=== PATIENT | male | born 1945 | race Caucasian/White ===

== ENCOUNTER 2020-01-31 17:22 | Inpatient (IN) | payer MEDICARE, SELFPAY ==
[2020-01-31] VITALS (9 sets, daily range): BP systolic 143–167; BP diastolic 72–79; PULSE 65–70; RESP 20–25; TEMP 36.4–37.1; O2SAT 94–98; BMI 44.3
--- NOTE | ~2020-01-31 | US_ITS ---
EXAMINATION: US venous doppler [facility] DATE: 02/01/2020 17:58 INDICATION: Lower limb swelling, shortness of breath TECHNIQUE: Fuentes scale images without and with compression and Doppler images of the bilateral lower e xtremity veins were obtained. COMPARISON: None FINDINGS: The right common femoral vein, profunda femoral vein, femoral vein, popliteal vein, peroneal trunk, p osterior tibial veins, and greater saphenous vein are patent. The left common femoral vein, profunda femoral vein, femoral vein, popliteal vein, peroneal trunk, po sterior tibial veins, and greater saphenous vein are patent. IMPRESSION: 1. Patent bilateral lower extremity veins. No evidence of deep venous thrombosis. Reviewed, dictated and finalized at location A. ER APPLICATOR IMPRESSION: 1. Patent bilateral lower extremity veins. No evidence of deep venous thrombosi s.
--- NOTE | ~2020-01-31 | XR_ITS ---
EXAMINATION: XR chest 1V portable INDICATION: Shortness of breath, cough, COVID 19 positive TECHNIQUE: Portable AP chest at 1820 hours COMPARISON: 04/29/2018 FINDINGS: Patchy bilateral airspace opacities are present. There is no pleural effusion or pneumothor ax. The cardiomediastinal silhouette is normal. IMPRESSION: 1. Patchy bilateral airspace opacities, consistent with pneumonia. Reviewed, dictated and finalized at location A. LE CONSULTANT
--- NOTE | ~2020-01-31 | XR_ITS ---
EXAMINATION: XR chest 1V portable DATE: 02/02/2020 10:19 INDICATION: COVID-19 pneumonia. TECHNIQUE: A single frontal view of the chest was obtained. COMPARISON: Chest single view 01/31/2020, CT abdomen and pelvis 07/22/2018 FINDINGS: There are patchy airspace opacities in all lung zones bilaterally. No pleural effusion or p neumothorax. The heart size is normal. IMPRESSION: 1. Stable diffuse lung disease, consistent with pneumonia. Reviewed, dictated and finalized at location B. AL OFFICE ASSISTANT
--- NOTE | ~2020-01-31 | XR_ITS ---
EXAMINATION: XR chest 1V portable DATE: 02/04/2020 06:00 INDICATION: COVID pneumonia TECHNIQUE: frontal view of the chest was obtained. COMPARISON: Chest radiograph dated 02/02/2020 FINDINGS: No significant interval change in patchy airspace opacities scattered throughout both lungs. No pleur al effusion or pneumothorax. The cardiomediastinal silhouette is normal. IMPRESSION: 1. Stable diffuse bilateral lung disease consistent with pneumonia. Reviewed, dictated and finalized at location A. HYSICAL LABORATORY CHIEF
--- NOTE | 2020-01-31 17:56 | ECG_ITS ---
Measurements Intervals [place] Rate: 69 P: 74 FL: 264 QRS: 30 QRSD: 92 T: 30 QT: 429 QTc: 462 Interpretive Statements SINUS RHYTHM WITH FIRST DEGREE AV BLOCK BASELINE WANDER- I, III ABNORMAL ECG Electronically Signed On 02-01-2020 6:56:59 WIRE SPLICER by Sanju Randolph D.O.
--- NOTE | 2020-01-31 17:57 | ED.GENADULT ---
HPI - General Adult General Chief complaint: Unspecified Stated complaint: COVID+ 12/3 SOB COUGH Time Seen by Provider: 01/31/20 17:40 Source: patient Mode of arrival: ambulatory Limitations: no limitations History of Present Illness HPI narrative: This is a 74 year old male that presents to the ER for shortness of breath x 4 days. Reports he was recently diagnosed with covid. Reports ongoing shortness of breath and cough. Denies fever, chest pain or lower extremity edema. Related Data Home Medications Medication Instructions Recorded Confirmed acetaminophen 500 mg tablet 1,000 mg PO Q6H PRN tablet 03/08/19 01/12/20 amlodipine 10 mg tablet 10 mg PO DAILY 03/08/19 01/12/20 apixaban 5 mg tablet 5 mg PO BID 03/08/19 01/12/20 aspirin 81 mg tablet,delayed 81 mg PO DAILY 03/08/19 01/12/20 release atorvastatin 20 mg tablet 20 mg PO DAILY 03/08/19 01/12/20 famotidine 20 mg tablet 20 mg PO DAILY 03/08/19 01/12/20 gabapentin 600 mg tablet 600 mg PO TID 03/08/19 01/12/20 nitroglycerin 0.6 mg sublingual 0.6 mg SUBLINGUAL Q5M PRN 03/08/19 01/12/20 tablet ramipril 10 mg capsule 10 mg PO DAILY 03/08/19 01/12/20 sotalol 80 mg tablet 80 mg PO BID tablet 03/08/19 01/12/20 furosemide [Lasix] 40 mg PO QAM 01/31/20 Allergies Allergy/AdvReac Type Severity Reaction Status Date / Time No Known Allergies Allergy Verified 01/31/20 17:48 Review of Systems Review of Systems: Narrative: CONSTITUTIONAL: Denies fever ENT: Reports congestion. Denies sore throat CARDIOVASCULAR: Denies chest pain, or edema. RESPIRATORY: Reports cough and dyspnea. All systems reviewed & are unremarkable except as noted in HPI and below PMFSH Past Medical History Medical History Atherosclerotic heart disease of [place] coronary artery without angina pectoris Chronic diastolic CHF (congestive heart failure) Chronic GERD COPD (chronic obstructive pulmonary disease) Hypertensive heart disease with heart failure HELLEN (obstructive sleep apnea) Paroxysmal A-fib Surgical History Surgical History History of cardiac radiofrequency ablation S/P coronary artery stent placement Family History Family History Sibling Hypertension Family history of coronary artery disease Asthma Social History Social History Social History: 3 cigars a week Years smoked: 10 Smoking status: Former smoker Tobacco type: cigars Second hand tobacco smoke exposure: No Smoking end date: 02/24/14 Alcohol intake: current Drinks per week: 3 Substance use: never Substance use type: does not use Gender identity (if verbalized by the patient): Male Exam Narrative: Exam Narrative: GENERAL: Well-appearing, obese, and in no acute distress. HEAD: Normocephalic, atraumatic. EYES: EOMI. ENT: Nares clear, no rhinorrhea or epistaxis. Mucous membranes moist. Oropharynx without tonsillar hypertrophy exudate or other lesions. Bilateral TMs pearly escalante non-bulging NECK: Supple. No adenopathy or masses. CHEST: Clear to auscultation. No respiratory distress. No wheezes rales or rhonchi HEART: Regular rate and rhythm. No murmur heard. Normal peripheral pulses. EXTREMITIES: Normal range of motion. No edema. SKIN: Warm, dry, no rash. NEURO: No focal deficits. Alert and oriented x3. PSYCH: Normal mood and affect Course Consultations Consultation #1: Spoke with hospitalist about patient and work-up who accepts admission Date: 01/31/20 Time: 19:51 Vital Signs Vital signs: Vital Signs Temperature 97.5 F L 01/31/20 17:42 Pulse Rate 68 01/31/20 17:42 Respiratory Rate 20 01/31/20 17:42 Pulse Oximetry 94 01/31/20 17:42 Temperature 98.7 F 01/31/20 19:27 Pulse Rate 65 01/31/20 19:27 Respiratory Rate 25 H 01/31/20 19:27 Blood Pressure 15
[2020-01-31 18:07] LABS: Basophils Percent Auto 0.4 % (0.2-1.2); Eosinophils Absolute Auto 0.1 K/mm3 (0-0.3); Eosinophils Percent Auto 0.6 % (0-4.4); Hematocrit 41.7 % (42.0-52.0); Immature Granulocyte Absolute 0.07 K/mm3 (0.00-0.031); Immature Granulocyte Percent A 0.9 % (0-0.5); Lymphocytes Percent Auto 13.9 % (18.3-44.2); Mean Corpuscular HGB Conc 33.6 g/dl (32-36); Mean Corpuscular Hemoglobin 30.4 pg (26-34); Mean Corpuscular Volume 90.5 fl (80-100); Monocytes Absolute Auto 0.6 K/mm3 (0.1-0.6); Neutrophils Percent Auto 76.2 % (45.5-73.1); Platelet Count Result 358 k/mm3 (150-375); Red Blood Count 4.61 M/mm3 (4.6-6.20); White Blood Count 7.9 K/mm3 (4.5-10.0)
[2020-01-31] MEDS: DEXAMETHASONE SOD PHOS INJ 4 MG/ML VIAL 6 MG IV PUSH (18:12)
[2020-01-31 18:19] LABS: Lactic Acid Reflex 1.1 mmol/L (0.7-2.1)
[2020-01-31 18:23] LABS: Alanine Aminotransferase 33 U/L (4-50); Albumin Level 4.3 g/dL (3.5-5.1); Alkaline Phosphatase 105 U/L (38-126); Anion Gap 9 mmol/L (8-16); Aspartate Amino Transferase 49 U/L (17-59); Bilirubin,Total 0.8 mg/dL (0.2-1.3); Blood Urea Nitrogen 24 mg/dL (9-20); Calcium 9.1 mg/dL (8.4-10.2); Carbon Dioxide 30 mmol/L (22-30); Chloride 99 mmol/L (98-107); Estimated CRCL calculation 78 ml/min; Estimated Glomerular Filt Rate > 60; Glucose 134 mg/dL (75-110); Lactate Dehydrogenase 711 U/L (313-618); Potassium 4.6 mmol/L (3.4-5.0); Sodium 138 mmol/L (137-145)
[2020-01-31 18:27] LABS: NT Pro B Type Natriuretic Pept 375 PG/ML (5-100)
[2020-01-31 18:29] LABS: Alveolar/Arterial O2 Gradient 75.6 mmHg; Base Excess ABG 2.6 mEq/l (+/-2.0); Carboxyhemoglobin 1.1 % THb (0-2.0); Fractional Inspired Oxygen 28 %; HCO3 ABG 28.3 mEq/l (22.0-26.0); Methemoglobin ABG 0.3 %THb (0-1.5); Oxygen Content ABG 17.8 %vol (16.0-22.0); Oxyhemoglobin 91.5 % THb (90.0-100.0); PCO2 ABG 48.2 mmHg (35.0-45.0); PO2 ABG 67.2 mmHg (80.0-100.0); Reduced Hemoglobin 7.1 %THb (0-5.0); Total Hemoglobin 13.8 g/dL (12.0-18.0); pH ABG 7.387 (7.350-7.450)
[2020-01-31 18:30] LABS: Device NASAL CANNULA; Modified Allen's Test Pass; Site Drawn RIGHT RADIAL
[2020-01-31 18:31] LABS: CRP 20.9 mg/dL (<1.0)
[2020-01-31 19:04] LABS: INR 1.5; Prothrombin Time 18.5 Seconds (11.1-14.7)
[2020-01-31 19:05] LABS: Partial Thromboplastin Time 51.3 SECONDS (22.3-36.8)
[2020-01-31 19:07] LABS: D Dimer 0.65 ug/mL (<0.48)
--- NOTE | 2020-01-31 19:09 | PC.NURSE ---
Report to AMARILIS Rosado, to continue care.
--- NOTE | 2020-01-31 19:12 | PC.NURSE ---
Assumed care of pt. report from AMARILIS Chaves
--- NOTE | 2020-01-31 20:00 | PC.NURSE ---
Called pharmacy for medication on pt. reports it is not ready yet.
--- NOTE | 2020-01-31 20:29 | PM.IMHP ---
H&P: HPI History of Present Illness Date/Time: 01/31/20 20:29 Chief complaint: Covidpneumonia,acute respiratory failure w hypoxia Narrative: This is a pleasant 74 year old male with known COPD, Chronic diastolic heart failure, CAD+, and paroxysmal atrial fibrillation on chronic Eliquis therapy presented to the hospital today with increased shortness of breath. He tested positive for COVID-19 approximately 4 days ago although he reports having COVID symptoms since . He reports having a sporadic poorly productive cough, shortness of breath, fatigue and malaise. He denies any fevers, chills, chest pain, palpitations, sore throat, nausea, vomiting, diarrhea, dysuria, or rectal bleeding. He has chronic lower extremity edema which hasn't changed recently. Today he decided to come in as he was having severe shortness of breath with minimal exertion. He has been taking his home medications as prescribed. In the ER tonight the patient was evaluated and ABG demonstrated hypoxemia. CXR demonstrated patchy bilateral airspace opacities, consistent with pneumonia. The patient has been treated with bronchodilators and steroid therapy. We have been asked to admit the patient to the hospital for further care. No other complaints. Review of Systems Review of Systems: All systems reviewed & are unremarkable except as noted in HPI and below PMFSH Past Medical History Medical History Atherosclerotic heart disease of [place] coronary artery without angina pectoris Chronic diastolic CHF (congestive heart failure) Chronic GERD COPD (chronic obstructive pulmonary disease) Hypertensive heart disease with heart failure HELLEN (obstructive sleep apnea) Paroxysmal A-fib Surgical History Surgical History History of cardiac radiofrequency ablation S/P coronary artery stent placement Family History Family History Sibling Hypertension Family history of coronary artery disease Asthma Social History Social History Social History: 3 cigars a week Years smoked: 10 Smoking status: Never smoker Tobacco type: cigars Second hand tobacco smoke exposure: No Smoking end date: 02/24/14 Alcohol intake: current Drinks per week: 2 Substance use: never Substance use type: does not use Gender identity (if verbalized by the patient): Male Spiritual care concerns: No Meds Home Medications and Allergies Home Medications Medication Instructions Recorded Confirmed Type acetaminophen 500 mg tablet 1,000 mg PO Q6H PRN tablet 03/08/19 01/31/20 History amlodipine 10 mg tablet 10 mg PO DAILY 03/08/19 01/31/20 History apixaban 5 mg tablet 5 mg PO BID 03/08/19 01/31/20 History aspirin 81 mg tablet,delayed 81 mg PO DAILY 03/08/19 01/31/20 History release atorvastatin 20 mg tablet 10 mg PO HS 03/08/19 01/31/20 History famotidine 20 mg tablet 20 mg PO HS 03/08/19 01/31/20 History gabapentin 600 mg tablet 600 mg PO TID 03/08/19 01/31/20 History nitroglycerin 0.6 mg sublingual 0.6 mg SUBLINGUAL Q5M PRN 03/08/19 01/31/20 History tablet ramipril 10 mg capsule 10 mg PO DAILY 03/08/19 01/31/20 History sotalol 80 mg tablet 80 mg PO BID tablet 03/08/19 01/31/20 History albuterol sulfate 90 mcg/actuation 1 puff INHALATION Q4-6H PRN 90 12/21/19 01/31/20 Rx aerosol inhaler Days #25.5 g etodolac 400 mg tablet,extended 400 mg PO DAILY #90 tablet 12/21/19 01/31/20 Rx release 24 hr azelastine 1 spray INTRANASAL HS 01/31/20 01/31/20 History fluticasone furoate-vilanterol 1 inh INHALATION HS 01/31/20 01/31/20 History [Breo Ellipta] furosemide [Lasix] 40 mg PO QAM 01/31/20 01/31/20 History Allergies Allergy/AdvReac Type Severity Reaction Status Date / Time No Known Allergies Allergy Verified 01/31/20 17:48
--- NOTE | 2020-01-31 20:35 | PC.NURSE ---
This patient, Vu Nicole, was admitted to 3 Med Surg Room 319-01. Patient/family oriented to hospital policies and general routines including ID bracelet, bed and alarms, visiting hours, pain management, procedures, bathroom and other care routines, personal items, smoking policy, room service/diet, and visiting hours. Information on how to activate the Rapid Response Team has been discussed. Patient/Family are encouraged to report perceived risks to care and to ask questions if they do not understand what they are told or what they should do.
[2020-01-31] MEDS: REMDESIVIR 200 MG/NS 250 ML 200 MG/250 ML BAG 250 MG IVPB (20:57)
[2020-02-01] VITALS (10 sets, daily range): BP systolic 121–145; BP diastolic 49–73; PULSE 66–80; RESP 18–20; TEMP 36.3–36.6; O2SAT 92–96
[2020-02-01] MEDS: ALBUTEROL SULFATE (*SP) AEROSOL 1 PUFF 2 PUFF INHALATION ×4 (01:45→22:41)
[2020-02-01 06:41] LABS: Basophils Percent Auto 0.2 % (0.2-1.2); Hematocrit 39.7 % (42.0-52.0); Hemoglobin 13.3 g/dL (14.0-18.0); Immature Granulocyte Absolute 0.03 K/mm3 (0.00-0.031); Immature Granulocyte Percent A 0.6 % (0-0.5); Lymphocytes Percent Auto 13.3 % (18.3-44.2); Mean Corpuscular HGB Conc 33.5 g/dl (32-36); Mean Corpuscular Volume 89.4 fl (80-100); Mean Platelet Volume 9.8 fl (7.4-10.4); Monocytes Absolute Auto 0.2 K/mm3 (0.1-0.6); Monocytes Percent Auto 4.4 % (2.6-8.5); Neutrophils Absolute Auto 4.3 K/mm3 (1.3-6.7); Neutrophils Percent Auto 81.5 % (45.5-73.1); Platelet Count Result 364 k/mm3 (150-375); Red Blood Count 4.44 M/mm3 (4.6-6.20); Red Cell Distribution Width 14.7 % (11.5-14.5); White Blood Count 5.3 K/mm3 (4.5-10.0)
[2020-02-01 06:54] LABS: Alanine Aminotransferase 31 U/L (4-50); Anion Gap 7 mmol/L (8-16); Blood Urea Nitrogen 21 mg/dL (9-20); Calcium 8.4 mg/dL (8.4-10.2); Carbon Dioxide 31 mmol/L (22-30); Chloride 100 mmol/L (98-107); Estimated CRCL calculation 97 ml/min; Estimated Glomerular Filt Rate > 60; Glucose 143 mg/dL (75-110); Potassium 4.4 mmol/L (3.4-5.0); Sodium 138 mmol/L (137-145)
[2020-02-01] MEDS: GABAPENTIN 300 MG CAPSULE 600 MG PO ×3 (08:05→16:44)
[2020-02-01] MEDS: FUROSEMIDE 40 MG TABLET PO (08:06)
[2020-02-01] MEDS: ETODOLAC 400 MG TABLET PO (08:06)
[2020-02-01] MEDS: ASPIRIN 81 MG ENTERIC TABLET PO (08:06)
[2020-02-01] MEDS: amLODIPine BESYLATE 5 MG TABLET 10 MG PO (08:06)
[2020-02-01] MEDS: DEXAMETHASONE SOD PHOS INJ 4 MG/ML VIAL 6 MG IV PUSH (08:07)
[2020-02-01] MEDS: SOTALOL HCL 80 MG TABLET PO ×2 (08:07→16:44)
[2020-02-01] MEDS: APIXABAN 5 MG TABLET PO ×2 (08:08→16:44)
--- NOTE | 2020-02-01 15:17 | PM.IMPN ---
Progress Note: A&P Assessment and Plan (1) Acute respiratory failure with hypoxia: Code(s): J96.01 - Acute respiratory failure with hypoxia Status: Acute Assessment and Plan: Admit to med-surg. Improving SpO2 100% on 3 L NC. Continue oxygen supplementation. Titrate as needed. Continuous pulse oximetry. Cardiac telemetry monitoring for first 24 hours was stable. Wean off of oxygen when possible. RT assess and treat. (2) Pneumonia due to COVID-19 virus: Code(s): U07.1 - COVID-19; J12.89 - Other viral pneumonia Status: Acute Assessment and Plan: Continue droplet isolation. blood and sputum cultures. Continue dexamethasone and supportive care. Continue IV Remdesvimir. Bronchodilators. Incentive spirometer. Already on Eliquis anticoagulation - continued. Daily serial LDH, CRP, CBC, CMP, Ferritin labs. Mucinex BID. (3) COPD (chronic obstructive pulmonary disease): Qualifiers: COPD type: unspecified COPD Qualified Code(s): J44.9 - Chronic obstructive pulmonary disease, unspecified Code(s): J44.9 - Chronic obstructive pulmonary disease, unspecified Status: Chronic Assessment and Plan: Continue respiratory therapy as delineated above. Sputum and blood cultures pending. Bronchodilators. Continue Azelastine for postnasal drip. (4) Chronic diastolic CHF (congestive heart failure): Code(s): I50.32 - Chronic diastolic (congestive) heart failure Status: Chronic Assessment and Plan: Monitor fluid status. Continue home medications. Continued home 40mg Lasix orally daily. Added one time dose 20mg Lasix IV today BASILIA hose stockings to BLE. Daily weights. (5) Paroxysmal A-fib: Code(s): I48.0 - Paroxysmal atrial fibrillation Status: Chronic Assessment and Plan: Currently rate controlled. Continue sotalol and Eliquis. Cardiac telemetry monitoring for first 24 hours was stable. HR 60s SBP 140s (6) Atherosclerotic heart disease of [place] coronary artery without angina pectoris: Qualifiers: [place] vs. transplanted heart: unspecified whether [place] or transplanted heart Qualified Code(s): I25.10 - Atherosclerotic heart disease of [place] coronary artery without angina pectoris Code(s): I25.10 - Atherosclerotic heart disease of [place] coronary artery without angina pectoris Status: Chronic Assessment and Plan: No chest pain. Continue CAD medications. Apixaban 5 mg BID continued. ASA 81 mg daily continued Atorvastatin 20mg daily continued. Nitro at home. (7) Mixed hyperlipidemia: Code(s): E78.2 - Mixed hyperlipidemia Status: Chronic Assessment and Plan: Continue atorvastatin PO. Ordered PT/OT. Additional Plan The patient will likely need at least 2 nights of inpatient medical therapy for his acute respiratory failure and pneumonia. Date of service was 01/31/2020 at 8 pm. Subjective Date/time seen: 02/01/20 15:17 Vu was sitting up in his recliner with both of his feet elevated, when I went to examine him. He has been on 3 L of oxygen all day. He does not use oxygen at home. He does have home inhaler medications on his home med list. Those have been continued at admission. He will receive his 2nd dose of antiviral IV medicine as well as his 2nd dose of dexamethasone. I have ordered PT and OT to evaluate home as well as incentive spirometry. His legs are very swollen today. I have ordered BLE DVT US. He did admit that typically he swims about an hour every day at the local indoor pool but he has not done that in about a month he said. He did receive his usual home dose of 40 mg Lasix orally this morning, but I ordered a one time 20 mg IV dose of Lasix to be given now. Review of Systems Review of Systems: All systems reviewed & are unremarkable except as noted in HPI and below Constitutional: Constitutional: Reports as per HPI, Denies excessive swea
[2020-02-01] MEDS: FUROSEMIDE INJ 40 MG/4 ML VIAL 20 MG IV PUSH (18:22)
[2020-02-01] MEDS: AZELASTINE HCL NASAL 0.1% 137 MCG/SPR 30 ML BTL 1 SPRAY NASAL (21:16)
[2020-02-01] MEDS: guaiFENesin 12 HR 600 MG TABCR 1200 MG PO (21:17)
[2020-02-01] MEDS: FAMOTIDINE 20 MG TABLET PO (21:17)
[2020-02-01] MEDS: ATORVASTATIN 10 MG TABLET PO (21:17)
[2020-02-01] MEDS: REMDESIVIR 100 MG/NS 250 ML 100 MG/250 ML BAG 250 MG IVPB (22:18)
[2020-02-02] VITALS (10 sets, daily range): BP systolic 127–144; BP diastolic 56–66; PULSE 58–68; RESP 16–20; TEMP 36.2–37; O2SAT 91–97
[2020-02-02] MEDS: ALBUTEROL SULFATE (*SP) AEROSOL 1 PUFF 2 PUFF INHALATION ×4 (02:51→21:30)
[2020-02-02 07:00] LABS: Hematocrit 38.5 % (42.0-52.0); Mean Corpuscular HGB Conc 33.8 g/dl (32-36); Mean Corpuscular Hemoglobin 30.2 pg (26-34); Mean Corpuscular Volume 89.5 fl (80-100); Mean Platelet Volume 9.8 fl (7.4-10.4); Platelet Count Result 388 k/mm3 (150-375); Red Cell Distribution Width 14.8 % (11.5-14.5); White Blood Count 10.1 K/mm3 (4.5-10.0)
[2020-02-02 07:14] LABS: Alanine Aminotransferase 33 U/L (4-50); Albumin Level 3.6 g/dL (3.5-5.1); Alkaline Phosphatase 83 U/L (38-126); Anion Gap 5 mmol/L (8-16); Aspartate Amino Transferase 42 U/L (17-59); Bilirubin,Total 0.5 mg/dL (0.2-1.3); Blood Urea Nitrogen 21 mg/dL (9-20); CRP 8.7 mg/dL (<1.0); Calcium 8.3 mg/dL (8.4-10.2); Carbon Dioxide 31 mmol/L (22-30); Chloride 101 mmol/L (98-107); Estimated CRCL calculation 97 ml/min; Estimated Glomerular Filt Rate > 60; Glucose 138 mg/dL (75-110); Lactate Dehydrogenase 677 U/L (313-618); Phosphorus 4.2 mg/dL (2.5-4.5); Potassium 4.4 mmol/L (3.4-5.0); Sodium 137 mmol/L (137-145)
[2020-02-02 07:20] LABS: NT Pro B Type Natriuretic Pept 494 PG/ML (5-100)
[2020-02-02] MEDS: guaiFENesin 12 HR 600 MG TABCR 1200 MG PO ×2 (08:12→21:29)
[2020-02-02] MEDS: ramipriL 5 MG CAPSULE 10 MG PO (08:12)
[2020-02-02] MEDS: ASPIRIN 81 MG ENTERIC TABLET PO (08:12)
[2020-02-02] MEDS: GABAPENTIN 300 MG CAPSULE 600 MG PO ×3 (08:12→18:04)
[2020-02-02] MEDS: DEXAMETHASONE SOD PHOS INJ 4 MG/ML VIAL 6 MG IV PUSH (08:13)
[2020-02-02] MEDS: APIXABAN 5 MG TABLET PO ×2 (08:13→18:05)
[2020-02-02] MEDS: amLODIPine BESYLATE 5 MG TABLET 10 MG PO (08:13)
[2020-02-02] MEDS: ETODOLAC 400 MG TABLET PO (08:13)
[2020-02-02] MEDS: FUROSEMIDE 40 MG TABLET PO (08:14)
[2020-02-02] MEDS: SOTALOL HCL 80 MG TABLET PO ×2 (08:14→18:05)
--- NOTE | 2020-02-02 11:02 | PM.IMPN ---
Progress Note: A&P Assessment and Plan (1) Acute respiratory failure with hypoxia: Code(s): J96.01 - Acute respiratory failure with hypoxia Status: Acute Assessment and Plan: Admit to med-surg. Continue oxygen supplementation. Continuous pulse oximetry. Wean off of oxygen when possible. RT assess and treat. (2) Pneumonia due to COVID-19 virus: Code(s): U07.1 - COVID-19; J12.89 - Other viral pneumonia Status: Acute Assessment and Plan: Continue droplet isolation. blood and sputum cultures. Continue dexamethasone and supportive care. Bronchodilators. ordered PT and OT remains on 3 L of nasal cannula oxygen. COVID test was positive and completed a few days prior to his hospital admission. now on day 2 of his antiviral IV Remdesivimir and oral dexamethasone. ordered incentive spirometer to be started today. no DVT found on his lower extremity ultrasound. Hilario hose stockings are on and his swelling is about half and much improved since yesterday. (3) COPD (chronic obstructive pulmonary disease): Qualifiers: COPD type: unspecified COPD Qualified Code(s): J44.9 - Chronic obstructive pulmonary disease, unspecified Code(s): J44.9 - Chronic obstructive pulmonary disease, unspecified Status: Chronic Assessment and Plan: Continue respiratory therapy as delineated above. (4) Chronic diastolic CHF (congestive heart failure): Code(s): I50.32 - Chronic diastolic (congestive) heart failure Status: Chronic Assessment and Plan: Monitor fluid status. Continue home medications. no DVT found on his lower extremity ultrasound. Hilario hose stockings are on and his swelling is about half and much improved since yesterday. (5) Paroxysmal A-fib: Code(s): I48.0 - Paroxysmal atrial fibrillation Status: Chronic Assessment and Plan: Currently rate controlled. Continue sotalol and Eliquis. (6) Atherosclerotic heart disease of [place] coronary artery without angina pectoris: Qualifiers: [place] vs. transplanted heart: unspecified whether [place] or transplanted heart Qualified Code(s): I25.10 - Atherosclerotic heart disease of [place] coronary artery without angina pectoris Code(s): I25.10 - Atherosclerotic heart disease of [place] coronary artery without angina pectoris Status: Chronic Assessment and Plan: No chest pain. Continue CAD medications. (7) Mixed hyperlipidemia: Code(s): E78.2 - Mixed hyperlipidemia Status: Chronic Assessment and Plan: Continue atorvastatin PO. Additional Plan The patient will likely need at least 2 nights of inpatient medical therapy for his acute respiratory failure and pneumonia. Date of service was 01/31/2020 at 8 pm. Subjective Date/time seen: rem 02/02/20 11:02 Patient was feeling better today. He was up in his recliner. He was requesting that nursing staff set him up to shave and complete yoana care. I have ordered PT and OT to assist him with that today as well. He remains on 3 L of nasal cannula oxygen. His COVID test was positive and completed a few days prior to his hospital admission. He is now on day 2 of his antiviral IV Remdesivimir and oral dexamethasone. I have ordered incentive spirometer to be started today. There was no DVT found on his lower extremity ultrasound. His Hilario hose stockings are on and his swelling is about half and much improved since yesterday. Review of Systems Review of Systems: All systems reviewed & are unremarkable except as noted in HPI and below Constitutional: Constitutional: Reports as per HPI, Denies excessive sweating, Denies headache(s), Denies increased appetite, Denies snoring and Denies weight gain Eyes: Eyes: Reports as per HPI, Denies exophthalmos, Denies diplopia, Denies floaters and Denies loss of peripheral vision ENT: Reports as per HPI, Denies facial pain, Denies headache(s), Jonathan
[2020-02-02] MEDS: FAMOTIDINE 20 MG TABLET PO (21:29)
[2020-02-02] MEDS: AZELASTINE HCL NASAL 0.1% 137 MCG/SPR 30 ML BTL 1 SPRAY NASAL (21:29)
[2020-02-02] MEDS: ATORVASTATIN 10 MG TABLET PO (21:29)
[2020-02-02] MEDS: REMDESIVIR 100 MG/NS 250 ML 100 MG/250 ML BAG 250 MG IVPB (21:30)
[2020-02-03] VITALS (9 sets, daily range): BP systolic 121–159; BP diastolic 59–77; PULSE 62–70; RESP 16–20; TEMP 36.3–36.9; O2SAT 91–98
[2020-02-03] MEDS: ALBUTEROL SULFATE (*SP) AEROSOL 1 PUFF 2 PUFF INHALATION ×4 (02:00→20:01)
[2020-02-03 06:45] LABS: Alanine Aminotransferase 31 U/L (4-50); Albumin Level 3.5 g/dL (3.5-5.1); Alkaline Phosphatase 82 U/L (38-126); Anion Gap 4 mmol/L (8-16); Aspartate Amino Transferase 32 U/L (17-59); Bilirubin,Total 0.5 mg/dL (0.2-1.3); Blood Urea Nitrogen 19 mg/dL (9-20); Calcium 8.4 mg/dL (8.4-10.2); Carbon Dioxide 34 mmol/L (22-30); Chloride 100 mmol/L (98-107); Estimated CRCL calculation 96 ml/min; Estimated Glomerular Filt Rate > 60; Glucose 128 mg/dL (75-110); Potassium 4.3 mmol/L (3.4-5.0); Sodium 138 mmol/L (137-145)
[2020-02-03 06:47] LABS: Lactate Dehydrogenase 591 U/L (313-618)
[2020-02-03 06:50] LABS: NT Pro B Type Natriuretic Pept 650 PG/ML (5-100)
[2020-02-03 06:52] LABS: Hematocrit 39.3 % (42.0-52.0); Mean Corpuscular HGB Conc 33.1 g/dl (32-36); Mean Corpuscular Volume 87.7 fl (80-100); Mean Platelet Volume 9.6 fl (7.4-10.4); Platelet Count Result 455 k/mm3 (150-375); Red Blood Count 4.48 M/mm3 (4.6-6.20); Red Cell Distribution Width 14.8 % (11.5-14.5); White Blood Count 11.6 K/mm3 (4.5-10.0)
[2020-02-03] MEDS: guaiFENesin 12 HR 600 MG TABCR 1200 MG PO ×2 (08:35→20:02)
[2020-02-03] MEDS: SOTALOL HCL 80 MG TABLET PO ×2 (08:35→16:54)
[2020-02-03] MEDS: DEXAMETHASONE SOD PHOS INJ 4 MG/ML VIAL 6 MG IV PUSH (08:35)
[2020-02-03] MEDS: GABAPENTIN 300 MG CAPSULE 600 MG PO ×3 (08:35→16:54)
[2020-02-03] MEDS: ASPIRIN 81 MG ENTERIC TABLET PO (08:36)
[2020-02-03] MEDS: ETODOLAC 400 MG TABLET PO (08:36)
[2020-02-03] MEDS: APIXABAN 5 MG TABLET PO ×2 (08:36→16:54)
[2020-02-03] MEDS: FUROSEMIDE 40 MG TABLET PO (08:36)
[2020-02-03] MEDS: amLODIPine BESYLATE 5 MG TABLET 10 MG PO (08:36)
[2020-02-03] MEDS: ramipriL 5 MG CAPSULE 10 MG PO (08:36)
[2020-02-03 18:27] LABS: Legionella pneumophila Ag Ur Not Detected (Not Detected); Pneumococcal Antigen Urine Not Detected (Not Detected)
--- NOTE | 2020-02-03 19:17 | PM.IMPN ---
Progress Note: A&P Assessment and Plan (1) Acute respiratory failure with hypoxia: Code(s): J96.01 - Acute respiratory failure with hypoxia Status: Acute Assessment and Plan: Admit to med-surg. Continue oxygen supplementation. Continuous pulse oximetry. Wean off of oxygen when possible - encouraged to start weaning O2 over today and tomorrow Home O2 study ordered. RT assess and treat. (2) Pneumonia due to COVID-19 virus: Code(s): U07.1 - COVID-19; J12.89 - Other viral pneumonia Status: Acute Assessment and Plan: Continue droplet isolation. blood and sputum cultures with no growth Ferritin levels improved 228 to 180; LDH now normal from 711 to 677 to 591 now; no antibiotics needed at this time as no evidence of secondary bacterial pneumonia sputum remains clear today per patient report CXR yesterday stable and perhaps slightly better. Continue dexamethasone and supportive care. WBC likely increasing due to steroids, WBC 5.3 and now up to 11.6; but no fevers noted. Bronchodilators. ordered PT and OT remains on 3 L of nasal cannula oxygen. COVID test was positive and completed a few days prior to his hospital admission. now on day 3 of his antiviral IV Remdesivimir and oral dexamethasone. incentive spirometer used regularly no DVT found on his lower extremity ultrasound. Hilario hose stockings are on and his swelling is much improved. (3) COPD (chronic obstructive pulmonary disease): Qualifiers: COPD type: unspecified COPD Qualified Code(s): J44.9 - Chronic obstructive pulmonary disease, unspecified Code(s): J44.9 - Chronic obstructive pulmonary disease, unspecified Status: Chronic Assessment and Plan: Continue respiratory therapy as delineated above. (4) Chronic diastolic CHF (congestive heart failure): Code(s): I50.32 - Chronic diastolic (congestive) heart failure Status: Chronic Assessment and Plan: Monitor fluid status. Continue home medications. no DVT found on his lower extremity ultrasound. Hilario hose stockings are on and his swelling is about half and much improved since yesterday. (5) Paroxysmal A-fib: Code(s): I48.0 - Paroxysmal atrial fibrillation Status: Chronic Assessment and Plan: Currently rate controlled. Continue sotalol and Eliquis. HR 63 and BP 146/71 (6) Atherosclerotic heart disease of [place] coronary artery without angina pectoris: Qualifiers: [place] vs. transplanted heart: unspecified whether [place] or transplanted heart Qualified Code(s): I25.10 - Atherosclerotic heart disease of [place] coronary artery without angina pectoris Code(s): I25.10 - Atherosclerotic heart disease of [place] coronary artery without angina pectoris Status: Chronic Assessment and Plan: No chest pain. Continue CAD medications. (7) Mixed hyperlipidemia: Code(s): E78.2 - Mixed hyperlipidemia Status: Chronic Assessment and Plan: Continue atorvastatin PO. Additional Plan The patient will likely need at least 2 nights of inpatient medical therapy for his acute respiratory failure and pneumonia. Date of service was 01/31/2020 at 8 pm. Subjective Date/time seen: 02/03/20 19:17 Vu was feeling better today. He still remains on 3 L of oxygen. But his saturations have been consistently high. I encouraged him to discuss weaning his oxygen with respiratory therapy and monitoring how he does with activity. Will order a home O2 study for tomorrow. He does not use oxygen at home, and is hoping he can get off of the oxygen by the time his IV antiviral dosing is done. His white count had gone up from 5 up to 11.6. Likely due to his steroid dosing. No fevers. He is feeling better, having less coughing, feeling like he can breathe just a little easier, and sputum has remained clear. Review of Systems Review of Systems: All systems reviewed & are unrem
[2020-02-03] MEDS: ATORVASTATIN 10 MG TABLET PO (20:02)
[2020-02-03] MEDS: AZELASTINE HCL NASAL 0.1% 137 MCG/SPR 30 ML BTL 1 SPRAY NASAL (20:02)
[2020-02-03] MEDS: FAMOTIDINE 20 MG TABLET PO (20:02)
[2020-02-03] MEDS: REMDESIVIR 100 MG/NS 250 ML 100 MG/250 ML BAG 250 MG IVPB (21:02)
[2020-02-04] VITALS (14 sets, daily range): BP systolic 125–145; BP diastolic 54–74; PULSE 58–81; RESP 18–20; TEMP 36.5–36.9; O2SAT 87–98
[2020-02-04] MEDS: ALBUTEROL SULFATE (*SP) AEROSOL 1 PUFF 2 PUFF INHALATION ×4 (02:30→21:28)
[2020-02-04 06:26] LABS: Hematocrit 38.5 % (42.0-52.0); Hemoglobin 12.9 g/dL (14.0-18.0); Mean Corpuscular HGB Conc 33.5 g/dl (32-36); Mean Corpuscular Hemoglobin 29.4 pg (26-34); Mean Corpuscular Volume 87.7 fl (80-100); Mean Platelet Volume 9.4 fl (7.4-10.4); Platelet Count Result 472 k/mm3 (150-375); Red Blood Count 4.39 M/mm3 (4.6-6.20); Red Cell Distribution Width 14.6 % (11.5-14.5); White Blood Count 10.1 K/mm3 (4.5-10.0)
[2020-02-04 06:43] LABS: Alanine Aminotransferase 38 U/L (4-50)
[2020-02-04] MEDS: amLODIPine BESYLATE 5 MG TABLET 10 MG PO (09:02)
[2020-02-04] MEDS: ETODOLAC 400 MG TABLET PO (09:03)
[2020-02-04] MEDS: SOTALOL HCL 80 MG TABLET PO ×2 (09:03→17:44)
[2020-02-04] MEDS: ramipriL 5 MG CAPSULE 10 MG PO (09:03)
[2020-02-04] MEDS: ASPIRIN 81 MG ENTERIC TABLET PO (09:04)
[2020-02-04] MEDS: FUROSEMIDE 40 MG TABLET PO (09:04)
[2020-02-04] MEDS: APIXABAN 5 MG TABLET PO ×2 (09:04→17:45)
[2020-02-04] MEDS: guaiFENesin 12 HR 600 MG TABCR 1200 MG PO ×2 (09:04→21:30)
[2020-02-04] MEDS: GABAPENTIN 300 MG CAPSULE 600 MG PO ×3 (09:04→17:44)
[2020-02-04] MEDS: DEXAMETHASONE SOD PHOS INJ 4 MG/ML VIAL 6 MG IV PUSH (09:04)
--- NOTE | 2020-02-04 10:55 | HOMEO2EVAL ---
Home Oxygen Evaluation RC: Home Oxygen (O2) Evaluation Start: 02/04/20 07:00 Freq: ONCE Status: Active Protocol: RPE Activity Type Activity Date Activity User E-Sign Co-Sign Detail Recorded Client Recorded Date Recorded By Document 02/04/20 10:00 [email or web address] [email or web address] 02/04/20 10:55 DJO Document 02/04/20 10:05 [email or web address] [email or web address] 02/04/20 10:55 DJO Document 02/04/20 10:10 [email or web address] [email or web address] 02/04/20 10:55 DJO Document 02/04/20 10:15 [email or web address] [email or web address] 02/04/20 10:55 DJO Document 02/04/20 10:25 [email or web address] [email or web address] 02/04/20 10:55 DJO 02/04/20 02/04/20 02/04/20 10:00 10:05 10:10 Home O2 Evaluation Test Phase Resting Resting Exercise Oxygen Delivery Room Air Nasal Cannula Nasal Cannula Oxygen Flow Rate (L/min) 1 1 Pulse Oximetry (90-100 %) 87 L 90 87 L Pulse Rate (60-100 beats/min) 64 61 78 Activity Tolerance Treatment Charges O2 Evaluation 02/04/20 02/04/20 10:15 10:25 Home O2 Evaluation Test Phase Exercise Resting Oxygen Delivery Nasal Cannula Nasal Cannula Oxygen Flow Rate (L/min) 2 1 Pulse Oximetry (90-100 %) 91 90 Pulse Rate (60-100 beats/min) 81 64 Activity Tolerance Good Treatment Charges
--- NOTE | 2020-02-04 16:06 | PCRCNOTE ---
HOME O2 EVAL COMPLETE, SET UP [facility] PT. TANK TO BE DELIVERED TODAY. PHONE NUMBER [phone]
[2020-02-04 17:22] LABS: NT Pro B Type Natriuretic Pept 391 PG/ML (5-100)
--- NOTE | 2020-02-04 17:45 | PM.IMPN ---
Progress Note: A&P Assessment and Plan (1) Pneumonia due to COVID-19 virus: Code(s): U07.1 - COVID-19; J12.89 - Other viral pneumonia Status: Acute Assessment and Plan: He has received 4 days of Remdesivir and 4 days of Decadron. His oxygen requirement has improved. If his condition continues to improve hopefully will be able to be discharged home in the next 24-48 hours. He is on airborne, contact and droplet isolation. Inflammatory markers have been improving. (2) Acute respiratory failure with hypoxia: Code(s): J96.01 - Acute respiratory failure with hypoxia Status: Acute Assessment and Plan: Patient's oxygen requirement has decreased. He is satting 96% on 1 L nasal cannula. (3) HELLEN (obstructive sleep apnea): Code(s): G47.33 - Obstructive sleep apnea (adult) (pediatric) Status: Acute Assessment and Plan: Patient has not been using his home CPAP while he has been in the hospital. He does have the CPAP available but he feels more comfortable on nasal cannula and has been sitting up to sleep. (4) Chronic diastolic CHF (congestive heart failure): Code(s): I50.32 - Chronic diastolic (congestive) heart failure Status: Chronic Assessment and Plan: Patient's BNP is stable. His lower extremity edema has improved. No evidence of acute CHF exacerbation. Continue to monitor fluid status. His cumulative fluid balance is positive 4.7 L but his symptoms of edema have improved in his BNP has improved. Subjective Date/time seen: 02/04/20 17:45 The patient is oxygen has been weaned down to 1 L nasal cannula and he is still satting 96%. He reports that he feels better than he did at admission. His swelling in his lower extremities has improved. He has had good urine output. He has been afebrile. Exam Narrative: Exam Narrative: PHYSICAL EXAM: WEIGHT 133.7 kg BMI 43.5 General: Morbidly obese, no acute distress HEENT: Nasal cannula in place, head normocephalic atraumatic Respiratory: Crackles right greater than left, no increased work of breathing Cardiovascular: Regular rate, regular rhythm, 2+ left radial pulse Gastrointestinal: Obese, nontender, positive bowel sounds Skin: No jaundice, no pallor Musculoskeletal: No clubbing, no cyanosis, 2+ pitting edema with Hilario hose in place Neurological: Alert, oriented, speech is clear Psychiatric: Appropriate mood and affect, pleasant and cooperative : Deferred Hematologic/lymphatic: No petechiae, no bruising Objective Data Vital Signs Vital Signs: Vital Signs - 24 hr 02/03/20 20:00 02/04/20 00:00 02/04/20 04:00 Temperature 98.2 F 98.3 F Pulse Rate 62 58 L Respiratory Rate 20 20 20 Blood Pressure 135/64 125/64 Pulse Oximetry 95 94 97 02/04/20 05:00 02/04/20 08:00 02/04/20 09:03 Temperature 98.2 F 98.5 F Pulse Rate 61 60 60 Respiratory Rate 20 18 Blood Pressure 136/74 138/64 Pulse Oximetry 96 98 02/04/20 10:00 02/04/20 10:05 02/04/20 10:10 Temperature Pulse Rate 64 61 78 Respiratory Rate Blood Pressure Pulse Oximetry 92 90 87 L 02/04/20 10:15 02/04/20 10:25 02/04/20 12:00 Temperature 97.8 F Pulse Rate 81 64 64 Respiratory Rate 18 Blood Pressure 134/54 L Pulse Oximetry 91 90 96 02/04/20 16:00 02/04/20 17:44 Temperature 97.7 F Pulse Rate 67 67 Respiratory Rate 18 Blood Pressure 134/56 L Pulse Oximetry 96 Intake/Output Intake/Output: Intake & Output 02/01/20 02/02/20 02/03/20 02/04/20 23:59 23:59 23:59 23:59 Intake Total 2040 4070 3870 2220 Output Total 700 1950 2700 2350 Balance 1340 2120 1170 -130 Meds/Results Medications: Active Medications Generic Name Dose Route Start Last Admin Trade Name Freq PRN Reason Stop Dose Admin Acetaminophen 1,000 mg 02/01/20 17:11 Acetaminophen 500 Mg Tablet PO Q6H PRN Pain or Fever Albuterol 2 puff 02/01/20 02:00 02/04/20 13:20 Albuterol Sulfate (*Sp) Aerosol 1 Puff I
[2020-02-04] MEDS: FAMOTIDINE 20 MG TABLET PO (21:29)
[2020-02-04] MEDS: AZELASTINE HCL NASAL 0.1% 137 MCG/SPR 30 ML BTL 1 SPRAY NASAL (21:29)
[2020-02-04] MEDS: ATORVASTATIN 10 MG TABLET PO (21:29)
[2020-02-04] MEDS: REMDESIVIR 100 MG/NS 250 ML 100 MG/250 ML BAG 250 MG IVPB (21:30)
[2020-02-05] VITALS (10 sets, daily range): BP systolic 129–148; BP diastolic 56–77; PULSE 57–62; RESP 16–20; TEMP 36.3–36.9; O2SAT 94–98
[2020-02-05] MEDS: ALBUTEROL SULFATE (*SP) AEROSOL 1 PUFF 2 PUFF INHALATION ×4 (02:00→20:39)
[2020-02-05 07:50] LABS: Hematocrit 43.3 % (42.0-52.0); Hemoglobin 14.4 g/dL (14.0-18.0); Mean Corpuscular HGB Conc 33.3 g/dl (32-36); Mean Corpuscular Hemoglobin 28.9 pg (26-34); Mean Corpuscular Volume 86.9 fl (80-100); Mean Platelet Volume 9.5 fl (7.4-10.4); Platelet Count Result 578 k/mm3 (150-375); Red Blood Count 4.98 M/mm3 (4.6-6.20); Red Cell Distribution Width 14.5 % (11.5-14.5)
[2020-02-05 08:18] LABS: Alanine Aminotransferase 38 U/L (4-50); Albumin Level 3.8 g/dL (3.5-5.1); Alkaline Phosphatase 82 U/L (38-126); Anion Gap 9 mmol/L (8-16); Aspartate Amino Transferase 31 U/L (17-59); Bilirubin,Total 0.6 mg/dL (0.2-1.3); Blood Urea Nitrogen 24 mg/dL (9-20); Calcium 8.5 mg/dL (8.4-10.2); Carbon Dioxide 31 mmol/L (22-30); Chloride 98 mmol/L (98-107); Estimated CRCL calculation 96 ml/min; Estimated Glomerular Filt Rate > 60; Glucose 111 mg/dL (75-110); Lactate Dehydrogenase 632 U/L (313-618); Potassium 4.4 mmol/L (3.4-5.0); Sodium 138 mmol/L (137-145)
[2020-02-05] MEDS: ETODOLAC 400 MG TABLET PO (08:56)
[2020-02-05] MEDS: ramipriL 5 MG CAPSULE 10 MG PO (08:56)
[2020-02-05] MEDS: ASPIRIN 81 MG ENTERIC TABLET PO (08:57)
[2020-02-05] MEDS: SOTALOL HCL 80 MG TABLET PO ×2 (08:57→16:28)
[2020-02-05] MEDS: FUROSEMIDE 40 MG TABLET PO (08:57)
[2020-02-05] MEDS: APIXABAN 5 MG TABLET PO ×2 (08:57→16:29)
[2020-02-05] MEDS: guaiFENesin 12 HR 600 MG TABCR 1200 MG PO ×2 (08:57→20:38)
[2020-02-05] MEDS: GABAPENTIN 300 MG CAPSULE 600 MG PO ×3 (08:58→16:28)
[2020-02-05] MEDS: amLODIPine BESYLATE 5 MG TABLET 10 MG PO (08:58)
[2020-02-05] MEDS: DEXAMETHASONE SOD PHOS INJ 4 MG/ML VIAL 6 MG IV PUSH (08:58)
--- NOTE | 2020-02-05 13:41 | PM.IMPN ---
Progress Note: A&P Assessment and Plan (1) Pneumonia due to COVID-19 virus: Code(s): U07.1 - COVID-19; J12.89 - Other viral pneumonia Status: Acute Assessment and Plan: He has received 4 days of Remdesivir and 4 days of Decadron. His oxygen requirement has improved. If his condition continues to improve hopefully will be able to be discharged home in the next 24-48 hours. He is on airborne, contact and droplet isolation. Inflammatory markers have been improving. (2) Acute respiratory failure with hypoxia: Code(s): J96.01 - Acute respiratory failure with hypoxia Status: Acute Assessment and Plan: Patient's oxygen requirement has decreased. He is satting 96% on 1 L nasal cannula. (3) HELLEN (obstructive sleep apnea): Code(s): G47.33 - Obstructive sleep apnea (adult) (pediatric) Status: Acute Assessment and Plan: Patient has not been using his home CPAP while he has been in the hospital. He does have the CPAP available but he feels more comfortable on nasal cannula and has been sitting up to sleep. (4) Chronic diastolic CHF (congestive heart failure): Code(s): I50.32 - Chronic diastolic (congestive) heart failure Status: Chronic Assessment and Plan: Patient's BNP is stable. His lower extremity edema has improved. No evidence of acute CHF exacerbation. Continue to monitor fluid status. His cumulative fluid balance is positive 4.7 L but his symptoms of edema have improved in his BNP has improved. Additional Plan The patient continue s to improve, will continue current treatment and if stays ok, will dc in am. Subjective Date/time seen: 02/05/20 13:41 Interval history: Patient was seen during the morning rounds today. Feeling slightly better, decreased sob,no chest pain, mood stable. Review of Systems Review of Systems: All systems reviewed & are unremarkable except as noted in HPI and below Constitutional: Constitutional: Reports as per HPI, Denies excessive sweating, Denies headache(s), Denies increased appetite, Denies snoring and Denies weight gain Eyes: Eyes: Reports as per HPI, Denies exophthalmos, Denies diplopia, Denies floaters and Denies loss of peripheral vision ENT: Reports as per HPI, Denies facial pain, Denies headache(s), Denies odynophagia and Denies tinnitus Cardiovascular: Cardiovascular: Reports as per HPI, Denies chest pain, Denies chest pain at rest, Denies chest pain with activity, Denies rapid heart rate, Reports pedal edema, Reports edema, Denies irregular heart rhythm, Denies claudication, Denies leg ulcers, Reports leg edema, Denies lightheadedness, Denies palpitations, Reports dyspnea, Reports dyspnea on exertion and Denies slow heart rate Respiratory: Respiratory: Reports as per HPI, Reports chest congestion, Reports cough, Denies hemoptysis, Denies pain with cough, Reports dyspnea, Reports dyspnea on exertion, Denies snoring and Denies wheezing Gastrointestinal: Gastrointestinal: Reports as per HPI, Denies abdominal pain, Denies belching, Denies melena, Denies change in bowel habits, Denies change in stool character, Denies diarrhea, Denies nausea, Denies odynophagia, Denies vomiting and Denies hematemesis Genitourinary: Genitourinary: Reports as per HPI, Denies hematuria and Denies dysuria Musculoskeletal: Musculoskeletal: Reports as per HPI, Denies abnormal gait and Reports stiffness Integumentary/Breasts: Skin/Breast: Reports as per HPI Neurologic: Reports as per HPI, Denies abnormal gait and Denies headache(s) Psychiatric: Psychiatric: Reports as per HPI Endocrine: Endocrine: Reports as per HPI, Denies excessive sweating and Denies palpitations Hematologic/Lymphatic: Hematologic/Lymphatic: Reports as per HPI Allergic/Immunologic: Allergic/Immunologic: Reports as per HPI and Denies wheezing Exam Narrative: Exam Narrative: PHYSICAL EXAM: WEIGHT 133.7 kg BMI 43.5 General: Morbidly obese, no acute distress HEENT: [place]
[2020-02-05] MEDS: FAMOTIDINE 20 MG TABLET PO (20:38)
[2020-02-05] MEDS: AZELASTINE HCL NASAL 0.1% 137 MCG/SPR 30 ML BTL 1 SPRAY NASAL (20:38)
[2020-02-05] MEDS: ATORVASTATIN 10 MG TABLET PO (20:38)
[2020-02-06] VITALS: BP 146/77; PULSE 57; RESP 20; TEMP 36.8; O2SAT 98
[2020-02-06] MEDS: ALBUTEROL SULFATE (*SP) AEROSOL 1 PUFF 2 PUFF INHALATION ×2 (02:09→09:05)
[2020-02-06 04:00] VITALS: BP 151/70; PULSE 87; RESP 20; TEMP 36.4; O2SAT 98
[2020-02-06 09:00] VITALS: O2SAT 98
[2020-02-06] MEDS: amLODIPine BESYLATE 5 MG TABLET 10 MG PO (09:03)
[2020-02-06] MEDS: GABAPENTIN 300 MG CAPSULE 600 MG PO (09:03)
[2020-02-06] MEDS: DEXAMETHASONE SOD PHOS INJ 4 MG/ML VIAL 6 MG IV PUSH (09:03)
[2020-02-06 09:04] VITALS: PULSE 87
[2020-02-06] MEDS: ETODOLAC 400 MG TABLET PO (09:04)
[2020-02-06] MEDS: ASPIRIN 81 MG ENTERIC TABLET PO (09:04)
[2020-02-06] MEDS: ramipriL 5 MG CAPSULE 10 MG PO (09:04)
[2020-02-06] MEDS: APIXABAN 5 MG TABLET PO (09:04)
[2020-02-06] MEDS: SOTALOL HCL 80 MG TABLET PO (09:04)
[2020-02-06] MEDS: FUROSEMIDE 40 MG TABLET PO (09:04)
[2020-02-06] MEDS: guaiFENesin 12 HR 600 MG TABCR 1200 MG PO (09:05)
--- NOTE | 2020-02-07 03:33 | DS_ITS ---
DATE OF DISCHARGE: 02/06/2020 ADMITTING DIAGNOSES: 1. Acute respiratory failure with hypoxia. 2. COVID pneumonia. 3. History of chronic obstructive pulmonary disease. 4. History of chronic diastolic heart failure. 5. History of paroxysmal atrial fibrillation. 6. History of coronary artery disease. FINAL DIAGNOSES: 1. Acute respiratory failure with hypoxia. 2. COVID pneumonia. 3. History of chronic obstructive pulmonary disease. 4. History of chronic diastolic heart failure. 5. History of paroxysmal atrial fibrillation. 6. History of coronary artery disease. The patient is 74 years old male, history of COPD, current diastolic heart failure, coronary artery disease, paroxysmal atrial fibrillation, on Eliquis, was admitted with shortness of breath. Patient's chest x-ray shows patient has COVID pneumonia. The patient's test was positive for COVID. The patient was given EXAMINATION FINDINGS: VITAL SIGNS: Blood pressure was 155/79, pulse rate 68, respiration rate 20, temperature 36.4, pulse ox of 94. LUNGS: Examination showed that the patient had decreased air entry in the lungs. Otherwise examination was normal. LABORATORY DATA: Showed WBC count of 7.9, hemoglobin 14.0, platelet count was 358. Sodium 138, potassium 4.6, BUN 24, creatinine 1.0. Chest x-ray shows pneumonia. The patient was given IV antibiotics and oxygen and steroids. After few days of treatment, the patient started feeling better. Today, the patient is feeling good, so the patient is discharged home in stable condition. The patient is advised to take a low-sodium, heart healthy diet. ACTIVITY: As tolerated. FOLLOWUP: With primary care physician outpatient in next week. CONDITION AT THE TIME OF DISCHARGE: Stable. MEDICATIONS: The patient will continue his home medications, 1. Albuterol inhaler 2 puffs q.6 hours p.r.n. 2. Acetaminophen (Tylenol) 1000 mg q.6 hours p.r.n. 3. Amlodipine 10 mg p.o. daily. 4. Aspirin 81 mg p.o. daily. 5. Atorvastatin 10 mg p.o. q.h.s. 6. Azelastine 1 inhaled spray intranasal everyday. 7. Breo Ellipta 1 inhalation every day. 8. Eliquis 5 mg p.o. daily. 9. Etodolac 400 mg p.o. daily as needed for pain. 10. Famotidine 20 mg p.o. daily. 11. Lasix 40 mg p.o. daily. 12. Gabapentin 600 mg p.o. t.i.d. 13. Nitroglycerin 0.6 mg sublingual as needed. 14. Ramipril 15 mg p.o. daily. 15. Sotalol 80 mg p.o. b.i.d. The patient is also advised to take a Medrol Dosepak and will take it as directed. The patient is also given doxycycline 100 mg p.o. b.i.d. for 7 days. D I MT: Noemi
== END 2020-02-06 10:27 | disposition home or self-care (01) | DRG 177 ==
LOC: ANHED 19:49 → ANH3MEDSUR 23:28
PROVIDERS: Internal Medicine; Physician Assistant; Admitting Provider Family Medicine; Emergency Provider Emergency Medicine; PCP Family Medicine; Visit Provider Nurse Practitioner
DX: U07.1 COVID-19 (principal); J12.89 Other viral pneumonia; J96.00 Acute respiratory failure, unspecified whether with hypoxia or hypercapnia; I50.32 Chronic diastolic (congestive) heart failure; I11.0 Hypertensive heart disease with heart failure; G47.33 Obstructive sleep apnea (adult) (pediatric); I48.0 Paroxysmal atrial fibrillation; J44.9 Chronic obstructive pulmonary disease, unspecified; E78.5 Hyperlipidemia, unspecified
CPT/HCPCS: 36415; 36600; 71045; 80048; 80053; 82375; 82728; 82805; 83050; 83605; 83615; 83880; 84100; 84460; 85025; 85027; 85380; 85610; 85730; 86140; 87040; 87070; 87205; 87449; 87899; 93005; 93970; 94618; 94640; 96374; 97110; 97116; 97161; 97165; 99291; A9270; J1100; J1940

== ENCOUNTER 2020-02-15 14:17 | Outpatient (CLI) | payer MEDICARE, SELFPAY ==
[2020-02-15 16:13] LABS: Alanine Aminotransferase 36 U/L (4-50); Albumin Level 3.9 g/dL (3.5-5.1); Alkaline Phosphatase 77 U/L (38-126); Anion Gap 9 mmol/L (8-16); Aspartate Amino Transferase 38 U/L (17-59); Bilirubin,Total 0.9 mg/dL (0.2-1.3); Blood Urea Nitrogen 33 mg/dL (9-20); Calcium 8.9 mg/dL (8.4-10.2); Carbon Dioxide 29 mmol/L (22-30); Chloride 98 mmol/L (98-107); Estimated Glomerular Filt Rate > 60; Glucose 110 mg/dL (75-110); Potassium 4.3 mmol/L (3.4-5.0); Sodium 136 mmol/L (137-145)
[2020-02-15 17:20] LABS: Folic Acid > 20.0 ng/mL (2.76->20)
== END 2020-02-15 14:18 | disposition home or self-care (01) ==
LOC: ANHLAB 14:19
PROVIDERS: PCP Family Medicine; Visit Provider Family Medicine
DX: R20.0 Anesthesia of skin (principal)
CPT/HCPCS: 36415; 80053; 82607; 82746

== ENCOUNTER 2020-12-20 07:40 | Outpatient (CLI) | payer MEDICARE, SELFPAY ==
--- NOTE | 2021-01-08 14:42 | WPDSLEEPSTUD ---
Sleep Study Date of Study: 12/20/20 <Madiha Saleh, DO - Last Filed: 01/08/21 15:20> Ordering Provider: Berlin Vizcarra APRN <Madiha Saleh, DO - Last Filed: 01/08/21 15:20> Interpreting Physician: Madiha Saleh DO <Madiha Saleh DO - Last Filed: 01/08/21 15:20> Sleep Study Type: Polysomnogram <Madiha Saleh DO - Last Filed: 01/08/21 15:20> Height: 1.75 m <Madiha Saleh DO - Last Filed: 01/08/21 15:20> Weight: 128.82 kg <Madiha Saleh DO - Last Filed: 01/08/21 15:20> Body Mass Index: 41.9 <Madiha Saleh DO - Last Filed: 01/08/21 15:20> Neck Circumference (inches): 19 <Madiha Saleh DO - Last Filed: 01/08/21 15:20> [place]: 16 <Madiha Saleh DO - Last Filed: 01/08/21 15:20> Reason for Sleep Study The patient was previously diagnosed with HELLEN. The patient needs a new machine and Medicare requires a new study. <Madiha Saleh, DO - Last Filed: 01/08/21 15:20> Sleep History The patient is a 75-year-old male with COPD, coronary artery disease, congestive heart failure, GERD, hypertension, paroxysmal AFib, and HELLEN that had a PSG ordered by the pulmonology group due to the patient needing a new machine. the patient occasionally awakens from sleep short of breath. He occasionally awakens at night with heartburn, belching or cough. He frequently snores and it is occasionally loud enough that others complain. He constantly has trouble sleeping when he has a cold. He occasionally wakes up gasping for air throughout the night. He frequently has breathing problems at night observed by others. He rarely notices heart palpitations or irregular heartbeats during the night. He frequently falls asleep during the day but never while driving. He denies sleep paralysis, cataplexy and hypnagogic / hypnopompic hallucinations he is currently retired. He is frequently afraid of going to sleep. He occasionally has nightmares. He occasionally has thoughts racing through his mind. He rarely feels sad or depressed. He occasionally has anxiety. He occasionally notices parts of his body jerk. He occasionally kicks during the night. He frequently experiences crawling and aching feelings in his legs. He frequently has leg pain during the night. He rarely grinds his teeth during sleep but occasionally awakens with jaw pain in the morning. He is frequently bothered by pain during the day and awakened by pain during the night. He occasionally wakes up feeling stiff in the morning with sore and achy muscles. He goes to bed at 11:00 p.m. on both weekdays and weekends. He takes him 15-20 minutes to fall asleep. He will wake up 3-4 times per night. When he awakens, he will change his position of fall back asleep within 5-10 minutes. He wakes up at 5:00 a.m. on both weekdays and weekends. He typically gets 5-6 hours of sleep per night. He will stay in bed 15-30 minutes after awakening in the morning. He is currently living with his . He denies consuming any caffeinated beverages within 2 hours of bedtime. He is not engaged in physical exercise before bedtime. He will watch television before falling asleep. He does take naps in the afternoon or evening. The patient quit smoking in 2003. He drinks 6-8 cups of caffeinated beverage per day. He drinks 2-4 oz per week. He denies recreational drug use. <Madiha Saleh DO - Last Filed: 01/08/21 15:20> [facility] Past Medical History Medical History: Medical History Atherosclerotic heart disease of [place] coronary artery without angina pectoris Chronic diastolic CHF (congestive heart failure) Chronic GERD COPD (chronic obstructive pulmonary disease) Hypertensive heart disease with heart failure HELLEN (obstructive sleep apnea) Paroxysmal A-fib Pneumonia due to COVID-19 virus <Madiha Saleh DO - Last File
[2021-01-08 14:47] VITALS: BMI 41.9
== END 2020-12-21 08:04 | disposition home or self-care (01) ==
LOC: ANHCSM 07:40
PROVIDERS: PCP Family Medicine; Visit Provider Nurse Practitioner Family
DX: G47.33 Obstructive sleep apnea (adult) (pediatric) (principal)
CPT/HCPCS: 95810

== ENCOUNTER 2021-02-01 07:39 | Outpatient (CLI) | payer MEDICARE, SELFPAY ==
--- NOTE | 2021-02-20 14:47 | WPDSLEEPSTUD ---
Sleep Study Date of Study: 02/01/21 <Madiha Saleh DO - Last Filed: 02/20/21 15:31> Ordering Provider: Berlin Vizcarra APRN <Madiha Saleh DO - Last Filed: 02/20/21 15:31> Interpreting Physician: Madiha aSleh DO <Madiha Saleh DO - Last Filed: 02/20/21 15:31> Sleep Study Type: CPAP Titration <Madiha Saleh DO - Last Filed: 02/20/21 15:31> Height: 1.75 m <Madiha Saleh DO - Last Filed: 02/20/21 15:31> Weight: 131.542 kg <Madiha Saleh DO - Last Filed: 02/20/21 15:31> Body Mass Index: 42.8 <Madiha Saleh DO - Last Filed: 02/20/21 15:31> Neck Circumference (inches): 19 <Madiha Saleh DO - Last Filed: 02/20/21 15:31> [place]: 12 <Madiha Saleh DO - Last Filed: 02/20/21 15:31> Reason for Sleep Study The patient was previously diagnosed with HELLEN. He had an HSAT on 12/20/20 that showed an AHI of 36.2. He was recommended to have a PAP Titration. <Madiha Saleh, DO - Last Filed: 02/20/21 15:31> Sleep History The patient is a 75-year-old male with COPD, coronary artery disease, congestive heart failure, GERD, hypertension, paroxysmal AFib, and HELLEN that had a PSG ordered by the pulmonology group due to the patient needing a new machine. the patient occasionally awakens from sleep short of breath. He occasionally awakens at night with heartburn, belching or cough. He frequently snores and it is occasionally loud enough that others complain. He constantly has trouble sleeping when he has a cold. He occasionally wakes up gasping for air throughout the night. He frequently has breathing problems at night observed by others. He rarely notices heart palpitations or irregular heartbeats during the night. He frequently falls asleep during the day but never while driving. He denies sleep paralysis, cataplexy and hypnagogic / hypnopompic hallucinations he is currently retired. He is frequently afraid of going to sleep. He occasionally has nightmares. He occasionally has thoughts racing through his mind. He rarely feels sad or depressed. He occasionally has anxiety. He occasionally notices parts of his body jerk. He occasionally kicks during the night. He frequently experiences crawling and aching feelings in his legs. He frequently has leg pain during the night. He rarely grinds his teeth during sleep but occasionally awakens with jaw pain in the morning. He is frequently bothered by pain during the day and awakened by pain during the night. He occasionally wakes up feeling stiff in the morning with sore and achy muscles. He goes to bed at 11:00 p.m. on both weekdays and weekends. He takes him 15-20 minutes to fall asleep. He will wake up 3-4 times per night. When he awakens, he will change his position of fall back asleep within 5-10 minutes. He wakes up at 5:00 a.m. on both weekdays and weekends. He typically gets 5-6 hours of sleep per night. He will stay in bed 15-30 minutes after awakening in the morning. He is currently living with his . He denies consuming any caffeinated beverages within 2 hours of bedtime. He is not engaged in physical exercise before bedtime. He will watch television before falling asleep. He does take naps in the afternoon or evening. The patient quit smoking in 2003. He drinks 6-8 cups of caffeinated beverage per day. He drinks 2-4 oz per week. He denies recreational drug use. <Madiha Saleh DO - Last Filed: 02/20/21 15:31> [facility] Past Medical History Medical History: Medical History Atherosclerotic heart disease of [place] coronary artery without angina pectoris Chronic diastolic CHF (congestive heart failure) Chronic GERD COPD (chronic obstructive pulmonary disease) Hypertensive heart disease with heart failure HELLEN (obstructive sleep apnea) Paroxysmal A-fib Pneumonia due to COVID-19 virus <
[2021-02-20 14:49] VITALS: BMI 42.8
== END 2021-02-02 06:22 | disposition home or self-care (01) ==
LOC: ANHCSM 07:39
PROVIDERS: PCP Family Medicine; Visit Provider Nurse Practitioner Family
DX: G47.33 Obstructive sleep apnea (adult) (pediatric) (principal)
CPT/HCPCS: 95811

== ENCOUNTER 2022-03-11 13:37 | Outpatient (CLI) | payer MEDICARE, SELFPAY ==
--- NOTE | ~2022-03-11 | US_ITS ---
EXAMINATION: US art doppler w press LE BI DATE: 03/11/2022 15:03 INDICATION: Peripheral vascular disease TECHNIQUE: Segmental pressures and plethysmographic and Doppler waveforms of the brachial and lower e xtremity arteries were obtained. COMPARISON: None. FINDINGS: Right and left brachial artery pressures of 177 mm Hg and 150 mm Hg, respectively, are concordant (no rmal difference <= 30 mmHg). The high-thigh pressure indices were unable be obtained due to stenting in the right lower limb and inability to occlude the arteries in the left thigh (normal > 1.2). The right ankle-brachial index (SERENITY) is 0.72 (normal >= 0.9-1). The right great toe-brachial index (T BI) is 0.34 (normal >= 0.6-0.8). A right dorsalis pedis arterial signal was unable to be identified. Arterial waveforms are biphasic with normal systolic upstrokes in the right common femoral, superfici al femoral, popliteal and posterior tibial arteries. The left SERENITY is 0.91 distal upon the pressure in the left posterior tibial artery with the left dorsa lis pedis artery unable to be occluded. The left TBI is 0.32. Arterial waveforms are biphasic with n ormal systolic upstrokes throughout the arteries of the left lower limb. IMPRESSION: 1. Peripheral vascular disease with moderately decreased bilateral toe brachial indices and moderatel y decreased right and borderline left ankle brachial indices. 2. A right dorsalis pedis arterial signal was unable to be identified. Reviewed, dictated and finalized at location A. TE AGENT IMPRESSION: 1. Peripheral vascular disease with moderately decreased bilateral toe brachial indices and moderately decreased right and borderline left ankle brachial zully luke. 2. A right dorsalis pedis arterial signal was unable to be identified.
== END 2022-03-11 13:38 | disposition home or self-care (01) ==
PROVIDERS: PCP Family Medicine; Visit Provider Student in an Organized Health Care Education/Training Program
DX: I73.9 Peripheral vascular disease, unspecified (principal)
CPT/HCPCS: 93923

== ENCOUNTER 2022-03-25 14:34 | Outpatient (CLI) | payer MEDICARE, SELFPAY ==
--- NOTE | ~2022-03-25 | XR_ITS ---
EXAMINATION: XR ankle LT min 3V DATE: 03/25/2022 15:01 INDICATION: Left ankle pain TECHNIQUE: Anteroposterior, lateral, mortise, and additional oblique view of the ankle were obtained. COMPARISON: None. FINDINGS: Soft tissue swelling surrounds the ankle. Bone alignment is normal. There is no fracture po sterior and plantar calcaneal enthesophytes are noted. There is calcified atherosclerosis. IMPRESSION: 1. Ankle soft tissue swelling without acute osseous abnormality. Reviewed, dictated and finalized at location B. MENT INSTALLER
--- NOTE | ~2022-03-25 | XR_ITS ---
EXAM: XR foot LT min 3V, XR ankle RT min 3V DATE: 03/25/2022 15:01 HISTORY: M25.571 - Pain in right ankle and joints of right ankle and foot . COMPARISON: None available. FINDINGS: Slightly decreased mineralization. No fracture or dislocation. No lytic or blastic lesion. Moderate hallux valgus and joint space narrowing at the first MTP joint. Mild degenerative change in the tibiotalar joint and midfoot joints. Moderate Achilles and plantar enthesopathy. Ill-defined ero wilber with early loss of the cortical line at the proximal and medial aspect of the proximal first pha parkinson. Large lucency/subsequent subchondral cyst in the medial aspect of the first metatarsal head. V ascular calcification. Forefoot soft tissue swelling. IMPRESSION: Cystic and erosive changes with joint space narrowing at the first MTP joint which may re present atypical degenerative, crystalline (such as gout), or septic arthritis with adjacent osteomye litis. Reviewed, dictated and finalized at location K. EM OPERATION SUPERINTENDENT IMPRESSION: Cystic and erosive changes with joint space narrowing at the first MTP joint which may represent atypical degenerative, crystalline (such as gout) , or septic arthritis with adjacent osteomyelitis.
== END 2022-03-25 14:35 | disposition home or self-care (01) ==
PROVIDERS: PCP Family Medicine; Visit Provider Physician Assistant
DX: M25.572 Pain in left ankle and joints of left foot (principal); M25.571 Pain in right ankle and joints of right foot; M79.675 Pain in left toe(s); M79.89 Other specified soft tissue disorders; M89.8X7 Other specified disorders of bone, ankle and foot
CPT/HCPCS: 73610; 73630

== ENCOUNTER 2022-05-27 08:41 | Outpatient (CLI) | payer MEDICARE, SELFPAY ==
--- NOTE | 2022-05-27 11:00 | NEURO_ITS ---
Impression: # Non-diabetic complains of numbness of legs. # Severe asymmetrical motor and sensory neuropathy. # Needle/EMG exam neurogenic changes noted although no active fibrillations. # Clinical correlation recommended. Motor Nerve Conduction Lower Extremities Peroneal Nerve Conduction Velocity (m/sec) Terminal Latency (msec) Response Voltage(mV) Popliteal space-Ankle Ankle Extensor Dig Brevis Popliteal space Ankle Right NR NR NR NR Left NR NR NR NR Tibial Nerve Conduction Velocity (m/sec) Terminal Latency (msec) Response Voltage(mV) Popliteal space-Ankle Ankle-Extensor Dig Brevis Popliteal space Ankle Right NR 5.1 NR 1 Left 38 5.2 1 1 F-waves Peroneal Nerve (ms) Tibial Nerve (ms) Right NR 59.2 Left NR Disp Resp Sensory Nerve Conduction Lower Extremities Sural Nerve Stimulation Terminal Latency (msec) Ankle Response Voltage (uV) Ankle Response Velocity (m/sec) Right NR NR NR Left 4.4 8 36 Superficial Peroneal Nerve Stimulation Terminal Latency (msec) Ankle Response Voltage (uV) Ankle Response Velocity (m/sec) Right NR NR NR Left 4.4 30 36 Left Right Muscles Examined Fibrillation Fasciculation Scarcity Voltage Duration Left Right Left Right Left Right Left Right Left Right X X Ant Tibialis X X Gastroc X X Fibularis Long X X Flex Dig Long X X Ext Dig Brev Abd Hallucis Quadriceps Paraspinals MTDD
== END 2022-05-27 08:42 | disposition home or self-care (01) ==
PROVIDERS: PCP Family Medicine; Visit Provider Psychiatry & Neurology Neurology
DX: G62.9 Polyneuropathy, unspecified (principal)
CPT/HCPCS: 95886; 95910

== ENCOUNTER 2022-07-18 08:04 | Outpatient (CLI) | payer MEDICARE, SELFPAY ==
[2022-07-18 08:52] LABS: Basophils Absolute Auto 0.1 K/mm3 (0.0-0.1); Basophils Percent Auto 0.8 % (0.2-1.2); Eosinophils Absolute Auto 0.1 K/mm3 (0-0.3); Eosinophils Percent Auto 1.3 % (0-4.4); Hematocrit 40.3 % (42.0-52.0); Hemoglobin 13.1 g/dL (14.0-18.0); Immature Granulocyte Absolute 0.04 K/mm3 (0.00-0.031); Immature Granulocyte Percent A 0.5 % (0-0.5); Lymphocytes Absolute Auto 1.91 K/mm3 (0.9-3.2); Lymphocytes Percent Auto 25.4 % (18.3-44.2); Mean Corpuscular HGB Conc 32.5 g/dl (32-36); Mean Corpuscular Hemoglobin 28.9 pg (26-34); Mean Corpuscular Volume 88.8 fl (80-100); Monocytes Absolute Auto 0.7 K/mm3 (0.1-0.6); Monocytes Percent Auto 8.8 % (2.6-8.5); Neutrophils Absolute Auto 4.8 K/mm3 (1.3-6.7); Neutrophils Percent Auto 63.2 % (45.5-73.1); Platelet Count Result 328 k/mm3 (150-375); Red Blood Count 4.54 M/mm3 (4.6-6.20); Red Cell Distribution Width 16.5 % (11.5-14.5); White Blood Count 7.5 K/mm3 (4.5-10.0)
[2022-07-18 09:03] LABS: Glucose Fasting 99 mg/dL
[2022-07-18 09:50] LABS: Alanine Aminotransferase 28 U/L (6-50); Albumin Level 4.5 g/dL (3.5-5.1); Alkaline Phosphatase 100 U/L (38-126); Anion Gap 8 mmol/L (8-16); Aspartate Amino Transferase 35 U/L (17-59); Blood Urea Nitrogen 17 mg/dL (9-20); Carbon Dioxide 30 mmol/L (22-30); Chloride 101 mmol/L (98-107); Estimated Glomerular Filt Rate > 60; Glucose 100 mg/dL (65-110); Sodium 139 mmol/L (137-145)
[2022-07-18 10:57] LABS: Folic Acid > 20.0 ng/mL (2.76->20)
[2022-07-18 11:03] LABS: Glucose 1 Hour 134 mg/dL
[2022-07-18 11:49] LABS: Glucose 2 Hour 136 mg/dL
[2022-07-25 11:07] LABS: Hematocrit 39.9 % (38.5-50.0); Hemoglobin 13.1 g/dL (13.2-17.1); MCH 29.1 pg (27.0-33.0); MCV 88.7 fL (80.0-100.0); RDW 15.3 % (11.0-15.0)
== END 2022-07-18 08:05 | disposition home or self-care (01) ==
PROVIDERS: PCP Family Medicine; Visit Provider Psychiatry & Neurology Neurology
DX: G62.9 Polyneuropathy, unspecified (principal)
CPT/HCPCS: 36415; 80053; 82607; 82746; 82951; 83021; 85025

== ENCOUNTER 2022-07-23 10:00 | Outpatient (CLI) | payer MEDICARE, SELFPAY ==
[2022-07-23 11:07] LABS: T4 Thyroxine 5.21 ug/dL (5.53-11.0)
== END 2022-07-23 10:01 | disposition home or self-care (01) ==
PROVIDERS: PCP Family Medicine; Visit Provider Psychiatry & Neurology Neurology
DX: E03.9 Hypothyroidism, unspecified (principal)
CPT/HCPCS: 36415; 84436

== ENCOUNTER 2022-12-09 08:21 | Inpatient (IN) | payer MEDICARE, SELFPAY ==
[2022-12-09] VITALS (14 sets, daily range): BP systolic 141–167; BP diastolic 66–79; PULSE 63–72; RESP 14–20; TEMP 36.8; O2SAT 94–100
--- NOTE | ~2022-12-09 | XR_ITS ---
XR chest 2V DATE: 12/09/2022 09:10 INDICATION: Shortness of breath. Leg swelling. TECHNIQUE: AP and lateral views COMPARISON: 02/04/2020 portable AP chest FINDINGS: Probable coronary artery stent. Borderline heart size. There is mild pulmonary vascular congestion and redistribution. Bernardo B-lines are identified suggest ing pulmonary interstitial edema. No pleural effusion or pulmonary consolidation is noted. Bilateral calcified pulmonary granulomas and calcified right hilar nodes, consistent with old pulmona ry granulomatous disease. Diffuse idiopathic skeletal hyperostosis of the thoracic spine. IMPRESSION: Mild congestive changes are suggested Reviewed, dictated and finalized at location B.
--- NOTE | ~2022-12-09 | US_ITS ---
EXAMINATION: US venous doppler LE RT DATE: 12/09/2022 10:38 INDICATION: Right lower limb swelling and erythema TECHNIQUE: Grayscale ultrasound images without and with compression and Doppler ultrasound images of the right lower extremity veins were obtained. COMPARISON: None. FINDINGS: The visualized portions of right common femoral vein, profunda (deep) femoral vein, femoral vein, pop liteal vein, peroneal trunk, posterior tibial veins, peroneal veins, gastrocnemius vein and greater s aphenous vein outflow are patent. IMPRESSION: 1. No deep venous thrombosis in the right lower limb. Reviewed, dictated and finalized at location A.
--- NOTE | 2022-12-09 08:29 | ECG_ITS ---
Measurements Intervals [place] Rate: 67 P: ND: 0 QRS: 39 QRSD: 101 T: 58 QT: 420 QTc: 443 Interpretive Statements ATRIAL FIBRILLATION LOW QRS VOLTAGE IN EXTREMITY LEADS [QRS DEFLECTION < 0.5 mV IN LIMB LEADS] ABNORMAL RHYTHM ECG COMPARED TO ECG 01/31/2020 17:42:17 ATRIAL FIBRILLATION NOW PRESENT Electronically Signed On 12-09-2022 16:59:47 CDT by Nikhil Huggins M.D.
[2022-12-09 09:00] LABS: Basophils Absolute Auto 0.1 K/mm3 (0.0-0.1); Basophils Percent Auto 0.7 % (0.2-1.2); Eosinophils Absolute Auto 0.2 K/mm3 (0-0.3); Hematocrit 40.8 % (42.0-52.0); Immature Granulocyte Absolute 0.03 K/mm3 (0.00-0.031); Immature Granulocyte Percent A 0.4 % (0-0.5); Lymphocytes Absolute Auto 2.67 K/mm3 (0.9-3.2); Lymphocytes Percent Auto 31.9 % (18.3-44.2); Mean Corpuscular HGB Conc 31.9 g/dl (32-36); Mean Corpuscular Hemoglobin 28.8 pg (26-34); Mean Corpuscular Volume 90.5 fl (80-100); Mean Platelet Volume 10.5 fl (7.4-10.4); Monocytes Absolute Auto 0.7 K/mm3 (0.1-0.6); Monocytes Percent Auto 8.4 % (2.6-8.5); Neutrophils Absolute Auto 4.7 K/mm3 (1.3-6.7); Neutrophils Percent Auto 56.6 % (45.5-73.1); Platelet Count Result 311 k/mm3 (150-375); Red Blood Count 4.51 M/mm3 (4.6-6.20); Red Cell Distribution Width 16.9 % (11.5-14.5); White Blood Count 8.4 K/mm3 (4.5-10.0)
[2022-12-09 09:09] LABS: Alanine Aminotransferase 24 U/L (6-50); Albumin Level 4.7 g/dL (3.5-5.1); Alkaline Phosphatase 115 U/L (38-126); Anion Gap 7 mmol/L (8-16); Aspartate Amino Transferase 30 U/L (17-59); Blood Urea Nitrogen 23 mg/dL (9-20); Calcium 9.1 mg/dL (8.4-10.2); Carbon Dioxide 28 mmol/L (22-30); Chloride 102 mmol/L (98-107); Estimated CRCL calculation 62 ml/min; Estimated Glomerular Filt Rate 59; Glucose 120 mg/dL (65-110); Potassium 4.5 mmol/L (3.4-5.0); Sodium 137 mmol/L (137-145)
[2022-12-09 09:16] LABS: INR 1.3; Prothrombin Time 16.7 Seconds (11.1-14.7)
[2022-12-09 09:17] LABS: Partial Thromboplastin Time 31.8 SECONDS (22.3-36.8)
[2022-12-09 09:20] LABS: NT Pro B Type Natriuretic Pept 716 pg/mL (19.9-100)
[2022-12-09 09:21] LABS: Troponin I < 0.012 ng/mL (0.000-0.034)
--- NOTE | 2022-12-09 12:47 | ED.GENADULT ---
HPI - General Adult General Chief complaint: Shortness of Breath/Dyspnea Stated complaint: sob Time Seen by Provider: 12/09/22 08:37 History of Present Illness HPI narrative: Patient is a 77-year-old male who presents ER with shortness of breath. Worsening over the last 3 days. Worse with exertion. No orthopnea. Reports increased swelling to the lower extremities over the last 2 weeks. He has been compliant with her medications. No chest pain or chest pressure. Denies fevers chills or sweats. No productive cough. Symptoms better with rest. Related Data Home Medications Medication Instructions Recorded Confirmed acetaminophen 500 mg tablet 1,000 mg PO Q6H PRN Pain (Scale 03/08/19 12/09/22 (Tylenol Extra Strength) Score 4-6) amlodipine 10 mg tablet 10 mg PO HS 03/08/19 12/09/22 apixaban 5 mg tablet (Eliquis) 5 mg PO BID 03/08/19 12/09/22 atorvastatin 20 mg tablet 10 mg PO HS 03/08/19 12/09/22 ramipril 10 mg capsule 10 mg PO DAILY 03/08/19 12/09/22 albuterol sulfate 90 mcg/actuation 2 puff inhalation QID PRN sob 12/09/22 12/09/22 aerosol inhaler azelastine 137 mcg (0.1 %) nasal 2 spray intranasal BID 12/09/22 12/09/22 spray aerosol fluticasone furoate 100 1 inh inhalation HS 12/09/22 12/09/22 mcg-vilanterol 25 mcg/dose inhalation powder (Breo Ellipta) furosemide 20 mg tablet (Lasix) 20 mg PO 1200 12/09/22 12/09/22 gabapentin 800 mg tablet 800 mg PO QID 12/09/22 12/09/22 Allergies Allergy/AdvReac Type Severity Reaction Status Date / Time No Known Allergies Allergy Verified 12/09/22 15:50 Review of Systems Review of Systems: All systems reviewed & are unremarkable except as noted in HPI and below Constitutional: Constitutional: Denies chills, Denies fatigue and Denies fever(s) ENT: Denies nasal congestion and Denies sore throat Cardiovascular: Cardiovascular: Denies chest pain, Reports rapid heart rate and Denies radiating jaw, neck or arm pain Respiratory: Respiratory: Denies cough, Reports dyspnea and Denies wheezing Musculoskeletal: Musculoskeletal: Denies myalgias, Denies arthralgias and Reports joint swelling Comments: Lower extremity swelling PMFSH Past Medical History Medical History (Updated 12/09/22 @ 17:26 by Savana Sprague PA-C) Atherosclerotic heart disease of [place] coronary artery without angina pectoris Chronic GERD Chronic obstructive pulmonary disease Diastolic congestive heart failure Hypertension Obstructive sleep apnea on CPAP Paroxysmal atrial fibrillation Paroxysmal atrial flutter Pneumonia due to COVID-19 virus Surgical History Surgical History (Updated 12/09/22 @ 17:23 by Savana Sprague PA-C) History of cardiac radiofrequency ablation History of coronary artery stent placement Family History Family History Sibling Hypertension Family history of coronary artery disease Asthma Social History Social History (Updated 12/09/22 @ 17:23 by Savana Sprague PA-C) Social History: Surrogate medical decision maker: Alda Corey, spouse. Code status: Full code. Years smoked: 10 Smoking status: Former smoker Tobacco type: cigars Second hand tobacco smoke exposure: No Alcohol intake: current Drinks per week: 1 Substance use: never Substance use type: former substance user Lack of Transportation: No Lack of Food: Never True Current Housing: I Have Housing Concerned About Future Housing: No Difficulty Paying Gas/Electric Bills: No Difficulty Paying for Meds: No Currently Unemployed: No Education: Bachelor's Degree Difficulty w/ Childcare or Family Care: No Living arrangements: with family Occupation/Education: retired Spiritual care concerns: No Exam Narrative: GENERAL: Well-appearing, well-nourished, and in no acute distress. HEAD: Normocephalic, atraumatic. EYES: PERRL and EOMI. ENT: Mucous membranes moist. CHEST: Clear to auscult
[2022-12-09] MEDS: FUROSEMIDE INJ 40 MG/4 ML VIAL IV PUSH ×2 (13:06→20:41)
--- NOTE | 2022-12-09 15:49 | ADMGEN ---
This patient, Vu Nicole, was admitted to 2 Medical Room 256-01. Patient/family oriented to hospital policies and general routines including ID bracelet, bed and alarms, visiting hours, pain management, procedures, bathroom and other care routines, personal items, smoking policy, room service/diet, and visiting hours. Information on how to activate the Rapid Response Team has been discussed. Patient/Family are encouraged to report perceived risks to care and to ask questions if they do not understand what they are told or what they should do.
--- NOTE | 2022-12-09 17:18 | PM.IMHP ---
H&P: HPI History of Present Illness Date/Time: 12/09/22 15:00 Chief Complaint: Shortness of breath and fluttering in chest. Narrative: This is a pleasant 77-year-old gentleman with obstructive sleep apnea on CPAP, hypertension, hyperlipidemia, diastolic dysfunction, pulmonary hypertension, and paroxysmal atrial fibrillation/flutter of presented to the emergency department via private vehicle from home for evaluation of shortness of breath and fluttering in the chest. The patient provides the following history. At baseline he is able to perform typical activities of daily living without issue however he will get a bit winded when going up a flight of steps. Over the last 1 to 2 weeks he has developed progressive dyspnea on lesser and lesser exertion and is now to the point where he will get short of breath from walking from the car into the hose or walking from 1 end of the home to the other. It seemed to be worse last night and he reports that he did not sleep well last evening though at that time he was feeling a fluttering in his chest. It sounds as though he has some mild orthopnea. He also reports an increase in his lower extremity edema, particularly on the right. He denies fever, chills, sweats, cold and flu symptoms, chest pain, nausea, and vomiting. In the ED: He was afebrile on arrival with stable vital signs. He is in atrial fibrillation, rate controlled. Chest x-ray showed mild congestive changes. Right lower extremity venous Doppler ultrasound was negative for DVT. Labs were significant for a hemoglobin of 13.0, BUN 23, creatinine 1.20, normal electrolytes, negative troponin and proBNP 716. He was given a dose of IV furosemide 40 mg x 1 and he is being admitted in this setting with acute on chronic CHF exacerbation. Review of Systems Review of Systems: Twelve systems were reviewed and are negative except for as per HPI. FOR[facility]LY [facility] Past Medical History Medical History (Updated 12/09/22 @ 21:01 by Savana Sprague PA-C) Atherosclerotic heart disease of [place] coronary artery without angina pectoris Chronic anticoagulation Chronic GERD Chronic obstructive pulmonary disease Diastolic congestive heart failure Hypertension Obstructive sleep apnea on CPAP Paroxysmal atrial fibrillation Paroxysmal atrial flutter Pneumonia due to COVID-19 virus Surgical History Surgical History (Updated 12/09/22 @ 17:23 by Savana Sprague PA-C) History of cardiac radiofrequency ablation History of coronary artery stent placement Family History Family History Sibling Hypertension Family history of coronary artery disease Asthma Social History Social History (Updated 12/09/22 @ 17:23 by Savana Sprague PA-C) Social History: Surrogate medical decision maker: Alda Nicole, spouse. Code status: Full code. Years smoked: 10 Smoking status: Former smoker Tobacco type: cigars Second hand tobacco smoke exposure: No Alcohol intake: current Drinks per week: 1 Substance use: never Substance use type: former substance user Lack of Transportation: No Lack of Food: Never True Current Housing: I Have Housing Concerned About Future Housing: No Difficulty Paying Gas/Electric Bills: No Difficulty Paying for Meds: No Currently Unemployed: No Education: Bachelor's Degree Difficulty w/ Childcare or Family Care: No Living arrangements: with family Occupation/Education: retired Spiritual care concerns: No Meds Home Medications and Allergies Home Medications Medication Instructions Recorded Confirmed Type acetaminophen 500 mg tablet 1,000 mg PO Q6H PRN Pain (Scale 03/08/19 12/09/22 History (Tylenol Extra Strength) Score 4-6) amlodipine 10 mg tablet 10 mg PO HS 03/08/19 12/09/22 History apixaban 5 mg tablet (Eliquis) 5 mg PO BID 03/08/19 12/09/22 History atorvastatin 20 mg tablet 10 mg PO HS 03/08/19 12/09/22 History ramipril 10 mg c
[2022-12-09] MEDS: APIXABAN 5 MG TABLET PO (20:35)
[2022-12-09] MEDS: GABAPENTIN 400 MG CAPSULE 800 MG PO (20:35)
[2022-12-09] MEDS: ATORVASTATIN 10 MG TABLET PO (20:35)
[2022-12-09] MEDS: amLODIPine BESYLATE 5 MG TABLET 10 MG PO (20:35)
[2022-12-09] MEDS: FLUTICASONE/SALMETEROL 115-21 MCG INHALER 1 PUFF 2 PUFF INHALATION (21:00)
[2022-12-10] VITALS (11 sets, daily range): BP systolic 120–128; BP diastolic 45–56; PULSE 66–77; RESP 18–20; TEMP 36.6–37.1; O2SAT 93–98
--- NOTE | 2022-12-10 | ECHO_ITS ---
Patient Info Name: Vu Nicole Age: 77 years : 1945 Gender: Male Ht: 69 in Wt: 293 lbs BSA: 2.61 m2 HR: 69 bpm BP: 128 / 45 mmHg Heart Rhythm: Atrial Fibrillation Technical Quality: Fair Exam Date: 12/10/2022 1:21 PM Exam Location: [facility] Patient Status: Outpatient Admit Date: 12/09/2022 Staff Ordering Physician: Lucy Siegel MD (britney/shawna) Burial Vault Maker: Cece Cummings RDCS Attending Provider: Iian Brunner MD Referring Physician: Robbin LOVE; Exam Type: CA echo dop color flow w con Study Info Indications - Heart failure Complete two-dimensional, color flow and Doppler transthoracic echocardiogram is performed with contrast to opacify the left ventricle and to improve the deliniation of the left ventricle endocardial borders. Contrast/Agitated Saline Contrast/Ag. Saline: Definity Amount: 3.00 ml Administered By: Cece Cummings RDCS Existing IV Access: Yes IV Access Condition: patent with no signs of infiltration Summary 1. Technically difficult study with limited views. Definity contrast administered. 2. Left ventricular chamber dimension is normal. 3. Left ventricular systolic function is normal, estimated at 65%. 4. There is mildly increased left ventricular wall thickness. 5. The left ventricular diastolic function is indeterminate. 6. Left atrial chamber dimension is moderately enlarged. 7. Right atrial chamber dimension is moderately enlarged. 8. There is mild to moderate aortic valve stenosis with a peak velocity of 282.06 cm/s, mean gradient of 15 mmHg, and aortic valve area of 1.28 cm2. 9. There is moderate tricuspid valve regurgitation. 10. Severe pulmonary hypertension, estimated pulmonary arterial systolic pressure is 64 mmHg. Left Ventricle Left ventricular chamber dimension is normal. Left ventricular systolic function is normal, estimated at 65%. There is mildly increased left ventricular wall thickness. The left ventricular diastolic function is indeterminate. Technically difficult study with limited views. Definity contrast administered. Right Ventricle Right ventricular chamber dimension is normal. Right ventricular systolic function is normal. Left Atria Left atrial chamber dimension is moderately enlarged. Right Atria Right atrial chamber dimension is moderately enlarged. Aortic Valve The aortic valve is not well visualized. There is mild to moderate aortic valve stenosis with a peak velocity of 282.06 cm/s, mean gradient of 15 mmHg, and aortic valve area of 1.28 cm2. There is no aortic valve regurgitation. Pulmonic Valve The pulmonic valve is normal. There is mild pulmonic regurgitation. Mitral Valve The mitral valve has thickened leaflets. There is trace mitral valve regurgitation. The mitral valve annulus is mildly calcified. Tricuspid Valve The tricuspid valve leaflets are normal. There is moderate tricuspid valve regurgitation. Severe pulmonary hypertension, estimated pulmonary arterial systolic pressure is 64 mmHg. Pericardium/Pleural The pericardium appears normal. There is no pericardial effusion. Aorta The aortic root size at the sinus of Valsalva is normal. The prox ascending aorta size is normal. There is moderate aortic atherosclerosis. Left Ventricular Outflow Tract Name Value Normal LVOT 2D
[2022-12-10 05:59] LABS: Hematocrit 38.6 % (42.0-52.0); Hemoglobin 12.2 g/dL (14.0-18.0); Mean Corpuscular HGB Conc 31.6 g/dl (32-36); Mean Corpuscular Hemoglobin 28.9 pg (26-34); Mean Corpuscular Volume 91.5 fl (80-100); Mean Platelet Volume 10.4 fl (7.4-10.4); Platelet Count Result 298 k/mm3 (150-375); Red Blood Count 4.22 M/mm3 (4.6-6.20); Red Cell Distribution Width 16.7 % (11.5-14.5); White Blood Count 8.1 K/mm3 (4.5-10.0)
[2022-12-10 06:13] LABS: Anion Gap 8 mmol/L (8-16); Blood Urea Nitrogen 19 mg/dL (9-20); Calcium 8.6 mg/dL (8.4-10.2); Carbon Dioxide 29 mmol/L (22-30); Chloride 100 mmol/L (98-107); Estimated CRCL calculation 68 ml/min; Estimated Glomerular Filt Rate > 60; Glucose 99 mg/dL (65-110); Magnesium 2.1 mg/dL (1.6-2.3); Potassium 3.7 mmol/L (3.4-5.0); Sodium 137 mmol/L (137-145)
[2022-12-10] MEDS: FLUTICASONE/SALMETEROL 115-21 MCG INHALER 1 PUFF 2 PUFF INHALATION ×2 (07:53→21:35)
[2022-12-10] MEDS: ramipriL 5 MG CAPSULE 10 MG PO (08:01)
[2022-12-10] MEDS: FUROSEMIDE INJ 40 MG/4 ML VIAL IV PUSH (08:01)
[2022-12-10] MEDS: GABAPENTIN 400 MG CAPSULE 800 MG PO ×4 (08:01→20:03)
[2022-12-10] MEDS: APIXABAN 5 MG TABLET PO ×2 (11:46→20:04)
--- NOTE | 2022-12-10 13:30 | PM.CNCAR ---
Assessment and Plan Assessment and plan (1) Acute on chronic diastolic congestive heart failure: Code(s): I50.33 - Acute on chronic diastolic (congestive) heart failure Status: Acute Assessment and Plan: Started on IV Lasix 40mg BID, reports that he had good urine output yesterday, but has not made much urine since getting his morning dose today. Given this, will give a one time dose of Metolazone now, increase Lasix to 80mg BID. Please monitor strict I/Os, electrolytes and renal function while diuresing. Last echo in 2019 with preserved LVEF, will obtain echocardiogram to re-evaluate. He does have R > L lower extremity edema. Lower extremity Doppler negative for DVT in right leg. His Amlodipine may be contributing to some of the swelling. Will see what his current LVEF is and consider switching the Amlodipine to another antihypertensive agent instead. (2) Paroxysmal atrial fibrillation: Code(s): I48.0 - Paroxysmal atrial fibrillation Status: Acute Assessment and Plan: Is in rate controlled AFIB right now. Continue Eliquis. Rate controlled without any rate controlling agents. Will monitor on tele for now. Patient asking me about undergoing another DCCV since he is in atrial fibrillation. I explained to the patient I would not recommend cardioversion while he is fluid overloaded at this time and no urgency to get him to sinus rhythm since he is rate controlled. Recommend EP follow up for long-term management of his atrial fibrillation (has seen [facility] in the past where he had his ablation). (3) Chronic anticoagulation: Code(s): Z79.01 - snf (current) use of anticoagulants Status: Acute Assessment and Plan: Continue Eliquis (4) Obstructive sleep apnea on CPAP: Code(s): G47.33 - Obstructive sleep apnea (adult) (pediatric) Status: Acute Assessment and Plan: CPAP at night (5) Hypertensive heart disease with heart failure: Code(s): I11.0 - Hypertensive heart disease with heart failure Status: Acute Assessment and Plan: Continue with antihypertensives, adjust as needed. Echo pending to re-evaluate LVEF. (6) Atherosclerotic heart disease of [place] coronary artery without angina pectoris: Qualifiers: [place] vs. transplanted heart: unspecified whether [place] or transplanted heart Qualified Code(s): I25.10 - Atherosclerotic heart disease of [place] coronary artery without angina pectoris Code(s): I25.10 - Atherosclerotic heart disease of [place] coronary artery without angina pectoris Status: Chronic Assessment and Plan: No angina. ASA, statin. (7) Mixed hyperlipidemia: Code(s): E78.2 - Mixed hyperlipidemia Status: Chronic Assessment and Plan: Continue statin, although I think he should be on a higher dose of statin given CAD, PAD. Can follow up with Dr. Martinez regarding this. (8) Peripheral vascular disease, unspecified: Code(s): I73.9 - Peripheral vascular disease, unspecified Status: Acute Assessment and Plan: Continue ASA, statin. History of Present Illness History of Present Illness Consult date/time: 12/10/22 13:30 Requesting physician: Vijaya Pinedo PA-C Consult reason: congestive heart failure Reason For Visit: CHF Exacerbation/Hypoxia Narrative: We are consulted for acute on chronic diastolic heart failure exacerbation. This is a 77 year old male who follows with Dr. Martinez. He has coronary artery disease s/p prior PCI, atrial fibrillation s/p DCCV and ablation in 2019, significant peripheral vascular disease with claudication with unsuccessful attempts at revascularization by vascular surgery, morbid obesity with BMI of 43. Patient presented with shortness of breath and lower extremity edema that has been going on for some time now. Patient states he takes Lasix 40mg tab in the AM and 20mg at lunch time. ER workup showed EKG with rate controll
[2022-12-10] MEDS: PERFLUTREN LIPID MICROSPHERES 1.5 ML VIAL DILUTED TO 10 ML TOTAL VOLUME IV PUSH (14:03)
[2022-12-10] MEDS: metOLazone 5 MG TABLET PO (14:08)
--- NOTE | 2022-12-10 15:05 | PM.IMPN ---
Progress Note: A&P Assessment and Plan (1) Acute on chronic diastolic congestive heart failure: Code(s): I50.33 - Acute on chronic diastolic (congestive) heart failure Status: Acute Assessment and Plan: Clinically he has evidence of congestive heart failure exacerbation with increasing lower extremity edema and shortness of breath on exertion. ProBNP is only mildly elevated Congestion on his chest x-ray. History of a flutter and sees Dr. Martinez Patient requesting cardiology consult. Found to be in atrial fibrillation in the ED and is rate controlled. Continue IV diuresis with furosemide 40 mg IV b.i.d. Daily weights, strict I&Os and BMP monitoring daily (2) Obstructive sleep apnea on CPAP: Code(s): G47.33 - Obstructive sleep apnea (adult) (pediatric) Status: Acute Assessment and Plan: CPAP will be provided for the patient to use while hospitalized. (3) Hypertension: Code(s): I10 - Essential (primary) hypertension Status: Acute Assessment and Plan: continue home medication. (4) Paroxysmal atrial fibrillation: Code(s): I48.0 - Paroxysmal atrial fibrillation Status: Acute Assessment and Plan: Currently rate controlled. Which he monitoring Continue apixaban for stroke prophylaxis. (5) Chronic obstructive pulmonary disease: Code(s): J44.9 - Chronic obstructive pulmonary disease, unspecified Status: Acute Assessment and Plan: No acute issues with regards to COPD. Subjective Date/time seen: 12/10/22 15:05 Interval history: Patient doing well today. States that he is breathing better and has no more shortness of breath at rest. Still gets some shortness of breath with ambulation although this seems to be chronic for him. He has been more edematous over the last couple days has +2 pitting edema from the knee down. He does endorse a dry cough that is new to him. He is not requiring any oxygen supplementation at this time. States he has been diagnosed with a flutter in the past but never AFib. He is requesting to be seen by Cardiology. Continue IV furosemide. Exam Narrative: GENERAL: Comfortable, no acute distress, morbid obesity HENMT: moist mucous membranes EYES: EOM intact b/l RESPIRATORY: Irregular rate irregular rhythm CARDIO: RRR GI: soft, nontender, bowel sounds present SKIN: no rashes EXTREMITIES: +2 pitting edema from the knee down, erythema on left lateral [place] (chronic), peripheral vascular disease Objective Data Vital Signs Vital Signs: Vital Signs - 24 hr 12/09/22 16:18 12/09/22 16:30 12/09/22 19:43 Temperature 98.3 F Pulse Rate 71 68 Respiratory Rate 18 Blood Pressure 154/68 H Pulse Oximetry 95 96 Oxygen Delivery Room Air 12/09/22 20:00 12/10/22 05:12 12/10/22 00:00 Temperature 98.1 F Pulse Rate 68 70 Respiratory Rate 18 Blood Pressure 128/45 L Pulse Oximetry 94 Oxygen Delivery Room Air 12/10/22 04:00 12/10/22 07:55 12/10/22 08:00 Temperature Pulse Rate 70 72 Respiratory Rate Blood Pressure Pulse Oximetry 93 Oxygen Delivery Room Air 12/10/22 08:00 12/10/22 12:00 12/10/22 14:40 Temperature 98 F Pulse Rate 69 66 Respiratory Rate 18 Blood Pressure 120/54 L Pulse Oximetry 93 97 Oxygen Delivery Room Air Intake/Output Intake/Output: Intake & Output 12/07/22 12/08/22 12/09/22 12/10/22 23:59 23:59 23:59 23:59 Intake Total 950 1260 Output Total 1507 1305 Balance -1779 -007 Meds/Results Medications: Active Medications Generic Name Dose Route Start Last Admin Trade Name Freq PRN Reason Stop Dose Admin Acetaminophen 650 mg 12/09/22 21:04 Acetaminophen 325 Mg Tablet PO Q6H PRN Mild Pain (1-3) or Fever Hydrocodone Bitart/Acetaminophen 1 tab 12/09/22 14:09 Hydrocodone/Acetaminophen (*Crx) 5-325 Mg Tablet PO Q4H PRN Pain Rated 4-6 Albuterol 2 puf
--- NOTE | 2022-12-10 16:26 | IVDEFINITY ---
Prior to administration of IV Definity the patient was educated on the risks and benefits of the imaging enhancing agent including potential adverse side effects. The patient verbalized understanding. Allergies were verified. No exclusion criteria were identified and at least one of the following inclusion criteria were met: 1) physician request, 2) patient technically difficult to image (per the [place] [employer] guidelines of two or more segments not discernable within the apical view), or 3) questionable left ventricular function. ?
[2022-12-10] MEDS: FUROSEMIDE INJ 40 MG/4 ML VIAL 80 MG IV PUSH (20:03)
[2022-12-10] MEDS: amLODIPine BESYLATE 5 MG TABLET 10 MG PO (20:04)
[2022-12-10] MEDS: ATORVASTATIN 10 MG TABLET PO (20:04)
[2022-12-10] MEDS: AZELASTINE HCL NASAL 0.1% 137 MCG/SPR 30 ML BTL 2 SPRAY NASAL (20:04)
[2022-12-11] VITALS (13 sets, daily range): BP systolic 111–141; BP diastolic 48–66; PULSE 70–80; RESP 16–20; TEMP 36.9–37.1; O2SAT 95–96
[2022-12-11 05:20] LABS: Basophils Absolute Auto 0.1 K/mm3 (0.0-0.1); Basophils Percent Auto 0.8 % (0.2-1.2); Eosinophils Absolute Auto 0.1 K/mm3 (0-0.3); Eosinophils Percent Auto 1.6 % (0-4.4); Hematocrit 39.7 % (42.0-52.0); Hemoglobin 12.9 g/dL (14.0-18.0); Immature Granulocyte Absolute 0.02 K/mm3 (0.00-0.031); Immature Granulocyte Percent A 0.2 % (0-0.5); Lymphocytes Absolute Auto 2.15 K/mm3 (0.9-3.2); Lymphocytes Percent Auto 25.3 % (18.3-44.2); Mean Corpuscular HGB Conc 32.5 g/dl (32-36); Mean Corpuscular Hemoglobin 28.8 pg (26-34); Mean Corpuscular Volume 88.6 fl (80-100); Mean Platelet Volume 10.3 fl (7.4-10.4); Monocytes Absolute Auto 0.9 K/mm3 (0.1-0.6); Neutrophils Absolute Auto 5.3 K/mm3 (1.3-6.7); Neutrophils Percent Auto 62.1 % (45.5-73.1); Platelet Count Result 314 k/mm3 (150-375); Red Blood Count 4.48 M/mm3 (4.6-6.20); Red Cell Distribution Width 16.7 % (11.5-14.5); White Blood Count 8.5 K/mm3 (4.5-10.0)
[2022-12-11 05:30] LABS: Alanine Aminotransferase 23 U/L (6-50); Albumin Level 4.3 g/dL (3.5-5.1); Alkaline Phosphatase 110 U/L (38-126); Anion Gap 7 mmol/L (8-16); Aspartate Amino Transferase 33 U/L (17-59); Bilirubin,Total 1.2 mg/dL (0.2-1.3); Blood Urea Nitrogen 23 mg/dL (9-20); Calcium 8.8 mg/dL (8.4-10.2); Carbon Dioxide 33 mmol/L (22-30); Chloride 94 mmol/L (98-107); Estimated CRCL calculation 58 ml/min; Estimated Glomerular Filt Rate 54; Glucose 114 mg/dL (65-110); Potassium 3.6 mmol/L (3.4-5.0); Sodium 134 mmol/L (137-145)
[2022-12-11] MEDS: ASPIRIN 81 MG ENTERIC TABLET PO (08:49)
[2022-12-11] MEDS: ramipriL 5 MG CAPSULE 10 MG PO (08:50)
[2022-12-11] MEDS: GABAPENTIN 400 MG CAPSULE 800 MG PO ×4 (08:50→20:01)
[2022-12-11] MEDS: AZELASTINE HCL NASAL 0.1% 137 MCG/SPR 30 ML BTL 2 SPRAY NASAL ×2 (08:50→20:00)
[2022-12-11] MEDS: FUROSEMIDE INJ 40 MG/4 ML VIAL 80 MG IV PUSH ×2 (08:50→16:47)
--- NOTE | 2022-12-11 09:16 | P.PNIM_ITS ---
Progress Note: A&P Assessment and Plan (1) Acute on chronic diastolic congestive heart failure: Code(s): I50.33 - Acute on chronic diastolic (congestive) heart failure Status: Acute Assessment and Plan: 12/10/22: * Clinically he has evidence of congestive heart failure exacerbation with increasing lower extremity edema and shortness of breath on exertion. * ProBNP is only mildly elevated * Congestion on his chest x-ray. * History of a flutter and sees Dr. Martinez * Patient requesting cardiology consult. * Found to be in atrial fibrillation in the ED and is rate controlled. * Continue IV diuresis with furosemide 40 mg IV b.i.d. * Daily weights, strict I&Os and BMP monitoring daily 12/11/2022: * cardiology following patient * continue with diuresis * continue with daily weights, strict I&O * patient down 2 lb day according to the document weight * patient is currently net -850 ml according to the documented I and O * monitor daily labs * echo obtained bone normal LV and RV function, ejection fraction 65% * venous Dopplers were negative (2) Obstructive sleep apnea on CPAP: Code(s): G47.33 - Obstructive sleep apnea (adult) (pediatric) Status: Acute Assessment and Plan: 12/10/2022: * CPAP will be provided for the patient to use while hospitalized. 12/11/2022: * no change to current treatment plan (3) Hypertension: Code(s): I10 - Essential (primary) hypertension Status: Acute Assessment and Plan: 12/10/2022: * continue home medication. 12/11/2022: * blood pressures ranging 111/48 to 141/66 * remains on home medication * continue diuresis per Cardiology standpoint (4) Paroxysmal atrial fibrillation: Code(s): I48.0 - Paroxysmal atrial fibrillation Status: Acute Assessment and Plan: 12/10/2022: * Currently rate controlled. * Which he monitoring * Continue apixaban for stroke prophylaxis. 12/11/22: * no change to current treatment plan Time Spent With Patient Time with patient: Greater than 35 minutes Subjective Date/time seen: 12/11/22 09:16 Interval history: This is a 77 year old male who presented to the ER on 12/09/22 with worsening shortness of breath and fluttering in his chest. He reported to have increased Bilateral lower extremity edema on evaluation. CXR revealed mild congestive changes and pro BNP was mildly elevated at 716. He was started on lasix for diuresis. Cardiology was consulted. ECHO this admission revealed normal LV and RV function, EF 65%. Venous dopplers negative for DVT. Patient was also found to be in A-fib, however rate controlled. 12/10/2022: Patient doing well today. States that he is breathing better and has no more shortness of breath at rest. Still gets some shortness of breath with ambulation although this seems to be chronic for him. He has been more edematous over the last couple days has +2 pitting edema from the knee down. He does endorse a dry cough that is new to him. He is not requiring any oxygen supplementation at this time. States he has been diagnosed with a flutter in the past but never AFib. He is requesting to be seen by Cardiology. Continue IV furosemide. 12/11/2022: patient doing well today. He states that his breathing is better however whenever working with therapy today did notice shortness of breath with exertion. He still has 2+ pitting edema to both lower extremities. Cardiology is following patient and continues diuresis. Patient currently on room air, vital signs stable, and afebri
--- NOTE | 2022-12-11 09:16 | PM.IMPN ---
Progress Note: A&P Assessment and Plan (1) Acute on chronic diastolic congestive heart failure: Code(s): I50.33 - Acute on chronic diastolic (congestive) heart failure Status: Acute Assessment and Plan: 12/10/22: Clinically he has evidence of congestive heart failure exacerbation with increasing lower extremity edema and shortness of breath on exertion. ProBNP is only mildly elevated Congestion on his chest x-ray. History of a flutter and sees Dr. Martinez Patient requesting cardiology consult. Found to be in atrial fibrillation in the ED and is rate controlled. Continue IV diuresis with furosemide 40 mg IV b.i.d. Daily weights, strict I&Os and BMP monitoring daily 12/11/2022: cardiology following patient continue with diuresis continue with daily weights, strict I&O patient down 2 lb day according to the document weight patient is currently net -850 ml according to the documented I and O monitor daily labs echo obtained bone normal LV and RV function, ejection fraction 65% venous Dopplers were negative (2) Obstructive sleep apnea on CPAP: Code(s): G47.33 - Obstructive sleep apnea (adult) (pediatric) Status: Acute Assessment and Plan: 12/10/2022: CPAP will be provided for the patient to use while hospitalized. 12/11/2022: no change to current treatment plan (3) Hypertension: Code(s): I10 - Essential (primary) hypertension Status: Acute Assessment and Plan: 12/10/2022: continue home medication. 12/11/2022: blood pressures ranging 111/48 to 141/66 remains on home medication continue diuresis per Cardiology standpoint (4) Paroxysmal atrial fibrillation: Code(s): I48.0 - Paroxysmal atrial fibrillation Status: Acute Assessment and Plan: 12/10/2022: Currently rate controlled. Which he monitoring Continue apixaban for stroke prophylaxis. 12/11/22: no change to current treatment plan Time Spent With Patient Time with patient: Greater than 35 minutes Subjective Date/time seen: 12/11/22 09:16 Interval history: This is a 77 year old male who presented to the ER on 12/09/22 with worsening shortness of breath and fluttering in his chest. He reported to have increased Bilateral lower extremity edema on evaluation. CXR revealed mild congestive changes and pro BNP was mildly elevated at 716. He was started on lasix for diuresis. Cardiology was consulted. ECHO this admission revealed normal LV and RV function, EF 65%. Venous dopplers negative for DVT. Patient was also found to be in A-fib, however rate controlled. 12/10/2022: Patient doing well today. States that he is breathing better and has no more shortness of breath at rest. Still gets some shortness of breath with ambulation although this seems to be chronic for him. He has been more edematous over the last couple days has +2 pitting edema from the knee down. He does endorse a dry cough that is new to him. He is not requiring any oxygen supplementation at this time. States he has been diagnosed with a flutter in the past but never AFib. He is requesting to be seen by Cardiology. Continue IV furosemide. 12/11/2022: patient doing well today. He states that his breathing is better however whenever working with therapy today did notice shortness of breath with exertion. He still has 2+ pitting edema to both lower extremities. Cardiology is following patient and continues diuresis. Patient currently on room air, vital signs stable, and afebrile. He denies any new events overnight. Review of Systems Review of Systems: Twelve systems were reviewed and are negative except for as per HPI. Constitutional: Constitutional: Reports as per HPI and Reports no additional constitutional complaints Eyes: Eyes: Reports as per HPI and Reports no additional eye complaints ENT: Reports system reviewed and no additional complaints, except
[2022-12-11] MEDS: FLUTICASONE/SALMETEROL 115-21 MCG INHALER 1 PUFF 2 PUFF INHALATION ×2 (09:29→20:48)
[2022-12-11] MEDS: APIXABAN 5 MG TABLET PO ×2 (12:02→20:03)
--- NOTE | 2022-12-11 17:30 | PM.PNCARD ---
Progress Note: A&P Assessment and Plan (1) Acute on chronic diastolic congestive heart failure: Code(s): I50.33 - Acute on chronic diastolic (congestive) heart failure Status: Acute Assessment and Plan: Patient remains volume overloaded.. Continue IV Lasix 80 mg IV twice daily. Accurate input and output daily weight. Discussed transitioning to oral Bumex as alternative to Lasix given his concerns when appropriate. Continue IV diuresis reassess in a.m.. Patient has [id number] aortic stenosis by echocardiogram. Echocardiogram Summary ? 1. Technically difficult study with limited views.? Definity contrast administered. ? 2. Left ventricular chamber dimension is normal. ? 3. Left ventricular systolic function is normal, estimated at 65%. ? 4. There is mildly increased left ventricular wall thickness. ? 5. The left ventricular diastolic function is indeterminate. ? 6. Left atrial chamber dimension is moderately enlarged. ? 7. Right atrial chamber dimension is moderately enlarged. ? 8. There is mild to moderate aortic valve stenosis with a peak velocity of 282.06 cm/s, mean gradient of 15 mmHg, and aortic valve area of 1.28 cm2. ? 9. There is moderate tricuspid valve regurgitation. ? 10. Severe pulmonary hypertension, estimated pulmonary arterial systolic pressure is 64 mmHg. (2) Paroxysmal atrial fibrillation: Code(s): I48.0 - Paroxysmal atrial fibrillation Status: Acute Assessment and Plan: Patient remains in atrial fibrillation heart rate controlled. He is not on AV kavitha blocking agents. Continue systemic anticoagulation with Eliquis 5 mg twice daily to reduce embolic stroke risk. Monitor for bleeding. Ambulate with caution. (3) HELLEN (obstructive sleep apnea): Code(s): G47.33 - Obstructive sleep apnea (adult) (pediatric) Status: Acute Assessment and Plan: CPAP. (4) Atherosclerotic heart disease of [place] coronary artery without angina pectoris: Qualifiers: [place] vs. transplanted heart: unspecified whether [place] or transplanted heart Qualified Code(s): I25.10 - Atherosclerotic heart disease of [place] coronary artery without angina pectoris Code(s): I25.10 - Atherosclerotic heart disease of [place] coronary artery without angina pectoris Status: Chronic Assessment and Plan: No anginal symptoms. Continue medical therapy with atorvastatin 10 mg at bedtime, aspirin 81 mg daily. 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 Monitor for bleeding. Follow H&H. (6) Pulmonary hypertension: Code(s): I27.20 - Pulmonary hypertension, unspecified Status: Acute Assessment and Plan: Chronic, severe unchanged overall. Subjective Date/time seen: Date of service: 12/11/22 17:30 Interval history: Follow-up for CHF, atrial fibrillation Patient states he is feeling better. Less short of breath with activity. His edema persists but is improving. He is more comfortable in states he is making quite a bit of urine. No chest pain or palpitations. We discussed results of his echocardiogram. All questions answered to his satisfaction. He was concerned about starting back on Lasix may goes home as he feels this did not work very well for him. Review of Systems Review of Systems: All other systems negative. Exam Narrative: General: Pleasant elderly male, obese, well developed, alert and oriented x3. No apparent distress, comfortable, pleasant, and cooperative. Head: atraumatic, normocephalic Eyes: EOM intact, sclerae anicteric, conjunctivae unremarkable Ears/Nose: external inspection of ears and nose were grossly normal Mouth/Throat: oral mucosa pink and moist Neck: supple, normal range of motion, no jugular venous distention or carotid bruits, thyroid nonpalpable, t
[2022-12-11] MEDS: amLODIPine BESYLATE 5 MG TABLET 10 MG PO (20:01)
[2022-12-11] MEDS: ATORVASTATIN 10 MG TABLET PO (20:01)
[2022-12-12] VITALS (12 sets, daily range): BP systolic 116–130; BP diastolic 41–66; PULSE 69–74; RESP 18–20; TEMP 36.4–36.9; O2SAT 90–97
[2022-12-12] MEDS: HYDROcodone/acetaminophen (*CRX) 5-325 MG TABLET 1 TAB PO ×3 (05:05→20:11)
[2022-12-12 05:14] LABS: Hematocrit 39.5 % (42.0-52.0); Hemoglobin 13.4 g/dL (14.0-18.0); Mean Corpuscular HGB Conc 33.9 g/dl (32-36); Mean Corpuscular Hemoglobin 30.1 pg (26-34); Mean Corpuscular Volume 88.8 fl (80-100); Mean Platelet Volume 10.1 fl (7.4-10.4); Platelet Count Result 329 k/mm3 (150-375); Red Blood Count 4.45 M/mm3 (4.6-6.20); Red Cell Distribution Width 16.4 % (11.5-14.5); White Blood Count 8.7 K/mm3 (4.5-10.0)
[2022-12-12 05:30] LABS: Anion Gap 9 mmol/L (8-16); Blood Urea Nitrogen 28 mg/dL (9-20); Calcium 8.7 mg/dL (8.4-10.2); Carbon Dioxide 32 mmol/L (22-30); Chloride 91 mmol/L (98-107); Estimated CRCL calculation 50 ml/min; Estimated Glomerular Filt Rate 45; Glucose 109 mg/dL (65-110); Potassium 3.7 mmol/L (3.4-5.0); Sodium 132 mmol/L (137-145)
[2022-12-12] MEDS: GABAPENTIN 400 MG CAPSULE 800 MG PO ×4 (08:57→20:08)
[2022-12-12] MEDS: ASPIRIN 81 MG ENTERIC TABLET PO (08:57)
[2022-12-12] MEDS: AZELASTINE HCL NASAL 0.1% 137 MCG/SPR 30 ML BTL 2 SPRAY NASAL ×2 (08:57→20:07)
[2022-12-12] MEDS: ramipriL 5 MG CAPSULE 10 MG PO (08:57)
[2022-12-12] MEDS: FLUTICASONE/SALMETEROL 115-21 MCG INHALER 1 PUFF 2 PUFF INHALATION ×2 (09:13→20:59)
[2022-12-12] MEDS: FUROSEMIDE INJ 40 MG/4 ML VIAL 80 MG IV PUSH ×2 (10:35→17:59)
--- NOTE | 2022-12-12 10:49 | P.PNIM_ITS ---
Progress Note: A&P Assessment and Plan (1) Acute on chronic diastolic congestive heart failure: Code(s): I50.33 - Acute on chronic diastolic (congestive) heart failure Status: Acute Assessment and Plan: 12/10/22: * Clinically he has evidence of congestive heart failure exacerbation with increasing lower extremity edema and shortness of breath on exertion. * ProBNP is only mildly elevated * Congestion on his chest x-ray. * History of a flutter and sees Dr. Martinez * Patient requesting cardiology consult. * Found to be in atrial fibrillation in the ED and is rate controlled. * Continue IV diuresis with furosemide 40 mg IV b.i.d. * Daily weights, strict I&Os and BMP monitoring daily 12/11/2022: * cardiology following patient * continue with diuresis * continue with daily weights, strict I&O * patient down 2 lb day according to the document weight * patient is currently net -850 ml according to the documented I and O * monitor daily labs * echo obtained bone normal LV and RV function, ejection fraction 65% * venous Dopplers were negative 12/12/22: * Continue with diuresis per Cardiology recommendation * Continue with daily weights, strict I&O * Patient is currently net-3.5 L according to the EMR, weight unchanged from yesterday * Monitor daily labs * PT and OT ordered (2) Obstructive sleep apnea on CPAP: Code(s): G47.33 - Obstructive sleep apnea (adult) (pediatric) Status: Acute Assessment and Plan: 12/10/2022: * CPAP will be provided for the patient to use while hospitalized. 12/11/2022: * no change to current treatment plan (3) Hypertension: Code(s): I10 - Essential (primary) hypertension Status: Acute Assessment and Plan: 12/10/2022: * continue home medication. 12/11/2022: * blood pressures ranging 111/48 to 141/66 * remains on home medication * continue diuresis per Cardiology standpoint 12/12/22: * No change to current treatment plan, blood pressure is well controlled (4) Paroxysmal atrial fibrillation: Code(s): I48.0 - Paroxysmal atrial fibrillation Status: Acute Assessment and Plan: 12/10/2022: * Currently rate controlled. * Which he monitoring * Continue apixaban for stroke prophylaxis. 12/11/22: * no change to current treatment plan Time Spent With Patient Time with patient: 25 - 35 minutes Subjective Date/time seen: 12/12/22 10:49 Interval history: [facility] [address] [place] [id number] Hospitalist Progress Note Signed Interval history: This is a 77 year old male who presented to the ER on 12/09/22? with worsening shortness of breath and fluttering in his chest. He reported to have increased Bilateral lower extremity edema on evaluation. CXR revealed mild congestive changes and pro BNP was mildly elevated at 716. He was started on lasix for diuresis. Cardiology was consulted. ECHO this admission revealed normal LV and RV function, EF 65%. Venous dopplers negative for DVT. Patient was also found to be in A-fib, however rate controlled.? 12/10/2022: Patient doing well today.? States that he is breathing better and has no more shortness of breath at rest.? Still gets some shortness of breath with ambu lation although this seems to be chronic for him.? He has been more edematous over the last couple days has +2 pi
--- NOTE | 2022-12-12 10:49 | PM.IMPN ---
Progress Note: A&P Assessment and Plan (1) Acute on chronic diastolic congestive heart failure: Code(s): I50.33 - Acute on chronic diastolic (congestive) heart failure Status: Acute Assessment and Plan: 12/10/22: Clinically he has evidence of congestive heart failure exacerbation with increasing lower extremity edema and shortness of breath on exertion. ProBNP is only mildly elevated Congestion on his chest x-ray. History of a flutter and sees Dr. Martinez Patient requesting cardiology consult. Found to be in atrial fibrillation in the ED and is rate controlled. Continue IV diuresis with furosemide 40 mg IV b.i.d. Daily weights, strict I&Os and BMP monitoring daily 12/11/2022: cardiology following patient continue with diuresis continue with daily weights, strict I&O patient down 2 lb day according to the document weight patient is currently net -850 ml according to the documented I and O monitor daily labs echo obtained bone normal LV and RV function, ejection fraction 65% venous Dopplers were negative 12/12/22: Continue with diuresis per Cardiology recommendation Continue with daily weights, strict I&O Patient is currently net-3.5 L according to the EMR, weight unchanged from yesterday Monitor daily labs PT and OT ordered (2) Obstructive sleep apnea on CPAP: Code(s): G47.33 - Obstructive sleep apnea (adult) (pediatric) Status: Acute Assessment and Plan: 12/10/2022: CPAP will be provided for the patient to use while hospitalized. 12/11/2022: no change to current treatment plan (3) Hypertension: Code(s): I10 - Essential (primary) hypertension Status: Acute Assessment and Plan: 12/10/2022: continue home medication. 12/11/2022: blood pressures ranging 111/48 to 141/66 remains on home medication continue diuresis per Cardiology standpoint 12/12/22: No change to current treatment plan, blood pressure is well controlled (4) Paroxysmal atrial fibrillation: Code(s): I48.0 - Paroxysmal atrial fibrillation Status: Acute Assessment and Plan: 12/10/2022: Currently rate controlled. Which he monitoring Continue apixaban for stroke prophylaxis. 12/11/22: no change to current treatment plan Time Spent With Patient Time with patient: 25 - 35 minutes Subjective Date/time seen: 12/12/22 10:49 Interval history: [facility] [address] [place] [address] Hospitalist Progress Note Signed Interval history: This is a 77 year old male who presented to the ER on 12/09/22? with worsening shortness of breath and fluttering in his chest. He reported to have increased Bilateral lower extremity edema on evaluation. CXR revealed mild congestive changes and pro BNP was mildly elevated at 716. He was started on lasix for diuresis. Cardiology was consulted. ECHO this admission revealed normal LV and RV function, EF 65%. Venous dopplers negative for DVT. Patient was also found to be in A-fib, however rate controlled.? 12/10/2022: Patient doing well today.? States that he is breathing better and has no more shortness of breath at rest.? Still gets some shortness of breath with ambulation although this seems to be chronic for him.? He has been more edematous over the last couple days has +2 pitting edema from the knee down.? He does endorse a dry cough that is new to him.? He is not requiring any oxygen supplementation at this time.? States he has been diagnosed with a flutter in the past but never AFib.? He is requesting to be seen by Cardiology.? Continue IV furosemide. 12/11/2022: ?patient doing well today.? He states that his breathing is better however whenever working with therapy today did notice shortness of breath with exertion.? He still has 2+ pitting edema to both lower extremities.? Cardiology is following patient and continues diuresis. Patient currently on room air, vit
--- NOTE | 2022-12-12 11:15 | PM.PNCARD ---
Progress Note: A&P Assessment and Plan (1) Acute on chronic diastolic congestive heart failure: Code(s): I50.33 - Acute on chronic diastolic (congestive) heart failure <ALEXANDRA Lopez - Last Filed: 12/12/22 16:16> Status: Acute <ALEXANDRA Lopez - Last Filed: 12/12/22 16:16> Assessment and Plan: Patient remains volume overloaded, but improving. Continue IV Lasix 80 mg IV twice daily. BUN/Cr increased today, so may need to shift to p.o. soon. Accurate intake and output daily standing weight BASILIA hose fluid restriction Echocardiogram Summary ? 1. Technically difficult study with limited views.? Definity contrast administered. ? 2. Left ventricular chamber dimension is normal. ? 3. Left ventricular systolic function is normal, estimated at 65%. ? 4. There is mildly increased left ventricular wall thickness. ? 5. The left ventricular diastolic function is indeterminate. ? 6. Left atrial chamber dimension is moderately enlarged. ? 7. Right atrial chamber dimension is moderately enlarged. ? 8. There is mild to moderate aortic valve stenosis with a peak velocity of 282.06 cm/s, mean gradient of 15 mmHg, and aortic valve area of 1.28 cm2. ? 9. There is moderate tricuspid valve regurgitation. ? 10. Severe pulmonary hypertension, estimated pulmonary arterial systolic pressure is 64 mmHg. <ALEXANDRA Lopez - Last Filed: 12/12/22 16:16> (2) Paroxysmal atrial fibrillation: Code(s): I48.0 - Paroxysmal atrial fibrillation <ALEXANDRA Lopez - Last Filed: 12/12/22 16:16> Status: Acute <ALEXANDRA Lopez - Last Filed: 12/12/22 16:16> Assessment and Plan: Patient remains in atrial fibrillation heart rate controlled. He is not on AV kavitha blocking agents. Continue systemic anticoagulation with Eliquis 5 mg twice daily to reduce embolic stroke risk. Monitor for bleeding. Ambulate with caution. <ALEXANDRA Lopez - Last Filed: 12/12/22 16:16> (3) HELLEN (obstructive sleep apnea): Code(s): G47.33 - Obstructive sleep apnea (adult) (pediatric) <ALEXANDRA Lopez - Last Filed: 12/12/22 16:16> Status: Acute <ALEXANDRA Lopez - Last Filed: 12/12/22 16:16> Assessment and Plan: CPAP. <ALEXANDRA Lopez - Last Filed: 12/12/22 16:16> (4) Atherosclerotic heart disease of [place] coronary artery without angina pectoris: Qualifiers: [place] vs. transplanted heart: unspecified whether [place] or transplanted heart Qualified Code(s): I25.10 - Atherosclerotic heart disease of [place] coronary artery without angina pectoris <ALEXANDRA Lopez - Last Filed: 12/12/22 16:16> Code(s): I25.10 - Atherosclerotic heart disease of [place] coronary artery without angina pectoris <ALEXANDRA Lopez - Last Filed: 12/12/22 16:16> Status: Chronic <ALEXANDRA Lopez - Last Filed: 12/12/22 16:16> Assessment and Plan: No anginal symptoms. Continue medical therapy with atorvastatin 10 mg at bedtime, aspirin 81 mg daily. 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 Monitor for bleeding. Follow H&H. <ALEXANDRA Lopez - Last Filed: 12/12/22 16:16> (6) Pulmonary hypertension: Code(s): I27.20 - Pulmonary hypertension, unspecified <ALEXANDRA Lopez - Last Filed: 12/12/22 16:16> Status: Acute <ALEXANDRA Lopez - Last Filed: 12/12/22 16:16> Assessment and Plan: Chronic, severe unchanged overall. <Randi Chicas APN-C - Last Filed: 12/12/22 16:16> Assessment and Plan: Attending addendum: I agree with the above documentation and plan of care as
--- NOTE | 2022-12-12 13:01 | PC.NURSE ---
On 12/12/22, the student, [Adriane Freeman], provided care and completed [facility] documentation on this patient. I have reviewed the student's documentation and agree with the findings.
[2022-12-12] MEDS: APIXABAN 5 MG TABLET PO ×2 (13:26→20:08)
--- NOTE | 2022-12-12 14:14 | PC.NURSE ---
On 12/12/22, the student, [Tania Graham], provided care and completed [facility] documentation on this patient. I have reviewed the student's documentation and agree with the findings.
[2022-12-12 16:32] LABS: Anion Gap 11 mmol/L (8-16); Blood Urea Nitrogen 32 mg/dL (9-20); Calcium 9.1 mg/dL (8.4-10.2); Carbon Dioxide 31 mmol/L (22-30); Chloride 89 mmol/L (98-107); Estimated CRCL calculation 54 ml/min; Estimated Glomerular Filt Rate 49; Glucose 118 mg/dL (65-110); Magnesium 2.3 mg/dL (1.6-2.3); Sodium 131 mmol/L (137-145)
[2022-12-12] MEDS: MENTHOL 10% / METHYL SALICYLATE 15% 57 GM TUBE 1 APPLIC TOPICAL (17:59)
[2022-12-12] MEDS: amLODIPine BESYLATE 5 MG TABLET 10 MG PO (20:07)
[2022-12-12] MEDS: ATORVASTATIN 10 MG TABLET PO (20:08)
[2022-12-13] VITALS (11 sets, daily range): BP systolic 120–129; BP diastolic 52–65; PULSE 68–78; RESP 16–18; TEMP 36.9–37.3; O2SAT 94–95
[2022-12-13] MEDS: HYDROcodone/acetaminophen (*CRX) 5-325 MG TABLET 1 TAB PO ×3 (00:32→12:06)
[2022-12-13 05:45] LABS: Hematocrit 41.4 % (42.0-52.0); Hemoglobin 13.2 g/dL (14.0-18.0); Mean Corpuscular HGB Conc 31.9 g/dl (32-36); Mean Corpuscular Hemoglobin 28.8 pg (26-34); Mean Corpuscular Volume 90.4 fl (80-100); Mean Platelet Volume 10.3 fl (7.4-10.4); Platelet Count Result 354 k/mm3 (150-375); Red Blood Count 4.58 M/mm3 (4.6-6.20); Red Cell Distribution Width 16.3 % (11.5-14.5); White Blood Count 9.7 K/mm3 (4.5-10.0)
[2022-12-13 05:54] LABS: Anion Gap 10 mmol/L (8-16); Blood Urea Nitrogen 34 mg/dL (9-20); Calcium 9.1 mg/dL (8.4-10.2); Carbon Dioxide 33 mmol/L (22-30); Chloride 89 mmol/L (98-107); Estimated CRCL calculation 50 ml/min; Estimated Glomerular Filt Rate 45; Glucose 146 mg/dL (65-110); Potassium 3.7 mmol/L (3.4-5.0); Sodium 132 mmol/L (137-145)
[2022-12-13] MEDS: FLUTICASONE/SALMETEROL 115-21 MCG INHALER 1 PUFF 2 PUFF INHALATION ×2 (07:31→20:13)
[2022-12-13] MEDS: AZELASTINE HCL NASAL 0.1% 137 MCG/SPR 30 ML BTL 2 SPRAY NASAL ×2 (08:37→22:09)
[2022-12-13] MEDS: FUROSEMIDE INJ 40 MG/4 ML VIAL 80 MG IV PUSH (08:37)
[2022-12-13] MEDS: ramipriL 5 MG CAPSULE 10 MG PO (08:37)
[2022-12-13] MEDS: ASPIRIN 81 MG ENTERIC TABLET PO (08:37)
[2022-12-13] MEDS: GABAPENTIN 400 MG CAPSULE 800 MG PO ×4 (08:37→20:33)
--- NOTE | 2022-12-13 11:15 | P.PNIM_ITS ---
Progress Note: A&P Assessment and Plan (1) Acute on chronic diastolic congestive heart failure: Code(s): I50.33 - Acute on chronic diastolic (congestive) heart failure Status: Acute Assessment and Plan: 12/10/22: * Clinically he has evidence of congestive heart failure exacerbation with increasing lower extremity edema and shortness of breath on exertion. * ProBNP is only mildly elevated * Congestion on his chest x-ray. * History of a flutter and sees Dr. Martinez * Patient requesting cardiology consult. * Found to be in atrial fibrillation in the ED and is rate controlled. * Continue IV diuresis with furosemide 40 mg IV b.i.d. * Daily weights, strict I&Os and BMP monitoring daily 12/11/2022: * cardiology following patient * continue with diuresis * continue with daily weights, strict I&O * patient down 2 lb day according to the document weight * patient is currently net -850 ml according to the documented I and O * monitor daily labs * echo obtained bone normal LV and RV function, ejection fraction 65% * venous Dopplers were negative 12/12/22: * Continue with diuresis per Cardiology recommendation * Continue with daily weights, strict I&O * Patient is currently net-3.5 L according to the EMR, weight unchanged from yesterday * Monitor daily labs * PT and OT ordered 12/13/22: * cardiology following patient, they plan on switching from Lasix IV to Bumex 2 mg p.o. b.i.d. for diuresis efforts * continue Hilario hose * continue with fluid restriction * monitor daily labs * continue with PT and OT * strict I&O * Net- 1215ml today (2) Obstructive sleep apnea on CPAP: Code(s): G47.33 - Obstructive sleep apnea (adult) (pediatric) Status: Acute Assessment and Plan: 12/10/2022: * CPAP will be provided for the patient to use while hospitalized. 12/11/2022: * no change to current treatment plan (3) Hypertension: Code(s): I10 - Essential (primary) hypertension Status: Acute Assessment and Plan: 12/10/2022: * continue home medication. 12/11/2022: * blood pressures ranging 111/48 to 141/66 * remains on home medication * continue diuresis per Cardiology standpoint 12/12/22: * No change to current treatment plan, blood pressure is well controlled (4) Paroxysmal atrial fibrillation: Code(s): I48.0 - Paroxysmal atrial fibrillation Status: Acute Assessment and Plan: 12/10/2022: * Currently rate controlled. * Which he monitoring * Continue apixaban for stroke prophylaxis. 12/11/22: * no change to current treatment plan Time Spent With Patient Time with patient: Greater than 35 minutes Subjective Date/time seen: 12/13/22 11:15 Interval history: Interval history: This is a 77 year old male who presented to the ER on 12/09/22? with worsening shortness of breath and fluttering in his chest. He reported to have increased Bilateral lower extremity edema on evaluation. CXR revealed mild congestive changes and pro BNP was mildly elevated at 716. He was started on lasix for diuresis. Cardiology was consulted. ECHO this admission revealed normal LV and RV function, EF 65%. Venous dopplers negative for DVT. Patient was also found to be in A-fib, however rate controlled.? 12/10/2022: Patient doing well today.? States that he is breathing better an
--- NOTE | 2022-12-13 11:15 | PM.IMPN ---
Progress Note: A&P Assessment and Plan (1) Acute on chronic diastolic congestive heart failure: Code(s): I50.33 - Acute on chronic diastolic (congestive) heart failure Status: Acute Assessment and Plan: 12/10/22: Clinically he has evidence of congestive heart failure exacerbation with increasing lower extremity edema and shortness of breath on exertion. ProBNP is only mildly elevated Congestion on his chest x-ray. History of a flutter and sees Dr. Martinez Patient requesting cardiology consult. Found to be in atrial fibrillation in the ED and is rate controlled. Continue IV diuresis with furosemide 40 mg IV b.i.d. Daily weights, strict I&Os and BMP monitoring daily 12/11/2022: cardiology following patient continue with diuresis continue with daily weights, strict I&O patient down 2 lb day according to the document weight patient is currently net -850 ml according to the documented I and O monitor daily labs echo obtained bone normal LV and RV function, ejection fraction 65% venous Dopplers were negative 12/12/22: Continue with diuresis per Cardiology recommendation Continue with daily weights, strict I&O Patient is currently net-3.5 L according to the EMR, weight unchanged from yesterday Monitor daily labs PT and OT ordered 12/13/22: cardiology following patient, they plan on switching from Lasix IV to Bumex 2 mg p.o. b.i.d. for diuresis efforts continue Hilario hose continue with fluid restriction monitor daily labs continue with PT and OT strict I&O Net- 1215ml today (2) Obstructive sleep apnea on CPAP: Code(s): G47.33 - Obstructive sleep apnea (adult) (pediatric) Status: Acute Assessment and Plan: 12/10/2022: CPAP will be provided for the patient to use while hospitalized. 12/11/2022: no change to current treatment plan (3) Hypertension: Code(s): I10 - Essential (primary) hypertension Status: Acute Assessment and Plan: 12/10/2022: continue home medication. 12/11/2022: blood pressures ranging 111/48 to 141/66 remains on home medication continue diuresis per Cardiology standpoint 12/12/22: No change to current treatment plan, blood pressure is well controlled (4) Paroxysmal atrial fibrillation: Code(s): I48.0 - Paroxysmal atrial fibrillation Status: Acute Assessment and Plan: 12/10/2022: Currently rate controlled. Which he monitoring Continue apixaban for stroke prophylaxis. 12/11/22: no change to current treatment plan Time Spent With Patient Time with patient: Greater than 35 minutes Subjective Date/time seen: 12/13/22 11:15 Interval history: Interval history: This is a 77 year old male who presented to the ER on 12/09/22? with worsening shortness of breath and fluttering in his chest. He reported to have increased Bilateral lower extremity edema on evaluation. CXR revealed mild congestive changes and pro BNP was mildly elevated at 716. He was started on lasix for diuresis. Cardiology was consulted. ECHO this admission revealed normal LV and RV function, EF 65%. Venous dopplers negative for DVT. Patient was also found to be in A-fib, however rate controlled.? 12/10/2022: Patient doing well today.? States that he is breathing better and has no more shortness of breath at rest.? Still gets some shortness of breath with ambulation although this seems to be chronic for him.? He has been more edematous over the last couple days has +2 pitting edema from the knee down.? He does endorse a dry cough that is new to him.? He is not requiring any oxygen supplementation at this time.? States he has been diagnosed with a flutter in the past but never AFib.? He is requesting to be seen by Cardiology.? Continue IV furosemide. 12/11/2022: ?patient doing well today.? He states that his breathing is better however whenever working with therapy today did notice s
[2022-12-13] MEDS: APIXABAN 5 MG TABLET PO ×2 (12:05→20:33)
[2022-12-13] MEDS: MAGNESIUM HYDROXIDE SUSP 30 ML UDC PO (12:07)
--- NOTE | 2022-12-13 14:14 | PM.PNCARD ---
Progress Note: A&P Assessment and Plan (1) Acute on chronic diastolic congestive heart failure: Code(s): I50.33 - Acute on chronic diastolic (congestive) heart failure Status: Acute Assessment and Plan: Patient remains volume overloaded, but improving. Will shift him to p.o. diuretic today with bumex 2mg p.o. b.i.d. Dose will need to be decreased prior to dicharge. Accurate intake and output daily standing weight BASILIA hose fluid restriction Check BMP in a.m. Echocardiogram Summary ? 1. Technically difficult study with limited views.? Definity contrast administered. ? 2. Left ventricular chamber dimension is normal. ? 3. Left ventricular systolic function is normal, estimated at 65%. ? 4. There is mildly increased left ventricular wall thickness. ? 5. The left ventricular diastolic function is indeterminate. ? 6. Left atrial chamber dimension is moderately enlarged. ? 7. Right atrial chamber dimension is moderately enlarged. ? 8. There is mild to moderate aortic valve stenosis with a peak velocity of 282.06 cm/s, mean gradient of 15 mmHg, and aortic valve area of 1.28 cm2. ? 9. There is moderate tricuspid valve regurgitation. ? 10. Severe pulmonary hypertension, estimated pulmonary arterial systolic pressure is 64 mmHg. (2) Paroxysmal atrial fibrillation: Code(s): I48.0 - Paroxysmal atrial fibrillation Status: Acute Assessment and Plan: Patient remains in atrial fibrillation heart rate controlled. He is not on AV kavitha blocking agents. Continue systemic anticoagulation with Eliquis 5 mg twice daily to reduce embolic stroke risk. Monitor for bleeding. Ambulate with caution. (3) HELLEN (obstructive sleep apnea): Code(s): G47.33 - Obstructive sleep apnea (adult) (pediatric) Status: Acute Assessment and Plan: CPAP. (4) Atherosclerotic heart disease of [place] coronary artery without angina pectoris: Qualifiers: [place] vs. transplanted heart: unspecified whether [place] or transplanted heart Qualified Code(s): I25.10 - Atherosclerotic heart disease of [place] coronary artery without angina pectoris Code(s): I25.10 - Atherosclerotic heart disease of [place] coronary artery without angina pectoris Status: Chronic Assessment and Plan: No anginal symptoms. Continue medical therapy with atorvastatin 10 mg at bedtime, aspirin 81 mg daily. (5) Chronic anticoagulation: Code(s): Z79.01 - [facility] (current) use of anticoagulants Status: Acute Assessment and Plan: Continue Eliquis 5 mg twice daily. Monitor for bleeding. Follow H&H. (6) Pulmonary hypertension: Code(s): I27.20 - Pulmonary hypertension, unspecified Status: Acute Assessment and Plan: Chronic, severe unchanged overall. Subjective Date/time seen: 12/13/22 14:14 Interval history: Follow-up for CHF, atrial fibrillation Patient states he is feeling better. Less short of breath with activity. His edema persists but is improving. He is more comfortable in states he is making quite a bit of urine. No chest pain or palpitations. We discussed results of his echocardiogram. All questions answered to his satisfaction. He was concerned about starting back on Lasix may goes home as he feels this did not work very well for him. 12/12/2022: He is feeling better today but has complaint of bilateral foot pain and pain in his right leg which started last night. Denies shortness of breath, chest pain, palpitations. Date of service 12/13/2022: No acute events overnight. He still has some pain around his left knee. No shortness of breath. Swelling is improving. Review of Systems Review of Systems: All other systems negative. All systems reviewed & are unremarkable except as noted in HPI and below (HPI) Exam Const: General: comfortable and no acute distress HENMT: Mouth: Yes moist mucous membranes Eyes: General: appearance normal, both e
[2022-12-13] MEDS: BUMETANIDE 1 MG TABLET 2 MG PO (16:07)
[2022-12-13] MEDS: amLODIPine BESYLATE 5 MG TABLET 10 MG PO (20:33)
[2022-12-13] MEDS: ATORVASTATIN 10 MG TABLET PO (20:33)
[2022-12-14] VITALS (7 sets, daily range): BP systolic 107–131; BP diastolic 44–54; PULSE 68–75; RESP 14–18; TEMP 36.8–36.9; O2SAT 93–94
[2022-12-14] MEDS: HYDROcodone/acetaminophen (*CRX) 5-325 MG TABLET 1 TAB PO ×2 (00:48→09:32)
[2022-12-14] MEDS: FLUTICASONE/SALMETEROL 115-21 MCG INHALER 1 PUFF 2 PUFF INHALATION (07:29)
[2022-12-14 08:07] LABS: Hematocrit 40.8 % (42.0-52.0); Hemoglobin 13.1 g/dL (14.0-18.0); Mean Corpuscular HGB Conc 32.1 g/dl (32-36); Mean Corpuscular Hemoglobin 28.9 pg (26-34); Mean Corpuscular Volume 90.1 fl (80-100); Mean Platelet Volume 10.3 fl (7.4-10.4); Platelet Count Result 338 k/mm3 (150-375); Red Blood Count 4.53 M/mm3 (4.6-6.20); Red Cell Distribution Width 16.3 % (11.5-14.5); White Blood Count 9.6 K/mm3 (4.5-10.0)
--- NOTE | 2022-12-14 08:16 | P.PNIM_ITS ---
Progress Note: A&P Assessment and Plan (1) Acute on chronic diastolic congestive heart failure: Code(s): I50.33 - Acute on chronic diastolic (congestive) heart failure Status: Acute Assessment and Plan: 12/10/22: * Clinically he has evidence of congestive heart failure exacerbation with increasing lower extremity edema and shortness of breath on exertion. * ProBNP is only mildly elevated * Congestion on his chest x-ray. * History of a flutter and sees Dr. Martinez * Patient requesting cardiology consult. * Found to be in atrial fibrillation in the ED and is rate controlled. * Continue IV diuresis with furosemide 40 mg IV b.i.d. * Daily weights, strict I&Os and BMP monitoring daily 12/11/2022: * cardiology following patient * continue with diuresis * continue with daily weights, strict I&O * patient down 2 lb day according to the document weight * patient is currently net -850 ml according to the documented I and O * monitor daily labs * echo obtained bone normal LV and RV function, ejection fraction 65% * venous Dopplers were negative 12/12/22: * Continue with diuresis per Cardiology recommendation * Continue with daily weights, strict I&O * Patient is currently net-3.5 L according to the EMR, weight unchanged from yesterday * Monitor daily labs * PT and OT ordered 12/13/22: * cardiology following patient, they plan on switching from Lasix IV to Bumex 2 mg p.o. b.i.d. for diuresis efforts * continue Hilario hose * continue with fluid restriction * monitor daily labs * continue with PT and OT * strict I&O * Net- 1215ml today 12/14/22: * (2) Obstructive sleep apnea on CPAP: Code(s): G47.33 - Obstructive sleep apnea (adult) (pediatric) Status: Acute Assessment and Plan: 12/10/2022: * CPAP will be provided for the patient to use while hospitalized. 12/11/2022: * no change to current treatment plan (3) Hypertension: Code(s): I10 - Essential (primary) hypertension Status: Acute Assessment and Plan: 12/10/2022: * continue home medication. 12/11/2022: * blood pressures ranging 111/48 to 141/66 * remains on home medication * continue diuresis per Cardiology standpoint 12/12/22: * No change to current treatment plan, blood pressure is well controlled (4) Paroxysmal atrial fibrillation: Code(s): I48.0 - Paroxysmal atrial fibrillation Status: Acute Assessment and Plan: 12/10/2022: * Currently rate controlled. * Which he monitoring * Continue apixaban for stroke prophylaxis. 12/11/22: * no change to current treatment plan Time Spent With Patient Time with patient: 25 - 35 minutes Subjective Date/time seen: 12/14/22 08:16 Interval history: Interval history: This is a 77 year old male who presented to the ER on 12/09/22? with worsening shortness of breath and fluttering in his chest. He reported to have increased Bilateral lower extremity edema on evaluation. CXR revealed mild congestive changes and pro BNP was mildly elevated at 716. He was started on lasix for diuresis. Cardiology was consulted. ECHO this admission revealed normal LV and RV function, EF 65%. Venous dopplers negative for DVT. Patient was also found to be in A-fib, however rate controlled.? 12/10/2022: Patient doing well today.? States that he i
--- NOTE | 2022-12-14 08:16 | PM.IMPN ---
Progress Note: A&P Assessment and Plan (1) Acute on chronic diastolic congestive heart failure: Code(s): I50.33 - Acute on chronic diastolic (congestive) heart failure Status: Acute Assessment and Plan: 12/10/22: Clinically he has evidence of congestive heart failure exacerbation with increasing lower extremity edema and shortness of breath on exertion. ProBNP is only mildly elevated Congestion on his chest x-ray. History of a flutter and sees Dr. Martinez Patient requesting cardiology consult. Found to be in atrial fibrillation in the ED and is rate controlled. Continue IV diuresis with furosemide 40 mg IV b.i.d. Daily weights, strict I&Os and BMP monitoring daily 12/11/2022: cardiology following patient continue with diuresis continue with daily weights, strict I&O patient down 2 lb day according to the document weight patient is currently net -850 ml according to the documented I and O monitor daily labs echo obtained bone normal LV and RV function, ejection fraction 65% venous Dopplers were negative 12/12/22: Continue with diuresis per Cardiology recommendation Continue with daily weights, strict I&O Patient is currently net-3.5 L according to the EMR, weight unchanged from yesterday Monitor daily labs PT and OT ordered 12/13/22: cardiology following patient, they plan on switching from Lasix IV to Bumex 2 mg p.o. b.i.d. for diuresis efforts continue Hilario hose continue with fluid restriction monitor daily labs continue with PT and OT strict I&O Net- 1215ml today 12/14/22: (2) Obstructive sleep apnea on CPAP: Code(s): G47.33 - Obstructive sleep apnea (adult) (pediatric) Status: Acute Assessment and Plan: 12/10/2022: CPAP will be provided for the patient to use while hospitalized. 12/11/2022: no change to current treatment plan (3) Hypertension: Code(s): I10 - Essential (primary) hypertension Status: Acute Assessment and Plan: 12/10/2022: continue home medication. 12/11/2022: blood pressures ranging 111/48 to 141/66 remains on home medication continue diuresis per Cardiology standpoint 12/12/22: No change to current treatment plan, blood pressure is well controlled (4) Paroxysmal atrial fibrillation: Code(s): I48.0 - Paroxysmal atrial fibrillation Status: Acute Assessment and Plan: 12/10/2022: Currently rate controlled. Which he monitoring Continue apixaban for stroke prophylaxis. 12/11/22: no change to current treatment plan Time Spent With Patient Time with patient: 25 - 35 minutes Subjective Date/time seen: 12/14/22 08:16 Interval history: Interval history: This is a 77 year old male who presented to the ER on 12/09/22? with worsening shortness of breath and fluttering in his chest. He reported to have increased Bilateral lower extremity edema on evaluation. CXR revealed mild congestive changes and pro BNP was mildly elevated at 716. He was started on lasix for diuresis. Cardiology was consulted. ECHO this admission revealed normal LV and RV function, EF 65%. Venous dopplers negative for DVT. Patient was also found to be in A-fib, however rate controlled.? 12/10/2022: Patient doing well today.? States that he is breathing better and has no more shortness of breath at rest.? Still gets some shortness of breath with ambulation although this seems to be chronic for him.? He has been more edematous over the last couple days has +2 pitting edema from the knee down.? He does endorse a dry cough that is new to him.? He is not requiring any oxygen supplementation at this time.? States he has been diagnosed with a flutter in the past but never AFib.? He is requesting to be seen by Cardiology.? Continue IV furosemide. 12/11/2022: ?patient doing well today.? He states that his breathing is better however whenever working with therapy today did
[2022-12-14 08:25] LABS: Anion Gap 9 mmol/L (8-16); Blood Urea Nitrogen 45 mg/dL (9-20); Calcium 8.6 mg/dL (8.4-10.2); Carbon Dioxide 34 mmol/L (22-30); Chloride 88 mmol/L (98-107); Estimated CRCL calculation 47 ml/min; Estimated Glomerular Filt Rate 42; Glucose 108 mg/dL (65-110); Potassium 3.8 mmol/L (3.4-5.0); Sodium 131 mmol/L (137-145)
[2022-12-14] MEDS: AZELASTINE HCL NASAL 0.1% 137 MCG/SPR 30 ML BTL 2 SPRAY NASAL (08:51)
[2022-12-14] MEDS: ASPIRIN 81 MG ENTERIC TABLET PO (08:51)
[2022-12-14] MEDS: BUMETANIDE 1 MG TABLET 2 MG PO (08:52)
[2022-12-14] MEDS: ramipriL 5 MG CAPSULE 10 MG PO (08:52)
[2022-12-14] MEDS: GABAPENTIN 400 MG CAPSULE 800 MG PO ×2 (08:52→12:32)
[2022-12-14] MEDS: APIXABAN 5 MG TABLET PO (12:32)
--- NOTE | 2022-12-14 14:03 | PM.PNCARD ---
Progress Note: A&P Assessment and Plan (1) Acute on chronic diastolic congestive heart failure: Code(s): I50.33 - Acute on chronic diastolic (congestive) heart failure Status: Acute (2) Paroxysmal atrial fibrillation: Code(s): I48.0 - Paroxysmal atrial fibrillation Status: Acute Plan 77-year-old man with coronary artery disease, previous percutaneous revascularization presenting with symptoms of lower extremity edema/volume overload. This has been resolved with intravenous and now oral bumetanide. I will reduce the dose of Bumex to 2 mg daily. He also has atrial fibrillation which appears to be chronic/persistent for the last 4 months at least. It is likely that this will just be the chronic rhythm but he should follow-up with his purchasing coordinator at [facility]. According to the office notes he there have been 3 appointments over this summer that have been canceled over there. Patient says he was traveling out of town for the summer and was unable to keep those appointments. He appears to be a state of euvolemia at this time discharge today is fine with me I have reduced his Bumex dosage upon discharge as described above. Mohinder Martinez MD [facility] Subjective Date/time seen: : Date of service: 12/14/22 14:03 Interval history: Follow-up for CHF, atrial fibrillation Patient states he is feeling better. Less short of breath with activity. His edema persists but is improving. He is more comfortable in states he is making quite a bit of urine. No chest pain or palpitations. We discussed results of his echocardiogram. All questions answered to his satisfaction. He was concerned about starting back on Lasix may goes home as he feels this did not work very well for him. 12/12/2022: He is feeling better today but has complaint of bilateral foot pain and pain in his right leg which started last night. Denies shortness of breath, chest pain, palpitations. Date of service 12/13/2022: No acute events overnight. He still has some pain around his left knee. No shortness of breath. Swelling is improving. Date of service 12/14/2022: Patient feeling well watching television with his family hoping to be discharged. Lower extremity edema is essentially resolved. Patient is complaining of some cramping lower extremity pain likely resulting from large volume diuresis over the last several days Exam Narrative: General: Pleasant elderly male, obese, well developed, alert and oriented x3. No apparent distress, comfortable, pleasant, and cooperative. Head: atraumatic, normocephalic Eyes: EOM intact, sclerae anicteric, conjunctivae unremarkable Ears/Nose: external inspection of ears and nose were grossly normal Mouth/Throat: oral mucosa pink and moist Neck: supple, normal range of motion, no jugular venous distention or carotid bruits, thyroid nonpalpable, trachea midline. Cardiac: Irregularly irregular rate and rhythm, normal S1-S2, systolic murmur Lungs: Clear to auscultation bilaterally, no rales, wheezes, or rhonchi. Abdomen: Obese, soft, nontender, nondistended, positive bowel sounds throughout. No appreciable hepatosplenomegaly, rebound guarding or rigidity noted. Abdominal aorta nonpalpable, no appreciable bruits. Extremities: Minimal if any pretibial pitting remains at this time extremities warm and well perfused. Skin: Warm and dry without ecchymoses, rashes, and/or petechiae. Musculoskeletal: Muscle strength and tone intact throughout without obvious deformities. Vascular: Carotid upstrokes 2+ bilaterally, radial pulses 2+ bilaterally, dorsalis pedis pulses 2+ bilaterally Neurologic: Cranial nerves 2-12 grossly intact, examination grossly nonfocal Psychiatric: Mood calm and appropriate. Const: General: comfortable and no acute distress HENMT: Mouth: Yes moist mucous membranes Eyes: General: appearance normal, both e
--- NOTE | 2022-12-14 15:01 | PM.DS ---
DS: Admitting Diagnosis Discharge Date 12/14/22 Admitting Diagnosis Acute on chronic like congestive heart failure Obstructive sleep apnea on CPAP Hypertension Paroxysmal atrial fibrillation Chronic anticoagulation Chronic obstructive pulmonary disease DS: Discharge Diagnosis Discharge Diagnosis (1) Acute on chronic diastolic congestive heart failure: Code(s): I50.33 - Acute on chronic diastolic (congestive) heart failure Status: Acute (2) Obstructive sleep apnea on CPAP: Code(s): G47.33 - Obstructive sleep apnea (adult) (pediatric) Status: Acute (3) Hypertension: Code(s): I10 - Essential (primary) hypertension Status: Acute (4) Paroxysmal atrial fibrillation: Code(s): I48.0 - Paroxysmal atrial fibrillation Status: Acute DS: Summary Hospital Course Reason for hospitalization: Acute on chronic diastolic congestive heart failure requiring diuresis Hospital Course: This is a 77-year-old male who presented to the ER on 12/09/2022 with worsening shortness of breath and fluttering in his chest. He had a chest x-ray which revealed mild pulmonary vascular congestion, Bernardo B line were also identified suggesting pulmonary interstitial edema no pleural effusion or pulmonary consolidation noted. He also had venous dopplers done on 12/09/2022 which did not reveal any deep vein thrombosis in his right lower leg. Cardiology was consulted and was following patient. Patient was given a course of Lasix 80 mg IV over a few days and yesterday was switched to Bumex. Patient is now euvolemic and Bumex was adjusted for discharge. Cardiology has signed off. Labs today revealed hemoglobin of 13.1, hematocrit 40.8, sodium 131, potassium 3.8, chloride 88, carbon dioxide 34, BUN 45, creatinine 1.6, blood sugar 108. On examination today patient is alert and oriented x4 sitting up in bed. Daughter for is at the bedside. Vital signs are stable, patient is afebrile, he is on room air, he denies any acute pain other than discomfort in his legs. Patient is stable for discharge. According to Cardiology patient also has atrial fibrillation seems to be chronic and persistent for the last 4 months he should follow-up with his sensor operator at [facility]. Spoke with patient and patient's daughter about discharge today and keeping all of his appointments for follow-up including Cardiology and his primary care physician. Patient did have some concerns about a walker for at home. He states that his walker that he has at home is too small. Daughter will obtain a larger walker for use at home. Status at Discharge Cognitive/behavioral status at discharge: Alert and oriented x4 Functional status at discharge: uses cane/walker Overall status at discharge: patient is progressing back to baseline Time Spent with Patient Time attestation: Total time spent providing and/or coordinating discharge services: Time spent: Greater than 30 minutes Exam Narrative: General:?Well-developed,? in bed in no acute distress. HEENT:??PERRL, EOMI.? Oral mucosa moist/ pink Neck:??Supple. No obvious JVD. trachea midline Respiratory:?Respirations are nonlabored. Lungs clear to auscultation, no adventitious lung sounds. Cardiovascular:??Regular rate and rhythm with normal S1-S2. No murmurs, gallops, or friction rubs. Gastrointestinal:??Abdomen is soft, nontender, and nondistended with normoactive bowel sounds. Skin:??Warm and dry. Changes of chronic stasis dermatitis of both legs, right greater than left. No visible open wounds. Extremities:??No cyanosis or clubbing. 1-2+ lower extremity edema, pedal pulses intact. Neurological:??Alert and oriented x3.? No gross focal deficits. Psychiatric:??Pleasant and cooperative with normal mood and affect. DS: Data Data Completed and Pending Labs on day of discharge: Labs from last 24 hours 12/14/22 07:27 WBC 9.6 RBC 4.53 L Hgb 13.1 L Hct 40.8 L MCV 90.1 MCH 28.9 MCH
--- NOTE | 2022-12-14 18:44 | PC.NURSE ---
Patient discharged this afternoon. Received a call from at 1700 stating primary pharmacy listed ([facility]) was not able to fill PO bumex until Friday. Pharmacist stated they will call another [facility] pharmacy to see if able to be filled. Pharmacist stated they will call back . However, called RN at 1830 stating the pharmacist from [facility] did not call them back and the pharmacy is now closed. RN called [facility] pharmacy in [place] to see if medication is available there. Medication was available and prescription was transmitted. notified of change.
== END 2022-12-14 16:18 | disposition home or self-care (01) | DRG 291 ==
LOC: ANHED 15:13 → ANH2MED 15:18
PROVIDERS: Internal Medicine Critical Care Medicine; Physician Assistant; Admitting Provider Internal Medicine; Emergency Provider Emergency Medicine; PCP Family Medicine; Visit Provider Nurse Practitioner Acute Care
DX: I11.0 Hypertensive heart disease with heart failure (principal); I50.33 Acute on chronic diastolic (congestive) heart failure; I48.92 Unspecified atrial flutter; Z68.41 Body mass index [BMI] 40.0-44.9, adult; E66.01 Morbid (severe) obesity due to excess calories; E78.2 Mixed hyperlipidemia; G47.33 Obstructive sleep apnea (adult) (pediatric); I25.10 Atherosclerotic heart disease of native coronary artery without angina pectoris; I48.0 Paroxysmal atrial fibrillation; I27.20 Pulmonary hypertension, unspecified; I73.9 Peripheral vascular disease, unspecified; K21.9 Gastro-esophageal reflux disease without esophagitis; J44.9 Chronic obstructive pulmonary disease, unspecified; M79.662 Pain in left lower leg; M79.661 Pain in right lower leg; M79.672 Pain in left foot; M79.671 Pain in right foot; Z86.16 Personal history of COVID-19; Z79.01 Long term (current) use of anticoagulants; Z95.5 Presence of coronary angioplasty implant and graft; Z99.89 Dependence on other enabling machines and devices; Z87.891 Personal history of nicotine dependence
CPT/HCPCS: 36415; 71046; 80048; 80053; 83735; 83880; 84443; 84484; 85025; 85027; 85610; 85730; 93005; 93971; 94640; 96374; 96375; 96376; 97161; 97165; 99285; A9270; C8929; G0378; J1940; Q9957

== ENCOUNTER 2022-12-17 14:55 | Outpatient (CLI) | payer MEDICARE, SELFPAY ==
[2022-12-17 15:22] LABS: Basophils Absolute Auto 0.1 K/mm3 (0.0-0.1); Basophils Percent Auto 0.9 % (0.2-1.2); Eosinophils Absolute Auto 0.1 K/mm3 (0-0.3); Eosinophils Percent Auto 1.2 % (0-4.4); Hematocrit 46.4 % (42.0-52.0); Hemoglobin 14.7 g/dL (14.0-18.0); Immature Granulocyte Absolute 0.03 K/mm3 (0.00-0.031); Immature Granulocyte Percent A 0.3 % (0-0.5); Lymphocytes Percent Auto 23.3 % (18.3-44.2); Mean Corpuscular HGB Conc 31.7 g/dl (32-36); Mean Corpuscular Hemoglobin 28.6 pg (26-34); Mean Corpuscular Volume 90.3 fl (80-100); Mean Platelet Volume 9.9 fl (7.4-10.4); Monocytes Absolute Auto 0.9 K/mm3 (0.1-0.6); Monocytes Percent Auto 10.3 % (2.6-8.5); Neutrophils Absolute Auto 5.5 K/mm3 (1.3-6.7); Platelet Count Result 435 k/mm3 (150-375); Red Blood Count 5.14 M/mm3 (4.6-6.20); Red Cell Distribution Width 15.7 % (11.5-14.5); White Blood Count 8.6 K/mm3 (4.5-10.0)
[2022-12-17 15:46] LABS: Alanine Aminotransferase 47 U/L (6-50); Albumin Level 4.5 g/dL (3.5-5.1); Alkaline Phosphatase 167 U/L (38-126); Anion Gap 10 mmol/L (8-16); Aspartate Amino Transferase 49 U/L (17-59); Blood Urea Nitrogen 42 mg/dL (9-20); CRP 5.9 mg/dL (<1.0); Calcium 9.7 mg/dL (8.4-10.2); Carbon Dioxide 34 mmol/L (22-30); Chloride 94 mmol/L (98-107); Estimated Glomerular Filt Rate 59; Glucose 129 mg/dL (65-110); Potassium 3.9 mmol/L (3.4-5.0); Sodium 138 mmol/L (137-145); Uric Acid 9.9 mg/dL (3.5-8.5)
[2022-12-17 15:56] LABS: Erythrocyte Sedimentation Rate 19 mm/hr (0-20)
== END 2022-12-17 14:56 | disposition home or self-care (01) ==
PROVIDERS: PCP Family Medicine; Visit Provider Family Medicine
DX: M25.50 Pain in unspecified joint (principal); I11.0 Hypertensive heart disease with heart failure
CPT/HCPCS: 36415; 80053; 84550; 85025; 85652; 86140

== ENCOUNTER 2023-04-22 12:59 | Outpatient (CLI) | payer MEDICARE, SELFPAY ==
--- NOTE | 2023-04-22 14:00 | NEURO_ITS ---
Impression: # Complains of numbness of hands. # No Carpal Tunnel Syndrome. # Bilateral ulnar neuropathy around the elbows. # Needle/EMG exam mildly abnormal. Nerve Conduction Studies Anti Sensory Summary Table Stim Site NR Peak (ms) P-T Amp (?V) Site1 Site2 Delta-P (ms) Dist (cm) Zeke (m/s) Left Median Anti Sensory (2-3nd Digit) Wrist 2.8 45.3 Wrist 2-3nd Digit 2.8 14.0 50 Wrist 2.8 50.7 Wrist 2-3nd Digit 2.8 14.0 50 Right Median Anti Sensory (2-3nd Digit) Wrist 2.8 43.1 Wrist 2-3nd Digit 2.8 14.0 50 Wrist 2.6 41.5 Wrist 2-3nd Digit 2.8 14.0 50 Left Radial Anti Sensory (Base 1st Digit) Wrist 2.8 19.7 Wrist Base 1st Digit 2.8 0.0 Right Radial Anti Sensory (Base 1st Digit) Wrist 2.7 19.5 Wrist Base 1st Digit 2.7 0.0 Left Ulnar Anti Sensory (5th Digit) Wrist 3.3 49.2 Wrist 5th Digit 3.3 14.0 42 Right Ulnar Anti Sensory (5th Digit) Wrist 3.1 36.9 Wrist 5th Digit 3.1 14.0 45 Motor Summary Table Stim Site NR Onset (ms) O-P Amp (mV) Site1 Site2 Delta-0 (ms) Dist (cm) Zeke (m/s) Left Median Motor (Abd Poll Brev) Wrist 3.1 2.9 Elbow Wrist 6.1 33.0 54 Elbow 9.2 1.2 Right Median Motor (Abd Poll Brev) Wrist 2.7 6.0 Elbow Wrist 5.2 29.0 56 Elbow 7.9 5.0 Left Ulnar Motor (Abd Dig Minimi) Wrist 3.2 4.7 A Elbow Wrist 6.8 32.0 47 A Elbow 10.0 2.5 B Elbow Wrist 6.0 26.0 43 B Elbow 9.2 1.8 Right Ulnar Motor (Abd Dig Minimi) Wrist 2.8 6.0 A Elbow Wrist 7.0 31.0 44 A Elbow 9.8 5.2 B Elbow Wrist 4.0 22.0 55 B Elbow 6.8 3.5 F Wave Studies NR F-Lat (ms) L-R F-Lat (ms) Left Median (Mrkrs) (Abd Poll Brev) 29.48 0.41 Right Median (Mrkrs) (Abd Poll Brev) 29.06 0.41 Left Ulnar (Mrkrs) (Abd Dig Min) 28.81 0.08 Right Ulnar (Mrkrs) (Abd Dig Min) 28.90 0.08 EMG Side Muscle Nerve Root Ins Act Fibs Amp Dur Recrt Comment Right 1stDorInt Ulnar C8-T1 Nml Nml Nml Nml Nml Right Ext Indicis Radial (Post Int) C7-8 Nml Nml Nml Nml Nml Right Ext Digitorum Radial (Post Int) C7-8 Nml Nml Nml Nml Nml Right BrachioRad Radial C5-6 Nml Nml Nml Nml Nml Right PronatorTeres Median C6-7 Nml Nml Nml Nml Nml Right Abd Poll Brev Median C8-T1 Nml Nml Nml Nml Nml Right ABD Dig Min Ulnar C8-T1 Nml Nml Nml Nml Nml Left 1stDorInt Ulnar C8-T1 Nml Nml Nml Nml Nml Left Ext Indicis Radial (Post Int) C7-8 Nml Nml Nml Nml Nml Left Ext Digitorum Radial (Post Int) C7-8 Nml Nml Nml Nml Nml Left BrachioRad Radial C5-6 Nml Nml Nml Nml Nml Left PronatorTeres Median C6-7 Nml Nml Nml Nml Nml Left Abd Poll Brev Median C8-T1 Nml Nml Nml Nml Nml Left ABD Dig Min Ulnar C8-T1 Nml Nml Nml Nml Nml MTDD
== END 2023-04-22 13:00 | disposition home or self-care (01) ==
LOC: ANHNEURO 13:01
PROVIDERS: PCP Family Medicine; Visit Provider Student in an Organized Health Care Education/Training Program
DX: G56.23 Lesion of ulnar nerve, bilateral upper limbs (principal); R94.131 Abnormal electromyogram [EMG]
CPT/HCPCS: 95886; 95911

== ENCOUNTER 2024-02-06 13:20 | Outpatient (CLI) | payer MEDICARE, SELFPAY ==
--- NOTE | ~2024-02-06 | XR_ITS ---
Right Knee Technique: AP, lateral, and sunrise views were obtained. Clinical History: Pain Findings: No fracture or dislocation is seen. There is medial compartment narrowing. There is moderat e tricompartmental degenerative spurring.. Soft tissues are unremarkable. No joint effusion is seen. Impression: Degenerative changes, as above. Reviewed, dictated and finalized at location [facility] Impression: Degenerative changes, as above.
== END 2024-02-06 13:21 | disposition home or self-care (01) ==
LOC: MICIMG 13:21
PROVIDERS: PCP Family Medicine; Visit Provider Physician Assistant Medical
DX: M17.11 Unilateral primary osteoarthritis, right knee (principal)
CPT/HCPCS: 73562

== ENCOUNTER 2024-02-09 00:24 | Day surgery (SDC) | payer MEDICARE, SELFPAY ==
[2024-02-06 09:32] VITALS: BMI 37.6
[2024-02-09] VITALS (17 sets, daily range): BP systolic 103–121; BP diastolic 56–70; PULSE 72–82; RESP 14–18; TEMP 36.4–36.9; O2SAT 95–100; BMI 37.8
[2024-02-09 07:48] LABS: Basophils Absolute Auto 0.1 K/mm3 (0.0-0.1); Basophils Percent Auto 0.7 % (0.2-1.2); Eosinophils Absolute Auto 0.2 K/mm3 (0-0.3); Eosinophils Percent Auto 1.6 % (0-4.4); Hematocrit 37.4 % (42.0-52.0); Hemoglobin 12.2 g/dL (14.0-18.0); Immature Granulocyte Absolute 0.04 K/mm3 (0.00-0.031); Immature Granulocyte Percent A 0.4 % (0-0.5); Lymphocytes Absolute Auto 3.16 K/mm3 (0.9-3.2); Lymphocytes Percent Auto 28.6 % (18.3-44.2); Mean Corpuscular HGB Conc 32.6 g/dl (32-36); Mean Corpuscular Hemoglobin 31.2 pg (26-34); Mean Corpuscular Volume 95.7 fl (80-100); Mean Platelet Volume 10.1 fl (7.4-10.4); Monocytes Absolute Auto 0.7 K/mm3 (0.1-0.6); Monocytes Percent Auto 6.1 % (2.6-8.5); Neutrophils Absolute Auto 6.9 K/mm3 (1.3-6.7); Neutrophils Percent Auto 62.6 % (45.5-73.1); Platelet Count Result 392 k/mm3 (150-375); Red Blood Count 3.91 M/mm3 (4.6-6.20)
[2024-02-09 07:58] LABS: Anion Gap 8 mmol/L (4-12); Blood Urea Nitrogen 32 mg/dL (9-20); Calcium 9.2 mg/dL (8.4-10.2); Carbon Dioxide 31 mmol/L (22-30); Chloride 99 mmol/L (98-107); Estimated CRCL calculation 48 ml/min; Estimated Glomerular Filt Rate 49; Glucose 106 mg/dL (65-110); Potassium 3.8 mmol/L (3.4-5.0); Sodium 138 mmol/L (137-145)
--- NOTE | 2024-02-09 09:36 | WPDHPUPDATE1 ---
History and Physical Update Update Date/Time: 02/09/24 08:36 History and Physical has been reviewed, including an updated exam of the patient. There are NO changes in the patient's condition. Risks, benefits, and alternatives have been discussed and questions answered. Patient agrees to proceed with procedure.
--- NOTE | 2024-02-09 09:37 | P.SEDATION_ITS ---
Moderate Sedation Note-Pt Data Patient Data Allergies Allergy/AdvReac Type Severity Reaction Status Date / Time No Known Allergies Allergy Verified 02/06/24 09:32 Home Medications ?Medication ?Instructions ?Recorded ?Confirmed ?Type acetaminophen 500 mg tablet 1,000 mg PO Q6H PRN Pain (Scale 03/08/19 02/06/24 History (Tylenol Extra Strength) Score 4-6) amlodipine 10 mg tablet 10 mg PO HS 03/08/19 02/06/24 History apixaban 5 mg tablet (Eliquis) 5 mg PO BID 03/08/19 02/06/24 History ramipril 10 mg capsule 10 mg PO DAILY 03/08/19 02/06/24 History albuterol sulfate 90 mcg/actuation 2 puff inhalation QID PRN sob 12/09/22 02/06/24 History aerosol inhaler aspirin 81 mg tablet,delayed 81 mg PO QAM 30 days #30 tabs 12/14/22 02/09/24 Rx release bumetanide 2 mg tablet 2 mg PO DAILY CHF #30 tabs 12/14/22 02/06/24 Rx azelastine 137 mcg (0.1 %) nasal See Rx Instructions .Route 08/26/23 02/06/24 Rx spray .COMPLEX #60 mL atorvastatin 40 mg tablet 40 mg PO QHS #90 tabs 09/23/23 02/06/24 Rx semaglutide (weight loss) 0.25 0.25 mg subcut WEEKLY 09/23/23 02/06/24 History mg/0.5 mL subcutaneous pen injector (Wegovy) albuterol sulfate 90 mcg/actuation 2 inh inhalation Q8H PRN shortness 12/01/23 02/06/24 Rx aerosol inhaler (Ventolin HFA) of breath 90 days #8.5 grams gabapentin 800 mg tablet 800 mg PO TID #270 tabs 01/06/24 02/09/24 Rx Breo Ellipta 100 mcg-25 mcg/dose See Rx Instructions .Route 01/12/24 02/06/24 Rx powder for inhalation (fluticasone .COMPLEX #60 ea furoate-vilanterol) allopurinol 300 mg tablet 300 mg PO BID gout 02/06/24 02/06/24 History Current Medications: Active Medications Sodium Chloride (Normal Saline Iv) 500 mls @ 100 mls/hr IV CONT .Q5H [facility] Sedation/Anesthesia: No previous sedation/anesthesia problems (including family history). [facility] Past Medical History Medical History Angina pectoris Atherosclerotic heart disease of [place] coronary artery without angina pectoris CAD (coronary artery disease) Chronic anticoagulation Chronic GERD Chronic obstructive pulmonary disease Diastolic congestive heart failure Hypertension Obstructive sleep apnea on CPAP Paroxysmal atrial fibrillation Paroxysmal atrial flutter Pneumonia due to COVID-19 virus Surgical History Surgical History History of cardiac radiofrequency ablation History of coronary artery stent placement Family History Family History Sibling Hypertension Family history of coronary artery disease Asthma Social History Social History Social History: Surrogate medical decision maker: Alda Nicole, spouse. Code status: Full code. Years smoked: 10 Smoking status: Former smoker Tobacco type: pipe and cigars Second hand tobacco smoke exposure: No Smoking end date: 02/25/12 Alcohol intake: current Drinks per week: 1 Substance use: never Substance use type: does not use Do You Feel Safe in your Home?: Yes Lack of Transportation: No Lack of Food: Never True Current Housing: I Have Housing Concerned About Future Housing: No Difficulty Paying Gas/Electric Bills: No Difficulty Paying for Meds: No Currently Unemployed: No Education: Bachelor's Degree Difficulty w/ Childcare or Family Care: No Living arrangements: with family Occupation/Education: retired Spiritual care concerns: No Mod Sed Physical Exam Physical Exam Pre Procedural Exam: Normal: Lungs and Heart Rate Hours since solid foods: 13 Hours since liquid intake: 13 Mallampati Classification: class II Internal Medicine - PN: Obj Da Vital Signs Vital Signs: Vital Signs - 24 hr 02/09/24 07:24 Temperature 36.9 C Pulse Rate 82 Respiratory Rate 16 Blood Pressure 120/63 Pulse Oximetry 100 Oxygen Delivery Room Air Meds/Results Medications: Active Medications Generic Name Dose Route Start Last Admin Trade Name Freq PRN Reason Stop Dose Admin Sodium Chloride 500 mls @ 100 mls/hr 02/09/24 07:00 Normal Saline Iv IV CONT .Q5H [facility] Labs 02/09/24 07:28 02/09/24 07:28 Labs: Laboratory Results - last 24 hr 02/09/24 07:28 WBC 11.0 H RBC 3.91 L Hgb 12.2 L Hct 37.4 L MCV 95.7 MCH 31.2 MCHC 32.6 RDW 17.0 H Plt Count 392 H MPV 10.1 Immature Gran % (Auto) 0.4 Neut % (Auto) 62.6 Lymph % (Auto) 28.6 [place] % (Auto) 6.1 Eos % (Auto) 1.6 Baso % (Auto) 0.7 Lymph # (Auto) 3.16 [place] # (Auto) 0.7 H Eos # (Auto) 0.2 Baso # (Auto) 0.1 Abs Immat Gran (auto) 0.04 H Absolute Neuts (auto) 6.9 H Absolute Nucleated RBC 0.000 Nucleated RBC % 0.0 Sodium 138 Potassium 3.8 Chloride 99 Carbon Dioxide 31 H Anion Gap 8 BUN 32 H D Creatinine 1.40 H Estim Creat Clear Calc 48 Estimated GFR 49 L Glucose 106 Calcium 9.2 ASA Classification/Sedation ASA Classification/Sedation ASA Class: III Emergent: No Risks: Risks, benefits and alternatives explained and patient/family accepted plan for sedation. Patient re-evaluated immediately prior to sedation.
--- NOTE | 2024-02-09 09:37 | WPDCARDPROC ---
Cardiac Cath Procedure Note Date of procedure:: 02/09/24 Performing physician:: CATHETERIZATION LABORATORY REPORT Procedure Date: 02/09/2024 Referring Physician: Dr. Martinez Anesthesia: Versed and Fentanyl were ordered and given in my presence at 0910, procedure ended at 0923. Supervision of nurse, Jailyn Looney monitored moderate sedation with 2mg Versed and 50mcg Fentanyl was provided for 13 minutes. Pre-op Diagnosis: Abnormal stress test Post-op Diagnosis: abnormal stress test Procedure(s): Left heart catheterization with coronary angiography Access Site: Right radial artery (TR band) Brief History and Clinical Indications: All risks, benefits and alternatives to left heart catheterization with or without percutaneous coronary intervention was discussed at length with the patient. Risk of complications including but not limited to bleeding, infection, arrhythmia, stroke, worsening kidney function, blood loss, groin hematoma, limb loss, emergency coronary artery bypass grafting, and even were discussed with the patient and all questions were answered. The patient understood and wished to proceed. Time out called, patient name, date of , medical record number, allergies, procedure performed, identify Board Finisher, patient and staff member concurred with accurate data, procedure carried on. Findings: LEFT HEART CATHETERIZATION FINDINGS: 1. Left main: The left main coronary artery is widely patent without any significant obstructive disease. 2. Left anterior descending: The LAD provides 3 diagonal branches. The diagonal branches are free of angiographic significant disease. The mid LAD has a stent with 20-30% InStent restenoses. The ostial LAD has 99% stenosis. The distal LAD has diffuse 90% stenosis. 3. Left circumflex: The left circumflex artery in its distal body, there are 2 areas of stenosis. There is an area of 70% stenosis followed by an area of 99% subtotal occlusion. 4. Right coronary artery: The RCA is a large dominant vessel. At the distal edge of previously placed stent, there is 90% stenosis. In the distal RCA, there is 70% stenosis. There are luminal irregularities in the PDA and posterior lateral branches. There is very faint [id number] circumflex collaterals 5. Left ventricle: A. End-diastolic pressure 19 mmHg. B. LV gram deferred. C. There is a 25mm gradient across the aortic valve on catheter pullback. 6. Opening AO pressure 103/61 and closing AO pressure 113/61 Description of Procedure: Informed consent signed and placed in the chart. Patient transferred to botany laboratory assistant room. Prepped and draped in usual sterile fashion. 2% lidocaine injected subcutaneously in right wrist area. 22-gauge venipuncture catheter used to access the right radial artery with the Seldinger technique. 6-FR slender sheath placed in right radial artery. Nitroglycerin 200mcg, Verapamil 2.5mg, and Heparin 5000U was given intraarterial through the sheath. J wire advanced under fluoroscopy 5F TIG diagnostic catheter engaged Left Main Coronary Artery. 5F TIG diagnostic catheter engaged Right Coronary Artery Multiple orthogonal angiogram obtained and reviewed 5F Pigtail diagnostic catheter crossed aortic valve to obtain LVEDP, LV angiogram deferred. Hemostasis was achieved by application of TR band. Assessment: Triple vessel CAD Moderate Aortic Stenosis Post Operative Condition: Stable No significant blood loss Disposition: Home Plan: The patient will be monitored in the recovery area. The above findings were discussed with the referring physician. Continue asa and statins. Will add metoprolol succinate 25mg PO daily Will refer to NORBERTO Rodriguez Interventional Cardiology
--- OUTSIDE RECORDS SUMMARY | 2024-02-14 08:39 | XMS_ITS | Encounter Summary ---
Author Organization [facility] Address [address] [place] [address] Care Team Providers Care Speed Belt Sander Tender Name Role Phone Unavailable Primary Care Provider Unavailabl e Encounter Details Date Type Department Care Team (Late st Contact Info) Description 12/27/2019 Lab Requisition [facility] D[facility] Lab [address] [place] [id number] Wendy Todd MD [address] [place] [phone] Social History Tobacco Use Types Packs/Day Years Used Date Smoking Tobacco: Never Assessed Sex and Gender Information Value Date Recorded Sex Assigned at Not on file Gender Identity Not on file Sexual Orientation Not on file documented as of this encounter Plan of Treatment Not on file documented as of this encounter Procedures Procedure Name Priority Date/Time Associated Diagnosis Comments DERMATOPATHOLOGY Routine 12/23/2019 12:0 0 AM CDT documented in this encounter Results * DERMATOPATHOLOGY (12/23/2019 12:00 AM CDT) Case Report Dermatopathology Report ? Case: [id number] ? Authorizing Provider: ??Wendy Todd MD ? Collected: ? 12/23/2019 12:00 AM ? Ordering Location: ? [facility] ?Received: ?12/27/2019 11:36 AM ? Pathologist: ? Shelley Bruno MD ? Specimen: ?Skin, right forearm ? 0 1:37 PM [facility] DERMATOPATHOLOGY [facility]ORATORY Final Diagnosis Specimen A. SKIN, right forearm: BASAL CELL CARCINOMA (C44.612) NOT PRESENT AT MARGIN DERMAL SCAR (L90.5) 0 1:37 PM [facility] DERMATOPATHOLOGY [facility]OR[facility] Clinical History R/O BCC, biopsy proven. 0 1:37 PM [facility]ERMATOPATH[facility]Y [facility] Gross Description Specimen A: Received is one formalin filled container labeled with the patient's name and designated right forearm.The specimen consists of an ellipse measuring [id number] and is oriented with the notch at the 12 o'clock position labeled on the requisition as proximal notch. The epidermal surface consists of a centrally located 12x4mm previous biopsy site. The 12 to 6 o'clock margin is inked green. The 6 o'clock to 12 o'clock margin is inked black. The 12 o'clock tip is submitted in cassette 1. The 6 o'clock tip is submitted in cassette 2. The remainder of the ellipse is serially sectioned and submitted in cassettes 3-4. Jar 0. 0 1:37 PM [facility] DERMATOPATHOLOGY [facility]OR[facility] Microscopic Description Specimen A. SKIN, right forearm: Within the dermis there are aggregates of basaloid cells with a high nuclear to cytoplasmic ratio and peripheral palisading. This lesion is not present at the margin of the specimen. There are fibroblasts and collagen bundles oriented parallel to the skin surface with elongated blood vessels, some of which are oriented perpendicular to the skin surface. 0 1:37 PM [facility] DERMATOPATHOLOGY [facility]OR[facility] Disclaimer An external and internal positive and negative controls are appropriate for the histochemical, immunohistochemical and immunofluorescence stain(s) in this case (if any), except where stated explicitly. The performance characteristics of the stain(s) cited in this report were developed and its performance characteristic determined by the Dermatopathology Laboratory at [facility], directed by Dr. Betito Bruno. These tests need not be, and therefore are not, approved by the [place] Food and Drug Administration. The tests are used for clinical purposes. Billing Codes Specimen Charges Stain Charges 96853 1 0 1:37 PM [facility] DERMATOPATHOLOGY LABORATORY Embedded Images 0 1:37 PM [facility] DERMATOPATHOLOGY [facility]ORY Pathology/Cytolog y TISSUE SPECIMEN FROM SKIN / Unknown 12/23/2019 12/27/2019 11:36 AM ASSISTANT FRONT OFFICE MANAGER Wendy Todd MD LAB - PATHOLOGY/CYTO [facility]Y ORDERABLES DERMATOPATHOLOGY LABORATORY [facility] - Department of Dermatology [address], [address] [phone] documented in this encounter Visit Diagnoses Not on filedocumented in this encounter
--- OUTSIDE RECORDS SUMMARY | 2024-02-14 08:39 | XMS_ITS | Clinical Summary ---
Author Organization [facility] Address [address] [place] [address] Care Team Providers Care Staff Assistant Name Role Phone Unavailable Primary Care Provider Unavailabl e Source Comments [facility],non-owned Affiliates and Associated Physician Practices is amultiple site organization consisting of ambulatory clinics and hospital sitesin [place], [place], [place] and [place]. This disclosure is being madepursuant to the Care Everywhere program and may not contain all information available regarding this patient. Last updated 17.[facility] Social History Tobacco Use Types Packs/Day Years Used Date Smoking Tobacco: Never Assessed Sex and Gender Information Value Date Recorded Sex Assigned at Not on file Gender Identity Not on file Sexual Orientation Not on file Plan of Treatment Health Maintenance Due Date Last Done Comments HEPATITIS C SCREENING 06/13/1963 DTAP/TDAP/TD VACCINES (1 - Tdap) 1964 ZOSTER VACCINE (1 of 2) 06/18/1995 PNEUMOCOCCAL VACCINE 65+ (1 of 1 - PCV) 2010 Respiratory Syncytial Virus (RSV) Vaccine Pt: or over 60 yrs (1 - 1-dose 75+ series) 2020 DEPRESSION SCREENING 02/24/2023 MEDICARE AWV ? CALENDAR YEAR 2023 COVID-19 VACCINE ( - 2023-2 5 season) 2023 INFLUENZA VACCINE (#1) 2023 HEPATITIS B VACCINE Aged Out No longe r eligible based on patient's age to complete this topic HIB VACCINE Aged Out No longer eligi ble based on patient's age to complete this topic HPV VACCINE Aged Out No longer eligi ble based on patient's age to complete this topic MENINGOCOCCAL VACCINE Aged Out No zia solange eligible based on patient's age to complete this topic
--- OUTSIDE RECORDS SUMMARY | 2024-02-14 08:39 | XMS_ITS | Patient Health Summary ---
Author Organization [facility] Address [address] [place] [address] Care Team Providers Care Seed Cutter Name Role Phone Unavailable Primary Care Provider Unavailabl e Note from [facility],non-owned Affiliates and Associated Physician Practices is amultiple site organization consisting of ambulatory clinics and hospital sitesin [place], [place], [place] and [place]. This disclosure is being madepursuant to the Care Everywhere program and may not contain all information available regarding this patient. Last updated 17.[facility] Social History Tobacco Use Types Packs/Day Years Used Date Smoking Tobacco: Never Assessed Sex and Gender Information Value Date Recorded Sex Assigned at Not on file Gender Identity Not on file Sexual Orientation Not on file Procedures * DERMATOPATHOLOGY(Performed 12/23/2019) * DERMATOPATHOLOGY(Performed 11/08/2019) * DERMATOPATHOLOGY(Performed 04/23/2017) * DERMATOPATHOLOGY(Performed 10/18/2016) * DERMATOPATHOLOGY(Performed 07/05/2011) * DERMATOPATHOLOGY(Performed 12/28/2010) Results * DERMATOPATHOLOGY (12/23/2019 12:00 AM CDT) Only the most recent of6 resultswithin the time period is included. Case Report Dermatopathology Report ? Case: [id number] ? Authorizing Provider: ??Wendy Todd MD ? Collected: ? 12/23/2019 12:00 AM ? Ordering Location: ? [facility] DermPath Lab ?Received: ?12/27/2019 11:36 AM ? Pathologist: ? Shelley Bruno MD ? Specimen: ?Skin, right forearm ? 0 1:37 PM [facility] DERMATOPATHOLOGY LABORATORY Final Diagnosis Specimen A. SKIN, right forearm: BASAL CELL CARCINOMA (C44.612) NOT PRESENT AT MARGIN DERMAL SCAR (L90.5) 0 1:37 PM [facility] DERMATOPATHOLOGY LABORATORY Clinical History R/O BCC, biopsy proven. 0 1:37 PM [facility] DERMATOPATHOLOGY LABORATORY Gross Description Specimen A: Received is one formalin filled container labeled with the patient's name and designated right forearm.The specimen consists of an ellipse measuring [id number] and is oriented with the notch at [...] cassettes 3-4. Jar 0. 0 1:37 PM [facility] DERMATOPATHOLOGY LABORATORY Microscopic Description Specimen [...] to the skin surface. 0 1:37 PM [facility] DERMATOPATHOLOGY LABORATORY Disclaimer An external and internal positive and negative controls are appropriate for the histochemical, immunohistochemical and immunofluorescence stain(s) in this case (if any), except where stated explicitly. The performance characteristics of the stain(s) cited in this report were developed and its performance characteristic determined by the Dermatopathology Laboratory at [facility], directed by Dr. Betito Bruno. These tests need not be, and therefore are not, approved by the [place] Food and Drug Administration. The tests are used for clinical purposes. Billing Codes Specimen Charges Stain Charges 32395 1 0 1:37 PM [facility] DERMATOPATHOLOGY LABORATORY Embedded Images 0 1:37 PM [facility] DERMATOPATHOLOGY LABORATORY Pathology/Cytolog y TISSUE SPECIMEN FROM SKIN / Unknown 12/23/2019 12/27/2019 11:36 AM CRM SOLUTION ARCHITECT Wendy Todd MD LAB - PATHOLOGY/CYTO LOGY ORDERABLES DERMATOPATHOLOGY LABORATORY [facility] - Department of Dermatology [address], [address] [phone]
--- OUTSIDE RECORDS SUMMARY | 2024-02-14 08:39 | XMS_ITS | Referral Summary ---
Author Organization [facility] Address [address] [place] [address] Care Team Providers Care Extension Forester Name Role Phone Unavailable Primary Care Provider Unavailabl e Source Comments [facility],non-owned Affiliates and Associated Physician Practices is amultiple site organization consisting of ambulatory clinics and hospital sitesin [place], [place], [place] and [place]. This disclosure is being madepursuant to the Care Everywhere program and may not contain all information available regarding this patient. Last updated 17.[facility] [employer] Social History Tobacco Use Types Packs/Day Years Used Date Smoking Tobacco: Never Assessed Sex and Gender Information Value Date Recorded Sex Assigned at Not on file Gender Identity Not on file Sexual Orientation Not on file Plan of Treatment Not on file
--- OUTSIDE RECORDS SUMMARY | 2024-02-14 08:40 | XMS_ITS | Encounter Summary ---
Author Organization [facility] Address [address] [place] [address] Care Team Providers Care Factory Maintenance Manager Name Role Phone Rogelio Epperson MD Primary Care Provider Reason for Visit * Reason Comments Follow-up Echo and kourtney murray Atrial Fibrillation Encounter Details Date Type Department Care Team (Late st Contact Info) Description 01/29/2024 9:00 AM THREAD SINGER Office Visit [facility] Cardiology [address] [place] [address] Mohinder Martinez MD [address] [facility] [address] [place] [address] 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) (Primary Dx); PAF (paroxysmal atrial fibrillation) (CMS/HCC) (HCC); History of coronary artery stent placement; Persistent atrial fibrillation (HCC) Social History Tobacco Use Types Packs/Day Years Used Date Smoking Tobacco: Former Cigarettes Pipe Cigars Smokeless Tobacco: Never Alcohol Use Standard Drinks/Week Comments Yes 2 (1 standard drink = 0.6 oz pur e alcohol) per week Sex and Gender Information Value Date Recorded Sex Assigned at Not on file Legal Sex Male 1:57 AM THREAD SINGER Gender Identity Not on file Sexual Orientation Not on file documented as of this encounter Last Filed Vital Signs Vital Sign Reading Time Taken Comments Blood Pressure 130/76 01/29/2024 8:55 AM THREAD SINGER Pulse 78 01/29/2024 8:55 AM THREAD SINGER Temperature - - Respiratory Rate - - Oxygen Saturation 99% 01/29/2024 8:55 AM THREAD SINGER Inhaled Oxygen Concentration - - Weight 116.7 kg (257 lb 4.8 oz) 01/29/2024 8:55 AM THREAD SINGER Height 175.3 cm (5' 9 ) 01/29/2024 8:55 AM THREAD SINGER Body Mass Index 38 01/29/2024 8:55 AM THREAD SINGER documented in this encounter Progress Notes * Mohinder Martinez MD - 01/29/2024 9:00 AM CST [facility] FOLLOW UP 01/29/2024 Vu Nicole is a 78 y.o. male who presents for follow up of coronary artery disease and atrial fibrillation. This is a patient who underwent emergency right coronary stenting in the setting of anacute infarction back in January of 2004. The patient also had a high-grade LAD lesion which was done in a staged fashion in March of 2004. He has done well cardiac naqvi since then. He also has pa roxysmal atrial fibrillation and has had a couple of cardioversions done. The patient is being maintained in sinus rhythm with sotalol and systemically anticoagulated. He also has significant peripheral vascular disease with claudication attempts to provide revascularization of this by vascular surgery were unsuccessful. The patient was ultimately referred to electrophysiology at [facility] he underwent a catheter ablation of his atrial fibrillation on 04/21/2018. He underwent a nuclear stress test in January of 2021 because of some chest pain symptoms. The results were negative and I have been treating him medically for his angina since then. In July of 2022 the patient was seen in the office and was seen shortly before that by his diesel fitter mechanic. He was found to be back in atrial flutter. When I saw him in the office he was actually in a junctional rhythm. There was no clear-cut evidence of atrial fibrillation on that electrocardiogram. In the fall the patient had problems with progressive lower extremity edema. He was already on a high dose of Bumex. Low dose of metolazone 3 times per week was added to his regimen. Echocardiogram demonstrated preserved left ventricular systolic function and mild aortic valve stenosis with a valve area of 1.2cm2. He presents today for short interval follow-up. I saw this patient last month when he was reportingsymptoms that sounded like exertional angina. Because of his history of aortic valve disease I had an echocardiogram done as well as a nuclear stress test. It looks like both studies show his left ventricular systolic function is still in the low-normal range with ejection fraction in the low 50s. His aortic valve stenosis is moderate. The nuclear stress test shows an apical defect and an inferior defect both of which appeared to be fixed. His nuclear stress test before this in 2020 was normal.These results were discussed with him in detail. He continues to report that his exertional anginalsyndrome which has been going on for a couple of months is becoming more frequent depending on whathe is doing. In this setting we did recommend follow-up angiography. He understands this and is agreeable. REVIEW OF SYSTEMS General ROS: negative for - chills, fatigue, fever, malaise, night sweats, weight gain or weight loss Psychological ROS: negative for - anxiety, depression, memory difficulties or sleep disturbances Ophthalmic ROS: negative for - blurry vision, decreased vision, loss of vision or scotomata ENT ROS: negative for - epistaxis, headaches, hearing change, nasal congestion, nasal discharge, sore throat, vertigo or visual changes Hematological and Lymphatic ROS: negative for - bleeding problems, blood clots, bruising, fatigue or weight loss Endocrine ROS: negative for - hot flashes, palpitations, polydipsia/polyuria or unexpected weight changes Respiratory ROS: negative for - cough, hemoptysis, orthopnea, shortness of breath, tachypnea or wheezing Cardiovascular ROS: negative for - chest pain, dyspnea on exertion, edema, irregular heartbeat, loss of consciousness, murmur, orthopnea, palpitations, paroxysmal nocturnal dyspnea, rapid heart rate or shortness of breath Gastrointestinal ROS: negative for - abdominal pain, appetite loss, blood in stools, constipation, diarrhea, gas/bloating, heartburn, hematemesis, melena or nausea/vomiting Genito-Urinary ROS: negative for - dysuria, erectile dysfunction or hematuria Musculoskeletal ROS: negative for - joint pain, muscle pain or muscular weakness Dermatological ROS: negative for dry skin, eczema, pruritus and rash HOME MEDICATIONS Current Outpatient Medications: acetaminophen (TYLENOL) 500 mg tablet, Take 1-2 tablets (500-1,000 mg total) by mouth every 6 (six)hours as needed for pain, Disp: , Rfl: albuterol HFA (PROVENTIL HFA,VENTOLIN HFA) 90 mcg/actuation inhaler, Inhale 2 puffs every 6 (six) hours as needed for wheezing, Disp: , Rfl: amLODIPine (NORVASC) 10 mg tablet, Take 1 tablet (10 mg total) by mouth nightly, Disp: 90 tablet, Rfl: 3 atorvastatin (LIPITOR) 10 mg tablet, Take 1 tablet (10 mg total) by mouth daily, Disp: 90 tablet, Rfl: 3 azelastine (ASTELIN) 137 mcg (0.1 %) nasal spray, Administer 1 spray into each nostril nightly, Disp: , Rfl: bumetanide (BUMEX) 2 mg tablet, TAKE 1 TABLET BY MOUTH EVERY DAY, Disp: 90 tablet, Rfl: 1 cholecalciferol (VITAMIN D-3) 5,000 unit capsule, Take 1 capsule (5,000 Units total) by mouth daily, Disp: , Rfl: cilostazoL (PLETAL) 50 mg tablet, Take 1 tablet (50 mg total) by mouth 2 (two) times a day, Disp: ,Rfl: cyanocobalamin (Vitamin B-12) 1,000 mcg tablet, Take 1 tablet (1,000 mcg total) by mouth daily, Disp: , Rfl: Eliquis 5 mg tablet, TAKE 1 TABLET TWICE A DAY, Disp: 180 tablet, Rfl: 3 flaxseed oil 1,000 mg capsule, Take 1 capsule (1,000 mg total) by mouth daily, Disp: , Rfl: fluticasone furoate-vilanterol (BREO ELLIPTA) 100-25 mcg/dose diskus inhaler, Inhale 1 puff daily Rinse mouth with water after use. Do not swallow., Disp: , Rfl: gabapentin (NEURONTIN) 600 mg tablet, Take 1 tablet (600 mg total) by mouth 3 (three) times a day, Disp: , Rfl: metOLazone (ZAROXOLYN) 2.5 mg tablet, TAKE 1 TABLET (2.5 MG TOTAL) BY MOUTH 3 (THREE) TIMES A WEEK,Disp: 26 tablet, Rfl: 4 ramipriL (ALTACE) 10 mg capsule, TAKE 1 CAPSULE DAILY, Disp: 90 capsule, Rfl: 3 semaglutide (Wegovy) 0.25 mg/0.5 mL auto-injector, 0.5 mL Subcutaneous weekly for 30 days, Disp: , Rfl: triamcinolone (NASACORT) 55 mcg nasal inhaler, Administer 2 sprays into each nostril nightly, Disp:, Rfl: LABS AND OTHER DIAGNOSTIC TESTS No results found for: CHOL No results found for: HDL No results found for: LDLCALC No results found for: TRIG No results found for: CHOLHDL Lab Results Component Value Date WBC 7.9 08/09/2022 HGB 13.2 08/09/2022 HCT 39.4 08/09/2022 MCV 88.1 08/09/2022 No lab exists for component: LABALBU PHYSICAL EXAM Vitals BP 130/76 (BP Location: Left arm, Patient Position: Sitting) Pulse 78 Ht 175.3 cm (5' 9 ) Wt 116.7 kg (257 lb 4.8 oz) SpO2 99% BMI 38.00 kg/m?? Physical Examination: General appearance - alert, well appearing, and in no distress, oriented to person, place, and time and acyanotic, in no respiratory distress Mental status - affect appropriate to mood Eyes - extraocular eye movements intact, sclera anicteric, no pallor Ears - external earsappear normal, hearing grossly normal bilaterally Nose - normal and patent, no erythema or discharge Mouth - mucous membranes moist, pharynx appears normal, dental hygiene good and tongue normal Neck - supple, no significant neck masses, carotids upstroke normal bilaterally, no bruits, no JVD Chest - clear to auscultation, no wheezes, rales or rhonchi, symmetric air entry, no tachypnea, retractions or cyanosis Heart - normal rate, irregular rhythm, normal S1, S2, grade 2/6 crescendo decrescendo murmur which is audible at the left sternal border rubs, clicks or gallops, no JVD PMI not palpable because of obesity Abdomen - soft, nontender, nondistended, no masses or organomegaly bowel sounds normal Neurological - alert, oriented, normal speech, no focal findings or movement disorder noted Musculoskeletal - no joint tenderness, deformity or swelling, no muscular tenderness noted Extremities - chronic appearing moderate lower extremity edema with reduced distal pulses, no clubbing or cyanosis Skin - normal coloration and turgor, no rashes, no suspicious skin lesions noted ASSESSMENT Vu was seen today for follow-up and atrial fibrillation. 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 semaglutide (Wegovy) 0.25 mg/0.5 mL auto-injector 0.5 mL Subcutaneous weekly for 30 days 08/04/2023 added in this encounter Care Teams Factory Maintenance Manager Relationship Specialty Start Date End Date Rogelio Epperson MD [address] [facility] [address] [address] PCP - General 06/04/12 documented as of this encounter
--- OUTSIDE RECORDS SUMMARY | 2024-02-14 08:40 | XMS_ITS | Encounter Summary ---
Author Organization [facility] Address [address] [place] [address] Care Team Providers Care Assistant Activities Director Name Role Phone Rogelio Epperson MD Primary Care Provider Encounter Details Date Type Department Care Team (Late st Contact Info) Description 08/02/2022 Telephone Arrhythmia Center [address] [facility] [address], [place] [address] Jovi Mack MD [address] [facility] [address] [address] Social History Tobacco Use Types Packs/Day Years Used Date Smoking Tobacco: Former Smokeless Tobacco: Never Alcohol Use Standard Drinks/Week Comments Yes 2 (1 standard drink = 0.6 oz pur e alcohol) per week Sex and Gender Information Value Date Recorded Sex Assigned at Not on file Legal Sex Male 1:57 AM INVESTMENT BROKER Gender Identity Not on file Sexual Orientation Not on file documented as of this encounter Miscellaneous Notes * Telephone Encounter - Lisa Luu - 08/02/2022 9:31 AM CDT Alda with Dr. Martinez's office called office to ask if patient can have his cardioversion done at [place] with Dr. Martinez since it is easier and more convienient for the patient. I returned her call and told them patient it ok to proceed with cardioversion with Dr. Martinez. documented in this encounter Plan of Treatment Not on file documented as of this encounter Visit Diagnoses Not on filedocumented in this encounter Care Teams Assistant Activities Director Relationship Specialty Start Date End Date Rogelio Epperson MD [address] [facility] [address] [place] [phone] PCP - General 06/04/12 documented as of this encounter
--- OUTSIDE RECORDS SUMMARY | 2024-02-14 08:40 | XMS_ITS | Encounter Summary ---
Author Organization [facility] Healthcare Address [address] [place] [address] Care Team Providers Care Asset Protection Lead Name Role Phone Rogelio Epperson MD Primary Care Provider Encounter Details Date Type Department Care Team (Late st Contact Info) Description 08/22/2023 8:30 AM CDT Office Visit Arrhythmia Center [address] [facility] [address] [place] [phone] Jovi Mack MD [address] [address] Persistent atrial fibrillation (HCC) (Primary Dx) Social History Tobacco Use Types Packs/Day Years Used Date Smoking Tobacco: Former Pipe Cigars Smokeless Tobacco: Never Tobacco Cessation:Counseling Given: Not Answered Alcohol Use Standard Drinks/Week Comments Yes 2 (1 standard drink = 0.6 oz pur e alcohol) per week Sex and Gender Information Value Date Recorded Sex Assigned at Not on file 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 Gender Identity Not on file Sexual Orientation Not on file documented as of this encounter Last Filed Vital Signs Vital Sign Reading Time Taken Comments Blood Pressure 136/66 08/22/2023 8:13 AM CDT Pulse 71 08/22/2023 8:13 AM CDT Temperature - - Respiratory Rate - - Oxygen Saturation - - Inhaled Oxygen Concentration - - Weight 119.7 kg (264 lb) 08/22/2023 8:13 AM CDT Height 175.3 cm (5' 9 ) 08/22/2023 8:13 AM CDT Body Mass Index 38.99 08/22/2023 8:13 AM CDT documented in this encounter Progress Notes * Jovi Mack MD - 08/22/2023 8:30 AM CDT [facility] [address] [place] [address], [address], [place] [address] Patient Name: Vu Nicole Date of : 1945 Primary Physician: Rogelio Epperson MD This note was dictated with voice-recognition software, and staff home therapy rn errors may be present. Subjective/Objective Patient ID: Vu Nicole is a 78 y.o. male Chief Complaint No chief complaint on file. HPI Mr. Nicole presented to the [facility] on 08/22/2023 for follow-up regarding his atrial fibrillation. He is a 78 y.o. male with a history of with a history of coronary disease/status post PCI, normal LV function, hypertension, dyslipidemia, sleep apnea. In March 2018, he underwent catheter ablation for persistent atrial fibrillation. This included bilateral pulmonary vein isolation, posterior wall isolation and CTI ablation. Last year, the patient was found to have minimally symptomatic flutter. Cardioversion was planned, but he had spontaneous return to sinus rhythm. He presents today for outpatient follow-up. Presently, the patient is doing well and is in sinus rhythm. He reports no symptoms. The patient denies palpitations, presyncope, dizziness, or any other symptoms that would suggest the recurrence ofatrial fibrillation. ... 12-lead ECG & Rhythm Strip: 08/22/2023: Sinus rhythm (70). Normal PA. Normal QRS duration and QT interval. ECG HISTORY: 02/21/2023: Sinus rhythm (100). First-degree AV block (PA interval 240 msec). Normal QRS duration and QT interval. No Known Allergies Current Outpatient Medications Medication Instructions acetaminophen (TYLENOL) 500-1,000 mg, oral, Every 6 hours PRN albuterol HFA (PROVENTIL HFA,VENTOLIN HFA) 90 mcg/actuation inhaler 2 puffs, inhalation, Every 6 hours PRN amLODIPine (NORVASC) 10 mg, oral, Nightly atorvastatin (LIPITOR) 10 mg, oral, Daily azelastine (ASTELIN) 137 mcg (0.1 %) nasal spray 1 spray, each nostril, Nightly bumetanide (BUMEX) 2 mg, oral, Daily cholecalciferol (VITAMIN D-3) 5,000 Units, oral, Daily cilostazoL (PLETAL) 50 mg, oral, 2 times daily cyanocobalamin (VITAMIN B-12) 1,000 mcg, oral, Daily Eliquis 5 mg, oral, 2 times daily flaxseed oiL 1,000 mg, oral, Daily fluticasone furoate-vilanterol (BREO ELLIPTA) 100-25 mcg/dose diskus inhaler 1 puff, inhalation, Daily, Rinse mouth with water after use. Do not swallow. gabapentin (NEURONTIN) 600 mg, oral, 3 times daily metOLazone (ZAROXOLYN) 2.5 mg, oral, 3 times weekly ramipriL (ALTACE) 10 mg, oral, Daily triamcinolone (NASACORT) 55 mcg nasal inhaler 2 sprays, each nostril, Nightly Past Medical History: Past Medical History: Diagnosis Date Adiposity Obesity Arrhythmia Arthritis Asthma seaonal allergies, asthma Atrial fibrillation (CMS/HCC) ([facility]) CHF (congestive heart failure) (CMS/HCC) ([facility]) Coronary artery disease GERD (gastroesophageal reflux disease) Heart disease HX OTHER MEDICAL dyslipidemia Hyperlipidemia Hypertension Hypertension Neuromuscular disorder (HCC) Sleep apnea cpap Family History: Family History Problem Relation Age of Onset Stent Brother Coronary Stent Placement; Heart attack Brother Myocardial Infarction; Cause of : Myocardial Infarction Heart disease Brother Stent Sister Coronary Stent Placement; Stent Sister Coronary Stent Placement; Arthritis Sister Heart attack Sister Hypertension Sister Obesity Sister Heart disease Sister Alcohol abuse Father Alcohol abuse Brother Alcohol abuse Brother Alcohol abuse Brother Heart attack Brother Hypertension Brother Heart disease Brother Alcohol abuse Brother Arthritis Brother Asthma Brother COPD Brother Hearing loss Brother Heart attack Brother Hypertension Brother Heart disease Brother Arthritis Brother Asthma Brother COPD Brother Hypertension Brother Mental illness Mother Social History: Social History Tobacco Use Smoking status: Former Types: Pipe, Cigars Smokeless tobacco: Never Substance and Sexual Activity Drug use: No Sexual activity: Not Currently Partners: Female Alcohol Use: Not on file Review of Systems Constitutional: Negative. HENT: Negative. Eyes: Negative. Respiratory: Negative. Cardiovascular: As per HPI. Gastrointestinal: Negative. Endocrine: Negative. Genitourinary: Negative. Musculoskeletal: Negative. Skin: Negative. Allergic/Immunologic: Negative. Neurological: Negative. Hematological: Negative. Psychiatric/Behavioral: Negative. Physical Exam BP 136/66 Pulse 71 Ht 175.3 cm (5' 9 ) Wt 119.7 kg (264 lb) BMI 38.99 kg/m?? GENERAL: No distress. Pleasant and cooperative with the examination and interview HEENT: Pupils are equal and round. Oropharynx clear and moist. NECK: No JVD. Carotids are normal in volume, contour, and upstroke CARDIOVASCULAR: LV apical impulse nondisplaced. Rhythm is regular. No S3, S4, or murmur. PULMONARY: Clear to auscultation bilaterally, without wheeze. ABDOMEN: Soft, nontender, nondistended, normal bowel sounds. No rebound or guarding. EXTREMITIES: No edema. Pulses are 2+ and symmetric. NEURO: Alert and oriented x3. Cranial nerves II-XII intact and symmetric. No focal findings. PSYCHIATRIC: Normal mood and affect. Assessment/Plan Last Labs: Lab Results Component Value Date GLUCOSE 101 (H) 01/30/2023 CALCIUM 9.5 01/30/2023 SODIUM 138 01/30/2023 POTASSIUM 4.0 01/30/2023 CO2 30 01/30/2023 CHLORIDE 97 (L) 01/30/2023 BUNSER 40 (H) 01/30/2023 CREATININE 1.37 (H) 01/30/2023 No results found for: TSH Lab Results Component Value Date GFRNAA 81 04/22/2018 Diagnoses and all orders for this visit: Persistent atrial fibrillation (HCC) (Primary) Assessment & Plan: The patient is 5 year status post ablation for atrial fibrillation, doing well. Maintaining sinus rhythm without antiarrhythmic drug therapy. No changes to management today The patient has a [id number] score of 4. I have therefore recommended continued anticoagulation for thromboprophylaxis. The patient will follow-up with me in 12 months for an office visit and twelve- lead ECG. Orders: - ECG 12 lead Jovi Mack MD 08/22/2023 documented in this encounter Miscellaneous Notes * Assessment & Plan Note - Jovi Mack MD - 08/22/2023 1:41 PM CDT Associated Problem(s): Persistent atrial fibrillation (HCC) The patient is 5 year status post ablation for atrial fibrillation, doing well. Maintaining sinus rhythm without antiarrhythmic drug therapy. No changes to management today The patient has a [id number]-UPGh score of 4. I have therefore recommended continued anticoagulation for thromboprophylaxis. The patient will follow-up with me in 12 months for an office visit and twelve- lead ECG. documented in this encounter Plan of Treatment Not on file documented as of this encounter Procedures Procedure Name Priority Date/Time Associated Diagnosis Comments ECG 12-LEAD Routine 08/22/2023 8:15 AM CDT Persistent atrial fibrillation (HCC) documented in this encounter Results * ECG 12 lead (08/22/2023 8:15 AM CDT) us Jovi Mack MD ECG ORDERABLES Final R esult documented in this encounter Visit Diagnoses Diagnosis Persistent atrial fibrillation (HCC)- Primary Atrial fibrillation documented in this encounter Care Teams Asset Protection Lead Relationship Specialty Start Date End Date Rogelio Epperson MD [address] [facility] [address] [place] [address] PCP - General 06/04/12 documented as of this encounter
--- OUTSIDE RECORDS SUMMARY | 2024-02-14 08:40 | XMS_ITS | Encounter Summary ---
Author Organization [facility] Healthcare Address [address] [place] [address] Care Team Providers Care Service Operations Manager Name Role Phone Rogelio Epperson MD Primary Care Provider Encounter Details Date Type Department Care Team (Late st Contact Info) Description 03/13/2023 Telephone Arrhythmia Center [address] [phone] Jovi Mack MD [address] [address] Social History Tobacco Use Types Packs/Day Years Used Date Smoking Tobacco: Former Pipe Cigars Smokeless Tobacco: Never Alcohol Use Standard Drinks/Week Comments Yes 2 (1 standard drink = 0.6 oz pur e alcohol) per week Sex and Gender Information Value Date Recorded Sex Assigned at Not on file 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 ECTOR ALUMINUM BOAT * Telephone Encounter - Madiha Shah NP - 03/19/2023 12:22 PM INSPECTOR ALUMINUM BOAT Monitor results reviewed. Please advise patient that his monitor looked good and he had no significant atrial fibrillation or atrial flutter noted. Would just recommend following up with us in July as previously scheduled or certainly sooner if he has any issues or concerns. ECTOR ALUMINUM BOAT * Telephone Encounter - Madiha Shah NP - 03/19/2023 8:37 AM INSPECTOR ALUMINUM BOAT Patient requesting monitor results- can you please see if a report is available? Thank you! ECTOR ALUMINUM BOAT * Telephone Encounter - Rupal Vaca - 03/13/2023 11:21 AM CST Requesting monitor results. ECTOR ALUMINUM BOAT documented in this encounter Plan of Treatment Not on file documented as of this encounter Visit Diagnoses Not on filedocumented in this encounter Care Teams Service Operations Manager Relationship Specialty Start Date End Date Rogelio Epperson MD [address] [address] PCP - General 06/04/12 documented as of this encounter
--- OUTSIDE RECORDS SUMMARY | 2024-02-14 08:40 | XMS_ITS | Encounter Summary ---
Author Organization [facility] Healthcare Address [address] [place] [address] Care Team Providers Care Supervising Architect Name Role Phone Rogelio Epperson MD Primary Care Provider Reason for Visit * Cardiology (Routine) - Closed Specialty Diagnoses / Procedures Referred By Contac t Referred To Contact Diagnoses Atherosclerosis of [place] artery of extremity with intermittent claudication, unspecified extremity (HCC) Coronary artery disease of [place] artery of [place] heart with stable angina pectoris (HCC) Procedures Transthoracic Echo (TTE) Complete W Doppler/CF Mohinder Martinez MD [address] [place] [address] Phone: tel: fax: [facility] Medical [facility] Cardiology [facility] [address] [place] [phone] Phone: tel: fax: Referral ID Status Reason Start Date Expiration Date Visits Re quested Visits Authorized [id number] Closed 12/18/2023 01/16/2025 1 1 Encounter Details Date Type Department Care Team (Latest Contact Info) Description 12/23/2023 11:15 AM CDT Ancillary Procedure [facility] Cardiology [address] [place] [phone] Atherosclerosis of [place] artery of extremity with intermittent claudication, unspecified extremity (HCC); Coronary artery disease of [place] artery of [place] heart with stable angina pectoris (HCC) Social History Tobacco Use Types Packs/Day Years Used Date Smoking Tobacco: Former Cigarettes Pipe Cigars Smokeless Tobacco: Never Alcohol Use Standard Drinks/Week Comments Yes 2 (1 standard drink = 0.6 oz pur e alcohol) per week Sex and Gender Information Value Date Recorded Sex Assigned at Not on file 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 Gender Identity Not on file Sexual Orientation Not on file documented as of this encounter Last Filed Vital Signs Vital Sign Reading Time Taken Comments Blood Pressure 142/82 12/23/2023 11:51 AM CDT Pulse - - Temperature - - Respiratory Rate - - Oxygen Saturation - - Inhaled Oxygen Concentration - - Weight - - Height - - Body Mass Index - - documented in this encounter Plan of Treatment Not on file documented as of this encounter Procedures Procedure Name Priority Date/Time Associated Diagnosis Comments TRANSTHORACIC ECHO (TTE) COMPLETE W DOPPLER/CF WO CONTRAST Routine 12/23/2023 11:51 AM CDT Atherosclerosis of [place] artery of extremity with intermittent claudication, unspecified extremity (HCC) Coronary artery disease of [place] artery of [place] heart with stable angina pectoris (HCC) documented in this encounter Results * TRANSTHORACIC ECHO (TTE) COMPLETE W DOPPLER/CF WO CONTRAST (12/23/2023 11:51 AM CDT) Anatomical Region Laterality Modality Ultrasound 12/23/2023 11:3 9 AM CDT Narrative 12/23/2023 4:28 PM CDT [facility] Medical [facility] Cardiology [address] [facility] [address] [address] [facility] [address], [place] [address] P:[phone] P:[phone] Echocardiographic Report Patient Name: JADE NICOLE J : 1945 Study Date: 12/23/2023 11:39:25 AM Gender: M Tech: CAMPBELL Location: [place] Ref Provider: MOHINDER MARTINEZ ?Height(Cm): 175 BSA: 2.35 Weight(Kg): 113.4 Heart Rate: 83 BP: 142 / 82 Quality: Good Order Provider: MOHINDER MARTINEZ PROCEDURES: Echocardiographic Report: Transthoracic echocardiogram with complete 2D, M-Mode, and color Doppler examination. With Strain Analysis. INDICATIONS: I70.219 Atherosclerosis of [place] arteries of extremities with intermittent claudication, unspecified extremity, and I25.118 Atherosclerotic heart disease of [place] coronary artery with other forms of angina pectoris. Measurements: 2D/M Mode ?Doppler Measurement ?Value ?Normal Range ?Measurement ?Value ?Normal Range LVIDd 2D ? 4.52 ? [ 4.20 - 5.80 ] cm ?RUTHIE Vmax ? 1.02 ? [ 2.00 - 4.00 ] cm2 LVIDs 2D ? 3.32 ? [ 2.50 - 4.00 ] cm ?AV Mean PG ? 14 ? mmHg LVPWd 2D ? 1.19 ? [ 0.60 - 1.00 ] cm ?AV Peak Zeke ?2.47 ? [ 1.00 - 1.70 ] m/s IVSd 2D ?1.33 ? [ 0.60 - 1.00 ] cm ?AV Peak PG ? 24 ? mmHg LA Volume Index ?38 ? [ 16 - 34 ] cc/m2 ? AV VTI ? 45.36 ?cm LVOT Diam ?2.04 ?[ 1.70 - 2.10 ] cm LVOT Peak Zeke ?0.77 ?[ 0.70 - 1.10 ] m/s LVOT VTI ? 15.71 ? cm TR Peak Zeke ?3.23 ?[ 1.00 - 2.80 ] m/s TR Peak PG ? 42 ?mmHg Measurement ?Value ?Normal Range ?Measurement ?Value ?Normal Range 2D/M Mode ?Doppler - FINDINGS: Interpretation Site: Exam was interpreted at [facility]. Left Ventricle: Normal left ventricular systolic function. No focal wall motion abnormalities. Normal left ventricular size. Moderate concentric left ventricular hypertrophy. Normal left ventricular diastolic function. Ejection fraction is visually estimated at 60 %. Ejection fraction is measured at 56 %. Global Longitudinal Strain is -13 %. GLS is abnormal. Right Ventricle: Normal right ventricular systolic function. Mild enlargement of right ventricle. Left Atrium: There is mild enlargement of left atrium. Right Atrium: The right atrium is normal in size. Atrial Septum: Normal atrial septum. Mitral Valve: Normal appearance of the mitral valve. Mild mitral valve regurgitation. There is no hemodynamically significant mitral stenosis by Doppler. Aortic Valve: Moderate aortic stenosis. Mean gradient of 14.0 mmHg. Valve area of 1.02 cm2. Aortic cusps appear moderately calcified. Trileaflet aortic valve. Mild aortic valve regurgitation. Tricuspid Valve: Normal appearance of the tricuspid valve. Moderate pulmonary hypertension based on right ventricular systolic pressure. Estimated peak RVSP is 45-50 mmHg. Mild to moderate tricuspid regurgitation. Pulmonic Valve: Normal appearance of the pulmonic valve. No pulmonic stenosis. Mild pulmonic regurgitation. Pericardium: Normal pericardium with no significant pericardial effusion. Aorta: No aortic root dilation. Mild aortic root calcification. IVC: Normal size and normal respiratory collapse consistent with normal right atrial pressure (<5 mmHg). CONCLUSIONS: Normal left ventricular systolic function. No focal wall motion abnormalities. Normal left ventricular size. Moderate concentric left ventricular hypertrophy. Normal left ventricular diastolic function. Ejection fraction is visually estimated at 60 %. Ejection fraction is measured at 56 %. Global Longitudinal Strain is -13 %. GLS is abnormal. Normal right ventricular systolic function. Mild enlargement of right ventricle. There is mild enlargement of left atrium. Mild mitral valve regurgitation. Moderate aortic stenosis. Mean gradient of 14.0 mmHg. Valve area of 1.02 cm2. Aortic cusps appear moderately calcified. Trileaflet aortic valve. Mild aortic valve regurgitation. Moderate pulmonary hypertension based on right ventricular systolic pressure. Estimated peak RVSP is 45-50 mmHg. Mild to moderate tricuspid regurgitation. Mild pulmonic regurgitation. Normal sinus rhythm. Electronically Signed By: Marvin Velazquez MD 2023-12-23 16:27:51 CDT Procedure Note Marvin Velazquez MD - 12/23/2023 [facility] Medical [facility] Cardiology [address], [place] [address] [facility] [address], [place] [address] P:[phone] P:[phone] Echocardiographic Report Patient Name: JADE NICOLE J : 1945 Study Date: 12/23/2023 11:39:25 AM Gender: M Tech: CAMPBELL Location: [facility] Provider: MOHINDER MARTINEZ Height(Cm): 175 BSA: 2.35 Weight(Kg): 113.4 Heart Rate: 83 BP: 142 / 82 Quality: Good Order Provider: MOHINDER MARTINEZ PROCEDURES: Echocardiographic Report: Transthoracic echocardiogram with complete 2D, M-Mode, and color Dopplerexamination. With Strain Analysis. INDICATIONS: I70.219 Atherosclerosis of [place] arteries of extremities withintermittent claudication, unspecified extremity, and I25.118 Atherosclerotic heart disease of [place]onary artery with other forms of angina pectoris. Measurements: 2D/M ModeDoppler Measurement Value Normal Range MeasurementValue Normal Range LVIDd 2D 4.52 [ 4.20 - 5.80 ] cm RUTHIE Vmax1.02 [ 2.00 - 4.00 ] cm2 LVIDs 2D 3.32 [ 2.50 - 4.00 ] cm AV Mean PG14 mmHg LVPWd 2D 1.19 [ 0.60 - 1.00 ] cm AV Peak Vel2.47 [ 1.00 - 1.70 ] m/s IVSd 2D 1.33 [ 0.60 - 1.00 ] cm AV Peak PG24 mmHg LA Volume Index 38 [ 16 - 34 ] cc/m2 AV VTI45.36 cm LVOT Diam 2.04 [ 1.70 - 2.10 ] cm LVOT Peak Zeke 0.77 [ 0.70 - 1.10 ] m/s LVOT VTI 15.71 cm TR Peak Zeke 3.23 [ 1.00 - 2.80 ] m/s TR Peak PG 42 mmHg Measurement Value Normal Range MeasurementValue Normal Range 2D/M ModeDoppler - FINDINGS: Interpretation Site: Exam was interpreted at [facility] [place]. Left Ventricle: Normal left ventricular systolic function. No focal wall motionabnormalities. Normal left ventricular size. Moderate concentric left ventricular hypertrophy.Normal left ventricular diastolic function. Ejection fraction is visually estimated at60 %. Ejection fraction is measured at 56 %. Global Longitudinal Strain is -13 %. GLS isabnormal. Right Ventricle: Normal right ventricular systolic function. Mild enlargement of rightventricle. Left Atrium: There is mild enlargement of left atrium. Right Atrium: The right atrium is normal in size. Atrial Septum: Normal atrial septum. Mitral Valve: Normal appearance of the mitral valve. Mild mitral valve regurgitation.There is no hemodynamically significant mitral stenosis by Doppler. Aortic Valve: Moderate aortic stenosis. Mean gradient of 14.0 mmHg. Valve area of 1.02cm2. Aortic cusps appear moderately calcified. Trileaflet aortic valve. Mild aorticvalve regurgitation. Tricuspid Valve: Normal appearance of the tricuspid valve. Moderate pulmonary hypertensionbased on right ventricular systolic pressure. Estimated peak RVSP is 45-50 mmHg. Mild tomoderate tricuspid regurgitation. Pulmonic Valve: Normal appearance of the pulmonic valve. No pulmonic stenosis. Mildpulmonic regurgitation. Pericardium: Normal pericardium with no significant pericardial effusion. Aorta: No aortic root dilation. Mild aortic root calcification. IVC: Normal size and normal respiratory collapse consistent with normal rightatrial pressure (<5 mmHg). CONCLUSIONS: Normal left ventricular systolic function. No focal wall motionabnormalities. Normal left ventricular size. Moderate concentric left ventricular hypertrophy.Normal left ventricular diastolic function. Ejection fraction is visually estimated at60 %. Ejection fraction is measured at 56 %. Global Longitudinal Strain is -13 %. GLS isabnormal. Normal right ventricular systolic function. Mild enlargement of rightventricle. There is mild enlargement of left atrium. Mild mitral valve regurgitation. Moderate aortic stenosis. Mean gradient of 14.0 mmHg. Valve area of 1.02cm2. Aortic cusps appear moderately calcified. Trileaflet aortic valve. Mild aorticvalve regurgitation. Moderate pulmonary hypertension based on right ventricular systolicpressure. Estimated peak RVSP is 45-50 mmHg. Mild to moderate tricuspid regurgitation. Mild pulmonic regurgitation. Normal sinus rhythm. Electronically Signed By: Marvin Velazquez MD 2023-12-23 16:27:51 CDT us Mohinder Martinez MD CV ECHO PROCEDURES Final Result documented in this encounter Visit Diagnoses Diagnosis Atherosclerosis of [place] artery of extremity with intermittent claudication, unspecified extremity (HCC) Coronary artery disease of [place] artery of [place] heart with stable angina pectoris (HCC) documented in this encounter Care Teams Supervising Architect Relationship Specialty Start Date End Date Rogelio Epperson MD [address] [facility] [address] [place] [id number] PCP - General 06/04/12 documented as of this encounter
--- OUTSIDE RECORDS SUMMARY | 2024-02-14 08:40 | XMS_ITS | Encounter Summary ---
Author Organization [facility] Healthcare Address [address] [place] [address] Care Team Providers Care Commercial Litigation Paralegal Name Role Phone Rogelio Epperson MD Primary Care Provider Encounter Details Date Type Department Care Team (Late st Contact Info) Description 01/10/[address] 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 Requesting refill for Bumex. Thank you. Contact: OUT MACHINE OPERATOR * Telephone Encounter - Maricruz Cool MA - 01/10/2023 3:[address] Martinez, Will you be the prescriber for pt's Bumex? OUT MACHINE OPERATOR * Telephone Encounter - Ellie Momin - 01/10/2023 3:50 PM CST Patient requesting refill for Bumex 2 mg with 90 day supply. Please send to [facility]. Thank you. Contact: OUT MACHINE OPERATOR documented in this encounter Plan of Treatment Not on file documented as of this encounter Visit Diagnoses Not on filedocumented in this encounter Care Teams Commercial Litigation Paralegal Relationship Specialty Start Date End Date Rogelio Epperson MD [address] [facility] [address] [place] [address] PCP - General 06/04/12 documented as of this encounter
--- OUTSIDE RECORDS SUMMARY | 2024-02-14 08:40 | XMS_ITS | Encounter Summary ---
Author Organization [facility] Healthcare Address [address] [place] [address] Care Team Providers Care Toddler Lead Teacher Name Role Phone Rogelio Epperson MD Primary Care Provider Encounter Details Date Type Department Care Team (Late st Contact Info) Description 01/30/2023 Telephone [facility] Medical Group Cardiology [address] [facility] [address] [phone] Mohinder Martinez MD [address] [facility] [address] [place] [address] Social History Tobacco Use Types Packs/Day Years Used Date Smoking Tobacco: Former Cigars Smokeless Tobacco: Never Alcohol Use Standard Drinks/Week Comments Yes 2 (1 standard drink = 0.6 oz pur e alcohol) per week Sex and Gender Information Value Date Recorded Sex Assigned at Not on file Legal Sex Male 1:57 AM ADMITTING MANAGER Gender Identity Not on file Sexual Orientation Not on file documented as of this encounter Miscellaneous Notes * Telephone Encounter - Maricruz Olivas RN - 01/30/2023 10:03 AM ADMITTING MANAGER Lab order sent to [facility]. Pt notified. TTING MANAGER * Telephone Encounter - Ellie Momin - 01/30/2023 9:31 AM CST Pt states at his last office visit [facility] wanted pt to get a basic metabolic profile in 2-3 weeks. Pt requesting order be sent to [facility] in [place]. Thank you. Contact: TTING MANAGER documented in this encounter Plan of Treatment Not on file documented as of this encounter Procedures Procedure Name Priority Date/Time Associated Diagnosis Comments BASIC METABOLIC PANEL Routine 01/30/2023 12:12 PM ADMITTING MANAGER Diastolic heart failure, unspecified HF chronicity (HCC) documented in this encounter Results * (ABNORMAL) Basic metabolic panel (01/30/2023 12:12 PM ADMITTING MANAGER) Glucose 101(H) 65 - 99 mg/dL [facility] Comment: ? Fasting reference interval For someone without known diabetes, a glucose value between 100 and 125 mg/dL is consistent with prediabetes and should be confirmed with a follow-up test. BUN 40(H) 7 - 25 mg/dL [facility] Creatinine 1.37(H) 0.70 - 1.28 mg/dL [facility] eGFR 53(L) > OR = 60 mL/min/1.7 3m2 [facility] BUN/creat ratio 29(H) 6 - 22 (calc) [facility] Sodium 138 135 - 146 mmol/L [facility] Potassium, pl 4.0 3.5 - 5.3 mmol/L [facility] Chloride 97(L) 98 - 110 mmol/L [facility] CO2 30 20 - 32 mmol/L [facility] Calcium 9.5 8.6 - 10.3 mg/dL [facility] Blood 01/30/2023 12:1 2 PM ADMITTING MANAGER 01/30/2023 12:12 PM ADMITTING MANAGER us Mohinder Martinez MD LAB BLOOD ORDERABLES Fin al Result [facility] [address] [place] [address] documented in this encounter Visit Diagnoses Diagnosis Diastolic heart failure, unspecified HF chronicity (HCC)- Primary documented in this encounter Care Teams Toddler Lead Teacher Relationship Specialty Start Date End Date Rogelio Epperson MD [address] [facility] [address] [place] [address] PCP - General 06/04/12 documented as of this encounter
--- OUTSIDE RECORDS SUMMARY | 2024-02-14 08:40 | XMS_ITS | Referral Summary ---
Author Organization [facility] [address] [place] [address] [address] [facility] [address] [place] [address] Care Team Providers Care Potato Inspector Name Role Phone Rogelio Epperson MD Primary Care Provider Encounters Date Type Department Care Team Description 02/09/2024 Telephone [facility] Cardiology [address] [facility] [address] [place] [address] Michael Rodriguez MD 01/29/2024 Telephone [facility] [address] [place] [address] [address] [place] [address] Dora Russell RN 01/29/2024 9:00 AM CIVIL DRAFTING TECHNICIAN Office Visit [facility] Cardiology [address] [place] [address] [address] [place] [address] Eugene Martinez MD Coronary artery disease of [place] artery of [place] heart with stable angina pectoris (HCC) (Primary Dx); PAF (paroxysmal atrial fibrillation) (CMS/HCC) (HCC); History of coronary artery stent placement; Persistent atrial fibrillation (HCC) 01/08/2024 8:15 AM CIVIL DRAFTING TECHNICIAN Ancillary Procedure [facility] Cardiology [address] [facility] [address] [place] [address] Atherosclerosis of [place] artery of lower extremity with intermittent claudication, unspecified laterality (HCC); Coronary artery disease of [place] artery of [place] heart with stable angina pectoris (HCC) 12/23/2023 11:15 AM CDT Ancillary Procedure [facility] Cardiology [address] [place] [address] Atherosclerosis of [place] artery of extremity with intermittent claudication, unspecified extremity (HCC); Coronary artery disease of [place] artery of [place] heart with stable angina pectoris (HCC) 12/18/2023 11:15 AM CDT Office Visit [facility] Cardiology [address] [place] [address] Eugene Martinez MD Coronary artery disease of [place] artery of [place] heart with stable angina pectoris (HCC) (Primary Dx); PAF (paroxysmal atrial fibrillation) (CMS/HCC) (HCC); History of coronary artery stent placement from Last 3 Months Allergies No known active allergies Medications albuterol HFA (PROVENTIL HFA,VENTOLIN HFA) 90 mcg/actuation inhaler Inhale 2 puffs every 6 (six) hours as needed for wheezing Active cholecalciferol (VITAMIN D-3) 5,000 unit capsule Take 1 capsule (5,000 Units total) by mouth daily Active cyanocobalamin (Vitamin B-12) 1,000 mcg tabletIndicatio ns:Prevention of Vitamin B12 Deficiency Take 1 tablet (1,000 mcg total) by mouth daily Active flaxseed oil 1,000 mg capsule Take 1 capsule (1,000 mg total) by mouth daily Active triamcinolone (NASACORT) 55 mcg nasal inhaler Administer 2 sprays into each nostril nightly Active azelastine (ASTELIN) 137 mcg (0.1 %) nasal spray Administer 1 spray into each nostril nightly 8 Active gabapentin (NEURONTIN) 600 mg tablet Take 1 tablet (600 mg total) by mouth 3 (three) times a day 8 Active acetaminophen (TYLENOL) 500 mg tablet Take 1-2 tablets (500-1,000 mg total) by mouth every 6 (six) hours as needed for pain Active fluticasone furoate-vilante rol (BREO ELLIPTA) 100-25 mcg/dose diskus inhaler Inhale 1 puff daily Rinse mouth with water after use. Do not swallow. Active atorvastatin (LIPITOR) 10 mg tablet Take 1 tablet (10 mg total) by mouth daily 90 tablet 3 3 Active Eliquis 5 mg tablet TAKE 1 TABLET TWICE A DAY 180 tablet 3 4 Active cilostazoL (PLETAL) 50 mg tablet Take 1 tablet (50 mg total) by mouth 2 (two) times a day 3 Active amLODIPine (NORVASC) 10 mg tablet Take 1 tablet (10 mg total) by mouth nightly 90 tablet 3 4 Active ramipriL (ALTACE) 10 mg capsule TAKE 1 CAPSULE DAILY 90 capsule 3 4 Active metOLazone (ZAROXOLYN) 2.5 mg tablet TAKE 1 TABLET (2.5 MG TOTAL) BY MOUTH 3 (THREE) TIMES A WEEK 26 tablet 4 4 Active bumetanide (BUMEX) 2 mg tablet TAKE 1 TABLET BY MOUTH EVERY DAY 90 tablet 1 4 Active semaglutide (Wegovy) 0.25 mg/0.5 mL auto-injector 0.5 mL Subcutaneous weekly for 30 days 4 Active Active Problems Problem Noted Date Diagnosed Date Dyspnea on exertion 07/30/2022 Atrial flutter (CMS/HCC) 07/30/2022 Assessment & Plan (02/21/2023 4:47 PM CIVIL DRAFTING TECHNICIAN): The patient is five years status post ablation for persistent atrial fibrillation. He appears to be experiencing paroxysmal atrial fibrillation/flutter, though was in sinus rhythm today. I recommended that he undergo a 7 day period of event monitoring to determine his current burden of atrial fibrillation/flutter. If his burden is significant, additional options include sotalol or repeat catheter ablation. The patient has a [id number] score of 4. I have therefore recommended continued anticoagulation thromboprophylaxis. The patient will follow-up with me in 6 months for an office visit and twelve- lead ECG. History of coronary artery stent placement 06/25 Paroxysmal atrial fibrillation (CMS/HCC) 018 Overview (02/20/2018): Added automatically from request for surgery [id number] blow down helper current use of antiarrhythmic drug Assessment & Plan (02/14/2018 12:46 PM CIVIL DRAFTING TECHNICIAN): 12-lead ECG today does not demonstrate any changes that would prohibit continued use of sotalol. We will continue the patient on the same dose and schedule. As long as the patient continues on this medication, an ECG should be performed at least every 6 months to monitor for toxicity. Anticoagulation management encounter 02/14/2018 Assessment & Plan (02/14/2018 12:50 PM CIVIL DRAFTING TECHNICIAN): The patient has a [id number] score of a 3 (annualized risk of stroke 3.2 %). I have therefore recommended that he remain anticoagulated for thromboprophylaxis. CAD (coronary artery disease) 09/04/2016 PAF (paroxysmal atrial fibrillation) ([facility]) 0 09/04/2016 Assessment & Plan (02/14/2018 12:46 PM CIVIL DRAFTING TECHNICIAN): The patient has recurrent persistent atrial fibrillation that is symptomatic and refractory to cardioversion and sotalol therapy. We discussed options for management, and I recommended that the patient consider radiofrequency catheter ablation. We discussed the rationale for atrial fibrillation ablation, including the steps involved in ablation. I detailed the risks of the procedure, including vascular injury/hematoma, myocardial injury/perforation, stroke, myocardial infarction, pulmonary vein stenosis, thermal esophageal injury, and . I estimated a 70% chance of freedom from long-term atrial arrhythmia, and the patient understands that occasionally a second procedure is necessary. Prior to ablation, I recommended that the patient undergo CT scanning with reconstruction of the left atrium, to assist with mapping and ablation. If the patient wishes to proceed, my office will make the appropriate arrangements. From: February CT, Jayleen LS, Janeth JS, Alda H, Dima GIO, Wang JE, [place] ANDRE, Leslie PT, Soni TONEY, [place], Sarbjit KT, Marcello RL, Darrick WG, Katie PJ, Vale CM, Monalisa CW. 2014 AHA/ACC/HRS guideline for the management of patients with atrial fibrillation: a report of the [place] College [employer]iology/[employer] Heart Association Task Force on Practice Guidelines and the Heart Rhythm Society. J Am [place] Cardiol 2014. 6.3. AF Catheter Ablation to Maintain Sinus Rhythm: Recommendations Class IIa AF catheter ablation is reasonable for selected patients with symptomatic persistent AF refractory or intolerant to at least 1 class I or III antiarrhythmic medication (388, 392-394). (Level of Evidence: A) Morbid obesity with body mass index (BMI) of 40. 0 to 49.9 09/04/2016 Atherosclerosis of [place] ar mauricio of extremity with intermittent claudication 04/20/2014 Persistent atrial fibrillation Assessment & Plan (08/22/2023 1:41 PM CDT): The patient is 5 year status post ablation for atrial fibrillation, doing well. Maintaining sinus rhythm without antiarrhythmic drug therapy. No changes to management today The patient has a [id number] score of 4. I have therefore recommended continued anticoagulation for thromboprophylaxis. The patient will follow-up with me in 12 months for an office visit and twelve- lead ECG. Social History Tobacco Use Types Packs/Day Years Used Date Smoking Tobacco: Former Cigarettes Pipe Cigars Smokeless Tobacco: Never Tobacco Cessation:Counseling Given: Not Answered Alcohol Use Standard Drinks/Week Comments Yes 2 (1 standard drink = 0.6 oz pur e alcohol) per week Sex and Gender Information Value Date Recorded Sex Assigned at Not on file Legal Sex Male 1:57 AM CIVIL DRAFTING TECHNICIAN Gender Identity Not on file Sexual Orientation Not on file Last Filed Vital Signs Vital Sign Reading Time Taken Comments Blood Pressure 130/76 01/29/2024 8:55 AM CIVIL DRAFTING TECHNICIAN Pulse 78 01/29/2024 8:55 AM CIVIL DRAFTING TECHNICIAN Temperature 36.8 ??C (98.2 ??F) 04/22/2018 8:07 AM CS T Respiratory Rate 18 04/22/2018 8:0 7 AM CIVIL DRAFTING TECHNICIAN Oxygen Saturation 99% 01/29/2024 8:55 AM CIVIL DRAFTING TECHNICIAN Inhaled Oxygen Concentration - - Weight 116.7 kg (257 lb 4.8 oz) 01/29/2024 8:55 AM CIVIL DRAFTING TECHNICIAN Height 175.3 cm (5' 9 ) 01/29/2024 8:55 AM CIVIL DRAFTING TECHNICIAN Body Mass Index 38 01/29/2024 8:55 AM CIVIL DRAFTING TECHNICIAN Plan of Treatment Not on file Procedures Procedure Name Priority Date/Time Associated Diagnosis Comments NM MPI SPECT (REST AND/OR STRESS) MULTIPLE STUDIES Schedule Routine, Read Routine (OP Routine) 01/08/2024 9:47 AM CIVIL DRAFTING TECHNICIAN Atherosclerosis of [place] artery of lower extremity with intermittent claudication, unspecified laterality (HCC) Coronary artery disease of [place] artery of [place] heart with stable angina pectoris (HCC) TRANSTHORACIC ECHO (TTE) COMPLETE W DOPPLER/CF WO CONTRAST Routine 12/23/2023 11:51 AM CDT Atherosclerosis of [place] artery of extremity with intermittent claudication, unspecified extremity (HCC) Coronary artery disease of [place] artery of [place] heart with stable angina pectoris (HCC) from Last 3 Months Results * NM MPI SPECT (Rest and/or Stress) Multiple Studies (01/08/2024 9:47 AM CIVIL DRAFTING TECHNICIAN) Anatomical Region Laterality Modality Body N/A Nuclear Medicine 01/08/2024 8:09 AM CIVIL DRAFTING TECHNICIAN Narrative 01/08/2024 4:41 PM CIVIL DRAFTING TECHNICIAN [facility] Card[facility] [address] [facility] [address] [address] [address] [facility] [address] [place] [address] P:[phone] P:[phone] MPI Imaging Report Patient Name: VU NICOLE J : 1945 Study Date: 01/08/2024 8:09:14 AM Gender: M Tech: [facility] Location: [facility] Provider: EUGENE MARTINEZ ?Height(Cm): 175.3 BSA: ??Weight(Kg): 113.4 BMI: 36.9 ?Order Provider: EUGENE MARTINEZ - PHYSICIAN: Referring Physician: Dr. Epperson. HCG Physician: Eugene Martinez M.D.,RudyCCrystalCCrystal Interpreting Physician: Eugene Martinez M.D.,Jose MartinCCrystal Stress Supervision: Eugene Martinez M.D.,Shan.CCrystalC. PROCEDURES: Myocardial perfusion imaging with Tc99M Sestamibi SPECT at rest and stress post regadenoson (Lexiscan) infusion. INDICATIONS: Hypertension, Family Hx CAD, High Cholesterol, Former Smoker, I70.219 Atherosclerosis of [place] arteries of extremities with intermittent claudication, unspecified extremity, and I25.118 Atherosclerotic heart disease of [place] coronary artery with other forms of angina pectoris. FINDINGS: Procedural Findings: One day rest/stress was used. Tc99m Sestamibi injected IV at rest was 12.1 millicuries. 38.0 millicuries of Tc99M Sestamibi injected IV during Lexiscan stress. Lexiscan 0.4mg administered IV over 10 seconds. Patient had no symptoms during stress test. Baseline heart rate was 80 BPM. Maximum Heart Rate Achieved was: 94 BPM. Baseline blood pressure was 118/76 mmHg. Post Stress Blood Pressure was 118/70 mmHg. Termination: Protocol complete. Resting ECG: Sinus rhythm with first degree AV block and frequent PAC's. Post ECG: No diagnostic ST changes. Perfusion Findings: Abnormal perfusion imaging - see below. Technical quality of study is poor. A TID of 1.01 was automatically calculated. defect 1: Size is small. Severity is severe. Location of defect is in the apex. Reversibility is not present, defect is fixed. Type of defect is ischemia with infarction. defect 2: Size is medium. Severity is mild. Location of defect is in the basal inferior segment and mid inferior segment. Reversibility is not present, defect is fixed. Type of defect is infarction. LV Function: Global left ventricular function is normal. Left ventricular ejection fraction is 52 %. CONCLUSIONS: Sinus rhythm with first degree AV block and frequent PAC's. No diagnostic ST changes. Global left ventricular function is normal. Left ventricular ejection fraction is 52 %. Abnormal perfusion imaging - see below. Technical quality of study is poor. A TID of 1.01 was automatically calculated. Size is small. Severity is severe. Location of defect is in the apex. Reversibility is not present, defect is fixed. Type of defect is ischemia with infarction. Size is medium. Severity is mild. Location of defect is in the basal inferior segment and mid inferior segment. Reversibility is not present, defect is fixed. Type of defect is infarction. Electronically Signed By: Eugene Martinez MD, [facility] 2024-01-08 16:40:58 CIVIL DRAFTING TECHNICIAN Electronically Signed By: Eugene Martinez MD, [facility] 2024-01-08 16:40:58 CIVIL DRAFTING TECHNICIAN Procedure Note Eugene Martinez MD - 01/08/2024 [facility] [address], [place] [address] [id number], [place] [address] P:[phone] P:[phone] MPI Imaging Report Patient Name: VU NICOLE J : 1945 Study Date: 01/08/2024 8:09:14 AM Gender: M [facility] Provider: EUGENE MARTINEZ Height(Cm): 175.3 BSA: Weight(Kg): 113.4 BMI: 36.9 Order Provider: EUGENE MARTINEZ - PHYSICIAN: Referring Physician: Dr. Epperson. HCG Physician: Eugene Martinez M.D.,F.A.C.C. Interpreting Physician: Eugene Martinez M.D.,F.A.C.C. StressSupervision: Eugene Martinez M.D.,F.A.C.C. PROCEDURES: Myocardial perfusion imaging with Tc99M Sestamibi SPECT at rest and stresspost regadenoson (Lexiscan) infusion. INDICATIONS: Hypertension, Family Hx CAD, High Cholesterol, Former Smoker, I70.219Atherosclerosis of [place] arteries of extremities with intermittent claudication, unspecifiedextremity, and I25.118 Atherosclerotic heart disease of [place] coronary artery with otherforms of angina pectoris. FINDINGS: Procedural Findings: One day rest/stress was used. Tc99m Sestamibi injected IV at rest was 12.1millicuries. 38.0 millicuries of Tc99M Sestamibi injected IV during Lexiscan stress.Lexiscan 0.4mg administered IV over 10 seconds. Patient had no symptoms during stresstest. Baseline heart rate was 80 BPM. Maximum Heart Rate Achieved was: 94 BPM. Baselineblood pressure was 118/76 mmHg. Post Stress Blood Pressure was 118/70 mmHg. Termination: Protocol complete. Resting ECG: Sinus rhythm with first degree AV block and frequent PAC's. Post ECG: No diagnostic ST changes. Perfusion Findings: Abnormal perfusion imaging - see below. Technical quality of study ispoor. A TID of 1.01 was automatically calculated. defect 1: Size is small. Severity is severe. Location of defect is in the apex.Reversibility is not present, defect is fixed. Type of defect is ischemia withinfarction. defect 2: Size is medium. Severity is mild. Location of defect is in the basalinferior segment and mid inferior segment. Reversibility is not present, defect is fixed. Typeof defect is infarction. LV Function: Global left ventricular function is normal. Left ventricular ejectionfraction is 52 %. CONCLUSIONS: Sinus rhythm with first degree AV block and frequent PAC's. No diagnostic ST changes. Global left ventricular function is normal. Left ventricular ejectionfraction is 52 %. Abnormal perfusion imaging - see below. Technical quality of study ispoor. A TID of 1.01 was automatically calculated. Size is small. Severity is severe. Location of defect is in the apex.Reversibility is not present, defect is fixed. Type of defect is ischemia withinfarction. Size is medium. Severity is mild. Location of defect is in the basalinferior segment and mid inferior segment. Reversibility is not present, defect is fixed. Typeof defect is infarction. Electronically Signed By: Eugene Martinez MD, [facility] 2024-01-08 16:40:58 CIVIL DRAFTING TECHNICIAN Electronically Signed By: Eugene Martinez MD, [facility] 2024-01-08 16:40:58 CIVIL DRAFTING TECHNICIAN us Eugene Martinez MD IMG NM PROCEDURES Final Result * TRANSTHORACIC ECHO (TTE) COMPLETE W DOPPLER/CF WO CONTRAST (12/23/2023 11:51 AM CDT) Anatomical Region Laterality Modality Ultrasound 12/23/2023 11:3 9 AM CDT Narrative 12/23/2023 4:[address] [facility] [address] [facility] [address], [place] [address] [address] [facility] [address], [place] [address] P:[phone] P:[phone] Echocardiographic Report Patient Name: VU NICOLE J : 1945 Study Date: 12/23/2023 11:39:25 AM Gender: M Tech: Location: [place] Ref Provider: EUGENE MARTINEZ ?Height(Cm): 175 BSA: 2.35 Weight(Kg): 113.4 Heart Rate: 83 BP: 142 / 82 Quality: Good Order Provider: EUGENE MARTINEZ PROCEDURES: Echocardiographic Report: Transthoracic echocardiogram with complete 2D, M-Mode, and color Doppler examination. With Strain Analysis. INDICATIONS: I70.219 Atherosclerosis of [place] arteries of extremities with intermittent claudication, unspecified extremity, and I25.118 Atherosclerotic heart disease of [place] coronary artery with other forms of angina [...] FINDINGS: Interpretation Site: Exam was interpreted at [facility] [place]. Left Ventricle: Normal left ventricular systolic [...] Procedure Note Marvin Velazquez MD - 12/23/2023 [facility] [address], [place] [address] [address] [facility] [address], [place] [address] P:[phone] P:[phone] Echocardiographic Report Patient Name: VU NICOLE J : 1945 Study Date: 12/23/2023 11:39:25 AM Gender: M Tech: CAMPBELL Location: [place] Ref Provider: EUGENE MARTINEZ Height(Cm): 175 BSA: 2.35 Weight(Kg): 113.4 Heart Rate: 83 BP: 142 / 82 Quality: Good Order Provider: EUGENE MARTINEZ PROCEDURES: Echocardiographic Report: Transthoracic echocardiogram with complete 2D, M-Mode, and color Dopplerexamination. With Strain Analysis. INDICATIONS: I70.219 Atherosclerosis of [place] arteries of extremities withintermittent claudication, unspecified extremity, [...] FINDINGS: Interpretation Site: Exam was interpreted at [facility]. Left Ventricle: Normal left ventricular systolic function. [...] Marvin Velazquez MD 2023-12-23 16:27:51 CDT us Eugene Martinez MD CV ECHO PROCEDURES Final Result from Last 3 Months Insurance [employer] [facility] Address: [address] [address] [place] [address] [employer] MEDICARE [employer] MED[employer]ARE [facility] Address: [facility] [id number] [place] [id number] Advance Directives For more information, please contact: [phone] Documents on File Type Date Recorded Patient Senior Animator Expl anation ADVANCE DIRECTIVE 04/21/2018 6:18 AM * Full Code (Latest Code Status on File) Date Activated Date Inactivated Comments 04/21/2018 5:52 PM 04/22/2018 3:54 PM Care Teams Potato Inspector Relationship Specialty Start Date End Date Rogelio Epperson MD [address] [facility] [address] [place] [address] PCP - General 06/04/12
--- OUTSIDE RECORDS SUMMARY | 2024-02-14 08:40 | XMS_ITS | Encounter Summary ---
Author Organization [facility] Healthcare Address [address] [place] [address] Care Team Providers Care Parcel Carrier Name Role Phone Rogelio Epperson MD Primary Care Provider Reason for Visit * Reason Comments Atrial Fibrillation Coronary Artery Disease 6 mo f/u Encounter Details Date Type Department Care Team (Late st Contact Info) Description 12/18/2023 11:15 AM CDT Office Visit [facility] Cardiology [address] [facility] [address] [place] [phone] Mohinder Martinez MD [address] [place] [address] 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) (Primary Dx); PAF (paroxysmal atrial fibrillation) (CMS/HCC) (HCC); History of coronary artery stent placement Social History Tobacco Use Types Packs/Day Years Used Date Smoking Tobacco: Former Cigarettes Pipe Cigars Smokeless Tobacco: Never Tobacco Cessation:Counseling Given: Not Answered Alcohol Use Standard Drinks/Week Comments Yes 2 (1 standard drink = 0.6 oz pur e alcohol) per week Sex and Gender Information Value Date Recorded Sex Assigned at Not on file Legal Sex Male 1:57 AM ON SITE SERVICES SPECIALIST Gender Identity Not on file Sexual Orientation Not on file documented as of this encounter Last Filed Vital Signs Vital Sign Reading Time Taken Comments Blood Pressure 108/64 12/18/2023 11:14 AM CDT Pulse 88 12/18/2023 11:14 AM CDT Temperature - - Respiratory Rate - - Oxygen Saturation 94% 12/18/2023 11:14 AM CDT Inhaled Oxygen Concentration - - Weight 113.4 kg (250 lb) 12/18/2023 11:14 AM CDT Height 175.3 cm (5' 9 ) 12/18/2023 11:14 AM CDT Body Mass Index 36.92 12/18/2023 11:14 AM CDT documented in this encounter Progress Notes * Mohinder Martinez MD - 12/18/2023 11:15 AM CDT [facility] FOLLOW UP 12/18/2023 Vu Nicole is a 78 y.o. male [...] patient was ultimately referred to electrophysiology at [facility] he underwent a catheter ablation of his atrial fibrillation on 04/21/2018. He underwent a nuclear stress test in January of 2021 because of some chest pain symptoms. The results were negative and I have been treating him medically for his angina since then. In July of 2022 the patient was seen in the office and was seen shortly before that by his tong setter. He was found to be back in [...] with a valve area of 1.2cm2. He returns to the office today for a scheduled six-month appointment. The patient states that several months ago he began to notice what he describes as exertional angina. He provides a fairly typical history of central pressure-like chest discomfort that occurs when he walks distances. He has had a couple of episodes that occur without activity but primarily this is an exertional symptom. Sublingual nitroglycerin does alleviate this quite readily. Had a long conversation with the patient abouthis coronary disease and aortic valve disease as it pertains to these symptoms. He has continued tolose weight and is lost another 17 lb intentionally since his last visit here. He was congratulated regarding his weight loss efforts. REVIEW OF SYSTEMS General ROS: negative for [...] CAPSULE DAILY, Disp: 90 capsule, Rfl: 3 triamcinolone (NASACORT) 55 mcg nasal inhaler, Administer [...] for component: LABALBU PHYSICAL EXAM Vitals BP 108/64 (BP Location: Left arm, Patient Position: Sitting) Pulse 88 Ht 175.3 cm (5' 9 ) Wt 113.4 kg (250 lb) SpO2 94% BMI 36.92 kg/m?? Physical Examination: General appearance - alert, [...] normal rate, irregular rhythm, normal S1, S2, no murmurs, rubs, clicks or gallops, no JVD PMI [...] noted ASSESSMENT Vu was seen today for atrial fibrillation and coronary artery disease. 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 Given his history we need to re-evaluate both his ischemic disease and aortic valve disease. An echocardiogram as well as a Lexiscan stress test will be done I will see him in follow-up as soon as that data has been collected. 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
--- OUTSIDE RECORDS SUMMARY | 2024-02-14 08:40 | XMS_ITS | Encounter Summary ---
Author Organization [facility] Healthcare Address [address] [place] [address] Care Team Providers Care Information Architect Name Role Phone Rogelio Epperson MD Primary Care Provider Encounter Details Date Type Department Care Team (Late st Contact Info) Description 12/18/2022 Orders Only [facility] Medical Group Cardiology [address] [place] [address] Lucy Siegel MD [address] [place] [id number] Social History Tobacco Use Types Packs/Day Years Used Date Smoking Tobacco: Former Smokeless Tobacco: Never Alcohol Use Standard Drinks/Week Comments Yes 2 (1 standard drink = 0.6 oz pur e alcohol) per week Sex and Gender Information Value Date Recorded Sex Assigned at Not on file Legal Sex Male 1:57 AM APPLE TURNER Gender Identity Not on file Sexual Orientation Not on file documented as of this encounter Plan of Treatment Not on file documented as of this encounter Procedures Procedure Name Priority Date/Time Associated Diagnosis Comments CARDIOLOGY DOCUMENT SCAN Routine 023 11:30 AM CDT CARDIOLOGY DOCUMENT SCAN Routine 023 11:27 AM CDT CARDIOLOGY DOCUMENT SCAN Routine 023 11:25 AM CDT documented in this encounter Results * Cardiology Document Scan (12/12/2022 11:30 AM CDT) Anatomical Region Laterality Modality Other us Randi Chicas NP CV CARDIAC SERVICES PROCEDUR ES Final Result * Cardiology Document Scan (12/11/2022 11:27 AM CDT) Anatomical Region Laterality Modality Other us Nikhil Huggins MD CV CARDIAC SERVICES PROC EDURES Final Result * Cardiology Document Scan (12/10/2022 11:25 AM CDT) Anatomical Region Laterality Modality Other us Lucy Siegel MD CV CARDIAC SERVICES PRO CEDURES Final Result documented in this encounter Visit Diagnoses Not on filedocumented in this encounter Care Teams Information Architect Relationship Specialty Start Date End Date Rogelio Epperson MD [address] [facility] [address] [place] [address] PCP - General 06/04/12 documented as of this encounter
--- OUTSIDE RECORDS SUMMARY | 2024-02-14 08:40 | XMS_ITS | Clinical Summary ---
Author Organization [facility] [address] Address [address] [place] [address] Care Team Providers Care Manufacturing Assembler Name Role Phone Rogelio Epperson MD Primary Care Provider Allergies No known active allergies Medications albuterol [...] 07/30/2022 Assessment & Plan (02/21/2023 4:47 PM GRINDER OPERATOR AUTOMATIC): The patient is five years status post ablation for persistent atrial fibrillation. He appears to be experiencing paroxysmal atrial fibrillation/flutter, though was in sinus rhythm today. I recommended that he undergo a 7 day period of event monitoring to determine his current burden of atrial fibrillation/flutter. If his burden is significant, additional options include sotalol or repeat catheter ablation. The patient has a [id number] score of 4. I have therefore recommended continued anticoagulation thromboprophylaxis. The patient will follow-up with me in 6 months for an office visit and twelve- lead ECG. History of coronary artery stent placement 06/25 Paroxysmal atrial fibrillation ([facility]) 018 Overview (02/20/2018): Added automatically from request for surgery [id number] nursing home current use of antiarrhythmic drug Assessment & Plan (02/14/2018 12:46 PM GRINDER OPERATOR AUTOMATIC): 12-lead ECG today does not demonstrate any changes that would prohibit continued use of sotalol. We will continue the patient on the same dose and schedule. As long as the patient continues on this medication, an ECG should be performed at least every 6 months to monitor for toxicity. Anticoagulation management encounter 02/14/2018 Assessment & Plan (02/14/2018 12:50 PM GRINDER OPERATOR AUTOMATIC): The patient has a [id number] score of a 3 (annualized risk of stroke 3.2 %). I have therefore recommended that he remain anticoagulated for thromboprophylaxis. CAD (coronary artery disease) 09/04/2016 PAF (paroxysmal atrial fibrillation) ([facility]) 0 09/04/2016 Assessment & Plan (02/14/2018 12:46 PM GRINDER OPERATOR AUTOMATIC): The patient has recurrent persistent atrial fibrillation [...] office will make the appropriate arrangements. From: February, Jayleen LS, Janeth JS, Alda H, Dima GIO, Wang JE, London ANDRE, Leslie PT, Soni TONEY, [place], Sarbjit KT, Marcello RL, Darrick WG, Katie PJ, Vale WEN, Moanlisa CW. 2014 AHA/ACC/HRS guideline for the management of patients with atrial fibrillation: a report of the [place] [employer]/[place] [employer] Association Task Force on Practice Guidelines [...] 40. 0 to 49.9 09/04/2016 Atherosclerosis of tolowa dee-ni' ar mauricio of extremity with intermittent claudication 04/20/2014 Persistent atrial fibrillation Assessment & Plan (08/22/2023 1:41 PM CDT): The patient is 5 year status post ablation for atrial fibrillation, doing well. Maintaining sinus rhythm without antiarrhythmic drug therapy. No changes to management today The patient has a [id number] score of 4. I have therefore recommended continued anticoagulation for thromboprophylaxis. The patient will follow-up with me in 12 months for an office visit and twelve- lead ECG. Encounters Date Type Department Care Team Description 02/09/2024 Telephone [facility] Cardiology [address] [place] [address] [place] [phone] Michael Rodriguez MD 01/29/2024 9:00 AM GRINDER OPERATOR AUTOMATIC Office Visit [facility] Cardiology [address] [place] [address] [place] [phone] Eugene Martinez MD Coronary artery disease of tolowa dee-ni' artery of tolowa dee-ni' heart with stable angina pectoris (HCC) (Primary Dx); PAF (paroxysmal atrial fibrillation) (CMS/HCC) (HCC); History of coronary artery stent placement; Persistent atrial fibrillation (HCC) 01/29/2024 Telephone [facility] Cardiology [address] [place] [address] [place] [phone] Dora Russell RN 01/08/2024 8:15 AM GRINDER OPERATOR AUTOMATIC Ancillary Procedure [facility] Cardiology [address] [place] [address] [address] [place] [phone] Atherosclerosis of tolowa dee-ni' artery of lower extremity with intermittent claudication, unspecified laterality (HCC); Coronary artery disease of tolowa dee-ni' artery of tolowa dee-ni' heart with stable angina pectoris (HCC) 12/23/2023 11:15 AM CDT Ancillary Procedure [facility] Cardiology [address] [place] [address] Atherosclerosis of tolowa dee-ni' artery of extremity with intermittent claudication, unspecified extremity (HCC); Coronary artery disease of tolowa dee-ni' artery of tolowa dee-ni' heart with stable angina pectoris (HCC) 12/18/2023 11:15 AM CDT Office Visit [facility] Cardiology [address] [place] [address] Eugene Martinez MD Coronary artery disease of tolowa dee-ni' artery of tolowa dee-ni' heart with stable angina pectoris (HCC) (Primary Dx); PAF (paroxysmal atrial fibrillation) (CMS/HCC) (HCC); History of coronary artery stent placement from Last 3 Months Surgical History Surgery Date Site/Laterality Comments CARDIAC CATHETERIZATION CORONARY STENT PLACEMENT x 4 ANGIOPLASTY CATARACT EXTRACTION 11/25/2019 - 12/25/2019 Medical History Medical History Date Comments Hypertension Hypertension Adiposity Obesity Hx Other Medical dyslipidemia Arrhythmia Atrial fibrillation (CMS/HCC) (HCC) Hyperlipidemia Sleep apnea cpap Asthma seaonal allergie s, asthma CHF (congestive heart failure) ([facility]) (HCC) Coronary artery disease GERD (gastroesophageal reflux disease) Arthritis Heart disease Neuromuscular disorder (HCC) Family History Medical History Relation Name Comments Stent Brother 1 1 Coronary Stent Placement; Heart attack Brother 2 2 Myocardial Infa rction; Cause of : Myocardial Infarction Heart disease Brother 2 2 Alcohol abuse Brother 3 Artis Alcohol abuse Brother 4 Dustin Alcohol abuse Brother 5 Jose Rafael Heart attack Brother 5 Jose Rafael Heart disease Brother 5 Jose Rafael Hypertension Brother 5 Jose Rafael Alcohol abuse Brother 6 Donovan Arthritis Brother 6 Donovan Asthma Brother 6 Donovan COPD Brother 6 Donovan Hearing loss Brother 6 Donovan Heart attack Brother 6 Donovan Heart disease Brother 6 Donovan Hypertension Brother 6 Donovan Arthritis Brother 7 Logan Asthma Brother 7 Logan COPD Brother 7 Logan Hypertension Brother 7 Logan Alcohol abuse Father Bufus Mental illness Mother Christi Stent Sister 2 2 Coronary Stent Placement; Arthritis Sister 3 Tammy Heart attack Sister 3 Tammy Heart disease Sister 3 Tammy Hypertension Sister 3 Tammy Obesity Sister 3 Tammy Stent Sister 3 Tammy Coronary Stent Placement; Relation Name Status Comments Brother 1 1 Alive Brother 2 2 Brother 3 Artis Brother 4 Dustin Brother 5 Jose Rafael Brother 6 Donovan Brother 7 Logan Father Dav Mother Christi Sister 1 Alive Sister 2 2 Alive Sister 3 Tammy Social History Tobacco Use Types Packs/Day Years Used Date Smoking Tobacco: Former Cigarettes Pipe Cigars Smokeless Tobacco: Never Tobacco Cessation:Counseling Given: Not Answered Alcohol Use Standard Drinks/Week Comments Yes 2 (1 standard drink = 0.6 oz pur e alcohol) per week Sex and Gender Information Value Date Recorded Sex Assigned at Not on file Legal Sex Male 1:57 AM GRINDER OPERATOR AUTOMATIC Gender Identity Not on file Sexual Orientation Not on file Obstetrics History Last Filed Vital Signs Vital Sign Reading Time Taken Comments Blood Pressure 130/76 01/29/2024 8:55 AM GRINDER OPERATOR AUTOMATIC Pulse 78 01/29/2024 8:55 AM GRINDER OPERATOR AUTOMATIC Temperature 36.8 ??C (98.2 ??F) 04/22/2018 8:07 AM CS T Respiratory Rate 18 04/22/2018 8:07 AM GRINDER OPERATOR AUTOMATIC Oxygen Saturation 99% 01/29/2024 8:55 AM GRINDER OPERATOR AUTOMATIC Inhaled Oxygen Concentration - - Weight 116.7 kg (257 lb 4.8 oz) 01/29/2024 8:55 AM GRINDER OPERATOR AUTOMATIC Height 175.3 cm (5' 9 ) 01/29/2024 8:55 AM GRINDER OPERATOR AUTOMATIC Body Mass Index 38 01/29/2024 8:55 AM GRINDER OPERATOR AUTOMATIC Plan of Treatment Health Maintenance Due Date Last Done Comments Depression Screening 1945 Fall Risk Assessment 1945 Hepatitis C Screening 1945 DTaP/Tdap/Td Vaccine (1 - Tdap) 1956 Hepatitis B Screening 06/18/1963 Zoster Vaccine (1 of 2) 06/18/1995 Abdominal Aortic Aneurysm (A AA) Screen 2010 Well Visit 65+ 2010 Influenza Vaccine (#1) 2023 9, 12/17/2017, 12/24/2016, Additional history exists Pneumococcal vaccine 65+ Completed 01/10/2015, 12/25 Procedures Procedure Name Priority Date/Time Associated Diagnosis Comments NM MPI SPECT (REST AND/OR STRESS) MULTIPLE STUDIES Schedule Routine, Read Routine (OP Routine) 01/08/2024 9:47 AM GRINDER OPERATOR AUTOMATIC Atherosclerosis of tolowa dee-ni' artery of lower extremity with intermittent claudication, unspecified laterality (HCC) Coronary artery disease of tolowa dee-ni' artery of tolowa dee-ni' heart with stable angina pectoris (HCC) TRANSTHORACIC ECHO (TTE) COMPLETE W DOPPLER/CF WO CONTRAST Routine 12/23/2023 11:51 AM CDT Atherosclerosis of tolowa dee-ni' artery of extremity with intermittent claudication, unspecified extremity (HCC) Coronary artery disease of tolowa dee-ni' artery of tolowa dee-ni' heart with stable angina pectoris (HCC) from Last 3 Months Results * NM MPI SPECT (Rest and/or Stress) Multiple Studies (01/08/2024 9:47 AM GRINDER OPERATOR AUTOMATIC) Anatomical Region Laterality Modality Body N/A Nuclear Medicine 01/08/2024 8:09 AM GRINDER OPERATOR AUTOMATIC Narrative 01/08/2024 4:41 PM GRINDER OPERATOR AUTOMATIC [facility] Medical Group Cardiology [address] [facility] [address], [place] [address] [address] [facility] [address] [address] P:[phone] P:[phone] MPI Imaging Report Patient Name: VU NICOLE J : 1945 Study Date: 01/08/2024 8:09:14 AM Gender: M Tech: [facility] Location: [facility] Provider: EUGENE MARTINEZ ?Height(Cm): 175.3 BSA: ??Weight(Kg): 113.4 BMI: 36.9 ?Order Provider: EUGENE MARTINEZ - PHYSICIAN: Referring Physician: Dr. Epperson. HCG Physician: Eugene Martinez M.D.,RudyCCrystalCCrystal Interpreting Physician: Eugene Martinez M.D.,Jose MartinCCrystal Stress Supervision: Eugene Martinez M.D.,F.A.C.C. PROCEDURES: Myocardial perfusion imaging with Tc99M Sestamibi SPECT at rest and stress post regadenoson (Lexiscan) infusion. INDICATIONS: Hypertension, Family Hx CAD, High Cholesterol, Former Smoker, I70.219 Atherosclerosis of tolowa dee-ni' arteries of extremities with intermittent claudication, unspecified extremity, and I25.118 Atherosclerotic heart disease of tolowa dee-ni' coronary artery with other forms of angina [...] infarction. Electronically Signed By: Eugene Martinez MD, [facility] 2024-01-08 16:40:58 GRINDER OPERATOR AUTOMATIC Electronically Signed By: Eugene Martinez MD, [facility] 2024-01-08 16:40:58 GRINDER OPERATOR AUTOMATIC Procedure Note Eugene Martinez MD - 01/08/2024 [facility] Medical Group Cardiology [address], [place] [address] [address], [place] [address] P:[phone] P:[phone] MPI Imaging Report Patient Name: VU NICOLE J : 1945 Study Date: 01/08/2024 8:09:14 AM Gender: M Tech: TOBI RODRIGUEZMT Location: [facility] Provider: EUGENE MARTINEZ Height(Cm): 175.3 BSA: Weight(Kg): 113.4 BMI: 36.9 Order Provider: EUGENE MARTINEZ - PHYSICIAN: Referring Physician: Dr. Epperson. HCG Physician: Eugene Martinez M.D.,F.A.C.C. Interpreting Physician: Eugene Martinez M.D.,F.A.C.C. StressSupervision: Eugene Martinez M.D.,F.A.C.C. PROCEDURES: Myocardial perfusion imaging with Tc99M Sestamibi SPECT at rest and stresspost regadenoson (Lexiscan) infusion. INDICATIONS: Hypertension, Family Hx CAD, High Cholesterol, Former Smoker, I70.219Atherosclerosis of tolowa dee-ni' arteries of extremities with intermittent claudication, unspecifiedextremity, and I25.118 Atherosclerotic heart disease of tolowa dee-ni' coronary artery with otherforms of angina pectoris. [...] infarction. Electronically Signed By: Eugene Martinez MD, [facility] 2024-01-08 16:40:58 GRINDER OPERATOR AUTOMATIC Electronically Signed By: Eugene Martinez MD, [facility] 2024-01-08 16:40:58 GRINDER OPERATOR AUTOMATIC us Eugene Martinez MD IM NM PROCEDURES Final Result * TRANSTHORACIC ECHO (TTE) COMPLETE W DOPPLER/CF WO CONTRAST (12/23/2023 11:51 AM CDT) Anatomical Region Laterality Modality Ultrasound 12/23/2023 11:3 9 AM CDT Narrative 12/23/2023 4:28 PM CDT [facility] Medical Group Cardiology [address], [place] [address] [address] [facility] [address], [place] [address] P:[phone] P:[phone] Echocardiographic Report Patient Name: VU NICOLE J : 1945 Study Date: 12/23/2023 11:39:25 AM Gender: M Tech: Location: [facility] Provider: EUGENE MARTINEZ ?Height(Cm): 175 BSA: 2.35 Weight(Kg): 113.4 Heart Rate: 83 BP: 142 / 82 Quality: Good Order Provider: EUGENE MARTINEZ PROCEDURES: Echocardiographic Report: Transthoracic echocardiogram with complete 2D, M-Mode, and color Doppler examination. With Strain Analysis. INDICATIONS: I70.219 Atherosclerosis of tolowa dee-ni' arteries of extremities with intermittent claudication, unspecified extremity, and I25.118 Atherosclerotic heart disease of tolowa dee-ni' coronary artery with other forms of angina [...] FINDINGS: Interpretation Site: Exam was interpreted at [facility] [place]. Left Ventricle: Normal left ventricular [...] Procedure Note Marvin Velazquez MD - 12/23/2023 [facility] Medical Group Cardiology [address], [place] [address] [id number], [place] [address] P:[phone] P:[phone] Echocardiographic Report Patient Name: VU NICOLE J : 1945 Study Date: 12/23/2023 11:39:25 AM Gender: M Tech: CAMPBELL Location: [facility] Provider: EUGENE MARTINEZ Height(Cm): 175 BSA: 2.35 Weight(Kg): 113.4 Heart Rate: 83 BP: 142 / 82 Quality: Good Order Provider: EUGENE MARTINEZ PROCEDURES: Echocardiographic Report: Transthoracic echocardiogram with complete 2D, M-Mode, and color Dopplerexamination. With Strain Analysis. INDICATIONS: I70.219 Atherosclerosis of tolowa dee-ni' arteries of extremities withintermittent claudication, unspecified extremity, [...] FINDINGS: Interpretation Site: Exam was interpreted at [facility] [place]. Left Ventricle: Normal left ventricular systolic [...] from Last 3 Months Insurance MEDICARE [facility] MEDICARE Address: [address] [address] [place] [address] [employer] MEDICARE A[employer] MEDICARE Advance Directives For more information, please contact: [phone] Documents on File Type Date Recorded Patient Business Segment Manager Expl anation ADVANCE DIRECTIVE 04/21/2018 6:18 AM * Full Code (Latest Code Status on File) Date Activated Date Inactivated Comments 04/21/2018 5:52 PM 04/22/2018 3:54 PM Care Teams Manufacturing Assembler Relationship Specialty Start Date End Date Rogelio Epperson MD [address] [facility] [address] [place] [address] PCP - General 06/04/12
--- OUTSIDE RECORDS SUMMARY | 2024-02-14 08:40 | XMS_ITS | Encounter Summary ---
Author Organization [facility] Healthcare Address [address] [place] [address] Care Team Providers Care [employer] English Teacher Name Role Phone Rogelio Epperson MD Primary Care Provider Reason for Referral * Procedure (Routine) - Closed Specialty Diagnoses / Procedures Referred By Contac t Referred To Contact Cardiology Diagnoses Abnormal stress test Angina pectoris, unstable (CMS/HCC) (HCC) Mohinder Martinez MD [address] [place] [address] Phone: tel: fax: [facility] Cardiology [address] [address] Phone: tel: fax: Referral ID Status Reason Start Date Expiration Date V isits Requested Visits Authorized [id number] Closed Specialty Services Required 01/29/2024 07/27/2024 1 1 Question Answer Please select the performing region: [facility] [[id number]] Please select the performing department: [facility] [[id number]] # of visits: 1 Comments PROCEDURE/TEST ORDERED:[facility] LOCATION: DATE OF SERVICE: 02/08 INSURANCE: [employer] Medicare DIAGNOSIS: abn stress ORDERING PROVIDER: Michael ADDITIONAL DETAILS: OMS AGENT Encounter Details Date Type Department Care Team (Late st Contact Info) Description 01/29/2024 Telephone [facility] Cardiology [address] [place] [phone] Dora Russell, RN Social History Tobacco Use Types Packs/Day Years Used Date Smoking Tobacco: Former Cigarettes Pipe Cigars Smokeless Tobacco: Never Alcohol Use Standard Drinks/Week Comments Yes 2 (1 standard drink = 0.6 oz pur e alcohol) per week Sex and Gender Information Value Date Recorded Sex Assigned at Not on file Legal Sex Male 1:57 AM CUSTOMS AGENT Gender Identity Not on file Sexual Orientation Not on file documented as of this encounter Miscellaneous Notes * Telephone Encounter - Dora Russell RN - 01/29/2024 9:32 AM CUSTOMS AGENT WK and BRITTNIF FYI Per MJF scheduled pt for [facility] at with WK on 02/08 at 0830. Reviewed instructions and he verbalized understanding-pt will hold eliquis 2 days prior. OMS AGENT documented in this encounter Plan of Treatment Scheduled Referrals Name Type Priority Associated Diagnoses Order Schedule Ambulatory referral to Cardiology Outpatient Referral Routine Abnormal stress test Angina pectoris, unstable (CMS/HCC) (HCC) Expected: 02/05/2024 (Approximate), Expires: 01/28/2025 documented as of this encounter Visit Diagnoses Diagnosis Abnormal stress test- Primary Other nonspecific abnormal cardiovascular system function study Angina pectoris, unstable (CMS/HCC) (HCC) Intermediate coronary syndrome documented in this encounter Care Teams [employer] English Teacher Relationship Specialty Start Date End Date Rogelio Epperson MD [address] [place] [address] PCP - General 06/04/12 documented as of this encounter
--- OUTSIDE RECORDS SUMMARY | 2024-02-14 08:40 | XMS_ITS | Encounter Summary ---
Author Organization [facility] Healthcare Address [address] [place] [address] Care Team Providers Care Transplant Surgeon Name Role Phone Rogelio Epperson MD Primary Care Provider Encounter Details Date Type Department Care Team (Late st Contact Info) Description 12/19/[address] [facility] Cardiology [address] [phone] Mohinder Martinez MD [address] [facility] [address] [place] [address] Social History Tobacco Use Types Packs/Day Years Used Date Smoking Tobacco: Former Smokeless Tobacco: Never Alcohol Use Standard Drinks/Week Comments Yes 2 (1 standard drink = 0.6 oz pur e alcohol) per week Sex and Gender Information Value Date Recorded Sex Assigned at Not on file Legal Sex Male 1:57 AM PRINT BUYER Gender Identity Not on file Sexual Orientation Not on file documented as of this encounter Plan of Treatment Not on file documented as of this encounter Procedures Procedure Name Priority Date/Time Associated Diagnosis Comments CARDIOLOGY DOCUMENT SCAN Routine 12/14/2022 9:32 AM CDT documented in this encounter Results * Cardiology Document Scan (12/14/2022 9:32 AM CDT) Anatomical Region Laterality Modality Other us Mohinder Martinez MD [facility] PROC EDURES Final Result documented in this encounter Visit Diagnoses Not on filedocumented in this encounter Care Teams Transplant Surgeon Relationship Specialty Start Date End Date Rogleio Epperson MD [address] [facility] [address] [place] [address] PCP - General 06/04/12 documented as of this encounter
--- OUTSIDE RECORDS SUMMARY | 2024-02-14 08:40 | XMS_ITS | Encounter Summary ---
Author Organization [facility] Healthcare Address [address] [place] [address] Care Team Providers Care Rocket Assembly Operator Name Role Phone Rogelio Epperson MD Primary Care Provider Reason for Visit * Reason Comments Follow-up 2 mo Encounter Details Date Type Department Care Team (Late st Contact Info) Description 03/13/2023 1:30 PM LIGHT ARMORED VEHICLE OFFICER Office Visit [facility] Cardiology [address] [facility] [address] [phone] Mohinder Martinez MD [address] [place] [address] History of coronary artery stent placement (Primary Dx); Paroxysmal atrial fibrillation (CMS/HCC) (HCC); Lipid screening Social History Tobacco Use Types Packs/Day Years Used Date Smoking Tobacco: Former Pipe Cigars Smokeless Tobacco: Never Alcohol Use Standard Drinks/Week Comments Yes 2 (1 standard drink = 0.6 oz pur e alcohol) per week Sex and Gender Information Value Date Recorded Sex Assigned at Not on file Legal Sex Male 1:57 AM LIGHT ARMORED VEHICLE OFFICER Gender Identity Not on file Sexual Orientation Not on file documented as of this encounter Last Filed Vital Signs Vital Sign Reading Time Taken Comments Blood Pressure 110/68 03/13/2023 1:22 PM LIGHT ARMORED VEHICLE OFFICER Pulse 82 03/13/2023 1:22 PM LIGHT ARMORED VEHICLE OFFICER Temperature - - Respiratory Rate - - Oxygen Saturation 96% 03/13/2023 1:22 PM LIGHT ARMORED VEHICLE OFFICER Inhaled Oxygen Concentration - - Weight 120.2 kg (265 lb) 03/13/2023 1:22 PM LIGHT ARMORED VEHICLE OFFICER Height 175.3 cm (5' 9 ) 03/13/2023 1:22 PM LIGHT ARMORED VEHICLE OFFICER Body Mass Index 39.13 03/13/2023 1:22 PM LIGHT ARMORED VEHICLE OFFICER documented in this encounter Progress Notes * Mohinder Martinez MD - 03/13/2023 1:30 PM CST [facility] FOLLOW UP 03/13/2023 Vu Nicole is a 77 y.o. male who presents for follow up [...] patient was ultimately referred to electrophysiology at [facility] he underwent a catheter ablation of his atrial fibrillation on 04/21/2018. He underwent a nuclear stress test in January of 2021 because of some chest pain symptoms. The results were negative and I have been treating him medically for his angina since then. In July of 2022 the patient was seen in the office and was seen shortly before that by his tree surgeon helper. He was found to be back in atrial flutter. When I saw him in the office he was actually in a junctional rhythm. There was no clear-cut evidence of atrial fibrillation on that electrocardiogram. Patient presents today for scheduled 2 month appointment for follow-up. I saw the patient in November and he was having some worsening of his chronic edema. He was on a high dose of oral Bumex. I tried adding metolazone 3 days per week to his regimen, Friday and Friday. There was also someconcern that he was having recurrences of atrial fibrillation. He did see his tree surgeon helper in the end of January and was in sinus rhythm with first-degree AV block at the time of that office visit. A 7 day event monitor was arranged to assess his AF burden. Results of that are still pendingat the time of this office visit. Lab data demonstrates modest azotemia which is of course expectedgiven his aggressive diuretic regimen. Recent echocardiogram when he was in the hospital shows preserved left ventricular systolic function and mild aortic valve stenosis with a valve area of 1.2 cm2. Since his last visit he thinks things are considerably better. He has only a modest amount of lower extremity edema. Discussed his lab results with him his BMP shows that his potassium is normal andhe only has a slight increase of azotemia as mentioned above because of his diuretic regimen. He isin sinus rhythm by physical exam today. He said he had an episode of symptomatic atrial fibrillation last night which was self-limited. REVIEW OF SYSTEMS General ROS: negative for [...] as needed for wheezing, Disp: , Rfl: allopurinoL (ZYLOPRIM) 100 mg tablet, Take 1 tablet (100 mg total) by mouth 3 (three) times a day, Disp: , Rfl: amLODIPine (NORVASC) 10 mg tablet, Take 1 tablet (10 mg total) by mouth nightly, Disp: 90 tablet, Rfl: 0 atorvastatin (LIPITOR) 10 mg tablet, Take 1 tablet (10 mg total) by mouth daily, Disp: 90 tablet, Rfl: 3 azelastine (ASTELIN) 137 mcg (0.1 %) nasal spray, Administer 1 spray into each nostril nightly, Disp: , Rfl: bumetanide (BUMEX) 2 mg tablet, Take 1 tablet (2 mg total) by mouth daily, Disp: 90 tablet, Rfl: 1 cholecalciferol (VITAMIN [...] , Rfl: metOLazone (ZAROXOLYN) 2.5 mg tablet, Take 1 tablet (2.5 mg total) by mouth 3 (three) times a week,Disp: 30 tablet, Rfl: 3 ramipriL (ALTACE) 10 mg capsule, TAKE 1 CAPSULE BY MOUTH DAILY, Disp: 90 capsule, Rfl: 3 triamcinolone (NASACORT) 55 mcg nasal inhaler, Administer 2 sprays into each nostril nightly, Disp:, Rfl: traMADoL (ULTRAM) 50 mg tablet, Take 1 tablet (50 mg total) by mouth every 6 (six) hours as needed (Patient not taking: Reported on 03/13/2023), Disp: , Rfl: LABS AND OTHER DIAGNOSTIC TESTS No results found for: CHOL No results found for: HDL No results found for: LDLCALC No results found for: TRIG No results found for: CHOLHDL Lab Results Component Value Date WBC 7.9 08/09/2022 HGB 13.2 08/09/2022 HCT 39.4 08/09/2022 MCV 88.1 08/09/2022 No lab exists for component: LABALBU PHYSICAL EXAM Vitals BP 110/68 (BP Location: Left arm, Patient Position: Sitting) Pulse 82 Ht 175.3 cm (5' 9 ) Wt 120.2 kg (265 lb) SpO2 96% BMI 39.13 kg/m?? Physical Examination: General appearance - alert, [...] noted ASSESSMENT Vu was seen today for follow-up. Diagnoses and all orders for this visit: History of coronary artery stent placement Paroxysmal atrial fibrillation (CMS/HCC) (HCC) Lipid screening - POCT lipid panel PLAN/RECOMMENDATIONS Continue current diuretic regimen his volume management seems to be much better his weight is down 12 lb and his metabolic profile shows that his renal function is tolerating this regimen there has no problem with his potassium Await results of his 7 day event monitor from the EP[facility]arrhythmia Center Follow-up with me in about 3 months or p.r.n. Mohinder Martinez MD T ARMORED VEHICLE OFFICER documented in this encounter Plan of Treatment Not on file documented as of this encounter Procedures Procedure Name Priority Date/Time Associated Diagnosis Comments POCT LIPID PANEL Routine 03/13/2023 1:25 PM LIGHT ARMORED VEHICLE OFFICER Lipid screening documented in this encounter Results * POCT lipid panel (03/13/2023 1:25 PM LIGHT ARMORED VEHICLE OFFICER) Cholesterol, POC 193 mg/dL HDL, POC 74 mg/dL Triglycerides, POC 74 mg/dL LDL Cholesterol POC 104 mg/dL Chol/HDL Ratio, POC 1.4 Non-HDL Cholesterol, POC 119 mg/dL Cholesterol Total, POC 193 mg/dL Capillary blood 03/13/2023 1 :25 PM LIGHT ARMORED VEHICLE OFFICER us Mohinder Martinez MD POINT OF CARE TEST ORDER GILMA Final Result documented in this encounter Visit Diagnoses Diagnosis History of coronary artery stent placement- Primary Paroxysmal atrial fibrillation (CMS/HCC) (HCC) Atrial fibrillation Lipid screening Screening for lipoid disorders documented in this encounter Discontinued Medications Medication Sig Discontinue Reason Start Date End Da te aspirin 81 mg chewable tablet Take 1 tablet (81 mg total) by mouth daily Therapy completed 03/13/2023 documented as of this encounter Historical Medications * This list may reflect changes made after this encounter. cilostazoL (PLETAL) 50 mg tablet Take 1 tablet (50 mg total) by mouth 2 (two) times a day 01/22/2023 added in this encounter Care Teams Rocket Assembly Operator Relationship Specialty Start Date End Date Rogelio Epperson MD [address] [facility] [address] [place] [id number] PCP - General 06/04/12 documented as of this encounter
--- OUTSIDE RECORDS SUMMARY | 2024-02-14 08:40 | XMS_ITS | Encounter Summary ---
Author Organization [facility] Healthcare Address [address] [place] [address] Care Team Providers Care Invoicing Machine Operator Name Role Phone Rogelio Epperson MD Primary Care Provider Encounter Details Date Type Department Care Team (Late st Contact Info) Description 05/01/2023 Telephone [facility] Cardiology [address] [facility] [address] [place] [phone] Mohinder Martinez MD [address] [facility] [address] [place] [address] Social History Tobacco Use Types Packs/Day Years Used Date Smoking Tobacco: Former Pipe Cigars Smokeless Tobacco: Never Alcohol Use Standard Drinks/Week Comments Yes 2 (1 standard drink = 0.6 oz pur e alcohol) per week Sex and Gender Information Value Date Recorded Sex Assigned at Not on file Legal Sex Male 1:57 AM BRASS POURER Gender Identity Not on file Sexual Orientation Not on file documented as of this encounter Ordered Prescriptions Prescription Sig Dispense Quantity Refills Last Filled Start Date End Date amLODIPine (NORVASC) 10 mg tablet Take 1 tablet (10 mg total) by mouth nightly 90 tablet 3 05/01/2023 documented in this encounter Miscellaneous Notes * Telephone Encounter - Ellie Momin - 05/01/2023 9:54 AM CST Valery called from [facility] pt is requesting refill for Amlodipine 10 mg with 90 day supply. Thank you. Contact: S POURER documented in this encounter Plan of Treatment Not on file documented as of this encounter Visit Diagnoses Not on filedocumented in this encounter Discontinued Medications Medication Sig Discontinue Reason Start Date End Da te amLODIPine (NORVASC) 10 mg tablet Take 1 tablet (10 mg total) by mouth nightly Reorder 05/08/2022 05/01/2023 documented as of this encounter Care Teams Invoicing Machine Operator Relationship Specialty Start Date End Date Rogelio Epperson MD [address] [facility] [address] [place] [address] PCP - General 06/04/12 documented as of this encounter
--- OUTSIDE RECORDS SUMMARY | 2024-02-14 08:40 | XMS_ITS | Encounter Summary ---
Author Organization [facility] Healthcare Address [address] [place] [address] Care Team Providers Care Powerbuilder Name Role Phone Rogelio Epperson MD Primary Care Provider Reason for Visit * Cardiology (Routine) - Closed Specialty Diagnoses / Procedures [facility] To Contact Diagnoses Diastolic heart failure, unspecified HF chronicity (HCC) Atrial flutter, unspecified type (HCC) Procedures Extended/Senior Care Holter Patch (>48 hours up to 7 days) Jovi Mack MD [address] [address] Phone: tel: fax: [facility] Group Referral ID Status Reason Start Date Expiration Date Visits Re quested Visits Authorized [id number] Closed 02/28/2023 03/29/2024 1 1 Encounter Details Date Type Department Care Team (Latest Contact Info) Description 02/21/2023 4:45 PM CALL CENTER SUPERVISOR Ancillary Procedure Arrhythmia Center [address] [facility] [address] [place] [id number] Diastolic heart failure, unspecified HF chronicity (HCC); Atrial flutter, unspecified type (HCC) Social History Tobacco Use Types Packs/Day Years Used Date Smoking Tobacco: Former Cigars Smokeless Tobacco: Never Alcohol Use Standard Drinks/Week Comments Yes 2 (1 standard drink = 0.6 oz pur e alcohol) per week Sex and Gender Information Value Date Recorded Sex Assigned at Not on file Legal Sex Male 1:57 AM CALL CENTER SUPERVISOR Gender Identity Not on file Sexual Orientation Not on file documented as of this encounter Plan of Treatment Not on file documented as of this encounter Procedures Procedure Name Priority Date/Time Associated Diagnosis Comments EXTENDED/NURSING HOME HOLTER PATCH (>48 HOURS UP TO 7 DAYS) Routine 02/21/2023 4:45 PM CALL CENTER SUPERVISOR Diastolic heart failure, unspecified HF chronicity (HCC) Atrial flutter, unspecified type (HCC) documented in this encounter Results * Extended/Senior Care Holter Patch (>48 hours up to 7 days) (02/21/2023 4:45 PM CALL CENTER SUPERVISOR) Anatomical Region Laterality Modality Electrocardiogra phy Narrative 04/05/2023 2:35 PM CALL CENTER SUPERVISOR [facility] Report Summary ?? Patient ID; Vu Nicole is a 77 y.o. male Date of ; 1945 MRN; [id number] Recording Period; 02/21/2023, 4:45 p.m.-02/28/2023, 7:03 p.m. Recording length; 7 days, 2 hours Indication; proximal atrial fibrillation Button pressed; Count; 0 Correlates to;-- Predominant Rhythm: ??NSR Sinus heart rates; Average: ??78 beats per minute Min: ??64 beats per minute February 28 at 3:34 a.m. Max: ??30 17 beats per minute February 21 at 6:39 p.m. ECG intervals DC: ??0.24s first-degree AV block QRS: ??0.10s QT: ??0.41s QTc: ??0.47s Supraventricular arrhythmias, AF; -- AFL; -- AT; episodes 2, longest 3 beats @ average 117 beats per minute, fastest up to 119 beats per minute PAC; burden at 0.4%, average 421/day, isolated 2151, pairs 278 Ventricular arrhythmias, VT; 1 episode, longest 3 beats @ average of 101 beats per minute up to 128 beats per minute PVC; burden at 1.3%, average 1463/day, isolated 9141, pairs 132 ? Multifocal A total of 23 events captured. Findings summary; Predominant rhythm; NSR First-degree AV block Atrial tachycardia (AT) 2 episodes, longest/fastest 3 beats at an average 117 beats per minute up to 119 beats per minute Ventricular tachycardia (VT) 1 episode, 3 beats at an average of 101 beats per minute up to 129 beats per minute Accelerated idioventricular rhythm (AIVR) Ectopic atrial run, (EA Run) PAC 0.4% PVC 1.3% us Jovi Mack MD CV CARDIAC SERVICES PRO CEDURES Final Result documented in this encounter Visit Diagnoses Diagnosis Diastolic heart failure, unspecified HF chronicity (HCC) Atrial flutter, unspecified type (HCC) documented in this encounter Care Teams Powerbuilder Relationship Specialty Start Date End Date Rogelio Epperson MD [address] [facility] [address] [place] [address] PCP - General 06/04/12 documented as of this encounter
--- OUTSIDE RECORDS SUMMARY | 2024-02-14 08:40 | XMS_ITS | Encounter Summary ---
Author Organization [facility] Healthcare Address [address] [place] [address] Care Team Providers Care Technical Support Associate Name Role Phone Rogelio Epperson MD Primary Care Provider Reason for Referral * Cardiology (Routine) - Closed Specialty Diagnoses / Procedures [facility] To Contact Diagnoses Diastolic heart failure, unspecified HF chronicity (HCC) Atrial flutter, unspecified type (HCC) Procedures Extended/Mcc Holter Patch (>48 hours up to 7 days) Jovi Mack MD [address] [address] Phone: tel: fax: [facility] Referral ID Status Reason Start Date Expiration Date Visits Re quested Visits Authorized [id number] Closed 02/28/2023 03/29/2024 1 1 OW CUTTER Encounter Details Date Type Department Care Team (Late st Contact Info) Description 02/21/2023 4:00 PM WINDOW CUTTER Office Visit Arrhythmia Center [address] [facility] [address] [place] [phone] Jovi Mack MD [address] [address] (work) Diastolic heart failure, unspecified HF chronicity (HCC) (Primary Dx); Atrial flutter, unspecified type (HCC) Social History Tobacco Use Types Packs/Day Years Used Date Smoking Tobacco: Former Cigars Smokeless Tobacco: Never Alcohol Use Standard Drinks/Week Comments Yes 2 (1 standard drink = 0.6 oz pur e alcohol) per week Sex and Gender Information Value Date Recorded Sex Assigned at Not on file Legal Sex Male 1:57 AM WINDOW CUTTER Gender Identity Not on file Sexual Orientation Not on file documented as of this encounter Last Filed Vital Signs Vital Sign Reading Time Taken Comments Blood Pressure 130/76 02/21/2023 4:08 PM WINDOW CUTTER Pulse 86 02/21/2023 4:08 PM WINDOW CUTTER Temperature - - Respiratory Rate - - Oxygen Saturation 97% 02/21/2023 4:08 PM WINDOW CUTTER Inhaled Oxygen Concentration - - Weight 122.4 kg (269 lb 12.8 oz) 02/21/2023 4:08 PM WINDOW CUTTER Height 175.3 cm (5' 9.02 ) 02/21/2023 4:08 PM CS T Body Mass Index 39.82 02/21/2023 4:08 PM WINDOW CUTTER documented in this encounter Progress Notes * Jovi Mack MD - 02/21/2023 4:00 PM CST Images from the original note were not included. [facility] Medical [facility] Arrhythmia Center [address] [place] [address], [address] [place] [id number] Patient Name: Vu Nicole Date of : 1945 Primary Physician: Rogelio Epperson MD This note was dictated with voice-recognition software, and unit receptionist errors may be present. Subjective/Objective Patient ID: Vu Nicole is a 77 y.o. male Chief Complaint No chief complaint on file. HPI Mr. Nicole presented to the [facility] Arrhythmia Center on 02/21/2023 for follow-up regarding his atrial fibrillation. He is a 77 y.o. male with a history of with a history of coronary disease/status post PCI, normal LV function, hypertension, dyslipidemia, sleep apnea. In March 2018, he underwent catheter ablation for persistent atrial fibrillation. This included bilateral pulmonary vein isolation, posterior wall isolation and CTI ablation. In the time since, the patient has maintained sinus rhythm, until earlier this year. At our last visit 6 months prior, he was found to have ongoing atrial flutter. Cardioversion was scheduled, but ultimately canceled after he was found in sinus rhythm on subsequent visits. Since we last saw him, he was admitted with acutely decompensated heart failure. Apparently, atrialarrhythmia was a component of his presentation. This was in November 2022. He presents today, in sinus rhythm. ... 12-lead ECG & Rhythm Strip: 02/21/2023: Sinus rhythm (100). First-degree AV block (RI interval 240 msec). Normal QRS duration and QT interval. No Known Allergies Current Outpatient Medications Medication Instructions acetaminophen (TYLENOL) 500-1,000 mg, oral, Every 6 hours PRN albuterol HFA (PROVENTIL HFA,VENTOLIN HFA) 90 mcg/actuation inhaler 2 puffs, inhalation, Every 6 hours PRN allopurinoL (ZYLOPRIM) 100 mg, oral, 3 times daily amLODIPine (NORVASC) 10 mg, oral, Nightly apixaban (ELIQUIS) 5 mg, oral, 2 times daily aspirin 81 mg, oral, Daily atorvastatin (LIPITOR) 10 mg, oral, Daily azelastine (ASTELIN) 137 mcg (0.1 %) nasal spray 1 spray, each nostril, Nightly bumetanide (BUMEX) 2 mg, oral, Daily cholecalciferol (VITAMIN D-3) 5,000 Units, oral, Daily cyanocobalamin (VITAMIN B-12) 1,000 mcg, oral, Daily flaxseed oiL 1,000 mg, oral, Daily fluticasone furoate-vilanterol (BREO ELLIPTA) 100-25 mcg/dose diskus inhaler 1 puff, inhalation, Daily, Rinse mouth with water after use. Do not swallow. gabapentin (NEURONTIN) 600 mg, oral, 3 times daily metOLazone (ZAROXOLYN) 2.5 mg, oral, 3 times weekly ramipriL (ALTACE) 10 mg capsule TAKE 1 CAPSULE BY MOUTH DAILY traMADoL (ULTRAM) 50 mg, oral, Every 6 hours PRN triamcinolone (NASACORT) 55 mcg nasal inhaler 2 sprays, each nostril, Nightly Past Medical History: Past Medical History: Diagnosis Date Adiposity Obesity Arrhythmia Arthritis Asthma seaonal allergies, asthma Atrial fibrillation (CMS/HCC) ([facility]) CHF (congestive heart failure) (CMS/HCC) ([facility]) Coronary artery disease GERD (gastroesophageal reflux [...] History Tobacco Use Smoking status: Former Types: Cigars Smokeless tobacco: Never Substance and Sexual Activity Drug use: No Sexual activity: Not Currently Partners: Female Alcohol Use: Not on file Review of Systems [] Physical Exam BP 130/76 Pulse 86 Ht 175.3 cm (5' 9.02 ) Wt 122.4 kg (269 lb 12.8 oz) SpO2 97% BMI 39.82kg/m?? [] GENERAL: No distress. Pleasant and cooperative with [...] Diagnoses and all orders for this visit: Diastolic heart failure, unspecified HF chronicity (HCC) (Primary) - ECG 12 lead Atrial flutter, unspecified type (HCC) Assessment & Plan: The patient is five years status post ablation for persistent atrial fibrillation. He appears to beexperiencing paroxysmal atrial fibrillation/flutter, though was in sinus rhythm today. I recommended that he undergo a 7 day period of event monitoring to determine his current burden ofatrial fibrillation/flutter. If his burden is significant, additional options include sotalol or repeat catheter ablation. The patient has a [id number] score of 4. I have therefore recommended continued anticoagulation thromboprophylaxis. The patient will follow-up with me in 6 months for an office visit and twelve- lead ECG. Orders: - ECG 12 lead Jovi Mack MD 02/21/2023 OW CUTTER documented in this encounter Miscellaneous Notes * Assessment & Plan Note - Jovi Mack MD - 02/21/2023 4:47 PM WINDOW CUTTER Associated Problem(s): Atrial flutter (CMS/HCC) (HCC) The patient is five years status post ablation for persistent atrial fibrillation. He appears to beexperiencing paroxysmal atrial fibrillation/flutter, though was in sinus rhythm today. I recommended that he undergo a 7 day period of event monitoring to determine his current burden ofatrial fibrillation/flutter. If his burden is significant, additional options include sotalol or repeat catheter ablation. The patient has a [id number] score of 4. I have therefore recommended continued anticoagulation thromboprophylaxis. The patient will follow-up with me in 6 months for an office visit and twelve- lead ECG. OW CUTTER * Addendum Note - Kiya Carvalho - 02/21/2023 4:00 PM CSTAddended by: KIYA CARVALHO on: 02/28/2023 03:05 PM Modules accepted: Orders OW CUTTER documented in this encounter Plan of Treatment Not on file documented as of this encounter Procedures Procedure Name Priority Date/Time Associated Diagnosis Comments ECG 12-LEAD Routine 02/21/2023 Diastolic heart failure, unspecified HF chronicity (HCC) Atrial flutter, unspecified type (HCC) documented in this encounter Results * Extended/Mcc Holter Patch (>48 hours up to 7 days) (02/21/2023 4:45 PM WINDOW CUTTER) Anatomical Region Laterality Modality Electrocardiogra phy Narrative 04/05/2023 2:35 PM WINDOW CUTTER [facility] Report Summary ?? Patient ID; Vu Nicole is a 77 y.o. male Date of ; 1945 MRN; [id number] Recording Period; 02/21/2023, 4:45 p.m.-02/28/2023, 7:03 p.m. Recording length; 7 days, 2 hours Indication; proximal atrial fibrillation Button pressed; Count; 0 Correlates to;-- Predominant Rhythm: ??NSR Sinus heart rates; Average: ??78 beats per minute Min: ??64 beats per minute February 28 at 3:34 a.m. Max: ??30 17 beats per minute February 21 at 6:39 p.m. ECG intervals RI: ??0.24s first-degree AV block QRS: ??0.10s QT: [...] run, (EA Run) PAC 0.4% PVC 1.3% Jovi Mack MD CV CARDIAC SERVICES PRO CEDURES Final Result * ECG 12 lead (02/21/2023) Jovi Mack MD ECG ORDERABLES Final R esult documented in this encounter Visit Diagnoses Diagnosis Diastolic heart failure, unspecified HF chronicity (HCC)- Primary Atrial flutter, unspecified type (HCC) Diastolic heart failure, unspecified HF chronicity (HCC) Atrial flutter, unspecified type (HCC) documented in this encounter Care Teams Technical Support Associate Relationship Specialty Start Date End Date Rogelio Epperson MD [address] [facility] [address] [place] [id number] PCP - General 06/04/12 documented as of this encounter
--- OUTSIDE RECORDS SUMMARY | 2024-02-14 08:40 | XMS_ITS | Encounter Summary ---
Author Organization [facility] Medical Group Address [address] [facility] [address] [place] [address] Care Team Providers Care Jet Ski Mechanic Name Role Phone Rogelio Epperson MD Primary Care Provider Encounter Details Date Type Department Care Team (Late st Contact Info) Description 07/30/2022 11:45 AM CDT Office Visit Arrhythmia Center [address] [phone] Christel Edgar NP [address] [facility] [address] [address] Persistent atrial fibrillation (HCC) (Primary Dx); Atrial flutter, unspecified type (HCC); Anticoagulation management encounter Social History Tobacco Use Types Packs/Day Years Used Date Smoking Tobacco: Former Smokeless Tobacco: Never Tobacco Cessation:Counseling Given: Not Answered Alcohol Use Standard Drinks/Week Comments Yes 2 (1 standard drink = 0.6 oz pur e alcohol) per week Sex and Gender Information Value Date Recorded Sex Assigned at Not on file 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 Gender Identity Not on file Sexual Orientation Not on file documented as of this encounter Last Filed Vital Signs Vital Sign Reading Time Taken Comments Blood Pressure 110/60 07/30/2022 12:08 PM CDT Pulse 62 07/30/2022 12:08 PM CDT Temperature - - Respiratory Rate - - Oxygen Saturation 96% 07/30/2022 12: 08 PM CDT Inhaled Oxygen Concentration - - Weight 129.4 kg (285 lb 3.2 oz) 023 12:08 PM CDT Height 175.3 cm (5' 9.02 ) 07/30/2022 1 2:08 PM CDT Body Mass Index 42.1 07/30/2022 12:08 PM CDT documented in this encounter Progress Notes * Christel Edgar NP - 07/30/2022 11:45 AM CDT Images from the original note were not included. [facility] Medical [facility] Arrhythmia Center [address] [place] [address], [address], [place] [address] Office Visit Note Patient Name: Vu Nicole Date of : 1945 Primary Physician: Rogelio Epperson MD Chief Complaint Atrial fibrillation HPI Vu Nicole is a 77 y.o. male seen in the Arrhythmia Center for follow-up for his atrial fibrillation and ablation he had in March of 2018. He has a significant history for coronary artery disease and is status post PCI of his RCA (2003) and LAD (2004), hypertension, dyslipidemia, asthma, and obesity. Normal LV function with an EF of 61%. Around the time of one of his coronary interventions, he was found to be in atrial fibrillation. Hewas then placed on anticoagulation therapy and sotalol. He has had several cardioversions in the past with the most recent one being 11/07/2017. The patient presents today with complaints of fatigue and shortness of breath for the past 60 days.This dyspnea occurs with exertion. He is unable to walk from one side of his house to the or to hismailbox without getting short of breath. He denies any chest pain, dizziness, or passing out. He tries to remain active through water calisthenics which he does for 40 minutes daily. During this activity he denies any shortness of breath. EKG upon my review today shows atrial flutter with a ventricular rate of 63. He is not currently on any antiarrhythmic therapy. Remains on anticoagulation therapy with Eliquis and has been consistent with taking it for the past 30 days. Will schedule patient for a cardioversion with Dr. Mack. Past Medical History Past Medical History: Diagnosis Date Adiposity Obesity Arrhythmia Arthritis Asthma seaonal allergies, asthma Atrial fibrillation (CMS/[facility]) ([facility]) CHF (congestive heart failure) (CMS/HCC) ([facility]) Coronary artery disease GERD (gastroesophageal reflux disease) Heart disease HX OTHER MEDICAL dyslipidemia Hyperlipidemia Hypertension Hypertension Sleep apnea cpap Past Surgical History Past Surgical History: Procedure Laterality Date ANGIOPLASTY CARDIAC CATHETERIZATION CATARACT EXTRACTION 12/13 CORONARY STENT PLACEMENT x 4 Medications Current Outpatient Medications Medication Instructions acetaminophen (TYLENOL) 500-1,000 mg, oral, Every 6 hours PRN albuterol HFA (PROVENTIL HFA,VENTOLIN HFA) 90 mcg/actuation inhaler 2 puffs, inhalation, Every 6 hours PRN amLODIPine (NORVASC) 10 mg, oral, Nightly apixaban (ELIQUIS) 5 mg, oral, 2 times daily aspirin 81 mg, oral, Daily atorvastatin (LIPITOR) 10 mg tablet TAKE 1 TABLET BY MOUTH DAILY azelastine (ASTELIN) 137 mcg (0.1 %) nasal spray 1 spray, each nostril, Nightly cholecalciferol (VITAMIN D-3) 5,000 Units, oral, Daily clopidogreL (PLAVIX) 75 mg tablet No dose, route, or frequency recorded. cyanocobalamin (VITAMIN B-12) 1,000 mcg, oral, Daily flaxseed oiL 1,000 mg, oral, Daily fluticasone furoate-vilanterol (BREO ELLIPTA) 100-25 mcg/dose diskus inhaler 1 puff, inhalation, Daily, Rinse mouth with water after use. Do not swallow. furosemide (LASIX) 40 mg, oral, Daily gabapentin (NEURONTIN) 600 mg, oral, 3 times daily nitroglycerin (NITROSTAT) 0.4 mg, sublingual, Every 5 min PRN ramipriL (ALTACE) 10 mg capsule TAKE 1 CAPSULE BY MOUTH DAILY triamcinolone (NASACORT) 55 mcg nasal inhaler 2 sprays, each nostril, Nightly Allergies No Known Allergies Family History Family History Problem Relation Age of Onset Stent Brother Coronary Stent Placement; Heart attack Brother Myocardial Infarction; Cause of : Myocardial Infarction Heart disease Brother Stent Sister Coronary Stent Placement; Stent Sister Coronary Stent Placement; Arthritis Sister Heart attack Sister Hypertension Sister Obesity Sister Alcohol abuse Father Alcohol abuse Brother Alcohol abuse Brother Alcohol abuse Brother Heart attack Brother Hypertension Brother Heart disease Brother Alcohol abuse Brother Arthritis Brother Asthma Brother COPD Brother Hearing loss Brother Heart attack Brother Hypertension Brother Heart disease Brother Arthritis Brother Asthma Brother COPD Brother Hypertension Brother Mental illness Mother Social History Social History Tobacco Use Smoking status: Former Smokeless tobacco: Never Substance and Sexual Activity Drug use: No Sexual activity: Not Currently Partners: Female Alcohol Use: Not on file Objective Review of Systems Constitutional: Positive for fatigue. HENT: Negative. Eyes: Negative. Respiratory: Negative. Cardiovascular: Negative. Gastrointestinal: Negative. Endocrine: Negative. Genitourinary: Negative. Skin: Negative. Psychiatric/Behavioral: Negative. Physical Exam Vitals reviewed. Constitutional: Appearance: Normal appearance. He is obese. HENT: Head: Normocephalic and atraumatic. Right Ear: External ear normal. Left Ear: External ear normal. Nose: Nose normal. Mouth/Throat: Mouth: Mucous membranes are moist. Pharynx: Oropharynx is clear. Cardiovascular: Rate and Rhythm: Normal rate and regular rhythm. Heart sounds: Normal heart sounds. Pulmonary: Effort: Pulmonary effort is normal. Breath sounds: Normal breath sounds. Abdominal: General: Bowel sounds are normal. Palpations: Abdomen is soft. Musculoskeletal: General: Normal range of motion. Cervical back: Normal range of motion. Right lower le+ Pitting Edema present. Left lower le+ Pitting Edema present. Skin: General: Skin is warm and dry. Neurological: Mental Status: He is alert and oriented to person, place, and time. Psychiatric: Behavior: Behavior normal. Thought Content: Thought content normal. Judgment: Judgment normal. BP 110/60 (BP Location: Left arm, Patient Position: Sitting) Pulse 62 Ht 175.3 cm (5' 9.02 ) Wt 129.4 kg (285 lb 3.2 oz) SpO2 96% BMI 42.10 kg/m?? Assessment/Plan Atrial Flutter - Symptomatic atrial flutter with ventricular rate of 63 - Not currently on any antiarrhythmic therapy - Cardioversion will be scheduled with Dr. Mack - Follow up in 1 month with 12 lead EKG. Anticoagulation management encounter - continue current anticoagulation therapy with Eliquis 5 mg BID - patient reports consistent Eliquis therapy for the past 30 days. - It is recommended he remain anticoagulated for thromboprophylaxis. No complications or history of bleeding or bruising. Christel Edgar NP [facility] Arrhythmia Center Cosigned by Jovi Mack MD at 08/18/2022 2:01 PM CDT documented in this encounter Plan of Treatment Not on file documented as of this encounter Procedures Procedure Name Priority Date/Time Associated Diagnosis Comments CBC WITH AUTO DIFFERENTIAL Routine 08/09/2022 8:09 AM CDT Persistent atrial fibrillation (HCC) BASIC METABOLIC PANEL Routine 08/09/2022 8:09 AM CDT Persistent atrial fibrillation (HCC) ECG 12-LEAD Routine 07/30/2022 Persistent atrial fibrillation (HCC) ECG 12-LEAD Routine 07/30/2022 Persistent atrial fibrillation (HCC) documented in this encounter Results * CBC with auto differential (08/09/2022 8:09 AM CDT) WBC 7.9 3.8 - 10.8 Thousand/u L [facility] RBC, POC 4.47 4.20 - 5.80 Million/uL [facility] Hgb 13.2 13.2 - 17.1 g/dL [facility] Hct 39.4 38.5 - 50.0 % [facility] MCV 88.1 80.0 - 100.0 fL [facility] MCH 29.5 27.0 - 33.0 pg [facility] MCHC 33.5 32.0 - 36.0 g/dL [facility] Rdw 14.9 11.0 - 15.0 % [facility] Platelets 317 140 - 400 Thousand/u L [facility] MPV 10.4 7.5 - 12.5 fL [facility] Neutrophils, abs 5,032 1,500 - 7,800 cells/uL [facility] Lymphocytes, abs 2,054 850 - 3,900 cells/uL [facility] Monocyte abs 640 200 - 950 cells/uL [facility] Eosinophils, abs 126 15 - 500 cells/uL [facility] Basophils, abs 47 0 - 200 cells/uL [facility] Neutrophils 63.7 % [facility] Lymphocyte pct 26.0 % [facility] Monocytes 8.1 % [facility] Eosinophils 1.6 % [facility] Basophils 0.6 % [facility] Blood 08/09/2022 8:09 AM CDT 08/09/2022 8:09 AM CDT Jovi Mack MD LAB BLOOD ORDERABLES nal Result [facility] [address] [place] [address] * Basic metabolic panel (08/09/2022 8:09 AM CDT) Glucose 96 65 - 99 mg/dL [facility] Comment: ? Fasting reference interval BUN 20 7 - 25 mg/dL [facility] Creatinine 1.14 0.70 - 1.28 mg/dL [facility] eGFR 66 > OR = 60 mL/min/1. 73m2 [facility] Comment: The eGFR is based on the CKD-EPI 2020 equation. To calculate the new eGFR from a previous Creatinine or Cystatin C result, go to https://www.kidney.org/professionals/ kdoqi/gfr%5Fcalculator BUN/creat ratio NOT APPLICABLE 6 (calc) [facility] Sodium 138 135 - 146 mmol/L [facility] Potassium, pl 4.1 3.5 - 5.3 mmol/L [facility] Chloride 102 98 - 110 mmol/L [facility] CO2 26 20 - 32 mmol/L [facility] Calcium 9.0 8.6 - 10.3 mg/dL [facility] Blood 08/09/2022 8:09 AM CDT 08/09/2022 8:09 AM CDT Jovi Mack MD LAB BLOOD ORDERABLES Fi nal Result [facility] [address] [place] [address] * ECG 12 lead (07/30/2022) Christel Edgar NP ECG ORDERABLES Final Result * ECG 12 lead (07/30/2022) Christel Edgar NP ECG ORDERABLES Final Result documented in this encounter Visit Diagnoses Diagnosis Persistent atrial fibrillation (HCC)- Primary Atrial fibrillation Atrial flutter, unspecified type (HCC) Anticoagulation management encounter Encounter for therapeutic drug monitoring documented in this encounter Care Teams Jet Ski Mechanic Relationship Specialty Start Date End Date Rogelio Epperson MD [address] [facility] [facility] [address] [facility] [address] [place] [address] PCP - General 06/04/12 documented as of this encounter
--- OUTSIDE RECORDS SUMMARY | 2024-02-14 08:40 | XMS_ITS | Encounter Summary ---
Author Organization [facility] Healthcare Address [address] [place] [address] Care Team Providers Care Addiction Medicine Physician Name Role Phone Rogelio Epperson MD Primary Care Provider Encounter Details Date Type Department Care Team (Late st Contact Info) Description 12/10/2022 Orders Only [facility] Information Management [address] [place] [id number] Lucy Siegel MD [address] [place], [place] [id number] Social History Tobacco Use Types Packs/Day Years Used Date Smoking Tobacco: Former Smokeless Tobacco: Never Alcohol Use Standard Drinks/Week Comments Yes 2 (1 standard drink = 0.6 oz pur e alcohol) per week Sex and Gender Information Value Date Recorded Sex Assigned at Not on file 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 Gender Identity Not on file Sexual Orientation Not on file documented as of this encounter Plan of Treatment Not on file documented as of this encounter Procedures Procedure Name Priority Date/Time Associated Diagnosis Comments CARDIOLOGY DOCUMENT SCAN 12/10/2022 SCAN - RADIOLOGY/IMAGING 12/09/2022 documented in this encounter Results * CARDIOLOGY DOCUMENT SCAN (12/10/2022) Anatomical Region Laterality Modality Other us Lucy Siegel MD CV CARDIAC SERVICES PRO CEDURES Edited Result - Final * SCAN - RADIOLOGY/IMAGING (12/09/2022) Anatomical Region Laterality Modality Other us Provider Scanning Edited Result - Final documented in this encounter Visit Diagnoses Not on filedocumented in this encounter Care Teams Addiction Medicine Physician Relationship Specialty Start Date End Date Rogelio Epperson MD [address] [facility] [address] [place] [address] PCP - General 06/04/12 documented as of this encounter
--- OUTSIDE RECORDS SUMMARY | 2024-02-14 08:40 | XMS_ITS | Encounter Summary ---
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, unspecified laterality (HCC) Coronary artery disease of [place] artery of [place] heart with stable angina pectoris (HCC) Procedures NM MPI SPECT (Rest and/or Stress) Multiple Studies Mohinder Martinez MD [address] [facility] [address] [place] [id number] Phone: tel: fax: [facility] Medical Group Cardiology [address] [place] [address] [address] [place] [phone] Phone: tel: fax: Referral ID Status Reason Start Date Expiration Date Visits Re quested Visits Authorized [id number] Closed 01/05/2024 07/03/2024 1 1 Encounter Details Date Type Department Care Team (Latest Contact Info) Description 01/08/2024 8:15 AM FORM BUILDING SUPERVISOR Ancillary Procedure [facility] Medical [facility] Cardiology [facility] [address] [place] [phone] 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, unspecified laterality (HCC); Coronary artery disease of [place] artery of [place] heart with stable angina pectoris (HCC) Social History Tobacco Use Types Packs/Day Years Used Date Smoking Tobacco: Former Cigarettes Pipe Cigars Smokeless Tobacco: Never Alcohol Use Standard Drinks/Week Comments Yes 2 (1 standard drink = 0.6 oz pur e alcohol) per week Sex and Gender Information Value Date Recorded Sex Assigned at Not on file Legal Sex 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 Gender Identity Not on file Sexual Orientation Not on file documented as of this encounter Plan of Treatment Not on file documented as of this encounter Procedures Procedure Name Priority Date/Time Associated Diagnosis Comments NM MPI SPECT (REST AND/OR STRESS) MULTIPLE STUDIES Schedule Routine, Read Routine (OP Routine) 01/08/2024 9:47 AM FORM BUILDING SUPERVISOR 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, unspecified laterality (HCC) Coronary artery disease of [place] artery of [place] heart with stable angina pectoris (HCC) documented in this encounter Results * NM MPI SPECT (Rest and/or Stress) Multiple Studies (01/08/2024 9:47 AM FORM BUILDING SUPERVISOR) Anatomical Region Laterality Modality Body N/A Nuclear Medicine 01/08/2024 8:09 AM FORM BUILDING SUPERVISOR Narrative 01/08/2024 4:41 PM FORM BUILDING SUPERVISOR [facility] Medical Group Cardiology [address] [facility] [address] [address] [address] [facility] [address], [place] [address] P:[phone] P:[phone] MPI Imaging Report Patient Name: JADE NICOLE J : 1945 Study Date: 01/08/2024 8:09:14 AM Gender: M Tech: BAYLEE RODRIGUEZ Location: [facility] Provider: MOHINDER MARTINEZ ?Height(Cm): 175.3 BSA: ??Weight(Kg): 113.4 BMI: 36.9 ?Order Provider: MOHINDER MARTINEZ - PHYSICIAN: Referring Physician: Dr. Epperson. HCG Physician: Mohinder Martinez M.D.,Ana. Interpreting Physician: Mohinder Martinez M.D.,Yanet Stress Supervision: Mohinder Martinez M.D.,Yanet PROCEDURES: Myocardial perfusion imaging with Tc99M Sestamibi SPECT at rest and stress post regadenoson (Lexiscan) infusion. INDICATIONS: Hypertension, Family Hx CAD, High Cholesterol, Former Smoker, I70.219 Atherosclerosis of [place] arteries of extremities with intermittent claudication, unspecified extremity, and I25.118 Atherosclerotic heart disease of [place] coronary artery with other forms of angina [...] of defect is infarction. Electronically Signed By: Mohinder Martinez MD, [facility] 2024-01-08 16:40:58 FORM BUILDING SUPERVISOR Electronically Signed By: Mohinder Martinez MD, [facility] 2024-01-08 16:40:58 FORM BUILDING SUPERVISOR Procedure Note Mohinder Martinez MD - 01/08/2024 [facility] Medical Group Cardiology [address] [facility] [address] [address] [address] [facility] [address], [place] [address] P:[phone] P:[phone] MPI Imaging Report Patient Name: JADE NICOLE J : 1945 Study Date: 01/08/2024 8:09:14 AM Gender: M Tech: [facility] Location: [facility] Provider: MOHINDER MARTINEZ Height(Cm): 175.3 BSA: Weight(Kg): 113.4 BMI: 36.9 Order Provider: MOHINDER MARTINEZ - PHYSICIAN: Referring Physician: Dr. Epperson. HCG Physician: Mohinder Martinez M.D.,Kayleigh.A.CCrystalCCrystal Interpreting Physician: Mohinder Martinez M.D.,F.A.C.C. StressSupervision: Mohinder Martinez M.D.,F.A.C.C. PROCEDURES: Myocardial perfusion imaging with Tc99M Sestamibi SPECT at rest and stresspost regadenoson (Lexiscan) infusion. INDICATIONS: Hypertension, Family Hx CAD, High Cholesterol, Former Smoker, I70.219Atherosclerosis of [place] arteries of extremities with intermittent claudication, unspecifiedextremity, and I25.118 Atherosclerotic heart disease of [place] coronary artery with otherforms of angina pectoris. [...] Typeof defect is infarction. 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, unspecified laterality (HCC) Coronary artery disease of [place] artery of [place] heart with stable angina pectoris (HCC) documented in this encounter Administered Medications Inactive Administered Medications - up to 3 most recent administrations Medication Order MAR Action Action Date Dose Rate Site regadenoson (LEXISCAN) 0.4 mg/5 mL injection 0.4 mg 0.4 mg, intravenous, Once, On Nevaeh 01/08/24 at 1030, For 1 dose, Administer IV push over 10 seconds., Indications: Myocardial Perfusion Imaging AdjunctIndications:Myocard ial Perfusion Imaging Adjunct Given 01/08/2024 9:47 AM FORM BUILDING SUPERVISOR 0.4 mg tc-99m sestamibi unit dose injection 12.1 millicurie 12.1 millicurie, intravenous, Once in imaging, radiopharmaceutical, Starting on Nevaeh 01/08/24 at 0828, For 1 dose, Indications: Diagnostic RadiographyIndications:Iris gnostic Radiography Given 01/08/2024 8:28 AM FORM BUILDING SUPERVISOR 12.1 millicuries tc-99m sestamibi unit dose injection 38 millicurie 38 millicurie, intravenous, Once in imaging, radiopharmaceutical, Starting on Nevaeh 01/08/24 at 0947, For 1 dose, Indications: Diagnostic RadiographyIndications:Iris gnostic Radiography Given 01/08/2024 9:48 AM FORM BUILDING SUPERVISOR 38 millicuries documented in this encounter Care Teams Guide Visitor Relationship Specialty Start Date End Date Rogelio Epperson MD [address] [facility] [address] [place] [address] PCP - General 06/04/12 documented as of this encounter
--- OUTSIDE RECORDS SUMMARY | 2024-02-14 08:40 | XMS_ITS | Encounter Summary ---
Author Organization [facility] Medical Group Address [address] [address] Care Team Providers Care Candy Polisher Name Role Phone Rogelio Epperson MD Primary Care Provider Encounter Details Date Type Department Care Team (Late st Contact Info) Description 08/15/2022 Telephone [facility] Medical Group Cardiology [address] [facility] 162 [facility] [address] [place] [address] Mohinder Martinez MD [address] [facility] [address] [place] [address] Social History Tobacco Use Types Packs/Day Years Used Date Smoking Tobacco: Former Smokeless Tobacco: Never Alcohol Use Standard Drinks/Week Comments Yes 2 (1 standard drink = 0.6 oz pur e alcohol) per week Sex and Gender Information Value Date Recorded Sex Assigned at Not on file 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 Valdez and they are in agreement of cancelling pts upcoming CV on 08/23 asit is not needed anymore after being see in clinic today. Called [facility] to cancel procedure and notified pt as well-he verbalized understanding. documented in this encounter Plan of Treatment Not on file documented as of this encounter Visit Diagnoses Not on filedocumented in this encounter Care Teams Candy Polisher Relationship Specialty Start Date End Date Rogelio Epperson MD [address] [facility] [address] [place] [phone] PCP - General 06/04/12 documented as of this encounter
--- OUTSIDE RECORDS SUMMARY | 2024-02-14 08:40 | XMS_ITS | Encounter Summary ---
Author Organization [facility] Healthcare Address [address] [place] [address] Care Team Providers Care Elementary Vocal Music Teacher Name Role Phone Rogelio Epperson MD Primary Care Provider Reason for Visit * Reason Comments Hospital Follow Up Atrial Fibrillation Congestive Heart Failure Encounter Details Date Type Department Care Team (Late st Contact Info) Description 12/26/2022 11:30 AM CDT Office Visit [facility] Medical Group Cardiology 68[address] [facility] [address] [phone] Mohinder Martinez MD [address] [place] [address] [place] [address] Persistent atrial fibrillation (HCC) (Primary Dx); Morbid obesity with body mass index (BMI) of 40.0 to 49.9 (HCC); History of coronary artery stent placement Social History Tobacco Use Types Packs/Day Years Used Date Smoking Tobacco: Former Cigars Smokeless Tobacco: Never Tobacco Cessation:Counseling Given: Not Answered Alcohol Use Standard Drinks/Week Comments Yes 2 (1 standard drink = 0.6 oz pur e alcohol) per week Sex and Gender Information Value Date Recorded Sex Assigned at Not on file 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 Gender Identity Not on file Sexual Orientation Not on file documented as of this encounter Last Filed Vital Signs Vital Sign Reading Time Taken Comments Blood Pressure 114/58 12/26/2022 11:29 AM CDT Pulse 68 12/26/2022 11:29 AM CDT Temperature - - Respiratory Rate - - Oxygen Saturation 96% 12/26/2022 11:29 AM CDT Inhaled Oxygen Concentration - - Weight 123.8 kg (273 lb) 12/26/2022 11:29 AM CDT Height 175.3 cm (5' 9 ) 12/26/2022 11:29 AM CDT Body Mass Index 40.32 12/26/2022 11:29 AM CDT documented in this encounter Ordered Prescriptions Prescription Sig Dispense Quantity Refills Last Filled Start Date End Date metOLazone (ZAROXOLYN) 2.5 mg tablet Take 1 tablet (2.5 mg total) by mouth 3 (three) times a week 30 tablet 3 12/27/2022 08/18/2023 documented in this encounter Progress Notes * Mohinder Martinez MD - 12/26/2022 11:30 AM CDT [facility] FOLLOW UP 12/26/2022 Vu Nicole is a 77 y.o. male [...] was seen shortly before that by his thermostat maker. He was found to be back in atrial flutter. When I saw him in the office he was actually in a junctional rhythm. There was no clear-cut evidence of atrial fibrillation on that electrocardiogram. The patient was hospitalized recently at [place] in November of 2022 with volume overload and worsening of his chronic edema. He was in the hospital for quite a while receiving intravenous diuretics with improvement of this but he still had a moderate amount of lower extremity edema at the time of discharge. Since hospital discharge he is gradually starting to regain some lower extremity edema. It is not nearly as bad as it was when he was admitted but it is noticeable. He does not have a scaleat home so he can not tell how much weight he might have gained. Last week he says his PCP told himto increase the dose of his Bumex to 3.5 mg daily for 5 days. He did not notice any response when he did this so he went back to 2 mg daily. REVIEW OF SYSTEMS General ROS: negative for [...] and rash HOME MEDICATIONS Current Outpatient Medications: ??? acetaminophen (TYLENOL) 500 mg tablet, Take 1-2 tablets (500-1,000 mg total) by mouth every 6 (six) hours as needed for pain, Disp: , Rfl: ??? albuterol HFA (PROVENTIL HFA,VENTOLIN HFA) 90 mcg/actuation inhaler, Inhale 2 puffs every 6 (six) hours as needed for wheezing, Disp: , Rfl: ??? allopurinoL (ZYLOPRIM) 100 mg tablet, Take 1 tablet (100 mg total) by mouth 3 (three) times a day, Disp: , Rfl: ??? amLODIPine (NORVASC) 10 mg tablet, Take 1 tablet (10 mg total) by mouth nightly, Disp: 90 tablet, Rfl: 0 ??? apixaban (Eliquis) 5 mg tablet, Take 1 tablet (5 mg total) by mouth 2 (two) times a day, Disp: 180 tablet, Rfl: 0 ??? aspirin 81 mg chewable tablet, Take 1 tablet (81 mg total) by mouth daily, Disp: , Rfl: ??? atorvastatin (LIPITOR) 10 mg tablet, Take 1 tablet (10 mg total) by mouth daily, Disp: 90 tablet, Rfl: 3 ??? azelastine (ASTELIN) 137 mcg (0.1 %) nasal spray, Administer 1 spray into each nostril nightly,Disp: , Rfl: ??? bumetanide (BUMEX) 2 mg tablet, Take 1 tablet (2 mg total) by mouth daily, Disp: , Rfl: ??? cholecalciferol (VITAMIN D-3) 5,000 unit capsule, Take 1 capsule (5,000 Units total) by mouth daily, Disp: , Rfl: ??? cyanocobalamin (Vitamin B-12) 1,000 mcg tablet, Take 1 tablet (1,000 mcg total) by mouth daily,Disp: , Rfl: ??? flaxseed oil 1,000 mg capsule, Take 1 capsule (1,000 mg total) by mouth daily, Disp: , Rfl: ??? fluticasone furoate-vilanterol (BREO ELLIPTA) 100-25 mcg/dose diskus inhaler, Inhale 1 puff daily Rinse mouth with water after use. Do not swallow., Disp: , Rfl: ??? gabapentin (NEURONTIN) 600 mg tablet, Take 1 tablet (600 mg total) by mouth 3 (three) times a day, Disp: , Rfl: ??? ramipriL (ALTACE) 10 mg capsule, TAKE 1 CAPSULE BY MOUTH DAILY, Disp: 90 capsule, Rfl: 3 ??? traMADoL (ULTRAM) 50 mg tablet, Take 1 tablet (50 mg total) by mouth every 6 (six) hours as needed, Disp: , Rfl: ??? triamcinolone (NASACORT) 55 mcg nasal inhaler, Administer 2 sprays into each nostril nightly, Disp: , Rfl: ??? nitroglycerin (NITROSTAT) 0.4 mg SL tablet, Place 1 tablet (0.4 mg total) under the tongue every 5 (five) minutes as needed for chest pain, Disp: 75 tablet, Rfl: 0 LABS AND OTHER DIAGNOSTIC TESTS No results found for: CHOL No results found for: HDL No results found for: LDLCALC No results found for: TRIG No results found for: CHOLHDL Lab Results Component Value Date WBC 7.9 08/09/2022 HGB 13.2 08/09/2022 HCT 39.4 08/09/2022 MCV 88.1 08/09/2022 No lab exists for component: LABALBU PHYSICAL EXAM Vitals BP 114/58 (BP Location: Right arm, Patient Position: Sitting) Pulse 68 Ht 175.3 cm (5' 9 ) Wt 123.8 kg (273 lb) SpO2 96% BMI 40.32 kg/m?? Physical Examination: General appearance - alert, [...] noted ASSESSMENT Vu was seen today for hospital follow up, atrial fibrillation and congestive heart failure. Diagnoses and all orders for this visit: Persistent atrial fibrillation (HCC) Morbid obesity with body mass index (BMI) of 40.0 to 49.9 (HCC) History of coronary artery stent placement PLAN/RECOMMENDATIONS Try adding metolazone 2.5 mg Friday and Friday Basic metabolic profile in 2-3 weeks Advised the patient to follow-up with his thermostat maker to determine if anything else can be done regarding his atrial fib. My sense is he will probably simply have to accept chronic AF. Follow-up with me in about 2 months Mohinder Martinez MD documented in this encounter Plan of Treatment Not on file documented as of this encounter Visit Diagnoses Diagnosis Persistent atrial fibrillation (HCC)- Primary Atrial fibrillation Morbid obesity with body mass index (BMI) of 40.0 to 49.9 (HCC) History of coronary artery stent placement documented in this encounter Discontinued Medications Medication Sig Discontinue Reason Start Date End Da te furosemide (LASIX) 40 mg tablet Take 1 tablet (40 mg total) by mouth daily Alternate therapy 05/08/2022 12/26/2022 furosemide (LASIX) 40 mg tablet TAKE 1 AND A HALF TABLET BY MOUTH ONCE A DAY Alternate therapy 12/26/2022 12/26/2022 nitroglycerin (NITROSTAT) 0.[address] 1 tablet (0.4 mg total) under the tongue every 5 (five) minutes as needed for chest pain 07/08/2019 12/26/2022 documented as of this encounter Historical Medications * This list may reflect changes made after this encounter. allopurinoL (ZYLOPRIM) 100 mg tablet Take 1 tablet (100 mg total) by mouth 3 (three) times a day 09/23/2022 06/19/2023 traMADoL (ULTRAM) 50 mg tablet Take 1 tablet (50 mg total) by mouth every 6 (six) hours as needed 12/17/2022 06/19/2023 bumetanide (BUMEX) 2 mg tablet Take 1 tablet (2 mg total) by mouth daily 12/14/2022 01/13/2023 added in this encounter Care Teams Elementary Vocal Music Teacher Relationship Specialty Start Date End Date Rogelio Epperson MD [address] [facility] [address] [place] [address] PCP - General 06/04/12 documented as of this encounter
--- OUTSIDE RECORDS SUMMARY | 2024-02-14 08:40 | XMS_ITS | Encounter Summary ---
Author Organization [facility] Address [address] [facility] [place] [address] Care Team Providers Care Supervisor Personnel Clerks Name Role Phone Unavailable Primary Care Provider Unavailabl e Encounter Details Date Type Department Care Team (Late st Contact Info) Description 11/09/2019 Lab Requisition [facility] [address] [facility] [place] [id number] Georgia Guerrero MD [address] [facility] 3 [place] [address] Social History Tobacco Use Types Packs/Day Years Used Date Smoking Tobacco: Never Assessed Sex and Gender Information Value Date Recorded Sex Assigned at Not on file Gender Identity Not on file Sexual Orientation Not on file documented as of this encounter Plan of Treatment Not on file documented as of this encounter Procedures Procedure Name Priority Date/Time Associated Diagnosis Comments DERMATOPATHOLOGY Routine 11/08/2019 12:0 0 AM CDT documented in this encounter Results * DERMATOPATHOLOGY (11/08/2019 12:00 AM CDT) Case Report Dermatopathology Report ? Case: [id number] ? Authorizing Provider: ??Georgia Guerrero MD ? Collected: ? 11/08/2019 12:00 AM ? Ordering Location: ? [facility] Derm[facility] Lab ?Received: ?11/09/2019 06:47 AM ? Pathologist: ? Leonela Bates MD ? Specimen: ?Skin, right forearm ? 0 2:16 PM CDT DERMATOPATHOLOGY LABORATORY Final Diagnosis Specimen A. 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 0 2:16 PM CDT DERMATOPATHOLOGY LABORATORY Gross Description Specimen A: Received is one formalin filled container labeled with the patient's name and designated right forearm. The specimen consists of a shave (2 pieces) measuring [id number] & [id number]. Jar 0. 0 2:16 PM CDT DERMATOPATHOLOGY LABORATORY Microscopic Description Specimen A. SKIN, right forearm: Attached to the undersurface of the epidermis, there are small aggregates of basaloid cells with a high nuclear to cytoplasmic ratio and peripheral palisading. There is reticulated hyperplasia of the epidermis with overlying delicate hyperorthokeratosis . Hyperpigmentation is present in the basaloid cells. 0 2:16 PM CDT DERMATOPATHOLOGY LABORATORY Disclaimer An external and internal positive and negative controls are appropriate for the histochemical, immunohistochemical and immunofluorescence stain(s) in this case (if any), except where stated explicitly. The performance characteristics of the stain(s) cited in this report were developed and its performance characteristic determined by the Dermatopathology Laboratory at [facility], directed by Dr. Betito Bruno. These tests need not be, and therefore are not, approved by the [place] Food and Drug Administration. The tests are used for clinical purposes. Billing Codes Specimen Charges Stain Charges 50384 1 0 2:16 PM CDT DERMATOPATHOLOGY LABORATORY Embedded Images 0 2:16 PM CDT DERMATOPATHOLOGY LABORATORY Pathology/Cytolog y TISSUE SPECIMEN FROM SKIN / Unknown 11/08/2019 11/09/2019 6:47 AM CDT Georgia Guerrero MD LAB - PATHOLOGY/CYT OLOGY ORDERABLES DERMATOPATHOLOGY LABORATORY [facility] - Department of Dermatology [facility] Medicine [address] [place] [address], [address] [phone] documented in this encounter Visit Diagnoses Not on filedocumented in this encounter
--- OUTSIDE RECORDS SUMMARY | 2024-02-14 08:40 | XMS_ITS | Encounter Summary ---
Author Organization [facility] Healthcare Address [address] [place] [address] Care Team Providers Care Lap Maker Name Role Phone Rogelio Epperson MD Primary Care Provider Reason for Visit * Reason Comments Coronary Artery Disease Atrial Fibrillation 3 month follow up. Encounter Details Date Type Department Care Team (Late st Contact Info) Description 06/19/2023 9:45 AM CDT Office Visit [facility] Cardiology [address] [id number] Mohinder Martinez MD [address] [facility] [address] [address] Persistent atrial fibrillation (HCC) (Primary Dx); History of coronary artery stent placement; Atrial flutter, unspecified type (HCC) Social History Tobacco Use Types Packs/Day Years Used Date Smoking Tobacco: Former Pipe Cigars Smokeless Tobacco: Never Alcohol Use Standard Drinks/Week Comments Yes 2 (1 standard drink = 0.6 oz pur e alcohol) per week Sex and Gender Information Value Date Recorded Sex Assigned at Not on file 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 Gender Identity Not on file Sexual Orientation Not on file documented as of this encounter Last Filed Vital Signs Vital Sign Reading Time Taken Comments Blood Pressure 118/64 06/19/2023 9:29 AM CDT Pulse 77 06/19/2023 9:29 AM CDT Temperature - - Respiratory Rate - - Oxygen Saturation 95% 06/19/2023 9:29 AM CDT Inhaled Oxygen Concentration - - Weight 121.2 kg (267 lb 1.6 oz) 06/19/2023 9:29 AM CDT Height 175.3 cm (5' 9 ) 06/19/2023 9:29 AM CDT Body Mass Index 39.44 06/19/2023 9:29 AM CDT documented in this encounter Progress Notes * Mohinder Martinez MD - 06/19/2023 9:45 AM CDT [facility] FOLLOW UP 06/19/2023 Vu Nicole is a 78 y.o. male [...] patient was ultimately referred to electrophysiology at [facility] he underwent a catheter ablation of his atrial fibrillation on 04/21/2018. He underwent a nuclear stress test in January of 2021 because of some chest pain symptoms. The results were negative and I have been treating him medically for his angina since then. In July of 2022 the patient was seen in the office and was seen shortly before that by his salvager helper. He was found to be back in atrial flutter. When I saw him in the office he was actually in a junctional rhythm. There was no clear-cut evidence of atrial fibrillation on that electrocardiogram. In the fall of 2022 the patient had problems with progressive lower extremity edema. He was already on a high dose of Bumex. Low dose of metolazone 3 times per week was added to his regimen. Echocardiogram demonstrated preserved left ventricular systolic function and mild aortic valve stenosis with a valve area of 1.2cm2. He returns to the office today for a scheduled follow-up. A 7 day event monitor was done last fall by his salvager helper. There was no significant atrial fibrillation identified at that time. Overall he seems to be doing well. He thinks he has gaining a little bit of weight again but his weight on our scale is only 2 lb higher than his previous appointment. He has not having any orthopnea orPND, he does have some occasional episodes of mild central chest pain when he lies down to go to bed at night. The none of this is occurring in an exertional or anginal fashion. REVIEW OF SYSTEMS General ROS: negative for [...] for component: LABALBU PHYSICAL EXAM Vitals BP 118/64 (BP Location: Right arm, Patient Position: Sitting) Pulse 77 Ht 175.3 cm (5' 9 ) Wt 121.2 kg (267 lb 1.6 oz) SpO2 95% BMI 39.44 kg/m?? Physical Examination: General appearance - alert, [...] noted ASSESSMENT Vu was seen today for coronary artery disease and atrial fibrillation. Diagnoses and all orders for this visit: Persistent atrial fibrillation (HCC) History of coronary artery stent placement Atrial flutter, unspecified type (HCC) PLAN/RECOMMENDATIONS Continue current diuretic regimen. His weight is essentially stable I do not believe we need to advance his regimen based on what I see today Will continue to see him at 6 month intervals or p.r.n. at this time Both the patient that his symptoms of nocturnal chest discomfort are occurring sporadically and do not sound like ischemic symptoms in my opinion Mohinder Martinez MD documented in this encounter Plan of Treatment Not on file documented as of this encounter Visit Diagnoses Diagnosis Persistent atrial fibrillation (HCC)- Primary Atrial fibrillation History of coronary artery stent placement Atrial flutter, unspecified type (HCC) documented in this encounter Discontinued Medications Medication Sig Discontinue Reason Start Date End Da te allopurinoL (ZYLOPRIM) 100 mg tablet Take 1 tablet (100 mg total) by mouth 3 (three) times a day 09/23/2022 06/19/2023 traMADoL (ULTRAM) 50 mg tablet Take 1 tablet (50 mg total) by mouth every 6 (six) hours as needed 12/17/2022 06/19/2023 documented as of this encounter Care Teams Lap Maker Relationship Specialty Start Date End Date Rogelio Epperson MD [address] [facility] [address] [place] [address] PCP - General 06/04/12 documented as of this encounter
--- OUTSIDE RECORDS SUMMARY | 2024-02-14 08:40 | XMS_ITS | Data Portability ---
Author Organization [employer] [facility] and, [facility] Address [address] [place] [address] Care Team Providers Care Lard Mixer Name Role Phone FROILAN MIKEY Primary Care Provider Assessment Encounter Date Assessment Date Assessment LastModified by Organization Details LastModified Time 08/31/2021 08/31/2021 76-year-old male with a history of advanced peripheral arterial disease, presenting for follow-up. He continues to have some intermittent symptoms in his feet. He also has some increasing numbness in his left big toe. He uses some padding for his left big toe to prevent rubbing between his toe and foot. I encouraged him to continue this practice to prevent ulceration. I did tell him that if any ulceration arises, he should contact us immediately. He will be scheduled for yearly ultrasounds to assess progression of disease. I encouraged continued exercise therapy. [email or web address] Not available 08/31/2021 10:51:07 09/17/2021 09/17/2021 76 year old with a history of peripheral arterial disease being seen virtually to review his ultrasound results. I reviewed his results with him which shows lower than normal SERENITY's and TBI's as well as occlusions to both posterior tibial arteries. He still reports occasional throbbing to both legs and feet while at rest. Unfortunately due to the complexity of the lesions of the left lower extremity, we were unable to revascularize. Should he develop any loss of skin integrity I would consider recommending an additional angiogram with intervention to re-attempt revascularization. He is encouraged to reach out immediately regarding any changes in skin integrity and will continue annual arterial ultrasounds. Not available 09/17/2021 11:20:13 03/18/2022 03/18/2022 76 year old male with advanced peripheral arterial disease presenting with worsening pain to his bilateral lower extremities (left worse than right). He is status post bilateral AIF (03/21/2021, 01/09/2022, and 10/17/20) He is currently taking gabapentin for his lower extremity pain which only helps him a couple hours. He is unable to perform exercise therapy and wear compression as they exacerbate his pain. His pain is worse on the left particularly around the ankle. He denies any lower extremity wounds, however he is now experiencing significant lower extremity edema. His previous lower extremity arterial ultrasound performed on 09/13/2021 (after prior revascularization attempts) indicated occluded CURRENCY COUNTER's bilaterally with abnormally low SERENITY's (right 0.31 and left 0.53) and TBI's (right 0.36 and left 0.08) This most likely represents critical limb ischemia My recommendation is lower extremity angiogram with possible intervention I also recommended him to complete a lower extremity venous ultrasound due to his worsening edema. He states he has recently underwent a venous ultrasound a week ago and he will have the result of his ultrasound sent to us for review. He also reports his primary care provider has ordered a nerve conduction study which is scheduled for March. He would like to think about his decision moving forward with another angiogram. I recommended to him if his symptoms worsen or he has a decrease in his skin integrity to contact us immediately. Of note, he has had two unsuccessful left lower extremity revascularizations . Any procedures going fourth forward may not illicit significant results. Not available 03/18/2022 11:36:06 Plan of Treatment Reminders Order Date Submit Date Provider Last Modified By Organization Details Last Modified Time Details Appointments None record ed. Lab None record ed. Referral None record ed. Procedures None record ed. Surgeries None record ed. Imaging None record ed. Medication Orders None record ed. Patient TargetsNo targets recorded. Patient InstructionsNo instructions recorded. Reason for Referral None Reported. Results Created Date Observation Date Name Description Value Unit Range Abnormal Flag Note LastModifiedBy Organization Detail LastModifiedTime 10/02/19 22 US, doppl er, arter ial No observ ation record ed. [email or web address] Not Available 2021 15:24:12 10/15/19 22 09/13/2021 US, doppl er, arter ial No observ ation record ed. [email or web address] Not Available 2021 09:25:09 04/05/19 23 03/11/2022 US, doppl er, arter ial No observ ation record ed. [facility] [address], [place], [address], 04/05/2022 14:26:14 Result Notes None recorded. Problems Name Problem SNOMED Code Status Onset Date Resolution Date Notes Provider Name and Address Organization Details Recorded Time Hypertensive disorder 18539310 Active 2020 Phuong Meyers null, [place] - [facility] and 12:10:41 Hyperlipidemia 43592317 Active 2020 Phuong [place] [facility] and 12:10:52 Coronary artery bypass graft Active 2020 Phuong [place] [facility] and 12:11:10 Coronary arterioscleros is 86283517 Active 2020 Phuong [place] [facility] and 12:11:26 Peripheral vascular disease 151743102 Active 2020 Phuong [place] [facility] and 12:11:33 Congestive heart failure 04856838 Active 2020 Dora [place] [facility] and 12:32:44 Allergic rhinitis 33839319 Active 2020 JESS PASTOR [place] [facility] and 18:04:07 Angina pectoris 945511738 Active 2020 JESS PASTOR [place] [facility] and 18:04:50 Asthma 603967424 Active 2020 JESS PASTOR [place] [facility] 18:05:05 Atrial fibrillation 44837473 Active 2020 JESS miller[place] - [facility] and 18:05:25 Problem Notes None recorded. Procedures Surgical History Date Name Laterality Status Provider Name and Address Organization Details Recorded Time 022 [email or web address] completed Shayna iNño [place] - [facility] and 09/13/2021 12:19:55 022 OA LE revascularization completed Maura Busch MD [address] [place] [address], [phone], [place] [facility] and 03/21/2021 16:20:47 021 OA LE revascularization completed Maura Busch MD [address] [place] [address], [phone], [place] [facility] and 01/09/2021 19:15:01 021 OA LE revascularization completed Maura Busch MD [address] [place] [address], [id number], [place] [facility] and 10/17/2020 13:38:34 OALEArterialUS completed [place]heel Simms [place] [facility] and 09/18/2020 14:04:37 995 Stent completed Phuong Meyers [place] [facility] and 09/18/2020 12:10:15 994 Stent completed Phuong Luigi [place] [facility] and 09/18/2020 12:10:15 Imaging Results Imaging Date Name Status LastModified by [facility] Details LastModified Time 10/01/2021 US, doppler, arterial completed [email or web address] Information not available 10/05/2021 15:24:12 09/13/2021 US, doppler, arterial completed [email or web address] Information not available 10/15/2021 09:25:09 03/11/2022 US, doppler, arterial completed [email or web address] [address], [place], [address], 04/05/2022 14:26:14 Procedure Notes None recorded. Medical Equipment None Reported. Allergies No known drug allergies Medications Name Sig Start Date Stop Date Status Note LastModified by Organization Details LastModified Time furosemide 40 mg tablet TAKE 1 TABLET BY MOUTH EVERY DAY active Not Available Not Available No t Available gabapentin 600 mg tablet active Not Available Not Available Not Available etodolac ER 400 mg tablet,exte nded release 24 hr TK 1 T PO D active Not Available Not Available No t Available ketoconazol e 2 % shampoo USE ON SCALP AND FACE DAILY DIRECTED. active Not Available Not Available No t Available atorvastati n 10 mg tablet Take 1 tablet every day by oral route. active Not Available Not Available No t Available azithromyci n 250 mg tablet active Not Available Not Available Not Available sotalol 80 mg tablet Take 1 tablet twice a day by oral route. active Not Available Not Available No t Available flurbiprofe n 0.03 % eye drops INT 1 GTT IN OD THREE TIMES DAILY. START AFTER SURGERY FOR 21 DAYS 08/29 completed Not Available Not Available Not Available Plavix 75 mg tablet Take 1 tablet(s) every day by oral route for 90 days. 2021 active Not Available Not Available Not Avai lable aspirin 81 mg tablet,mohan yed release TAKE 1 TABLET BY MOUTH DAILY active Not Available Not Available No t Available tramadol 50 mg tablet TAKE 1 TABLET BY MOUTH EVERY 6 HOURS NEEDED FOR PAIN 08/29 completed Not Available Not Available Not Available pentoxifyll ine ER 400 mg tablet,exte nded release TAKE 1 TABLET BY MOUTH TWICE DAILY active Not Available Not Available No t Available prednisolon e acetate 1 % eye drops,suspe nsion SHAKE LQ AND INT 1 GTT IN OD THREE TIMES DAILY. START AFTER SURGERY 08/29 completed Not Available Not Available Not Available gabapentin 800 mg tablet active Not Available Not Available Not Available amlodipine 10 mg tablet Take 1 tablet every day by oral route. active Not Available Not Available No t Available doxycycline monohydrate 100 mg capsule TAKE 1 CAPSULE BY MOUTH TWICE DAILY 08/29 completed Not Available Not Available Not Available dexamethaso ne 4 mg tablet TAKE 1 TABLET BY MOUTH DAILY 08/29 completed Not Available Not Available Not Available polymyxin B sulfate 10,000 unit-trimet hoprim 1 mg/mL eye drops INT 1 GTT IN OD FOUR TIMES DAILY. START 1 DAY B SURGERY FOR 8 DAYS 08/29 completed Not Available Not Available Not Available indomethaci n 50 mg capsule TAKE 1 CAPSULE BY MOUTH TWICE DAILY active Not Available Not Available No t Available furosemide 20 mg tablet TK 1 T PO QAM 08/29 completed Not Available Not Available Not Available azelastine 137 mcg (0.1 %) nasal spray [place] 2 sprays twice a day by intranasa l route. active Not Available Not Available No t Available methylpredn isolone 4 mg tablets in a dose pack FOLLOW PACKAGE DIRECTION S 08/29 completed Not Available Not Available Not Available albuterol sulfate HFA 90 mcg/actuati on aerosol inhaler active Not Available Not Available Not Available ramipril 10 mg capsule Take 1 capsule every day by oral route. active Not Available Not Available No t Available clindamycin 1 % lotion APPLY TO NECK AND CHEST TWICE DAILY active Not Available Not Available No t Available eszopiclone 2 mg tablet TAKE TABLET WITH YOU TO SLEEP CENTER active Not Available Not Available No t Available pregabalin 50 mg capsule active Not Available Not Available Not Available acetaminoph en active Not Available Not Available Not Available aspirin active Not Available Not Avail able Not Available indomethaci n sodium active Not Available Not Available Not Available VIACTIV Multi-Vitam in active Not Available Not Available Not Available Eliquis 5 mg tablet active Not Available Not Available No t Available fluticasone furoate 100 mcg-vilante rol 25 mcg/dose inhalation powder USE 1 INHALATIO N BY MOUTH ONCE DAILY AT THE SAME TIME EACH DAY RINSE AND SPIT AFTER EACH USE active Not Available Not Available No t Available Vitals Date Recorded Body height Body mass index (BMI) Body weight Heart rate Systolic blood pressure Diastolic blood pressure Provider Name and Address Organization Details Last Updated DateTime 2 175.26 cm 41.3 kg/m2 573812. 86 g 74 /min 140 mm[Hg] 68 mm[Hg] [facility] and 2 10:10:32 Date Recorded Body height Provider Name an d Address Organization Details Last Updated DateTime 09/13/2021 175.26 cm [facility] and 09/13/2021 15:46:19 Social History Question Answer Notes LastModified by Organizat ion Details LastModified Time Tobacco Smoking Status Never Smoker Phuong Geewilmer miller, [facility] and 09/18/2020 12:10:05 What Is Your Level Of Alcohol Consumption? Moderate [email or web address] Information not available 09/18/2020 Are You Blind Or Do You Have Difficulty Seeing? No Information n ot available 03/21/2021 In The 14 Days Before Symptom Onset, Have You Had Close Contact With A Laboratory-confirm ed COVID-19 While That Case Was Ill? No Information n ot available 03/21/2021 In The 14 Days Before Symptom Onset, Have You Had Close Contact With A Person Who Is Under Investigation For COVID-19 While That Person Was Ill? No Information not available 03/21/2021 Have You Been To An Area Known To Be High Risk For COVID-19? No Information not available 03/21/2021 Are You Deaf Or Do You Have Serious Difficulty Hearing? No Information not available 03/21/2021 What Type Of Diet Are You Following? REGULAR Information n ot available 03/21/2021 Which Illicit Or Recreational Drugs Have You Used? None [email or web address] Information not available 09/18/2020 Have You Processed Blood Or Body Fluids From An Ebola Virus Disease Patient Without Appropriate PPE? No Information not available 03/21/2021 Do You Reside In Or Have You Traveled To An Area Where Ebola Virus Transmission Is Active? No Information not available 03/21/2021 What Is The Highest Grade Or Level Of School You Have Completed Or The Highest Degree You Have Received? [id number] Information not available 09/18/2020 What Is Your Occupation? Retired [email or web address] Information not available 09/18/2020 Live Alone Or With Others? With Others [email or web address] Information not available 09/18/2020 What Was The Date Of Your Most Recent Tobacco Screening? 03/21/2021 Information not available 03/21/2021 How Much Tobacco Do You Smoke? No Information not available 09/18/2020 How Many Years Have You Smoked Tobacco? 4 [email or web address] Information not available 09/18/2020 Do You Or Have You Ever Used Any Other Forms Of Tobacco Or Nicotine? No Information not available 02/05/2021 Sex: Unknown Functional Status Question Answer Note LastModified by Organizat ion Details LastModified Time Do you have difficulty walking or climbing stairs? No Information not available 03/21/2021 Are you able to walk? YESASSIST Information not available 03/21/2021 Do you have difficulty doing errands alone? Yes Information not available 03/21/2021 Do you have difficulty dressing or bathing? No Information not available 03/21/2021 What is your exercise level? Occasional Information not available 03/21/2021 Mental Status Question Answer Note LastModified by Organization D etails LastModified Time Do you have difficulty concentrating, remembering or making decisions? No Information no t available 03/21/2021 Family History Relationship Description Onset Age of this Age Resolved Age Notes LastModified by Organization Details LastModified Time Sister Coronary arterioscler osis pt. added direct ly (08/29) [email or web address] Not available 08/29/2020 12:05:08 Sister Hypertensive disorder pt. added direct ly (08/29) [email or web address] Not available 08/29/2020 12:05:53 Sister Hypercholest erolemia pt. added direct ly (08/29) [email or web address] Not available 08/29/2020 12:06:21 Sister Myocardial infarction pt. added direct ly (08/29) [email or web address] Not available 08/29/2020 12:06:50 Brother Coronary arterioscler osis pt. added direct ly (08/29) [email or web address] Not available 08/29/2020 12:05:17 Brother Hypertensive disorder pt. added direct ly (08/29) [email or web address] Not available 08/29/2020 12:06:06 Brother Hypercholest erolemia pt. added direct ly (08/29) [email or web address] Not available 08/29/2020 12:06:34 Brother Myocardial infarction pt. added direct ly (08/29) [email or web address] Not available 08/29/2020 12:06:59 Medical History Condition Response Diabetes N Varicose Veins Y Coronary Artery Disease Y Heart Disease Y Hypertension Y COPD Y Asthma Y Past Encounters Encounter ID Performer Location Encounter Start Date Encounter Closed Date Diagnosis/Indication Diagnosis SNOMED-CT Code Diagnosis ICD10 Code [id number] Maura Busch MD [facility] [address] [place] [address],[address] [address] 09/18/2020 11:34:04 09/18/2020 14:54:43 Bilateral lower limb pain at rest due to atherosclerosis 2103270440 4616145 I70.223 Coronary arteriosclerosis 98373469 I25.10 Hypertensive disorder 38 444994 I10 [id number] Maura Busch MD [facility] ( [facility] ) [address] [place] [address] 10/17/2020 09:20:41 10/17/2020 13:40:29 Bilateral lower limb pain at rest due to atherosclerosis 6682031872 9056555 I70.223 [id number] [facility] [address] [place] [address] [address] 10/31/2020 11:27:39 11/01/2020 10:31:29 Bilateral lower limb pain at rest due to atherosclerosis 3915270831 4982569 I70.223 Pain co-oc current and due to varicose veins of bilateral legs 1659577067 2840566 I83.813 Edema of l ower extremity 932702697 R60.0 [id number] Maura Busch MD [facility] ( [place] ) [address] [place] [address] 01/09/2021 08:46:19 01/11/2021 07:26:36 Bilateral lower limb pain at rest due to atherosclerosis 2808992956 1526001 I70.223 [id number] Maura Busch MD [facility] [address] [place] [address] [place] [address] 02/05/2021 09:28:41 02/09/2021 09:30:10 Bilateral lower limb pain at rest due to atherosclerosis 7820530353 5124345 I70.223 Coronary arteriosclerosis 26607422 I25.10 Hypertensive disorder 38 486235 I10 [id number] Maura Busch MD [facility] ( [place] ) [address] [place] [address] 03/21/2021 09:24:05 03/23/2021 16:24:31 Bilateral lower limb pain at rest due to atherosclerosis 6819970096 9124745 I70.223 [id number] Maura Busch MD [facility] [address] [address] [address] [place], [address] ( [place] [address] 04/09/2021 11:24:21 04/18/2021 09:23:38 Bilateral lower limb pain at rest due to atherosclerosis 0468610440 1030063 I70.223 [id number] Maura Busch MD [facility] [address] [address] [address] [place], [address] ( [place] [address] 08/31/2021 10:08:38 08/31/2021 11:08:53 Peripheral vascular disease 743897743 I73.9 Bilateral lower limb pain at rest due to atherosclerosis 8883492535 2532150 I70.223 [id number] [address] [facility] ,[address] [place] [address] 09/13/2021 10:48:42 09/13/2021 16:31:33 Peripheral vascular disease 366306588 I73.9 [id number] rocío hayes [facility] [address] [address] [address] [place], [address],[facility] [address] ( [place] [address] 09/13/2021 10:56:51 09/13/2021 17:34:26 [id number] [address] [facility] [place], [address] ( [place] [address] 09/17/2021 09:12:00 09/17/2021 11:28:20 Bilateral lower limb pain at rest due to atherosclerosis 7658159917 6411183 I70.223 [id number] [address] [place] [address],[place] [address] ( [place] [address] 03/18/2022 10:26:48 03/18/2022 12:04:49 Bilateral lower limb pain at rest due to atherosclerosis 5221131103 6952383 I70.223 Health Concerns Section Related Observation LastModified by Organization Detai ls LastModified Time None Recorded Concern Status LastModified by Organization Details LastModified Time None Recorded Advance Directives Directive None Recorded Payers Encounter Date Sequence Insurance Name Policy Number Policy Phillips Covered Member ID Phillips Member ID Guarantor Name 08/31/2021 1 [facility] (MEDICARE REPLACEMENT/A DVANTAGE - PPO) [id number] Vu Nicole [id number] Vu Corey 09/13/2021 1 [facility] (MEDICARE REPLACEMENT/A DVANTAGE - PPO) [id number] Vu Nicole [id number] Vu Corey 09/13/2021 1 [facility] (MEDICARE REPLACEMENT/A DVANTAGE - PPO) [id number] Vu Nicole [id number] Vu Guidryovan 09/17/2021 1 [facility] (MEDICARE REPLACEMENT/A DVANTAGE - PPO) [id number] Vu Nicole [id number] Vu Guidryovan 03/18/2022 1 [facility] [id number] Vu Nicole [id number] Vu Corey Notes Date Note Type Note Provider Name and Address Organization Details Recorded Time 08/31/2021 text/html {{____ 76#}} yo with symptomatic PVD, presenting for follow up after lower extremity intervention. There are no acute issues. He has intermittent throbbing in his lower extermities. He also has intermittent stabbing pain on his outer right calf. He continues to exercise religiously, swimming [place] 5 [place] [address], [address], [facility] and 08/31/2021 10:51:55 09/17/2021 text/html 76 year old with a history of peripheral arterial disease being seen virtually to review his recent arterial ultrasound results. His prior HPI is unchanged from last visit [facility] and 09/17/2021 11:21:19 03/18/2022 text/html 76 year old male with advanced peripheral arterial disease and worsening of his bilateral lower extremity pain. He is now unable to participate in exercise therapy and no longer able wear compressions due to his pain. ALYSSA [facility] and 03/18/2022 11:36:28
--- OUTSIDE RECORDS SUMMARY | 2024-02-14 08:40 | XMS_ITS | Encounter Summary ---
Author Organization [facility] Address [address] [address] Care Team Providers Care Refrigeration Specialist Name Role Phone Rogelio Epperson MD Primary Care Provider Reason for Referral * Procedure (Routine) - Closed Specialty Diagnoses / Procedures Referred By Contac t Referred To Contact Cardiology Diagnoses Persistent atrial fibrillation (HCC) Mohinder Martinez MD [address] [address] Phone: tel: fax: Mohinder Martinez MD [address] [address] Phone: tel: fax: Referral ID Status Reason Start Date Expiration Date V isits Requested Visits Authorized [id number] Closed Specialty Services Required 08/02/2022 09/01/2023 1 1 Question Answer Please select the performing region: [facility] [[id number]] Please select the performing department: [facility] [[id number]] To provider: MOHINDER MARTINEZ [[id number]] # of visits: 1 Comments PROCEDURE/TEST ORDERED:cv LOCATION: DATE OF SERVICE:08.23 INSURANCE:[employer] med[employer] DIAGNOSIS:afib ORDERING PROVIDER: ADDITIONAL DETAILS: Encounter Details Date Type Department Care Team (Late st Contact Info) Description 07/31/2022 Telephone [facility] Cardiology [address] [place] [address] Mohinder Martinez MD [address] [place], [place] [id number] Social History Tobacco Use Types Packs/Day Years Used Date Smoking Tobacco: Former Smokeless Tobacco: Never Alcohol Use Standard Drinks/Week Comments Yes 2 (1 standard drink = 0.6 oz pur e alcohol) per week Sex and Gender Information Value Date Recorded Sex Assigned at Not on file 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 * Telephone Encounter - Ellie Villalobos - 08/06/2022 2:21 PM CDT Pt requesting call from nurse Lizama. States he has questions in regard to [facility]. Contact: * Telephone Encounter - Alda Valerio RN - 08/02/2022 10:40 AM CDT Lm on with instructions and copy mailed to pt. CV on 6.30 at 1200, arrival at 1030 am to [facility] entrance [facility], go left to registration. NPO after MN< hold furosmide. * Addendum Note - Alda Valerio RN - 08/02/2022 10:35 AM CDTAddended by: ALDA VALERIO on: 08/02/2022 10:35 AM Modules accepted: Orders * Telephone Encounter - Alda Valerio RN - 08/02/2022 10:[address] Mack office, ok to do with MJF at * Telephone Encounter - Alda Valerio RN - 07/31/2022 2:17 PM CDT Pt is requesting CV procedure be done at [facility] for his convenience. Dr Martinez can doit on 08.23 if you are ok with that? The pt mentioned having some labs drawn.We will do a CBC, BMP, and Mag prior the day of the procedure. Would you like me to add anything else? Please confirm if this is ok or if you prefer it be done by Dr Mack? * Telephone Encounter - Alda Valerio RN - 07/31/2022 1:08 PM CDT Lm on that MJF could do procedure on 08.21 . Pt should verify with Dr Avendano office that this is ok and we will schedule it to be done at . * Telephone Encounter - Renetta Ma - 07/31/2022 12:38 PM CDT Pt calling in states he is scheduled for a cardioversion 08/21 to be preformed by Dr Mack. However he want to know if [facility] would be able to preform the procedure at [facility]. Requesting call back to discuss. Contact [phone] documented in this encounter Plan of Treatment Scheduled Referrals Name Type Priority Associated Diagnoses Orde r Schedule Ambulatory referral to Cardiology Outpatient Referral Routine Persistent atrial fibrillation (HCC) Expected: 08/02/2022 (Approximate), Expires: 08/03/2023 documented as of this encounter Visit Diagnoses Diagnosis Persistent atrial fibrillation (HCC)- Primary Atrial fibrillation documented in this encounter Care Teams Refrigeration Specialist Relationship Specialty Start Date End Date Rogelio Epperson MD [address] [facility] [address] [address] PCP - General 06/04/12 documented as of this encounter
--- OUTSIDE RECORDS SUMMARY | 2024-02-14 08:40 | XMS_ITS | Encounter Summary ---
Author Organization [facility] Address [address] [place] [address] Care Team Providers Care Performance Test Engineer Name Role Phone Rogelio Epperson MD Primary Care Provider Encounter Details Date Type Department Care Team (Late st Contact Info) Description 01/09/2023 Orders Only [facility] Cardiology [address] [address] [address] [place] [address] Randi Chicas NP [address] [place] [address] Social History Tobacco Use Types Packs/Day Years Used Date Smoking Tobacco: Former Cigars Smokeless Tobacco: Never Alcohol Use Standard Drinks/Week Comments Yes 2 (1 standard drink = 0.6 oz pur e alcohol) per week Sex and Gender Information Value Date Recorded Sex Assigned at Not on file Legal Sex Male 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 Gender Identity Not on file Sexual Orientation Not on file documented as of this encounter Plan of Treatment Not on file documented as of this encounter Procedures Procedure Name Priority Date/Time Associated Diagnosis Comments CARDIOLOGY DOCUMENT SCAN Routine 023 10:59 AM CDT documented in this encounter Results * Cardiology Document Scan (12/13/2022 10:59 AM CDT) Anatomical Region Laterality Modality Other us Randi Gisela Aviva KETTLE CLEANER CV CARDIAC SERVICES PROCEDUR ES Final Result documented in this encounter Visit Diagnoses Not on filedocumented in this encounter Care Teams Performance Test Engineer Relationship Specialty Start Date End Date Rogelio Epperson MD [address] [facility] [address] [place] [address] PCP - General 06/04/12 documented as of this encounter
--- OUTSIDE RECORDS SUMMARY | 2024-02-14 08:40 | XMS_ITS | Encounter Summary ---
Author Organization [facility] Address [address] [address] Care Team Providers Care Mold Repair Technician Name Role Phone Rogelio Epperson MD Primary Care Provider Reason for Visit * Reason Comments Coronary Artery Disease Atrial Fibrillation 6 month follow up. * Procedure (Routine) - Closed Specialty Diagnoses / Procedures Referred By Contac t Referred To Contact Cardiology Diagnoses Persistent atrial fibrillation (HCC) Mohinder Martinez MD [address] [facility] [address] [place] [address] Phone: tel: fax: Mohinder Martinez MD [address] [facility] [address] [address] Phone: tel: fax: Referral ID Status Reason Start Date Expiration Date V isits Requested Visits Authorized [id number] Closed Specialty Services Required 08/02/2022 09/01/2023 1 1 Encounter Details Date Type Department Care Team (Late st Contact Info) Description 08/15/2022 9:45 AM CDT Office Visit [facility] Cardiology [address] [place] [phone] Mohinder Martinez MD [address] [facility] [address] [place] [id number] (work) History of coronary artery stent placement (Primary Dx); Persistent atrial fibrillation (HCC); Coronary artery disease involving [place] coronary artery of [place] heart without angina pectoris Social History Tobacco Use Types Packs/Day Years Used Date Smoking Tobacco: Former Smokeless Tobacco: Never Tobacco Cessation:Counseling Given: Not Answered Alcohol Use Standard Drinks/Week Comments Yes 2 (1 standard drink = 0.6 oz pur e alcohol) per week Sex and Gender Information Value Date Recorded Sex Assigned at Not on file 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 Gender Identity Not on file Sexual Orientation Not on file documented as of this encounter Last Filed Vital Signs Vital Sign Reading Time Taken Comments Blood Pressure 124/70 08/15/2022 9:30 AM CDT Pulse 67 08/15/2022 9:30 AM CDT Temperature - - Respiratory Rate - - Oxygen Saturation 92% 08/15/2022 9:30 AM CDT Inhaled Oxygen Concentration - - Weight 128.8 kg (284 lb) 08/15/2022 9:30 AM CDT Height 175.3 cm (5' 9 ) 08/15/2022 9:30 AM CDT Body Mass Index 41.94 08/15/2022 9:30 AM CDT documented in this encounter Progress Notes * Mohinder Martinez MD - 08/15/2022 9:45 AM CDT [facility] FOLLOW UP 08/15/2022 Vu Nicole is a 77 y.o. male [...] patient was ultimately referred to electrophysiology at [facility] he underwent a catheter ablation of his atrial fibrillation on 04/21/2018. He underwent a nuclear stress test in January of 2021 because of some chest pain symptoms. The results were negative and I have been treating him medically for his angina since then. He returns to the office today for scheduled follow-up appointment. Overall he is feeling well without a lot of complaints. He does have times where he feels lack of energy and stamina. States he wasin the electrophysiology office at [facility] recently was told that he was in recurrent AF and was put on my schedule for a cardioversion at the end of this month. The patient is not having any ischemic symptoms reports no chest pain pressure or heaviness. On physical exam in our office his heart rate was in the 70s and regular. Electrocardiogram appears to show an accelerated junctional rhythm with a heart rate of 73 I do not see any evidence of atrial fib nor any clear cut evidence of atrial flutter. REVIEW OF SYSTEMS General ROS: negative for [...] needed for wheezing, Disp: , Rfl: ??? amLODIPine (NORVASC) 10 [...] Rfl: ??? atorvastatin (LIPITOR) 10 mg tablet, TAKE 1 TABLET BY MOUTH DAILY, Disp: 90 tablet, Rfl: 1 ??? azelastine (ASTELIN) 137 mcg (0.1 %) nasal spray, Administer 1 spray into each nostril nightly,Disp: , Rfl: ??? cholecalciferol (VITAMIN D-3) 5,000 [...] Do not swallow., Disp: , Rfl: ??? furosemide (LASIX) 40 mg tablet, Take 1 tablet (40 mg total) by mouth daily, Disp: 90 tablet, Rfl: 0 ??? gabapentin (NEURONTIN) 600 mg tablet, Take 1 tablet (600 mg total) by mouth 3 (three) times a day, Disp: , Rfl: ??? nitroglycerin (NITROSTAT) 0.4 mg SL tablet, Place 1 tablet (0.4 mg total) under the tongue every 5 (five) minutes as needed for chest pain, Disp: 75 tablet, Rfl: 0 ??? ramipriL (ALTACE) 10 mg capsule, TAKE 1 CAPSULE BY MOUTH DAILY, Disp: 90 capsule, Rfl: 3 ??? triamcinolone (NASACORT) 55 mcg nasal inhaler, Administer 2 sprays into each nostril nightly, Disp: , Rfl: LABS AND OTHER DIAGNOSTIC TESTS No results found for: CHOL No results found for: HDL No results found for: LDLCALC No results found for: TRIG No results found for: CHOLHDL Lab Results Component Value Date WBC 7.9 08/09/2022 HGB 13.2 08/09/2022 HCT 39.4 08/09/2022 MCV 88.1 08/09/2022 Recent Labs Lab Units 08/09/22 0809 CO2 mmol/L 26 CREATININE mg/dL 1.14 CALCIUM mg/dL 9.0 GLUCOSE mg/dL 96 PHYSICAL EXAM Vitals BP 124/70 (BP Location: Left arm, Patient Position: Sitting) Pulse 67 Ht 175.3 cm (5' 9 ) Wt 128.8 kg (284 lb) SpO2 92% BMI 41.94 kg/m?? Physical Examination: General appearance - alert, [...] visit: History of coronary artery stent placement Persistent atrial fibrillation (HCC) - Ambulatory referral to Cardiology Coronary artery disease involving [place] coronary artery of [place] heart without angina pectoris PLAN/RECOMMENDATIONS For now no change in medical regimen Will review the current ECG with television engineer anticipate cancelling cardioversion I do not believe the current rhythm is appropriate for that. Will schedule follow-up as we have been at six-month intervals or p.r.n.. Mohinder Martinez MD documented in this encounter Plan of Treatment Not on file documented as of this encounter Procedures Procedure Name Priority Date/Time Associated Diagnosis Comments ECG 12-LEAD Routine 08/15/2022 Persistent atrial fibrillation (HCC) documented in this encounter Results * ECG 12 lead (08/15/2022) us Mohinder Martinez MD ECG ORDERABLES Edited R esult - Final documented in this encounter Visit Diagnoses Diagnosis History of coronary artery stent placement- Primary Persistent atrial fibrillation (HCC) Atrial fibrillation Coronary artery disease involving [place] coronary artery of [place] heart without angina pectoris documented in this encounter Discontinued Medications Medication Sig Discontinue Reason Start Date End Da te clopidogreL (PLAVIX) 75 mg tablet 01/16/2021 08/15/2022 documented as of this encounter Orders Outpatient Referral Count Last Ordered Date Fir st Ordered Date AMB REFERRAL TO CARDIOLOGY 1 08/15/2022 documented in this encounter Care Teams Mold Repair Technician Relationship Specialty Start Date End Date Rogelio Epperson MD [address] [place] [id number] PCP - General 06/04/12 documented as of this encounter
--- OUTSIDE RECORDS SUMMARY | 2024-02-14 08:40 | XMS_ITS | Encounter Summary ---
Author Organization [facility] Healthcare Address [address] [place] [address] Care Team Providers Care Ship Boss Name Role Phone Rogelio Epperson MD Primary Care Provider Reason for Referral * Consultation (Routine) - Authorized Specialty Diagnoses / Procedures Referred By Tk t Referred To Contact Cardiothoracic Surgery Diagnoses Coronary artery disease, unspecified vessel or lesion type, unspecified whether angina present, unspecified whether [place] or transplanted heart Aortic valve stenosis, etiology of cardiac valve disease unspecified Michael Rodriguez MD [address] [facility] [address] [address] Phone: tel: fax: Joseph Flores MD [address] [facility] [address] [place] [address] Phone: tel: fax: Referral ID Status Reason Start Date Expiration Date Visits Requested Visits Authorized [id number] Authorized Specialty Services Required 03/10/2025 99 99 Question Answer Please select the performing region: [facility] (All Locations) [[id number]] To provider: JOSEPH FLORES [[id number]] # of visits: 1 Comments New pt referral for CABG and moderate aortic stenosis. Please call pt to schedule. LEUM LAYER APPRENTICE Encounter Details Date Type Department Care Team (Late st Contact Info) Description 02/09/2024 Telephone [facility] Cardiology [address] [place] [address] Michael Rodriguez MD [address] [place] [address] Social History Tobacco Use Types Packs/Day Years Used Date Smoking Tobacco: Former Cigarettes Pipe Cigars Smokeless Tobacco: Never Alcohol Use Standard Drinks/Week Comments Yes 2 (1 standard drink = 0.6 oz pur e alcohol) per week Sex and Gender Information Value Date Recorded Sex Assigned at Not on file Legal Sex Male 1:57 AM LINOLEUM LAYER APPRENTICE Gender Identity Not on file Sexual Orientation Not on file documented as of this encounter Miscellaneous Notes * Telephone Encounter - Maricruz Olivas RN - 02/10/2024 2:09 PM LINOLEUM LAYER APPRENTICE Called and spoke with Dr. Flores's office, appt made for pt on February 25 at 1:00. Spoke with pt, pt aware and appreciative of assistance. LEUM LAYER APPRENTICE * Telephone Encounter - Jacque Ferris - 02/10/2024 1:47 PM CST Patient states that the first available appt for Dr. Flores would be 03/11/2024. Patient would like another referral to [facility] to see if he could get in sooner. Patient requesting a call back. Please advise. Thank you. Contact [phone] LEUM LAYER APPRENTICE * Telephone Encounter - Maricruz Olivas RN - 02/09/2024 10:01 AM LINOLEUM LAYER APPRENTICE Per WK, pt needs a CTS referral to to Mark at [facility] for CABG and Moderate Aortic Stenosis. Referral placed. LEUM LAYER APPRENTICE documented in this encounter Plan of Treatment Scheduled Referrals Name Type Priority Associated Diagnoses Orde r Schedule Ambulatory referral to Cardiothoracic Surgery Outpatient Referral Routine Coronary artery disease, unspecified vessel or lesion type, unspecified whether angina present, unspecified whether [place] or transplanted heart Aortic valve stenosis, etiology of cardiac valve disease unspecified Expected: 02/23/2024 (Approximate), Expires: 02/08/2025 documented as of this encounter Visit Diagnoses Diagnosis Coronary artery disease, unspecified vessel or lesion type, unspecified whether angina present, unspecified whether [place] or transplanted heart- Primary Aortic valve stenosis, etiology of cardiac valve disease unspecified documented in this encounter Care Teams Ship Boss Relationship Specialty Start Date End Date Rogelio Epperson MD [address] [facility] [address] [place] [address] PCP - General 06/04/12 documented as of this encounter
--- OUTSIDE RECORDS SUMMARY | 2024-02-14 08:41 | XMS_ITS | Encounter Summary ---
Author Organization 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
--- OUTSIDE RECORDS SUMMARY | 2024-02-14 08:41 | XMS_ITS | Encounter Summary ---
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
--- OUTSIDE RECORDS SUMMARY | 2024-02-14 08:41 | XMS_ITS | Encounter Summary ---
Author Organization [facility] Address [address] [address] Care Team Providers Care Director [employer] Name Role Phone Rogelio Epperson MD Primary Care Provider Reason for Referral * Diagnostic Imaging (Routine) - Closed Specialty Diagnoses / Procedures Referred By Contac t Referred To Contact Diagnoses Coronary artery disease involving [place] coronary artery of [place] heart without angina pectoris History of coronary artery stent placement Procedures NM MPI SPECT (Rest and/or Stress) Multiple Studies Mohinder Martinez MD [address] [address] Phone: tel: fax: [facility] Referral ID Status Reason Start Date Expiration Date Visits Re quested Visits Authorized [id number] Closed 01/22/2021 03/08/2021 1 1 IFIED CYTOTECHNOLOGIST Reason for Visit * Reason Comments Atrial Fibrillation 6 mo f/u Encounter Details Date Type Department Care Team (Late st Contact Info) Description 01/16/2021 1:30 PM CERTIFIED CYTOTECHNOLOGIST Office Visit [facility] Cardiology [address] [place] [phone] Mohinder Martinez MD [address] [address] Persistent atrial fibrillation (HCC) (Primary Dx); Coronary artery disease involving [place] coronary artery of [place] heart without angina pectoris; History of coronary artery stent placement Social History Tobacco Use Types Packs/Day Years Used Date Smoking Tobacco: Former Smokeless Tobacco: Never Alcohol Use Standard Drinks/Week Comments Yes 2 (1 standard drink = 0.6 oz pur e alcohol) per week Sex and Gender Information Value Date Recorded Sex Assigned at Not on file Legal Sex Male 1:57 AM CERTIFIED CYTOTECHNOLOGIST Gender Identity Not on file Sexual Orientation Not on file documented as of this encounter Last Filed Vital Signs Vital Sign Reading Time Taken Comments Blood Pressure 108/68 01/16/2021 1:37 PM CERTIFIED CYTOTECHNOLOGIST Pulse 61 01/16/2021 1:37 PM CERTIFIED CYTOTECHNOLOGIST Temperature - - Respiratory Rate - - Oxygen Saturation 96% 01/16/2021 1:37 PM CERTIFIED CYTOTECHNOLOGIST Inhaled Oxygen Concentration - - Weight 133.8 kg (295 lb) 01/16/2021 1:37 PM CERTIFIED CYTOTECHNOLOGIST Height 175.3 cm (5' 9 ) 01/16/2021 1:37 PM CERTIFIED CYTOTECHNOLOGIST Body Mass Index 43.56 01/16/2021 1:37 PM CERTIFIED CYTOTECHNOLOGIST documented in this encounter Progress Notes * Mohinder Martinez MD - 01/16/2021 1:30 PM CST [facility] FOLLOW UP 01/16/2021 Jade Nicole is a 75 y.o. male who presents for follow up [...] revascularization of this by vascular surgery were on successful. The patient was ultimately referred to electrophysiology at [facility] he underwent a catheter ablation of his atrial fibrillation on 04/21/2018. He presents today for scheduled six-month follow-up. He follows with the arrhythmia Clinic at [facility]. According to their notes he is doing well with no evidence of recurrent atrial fibrillation recently. Upon arrival to the office today he reports that he has been noticing some mild symptoms of exertional shortness of breath with some central chest pain that is fairly typical of angina. He was not very concerned about this and he thought he would just mention it during today's appointment. It began within the last couple of months or so. Apparently he also sees a vascular surgeon somewhere anti clinic out in the [facility] area with whom I am not familiar. REVIEW OF SYSTEMS General ROS: negative for [...] ??? acetaminophen (TYLENOL) 500 mg tablet, Take 500-1,000 mg by mouth every 6 (six) hours as neededfor pain., Disp: , Rfl: ??? albuterol HFA (PROVENTIL HFA,VENTOLIN HFA) 90 mcg/actuation inhaler, Inhale 2 puffs every 6 (six) hours as needed for wheezing., Disp: , Rfl: ??? amLODIPine (NORVASC) 10 mg tablet, Take 1 tablet (10 mg total) by mouth nightly, Disp: 90 tablet, Rfl: 2 ??? atorvastatin (LIPITOR) 10 mg tablet, TAKE 1 TABLET BY MOUTH DAILY, Disp: 90 tablet, Rfl: 3 ??? azelastine (ASTELIN) 137 mcg (0.1 %) nasal spray, Administer 1 spray into each nostril nightly., Disp: , Rfl: ??? cholecalciferol (VITAMIN D-3) 5,000 unit capsule, Take 5,000 Units by mouth daily , Disp: , Rfl: ??? clopidogreL (PLAVIX) 75 mg tablet, , Disp: , Rfl: ??? cyanocobalamin (Vitamin B-12) 1,000 mcg tablet, Take 1,000 mcg by mouth daily , Disp: , Rfl: ??? Eliquis 5 mg tablet, TAKE 1 TABLET BY MOUTH TWICE DAILY, Disp: 180 tablet, Rfl: 0 ??? famotidine (PEPCID) 20 mg tablet, Take 20 mg by mouth nightly., Disp: , Rfl: ??? flaxseed oil 1,000 mg capsule, Take 1,000 mg by mouth daily. , Disp: , Rfl: ??? fluticasone furoate-vilanterol (BREO ELLIPTA) 100-25 mcg/dose diskus inhaler, Inhale 1 puff daily Rinse mouth with water after use. Do not swallow., Disp: , Rfl: ??? furosemide (LASIX) 40 mg tablet, TAKE 1 TABLET BY MOUTH DAILY, Disp: 90 tablet, Rfl: 3 ??? gabapentin (NEURONTIN) 600 mg tablet, Take 600 mg by mouth 3 (three) times a day. , Disp: , Rfl: ??? nitroglycerin (NITROSTAT) 0.4 mg SL tablet, Place 1 tablet (0.4 mg total) under the tongue every 5 (five) minutes as needed for chest pain, Disp: 75 tablet, Rfl: 0 ??? ramipriL (ALTACE) 10 mg capsule, TAKE 1 CAPSULE BY MOUTH DAILY, Disp: 90 capsule, Rfl: 1 ??? triamcinolone (NASACORT) 55 mcg nasal inhaler, Administer 2 sprays into each nostril nightjazmín. ,Disp: , Rfl: ??? aspirin 81 mg chewable tablet, Take 81 mg by mouth daily. (Patient not taking: Reported on 01/16/2021), Disp: , Rfl: LABS AND OTHER DIAGNOSTIC TESTS No results found for: CHOL No results found for: HDL No results found for: LDLCALC No results found for: TRIG No results found for: CHOLHDL Lab Results Component Value Date WBC 10.2 (H) 04/22/2018 HGB 14.1 04/22/2018 HCT 43.2 04/22/2018 MCV 91.9 04/22/2018 No lab exists for component: LABALBU PHYSICAL EXAM Vitals BP 108/68 (BP Location: Right arm, Patient Position: Sitting) Pulse 61 Ht 175.3 cm (5' 9 ) Wt 133.8 kg (295 lb) SpO2 96% BMI 43.56 kg/m?? Physical Examination: General appearance - alert, [...] no rashes, no suspicious skin lesions noted LORAINE Womack was seen today for atrial fibrillation. Diagnoses and all orders for this visit: Persistent atrial fibrillation (HCC) Coronary artery disease involving [place] coronary artery of [place] heart without angina pectoris History of coronary artery stent placement PLAN/RECOMMENDATIONS Schedule a Lexiscan nuclear stress test given his symptoms and significant coronary history. Follow-up with me after that takes place Mohinder Martinez MD IFIED CYTOTECHNOLOGIST documented in this encounter Plan of Treatment Not on file documented as of this encounter Results * NM MPI SPECT (Rest and/or Stress) Multiple Studies (01/25/2021 10:39 AM CERTIFIED CYTOTECHNOLOGIST) Anatomical Region Laterality Modality Body N/A Nuclear Medicine 01/25/2021 9:18 AM CERTIFIED CYTOTECHNOLOGIST Narrative 01/25/2021 5:36 PM CERTIFIED CYTOTECHNOLOGIST [facility] Cardiology [address] [facility] [address], [place] [address] [address] [facility] [address], [place] [address] P:[phone] P:[phone] MPI Imaging Report Patient Name: JADE NICOLE J : 1945 Study Date: 01/25/2021 9:18:45 AM Gender: M Tech: [facility] Location: [facility].Provider: MOHINDER MARTINEZ Height(Cm): 175.3 BSA: Weight(Kg): 133.8 BMI: 43.54Order Provider: MOHINDER MARTINEZ - Physician: Referring Physician: Dr. Epperson. HCG Physician: Mohinder Martinez M.D.,F.A.C.C. Interpreting Physician: Tawanda Velazquez M.D. Stress Supervision: Tawanda Velazquez M.D. Procedures: Myocardial perfusion imaging with Tc99M Sestamibi SPECT at rest and stress post regadenoson (Lexiscan) infusion. Indications: Atrial Fibrillation, Chest Pain, Coronary Artery Disease, Hypertension, Family Hx CAD, High Cholesterol, Former Smoker, and [place]. Findings: Procedural Findings: One day rest/stress was used. Tc99m Sestamibi injected IV at rest was 12.4 millicuries. 38.0 millicuries of Tc99M Sestamibi injected IV during Lexiscan stress. Lexiscan 0.4mg administered IV over 10 seconds. Patient had no symptoms during stress test. Baseline heart rate was 73 BPM. Maximum Heart Rate Achieved was: 81 BPM. Baseline blood pressure was 122/78 mmHg. Post Stress Blood Pressure was 120/78 mmHg. Termination: Protocol complete. Resting ECG: Normal sinus rhythm, first degree AVB. Cannot r/o IMI - age uncertain. Post ECG: No diagnostic ST changes. Arrhythmia: No arrhythmias seen. Perfusion Findings: Normal perfusion imaging. No definite fixed or reversible defects. Technical quality of study is excellent. Prone imaging was not performed. Left ventricle cavity size at rest is normal. Left ventricle cavity size with stress is unchanged. A TID of 0.99 was automatically calculated. LV Function: Global left ventricular function is normal. Left ventricular ejection fraction is 61 %. Conclusions: Global left ventricular function is normal. Left ventricular ejection fraction is 61 %. Myocardial perfusion imaging is normal. Negative EKG portion of stress test. Electronically Signed By: Marvin Velazquez MD 2021-01-25 17:35:49 CERTIFIED CYTOTECHNOLOGIST Electronically Signed By: Marvin Velazquez MD 2021-01-25 17:36:01 CERTIFIED CYTOTECHNOLOGIST CC: CC: Procedure Note Marvin Velazquez MD - 01/25/2021 [facility] Cardiology [address] [facility] [address] [address] [address] [facility] [address], [place] [address] P:[phone] P:[phone] MPI Imaging Report Patient Name: JADE NICOLE JPatient ID: [id number] : [id number] Date: 01/25/2021 9:18:45 AM Gender: MAccession #: [id number] Tech: , [place]: [place] Ref.Provider: Maria E MARTINEZ(Cm): 175.3 BSA: Weight(Kg): 133.8 BMI: 43.54Order Provider: MOHINDER MARTINEZ - Physician: Referring Physician: Dr. Epperson. HCG Physician: Mohinder Martinez M.D.,F.A.C.C. Interpreting Physician: Tawanda Velazquez M.D. Stress Supervision: Amna Nuñez Procedures: Myocardial perfusion imaging with Tc99M Sestamibi SPECT at rest and stresspost regadenoson (Lexiscan) infusion. Indications: Atrial Fibrillation, Chest Pain, Coronary Artery Disease, Hypertension,Family Hx CAD, High Cholesterol, Former Smoker, and [place]. Findings: Procedural Findings: One day rest/stress was used. Tc99m Sestamibi injected IV at rest was 12.4millicuries. 38.0 millicuries of Tc99M Sestamibi injected IV during Lexiscan stress.Lexiscan 0.4mg administered IV over 10 seconds. Patient had no symptoms during stresstest. Baseline heart rate was 73 BPM. Maximum Heart Rate Achieved was: 81 BPM. Baselineblood pressure was 122/78 mmHg. Post Stress Blood Pressure was 120/78 mmHg. Termination: Protocol complete. Resting ECG: Normal sinus rhythm, first degree AVB. Cannot r/o IMI - age uncertain. Post ECG: No diagnostic ST changes. Arrhythmia: No arrhythmias seen. Perfusion Findings: Normal perfusion imaging. No definite fixed or reversible defects.Technical quality of study is excellent. Prone imaging was not performed. Left ventricle cavitysize at rest is normal. Left ventricle cavity size with stress is unchanged. A TID of0.99 was automatically calculated. LV Function: Global left ventricular function is normal. Left ventricular ejectionfraction is 61 %. Conclusions: Global left ventricular function is normal. Left ventricular ejectionfraction is 61 %. Myocardial perfusion imaging is normal. Negative EKG portion of stress test. Electronically Signed By: Marvin Velazquez MD 2021-01-25 17:35:49 CERTIFIED CYTOTECHNOLOGIST Electronically Signed By: Marvin Velazquez MD 2021-01-25 17:36:01 CERTIFIED CYTOTECHNOLOGIST CC: CC: Mohinder Martinez MD [facility] PROCEDURES Final Result documented in this encounter Visit Diagnoses Diagnosis Persistent atrial fibrillation (HCC)- Primary Atrial fibrillation Coronary artery disease involving [place] coronary artery of [place] heart without angina pectoris History of coronary artery stent placement Coronary artery disease involving [place] coronary artery of [place] heart without angina pectoris History of coronary artery stent placement documented in this encounter Discontinued Medications Medication Sig Discontinue Reason Start Date End Da te etodolac XL (LODINE XL) 400 mg 24 hr tablet Therapy completed 11/17/2019 01/16/2021 documented as of this encounter Historical Medications * This list may reflect changes made after this encounter. Medication Sig Dispense Quantity Refills Last Filled Start D ate End Date clopidogreL (PLAVIX) 75 mg tablet 01/16/2021 08/15/2022 added in this encounter Care Teams Director [employer] Relationship Specialty Start Date End Date Rogelio Epperson MD [address] [facility] [address] [place] [id number] PCP - General 06/04/12 documented as of this encounter
--- OUTSIDE RECORDS SUMMARY | 2024-02-14 08:41 | XMS_ITS | Encounter Summary ---
Author Organization [facility] Address [address] [facility] [address] [place] [address] Care Team Providers Care Farm Field Manager Name Role Phone Rogelio Epperson MD Primary Care Provider Reason for Visit * Reason Comments Follow-up 2 week fu after test ing Encounter Details Date Type Department Care Team (Late st Contact Info) Description 02/01/2021 3:15 PM SUPERVISOR REWORK Office Visit [facility] Cardiology [address] [facility] [address] [phone] Mohinder Martinez MD [address] [facility] [address] [place] [address] Persistent atrial fibrillation (HCC) (Primary Dx); Coronary artery disease involving [place] coronary artery of [place] heart without angina pectoris; Paroxysmal atrial fibrillation (CMS/HCC) (HCC); History of coronary artery stent placement Social History Tobacco Use Types Packs/Day Years Used Date Smoking Tobacco: Former Smokeless Tobacco: Never Alcohol Use Standard Drinks/Week Comments Yes 2 (1 standard drink = 0.6 oz pur e alcohol) per week Sex and Gender Information Value Date Recorded Sex Assigned at Not on file Legal Sex Male 1:57 AM SUPERVISOR REWORK Gender Identity Not on file Sexual Orientation Not on file documented as of this encounter Last Filed Vital Signs Vital Sign Reading Time Taken Comments Blood Pressure 122/78 02/01/2021 3:17 PM SUPERVISOR REWORK Pulse 78 02/01/2021 3:17 PM SUPERVISOR REWORK Temperature - - Respiratory Rate - - Oxygen Saturation 94% 02/01/2021 3:17 PM SUPERVISOR REWORK Inhaled Oxygen Concentration - - Weight 132.9 kg (293 lb) 02/01/2021 3:17 PM SUPERVISOR REWORK Height 175.3 cm (5' 9 ) 02/01/2021 3:17 PM SUPERVISOR REWORK Body Mass Index 43.27 02/01/2021 3:17 PM SUPERVISOR REWORK documented in this encounter Progress Notes * Mohinder Martinez MD - 02/01/2021 3:15 PM CST [facility] 02/01/2021 Vu Nicole is a 75 y.o. male who [...] patient was ultimately referred to electrophysiology at [facility] he underwent a catheter ablation of his atrial fibrillation on 04/21/2018. He presents today for a shorter interval follow-up to discuss results of a nuclear stress test thatI ordered during his last appointment. He was reporting some symptoms of chest pain that were of some concern for recurrent myocardial ischemia. The stress test showed no electrocardiographic or scintigraphic evidence of ischemia. His ejection fraction is 61%. The patient still gives a history of what sounds like very mild angina. He is able to exercise in the swimming pool every day for 40-45 minutes without any symptoms if he paces himself. He says if he gets more aggressive with his swimming he will then cause some mild retrosternal chest tightness at times. It is certainly likely that génesis have some small-vessel disease provoking this type of symptomatology. We discussed trying some additional medication for this but he would like not to advances medication list any longer which I understand as well. For now we will follow this conservatively and see him again in 6 months REVIEW OF SYSTEMS General ROS: negative for [...] Rfl: ??? amLODIPine (NORVASC) 10 mg tablet, TAKE 1 TABLET BY MOUTH AT NIGHT, Disp: 90 tablet, Rfl: 3 ??? aspirin 81 mg chewable tablet, Take 81 mg by mouth daily , Disp: , Rfl: ??? atorvastatin (LIPITOR) 10 [...] inhaler, Administer 2 sprays into each nostril nightly. ,Disp: , Rfl: LABS AND OTHER DIAGNOSTIC TESTS No results found for: CHOL No results found for: HDL No results found for: LDLCALC No results found for: TRIG No results found for: CHOLHDL Lab Results Component Value Date WBC 10.2 (H) 04/22/2018 HGB 14.1 04/22/2018 HCT 43.2 04/22/2018 MCV 91.9 04/22/2018 No lab exists for component: LABALBU PHYSICAL EXAM Vitals BP 122/78 (BP Location: Left arm, Patient Position: Sitting) Pulse 78 Ht 175.3 cm (5' 9 ) Wt 132.9 kg (293 lb) SpO2 94% BMI 43.27 kg/m?? Physical Examination: General appearance - alert, [...] rashes, no suspicious skin lesions noted LORAINE Vu was seen today for follow-up. Diagnoses and all orders for this visit: Persistent atrial fibrillation (HCC) Coronary artery disease involving [place] coronary artery of [place] heart without angina pectoris Paroxysmal atrial fibrillation (CMS/HCC) (HCC) History of coronary artery stent placement PLAN/RECOMMENDATIONS No change in regimen as detailed above Follow-up 6 months or p.r.n. Mohinder Martinez MD RVISOR REWORK documented in this encounter Plan of Treatment Not on file documented as of this encounter Visit Diagnoses Diagnosis Persistent atrial fibrillation (HCC)- Primary Atrial fibrillation Coronary artery disease involving [place] coronary artery of [place] heart without angina pectoris Paroxysmal atrial fibrillation (CMS/HCC) (HCC) Atrial fibrillation History of coronary artery stent placement documented in this encounter Care Teams Farm Field Manager Relationship Specialty Start Date End Date Rogelio Epperson MD [address] [place] [id number] PCP - General 06/04/12 documented as of this encounter
--- OUTSIDE RECORDS SUMMARY | 2024-02-14 08:41 | XMS_ITS | Encounter Summary ---
Author Organization [facility] Address [address] [place] [address] Care Team Providers Care Hay Rake Operator Name Role Phone Rogelio Epperson MD Primary Care Provider Reason for Visit * Reason Comments Atrial Fibrillation Encounter Details Date Type Department Care Team (Late st Contact Info) Description 08/31/2021 11:00 AM CDT Office Visit [facility] [address] [address] Marilu León, GARTH [address] [facility] [address], [place] [id number] Persistent atrial fibrillation (HCC) (Primary Dx) Social History Tobacco Use Types Packs/Day Years Used Date Smoking Tobacco: Former Smokeless Tobacco: Never Alcohol Use Standard Drinks/Week Comments Yes 2 (1 standard drink = 0.6 oz pur e alcohol) per week Sex and Gender Information Value Date Recorded Sex Assigned at Not on file Legal Sex Male 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 Gender Identity Not on file Sexual Orientation Not on file documented as of this encounter Last Filed Vital Signs Vital Sign Reading Time Taken Comments Blood Pressure 142/73 08/31/2021 11:03 AM CDT Pulse 64 08/31/2021 11:03 AM CDT Temperature - - Respiratory Rate - - Oxygen Saturation - - Inhaled Oxygen Concentration - - Weight 122.2 kg (269 lb 6.4 oz) 022 11:03 AM CDT Height 175.3 cm (5' 9 ) 08/31/2021 11:0 3 AM CDT Body Mass Index 39.78 08/31/2021 11:03 AM CDT documented in this encounter Progress Notes * Marilu León, TRAINING AND DEVELOPMENT REP - 08/31/2021 11:00 AM CDT Patient ID: Vu Nicole is a 76 y.o. male Chief Complaint Atrial fibrillation HPI Mr. Nicole presents [facility] today for follow-up of his atrial fibrillation and ablation in March of 2018. He is a 76 y.o. male with a history of coronary disease/status post PCI RCA (2003) and LAD (2004), normal LV function, morbid obesity, hypertension, dyslipidemia, and asthma. We were asked to consult by Dr. Martinez, to assist with the management of his atrial arrhythmia. The patient was diagnosed with paroxysmal atrial fibrillation around the time of his coronary interventions. He has been treated with anticoagulation and sotalol. The patient had required cardioversion on several occasions, most recently on 11/07/2017. During episodes of atrial fibrillation, the patient experiences palpitations and dizziness. He alsoexperiences fatigue and shortness of breath. He has not experienced syncope, and denies chest discomfort since his acute coronary events. He is here in follow-up today after undergoing radiofrequencycatheter ablation of his paroxysmal atrial fibrillation on 04/21/2018. In early January 2020 he was admitted to the hospital for 5-6 days for COVID-19. He presents today and states he has been feeling well. He denies any recent hospitalizations or major medical events. He has continued to lose weight through diet and exercise Denies Dizziness or syncope. No chest pain. No recent episodes AF per his report. EKG on my review today demonstrates sinus rhythm (65) with normal QRS duration and QT interval. Past Medical History: Diagnosis Date ??? Adiposity Obesity ??? Arrhythmia ??? Arthritis ??? Asthma seaonal allergies, asthma ??? Atrial fibrillation (CMS/HCC) (HCC) ??? CHF (congestive heart failure) (CMS/HCC) (HCC) ??? Coronary artery disease ??? GERD (gastroesophageal reflux disease) ??? Heart disease ??? HX OTHER MEDICAL dyslipidemia ??? Hyperlipidemia ??? Hypertension Hypertension ??? Sleep apnea cpap Family History Problem Relation Age of Onset ??? Stent Brother Coronary Stent Placement; ??? Heart attack Brother Myocardial Infarction; Cause of : Myocardial Infarction ??? Heart disease Brother ??? Stent Sister Coronary Stent Placement; ??? Stent Sister Coronary Stent Placement; ??? Arthritis Sister ??? Heart attack Sister ??? Hypertension Sister ??? Obesity Sister ??? Alcohol abuse Father ??? Alcohol abuse Brother ??? Alcohol abuse Brother ??? Alcohol abuse Brother ??? Heart attack Brother ??? Hypertension Brother ??? Heart disease Brother ??? Alcohol abuse Brother ??? Arthritis Brother ??? Asthma Brother ??? COPD Brother ??? Hearing loss Brother ??? Heart attack Brother ??? Hypertension Brother ??? Heart disease Brother ??? Arthritis Brother ??? Asthma Brother ??? COPD Brother ??? Hypertension Brother ??? Mental illness Mother Social History Tobacco Use ??? Smoking status: Former Smoker ??? Smokeless tobacco: Never Used Substance Use Topics ??? Alcohol use: Yes Alcohol/week: 2.0 standard drinks Types: 2 Shots of liquor per week Comment: per week Current Outpatient Medications: ??? acetaminophen (TYLENOL) 500 [...] BY MOUTH DAILY, Disp: 90 tablet, Rfl: 2 ??? azelastine (ASTELIN) 137 mcg (0.1 %) [...] MOUTH TWICE DAILY, Disp: 180 tablet, Rfl: 2 ??? famotidine (PEPCID) 20 mg tablet, Take 20 mg by mouth nightly. (Patient not taking: Reported on08/14/2021), Disp: , Rfl: ??? flaxseed oil 1,000 [...] into each nostril nightly. ,Disp: , Rfl: Review of Systems Constitutional: Positive for fatigue. HENT: Negative. Eyes: Negative. Respiratory: Positive for cough. Cardiovascular: Negative. Gastrointestinal: Negative. Endocrine: Negative. Genitourinary: Negative. Skin: Negative. Neurological: Negative. Hematological: Negative. Psychiatric/Behavioral: Negative. Physical Exam Constitutional: No distress. Head: Normocephalic. Nose: Nose normal. Mouth/Throat: Mucous membranes are normal. Eyes: EOM are normal. Neck: Normal range of motion. Cardiovascular: Regular rhythm, S1 normal and S2 normal. Pulmonary/Chest: Effort normal and breath sounds normal. Abdominal: Soft. Normal appearance. Neurological: alert, oriented to person, place, and time and easily aroused. Skin: warm and dry. Psychiatric: normal mood and affect. Musculoskeletal: No joint inflammation Assessment/Plan Diagnoses and all orders for this visit: Persistent atrial fibrillation (HCC) (Primary) - ECG 12 lead Impression: 1. Symptomatic paroxysmal atrial fibrillation, status post catheter ablation on 04/21/2018. He remains off of antiarrhythmic drug therapy 2. CAD 3. Obesity. The patient's BMI is elevated. The importance of proper nutrition and regular exercise has been discussed with the patient at this office visit today especially how pertains to the treatment and prevention of arrhythmia. 4. Encounter for antiarrhythmic drug therapy. The patient's ECG today does not indicate any changesthat would prohibit the use of Sotalol. As long as they remain on this medication, an ECG will be performed every 6 months for monitoring. 5. Encounter for anticoagulation management. Remains anticoagulated on Eliquis 5 mg twice daily. Itis recommended he remain anticoagulated for thromboprophylaxis. No history of bleeding or bruising Plan: No changes to his medications were made at this office visit He can follow up in 1 year for an office visit and 12 lead EKG documented in this encounter Plan of Treatment Not on file documented as of this encounter Procedures Procedure Name Priority Date/Time Associated Diagnosis Comments ECG 12-LEAD Routine 08/31/2021 Persistent atrial fibrillation (HCC) documented in this encounter Results * ECG 12 lead (08/31/2021) us Marilu León NP ECG ORDERABLES Final Resu lt documented in this encounter Visit Diagnoses Diagnosis Persistent atrial fibrillation (HCC)- Primary Atrial fibrillation documented in this encounter Care Teams Hay Rake Operator Relationship Specialty Start Date End Date Rogelio Epperson MD [address] [facility] [address] [place] [address] PCP - General 06/04/12 documented as of this encounter
--- OUTSIDE RECORDS SUMMARY | 2024-02-14 08:41 | XMS_ITS | Encounter Summary ---
Author Organization [facility] Address [address] [place] [address] Care Team Providers Care Lathe Hand Name Role Phone Rogelio Epperson MD Primary Care Provider Reason for Visit * Reason Comments Atrial Fibrillation Encounter Details Date Type Department Care Team (Late st Contact Info) Description 08/31/2020 11:30 AM CDT Office Visit [facility] Center [address] [place] [address] Marilu León, GARTH [address] [facility] [address] [place] [address] PAF (paroxysmal atrial fibrillation) (CMS/HCC) (Primary Dx) Social History Tobacco Use Types Packs/Day Years Used Date Smoking Tobacco: Former Smokeless Tobacco: Never Alcohol Use Standard Drinks/Week Comments Yes 2 (1 standard drink = 0.6 oz pur e alcohol) per week Sex and Gender Information Value Date Recorded Sex Assigned at Not on file 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 Gender Identity Not on file Sexual Orientation Not on file documented as of this encounter Last Filed Vital Signs Vital Sign Reading Time Taken Comments Blood Pressure 151/75 08/31/2020 11:25 AM CDT Pulse 61 08/31/2020 11:25 AM CDT Temperature - - Respiratory Rate - - Oxygen Saturation - - Inhaled Oxygen Concentration - - Weight 134 kg (295 lb 6.4 oz) 08/31/2020 11:25 A M CDT Height 175.3 cm (5' 9 ) 08/31/2020 11:25 AM CDT Body Mass Index 43.62 08/31/2020 11:25 AM CDT documented in this encounter Progress Notes * Marilu León, WAITSTAFF CAPTAIN - 08/31/2020 11:30 AM CDT Patient ID: Vu Nicole is a 75 y.o. male Chief Complaint Atrial fibrillation HPI Mr. Nicole presents to the [facility] today for follow-up of his atrial fibrillation and ablation in March of 2018. He is a 75 y.o. male with a history of coronary [...] any recent hospitalizations or major medical events. Dizziness or syncope. No chest pain. No recent episodes AF per his report. EKG on my review today demonstrates sinus rhythm (62) with normal QRS duration and QT interval. Past Medical History: Diagnosis Date ??? Adiposity Obesity ??? Arrhythmia ??? Arthritis ??? Asthma seaonal allergies, asthma ??? Atrial fibrillation (CMS/HCC) ??? CHF (congestive heart failure) (CMS/HCC) ??? Coronary artery disease ??? GERD (gastroesophageal reflux disease) ??? HX OTHER MEDICAL dyslipidemia ??? Hyperlipidemia ??? Hypertension Hypertension ??? Sleep apnea cpap Family History Problem Relation Age of Onset ??? Stent Brother Coronary Stent Placement; ??? Heart attack Brother Myocardial Infarction; Cause of : Myocardial Infarction ??? Stent Sister Coronary Stent Placement; ??? Stent Sister Coronary Stent Placement; ??? Arthritis Sister ??? Heart attack Sister ??? Hypertension Sister ??? Alcohol abuse Father ??? Alcohol abuse Brother ??? Alcohol abuse Brother ??? Alcohol abuse Brother ??? Heart attack Brother ??? Hypertension Brother ??? Alcohol abuse Brother ??? Arthritis Brother ??? Asthma Brother ??? COPD Brother ??? Hearing loss Brother ??? Heart attack Brother ??? Hypertension Brother ??? Arthritis Brother ??? Asthma Brother [...] nightly, Disp: 90 tablet, Rfl: 2 ??? aspirin 81 mg chewable tablet, Take 81 mg by mouth daily., Disp: , Rfl: ??? atorvastatin (LIPITOR) 10 mg tablet, TAKE 1 TABLET BY MOUTH DAILY, Disp: 90 tablet, Rfl: 3 ??? azelastine (ASTELIN) 137 mcg (0.1 %) nasal spray, Administer 1 spray into each nostril nightly., Disp: , Rfl: ??? cholecalciferol (VITAMIN D-3) 5,000 unit capsule, Take 5,000 Units by mouth daily., Disp: , Rfl: ??? cyanocobalamin (Vitamin B-12) 1,000 mcg tablet, Take 1,000 mcg by mouth daily. , Disp: , Rfl: ??? Eliquis 5 mg tablet, TAKE 1 TABLET BY MOUTH TWICE DAILY, Disp: 180 tablet, Rfl: 2 ??? etodolac XL (LODINE XL) 400 mg 24 hr tablet, , Disp: , Rfl: ??? famotidine (PEPCID) 20 mg tablet, Take [...] by mouth daily, Disp: 90 tablet, Rfl: 2 ??? gabapentin (NEURONTIN) 600 mg tablet, Take [...] DAILY, Disp: 90 capsule, Rfl: 1 ??? sotaloL (BETAPACE) 80 mg tablet, TAKE 1 TABLET BY MOUTH TWO TIMES DAILY, Disp: 180 tablet, Rfl:3 ??? triamcinolone (NASACORT) 55 mcg nasal inhaler, [...] Diagnoses and all orders for this visit: PAF (paroxysmal atrial fibrillation) (CMS/HCC) (Primary) - ECG 12 lead Impression: 1. Symptomatic paroxysmal atrial fibrillation, status post catheter ablation on 04/21/2018. He remains in sinus rhythm.Will stop sotalol 2. CAD 3. Obesity. The patient's BMI is elevated. The importance of proper nutrition and regular exercise has been discussed with the patient at this office visit today especially how pertains to the treatment and prevention of arrhythmia. 4. Encounter for antiarrhythmic drug therapy. The patient's ECG today does not indicate any changes that would prohibit the use of Sotalol. As long as they remain on this medication, an ECG will be performed every 6 months for monitoring. 5. Encounter for anticoagulation management. Remains anticoagulated on Eliquis 5 mg twice daily. Itis recommended he remain anticoagulated for thromboprophylaxis. No history of bleeding or bruising Plan: Continue current medications Follow-up in 1 year for an office visit and 12 lead EKG documented in this encounter Plan of Treatment Not on file documented as of this encounter Procedures Procedure Name Priority Date/Time Associated Diagnosis Comments ECG 12-LEAD Routine 08/31/2020 PAF (paroxysmal atrial fibrillation) ([facility]) documented in this encounter Results * ECG 12 lead (08/31/2020) Marilu León NP ECG ORDERABLES Final Resu lt documented in this encounter Visit Diagnoses Diagnosis PAF (paroxysmal atrial fibrillation) (CMS/HCC) ([facility])- Primary Atrial fibrillation documented in this encounter Discontinued Medications Medication Sig Discontinue Reason Start Date End Da te sotaloL (BETAPACE) 80 mg tablet TAKE 1 TABLET BY MOUTH TWO TIMES DAILY Therapy completed 02/07/2020 08/31/2020 documented as of this encounter Care Teams Lathe Hand Relationship Specialty Start Date End Date Rogelio Epperson MD [address] [facility] [address] [place] [address] PCP - General 06/04/12 documented as of this encounter
--- OUTSIDE RECORDS SUMMARY | 2024-02-14 08:41 | XMS_ITS | Encounter Summary ---
Author Organization [facility] Address [address] [place] [address] Care Team Providers Care Production Supervisor Off Shift Name Role Phone Rogelio Epperson MD Primary Care Provider Reason for Visit * Reason Comments Atrial Fibrillation Encounter Details Date Type Department Care Team (Late st Contact Info) Description 02/22/2020 11:00 AM CLERICAL COORDINATOR Office Visit Ar[facility]ia Center [address] [place] [address] Marilu León, GARTH [address] [facility] [address] [place] [address] Persistent atrial fibrillation (CMS/HCC) (Primary Dx) Social History Tobacco Use Types Packs/Day Years Used Date Smoking Tobacco: Former Smokeless Tobacco: Never Alcohol Use Standard Drinks/Week Comments Yes 0 (1 standard drink = 0.6 oz pur e alcohol) occasionally Sex and Gender Information Value Date Recorded Sex Assigned at Not on file Legal Sex Male 1:57 AM CLERICAL COORDINATOR Gender Identity Not on file Sexual Orientation Not on file documented as of this encounter Last Filed Vital Signs Vital Sign Reading Time Taken Comments Blood Pressure 110/74 02/22/2020 11:12 AM CLERICAL COORDINATOR Pulse 62 02/22/2020 11:12 AM CLERICAL COORDINATOR Temperature - - Respiratory Rate - - Oxygen Saturation - - Inhaled Oxygen Concentration - - Weight 135.6 kg (299 lb) 02/22/2020 11:12 AM CLERICAL COORDINATOR Height 175.3 cm (5' 9 ) 02/22/2020 11:12 AM CLERICAL COORDINATOR Body Mass Index 44.15 02/22/2020 11:12 AM CLERICAL COORDINATOR documented in this encounter Progress Notes * Marilu León, SAWMILL OR TIMBER YARD WORKER - 02/22/2020 11:00 AM CST Patient ID: Vu Nicole is a 74 y.o. male Chief Complaint Atrial fibrillation HPI Mr. Nicole presents to the [facility]ia [facility] today for follow-up of his atrial fibrillation and ablation in March of 2018. He is a 74 y.o. male with a history of coronary [...] the patient experiences palpitations and dizziness. He also experiences fatigue and shortness of breath. He has not experienced syncope, and denies chest discomfort since his acute coronary events. He is here in follow-up today after undergoing radiofrequency catheter ablation of his paroxysmal atrial fibrillation on 04/21/2018. In early January he was admitted to the hospital for 5-6 days for COVID-19. He was released and since that time he does continue to complain of fatigue related to his recent hospitalization. No episodes AF per his report. Dizziness or syncope. No chest pain. He continues to complain of cough secondary to recent Coronavirus EKG on my review today demonstrates sinus rhythm (62) with normal QRS duration and QT interval. Past Medical History: Diagnosis Date ??? Adiposity Obesity ??? Arrhythmia ??? Asthma seaonal allergies, asthma ??? Atrial fibrillation (CMS/HCC) ??? CHF (congestive heart failure) (CMS/HCC) ??? Coronary artery disease ??? HX OTHER MEDICAL dyslipidemia ??? Hyperlipidemia ??? Hypertension Hypertension ??? Sleep apnea cpap Family History Problem Relation Age of Onset ??? Stent Brother Coronary Stent Placement; ??? Heart attack Brother Myocardial Infarction; Cause of : Myocardial Infarction ??? Stent Sister Coronary Stent Placement; ??? Stent Sister Coronary Stent Placement; Social History Tobacco Use ??? Smoking status: Former Smoker ??? Smokeless tobacco: Never Used Substance Use Topics ??? Alcohol use: Yes Comment: occasionally Current Outpatient Medications: ??? acetaminophen (TYLENOL) 500 mg tablet, Take 500-1,000 mg by mouth every 6 (six) hours as neededfor pain., Disp: , Rfl: ??? albuterol HFA (PROVENTIL HFA,VENTOLIN HFA) 90 mcg/actuation inhaler, Inhale 2 puffs every 6 (six) hours as needed for wheezing., Disp: , Rfl: ??? amLODIPine (NORVASC) 10 mg tablet, Take 10 mg by mouth nightly., Disp: , Rfl: ??? aspirin 81 mg chewable [...] mouth daily, Disp: 90 tablet, Rfl: 1 ??? gabapentin (NEURONTIN) 600 mg tablet, Take 600 mg by mouth 3 (three) times a day. , Disp: , Rfl: ??? nitroglycerin (NITROSTAT) 0.4 mg SL tablet, Place 1 tablet (0.4 mg total) under the tongue every 5 (five) minutes as needed for chest pain, Disp: 75 tablet, Rfl: 0 ??? ramipriL (ALTACE) 10 mg capsule, TAKE 1 CAPSULE BY MOUTH EVERY DAY, Disp: 90 capsule, Rfl: 1 ??? sotaloL [...] orders for this visit: Persistent atrial fibrillation (CMS/HCC) (Primary) - ECG 12 lead Impression: 1. Symptomatic paroxysmal atrial fibrillation, status post catheter ablation on 04/21/2018. He remains in sinus rhythm with the use of sotalol. Have discussed discontinuing the sotalol at this time post ablation but he prefers to continue. Will continue current dose. Doing well with no recent AF perhis report 2. CAD 3. Obesity. The patient's BMI [...] bruising Plan: Continue current medications Follow-up in 6 months for an office visit and 12 lead EKG ICAL COORDINATOR documented in this encounter Plan of Treatment Not on file documented as of this encounter Procedures Procedure Name Priority Date/Time Associated Diagnosis Comments ECG 12-LEAD Routine 02/22/2020 Persistent atrial fibrillation (CMS/HCC) documented in this encounter Results * ECG 12 lead (02/22/2020) Marilu León NP ECG ORDERABLES Final Resu lt documented in this encounter Visit Diagnoses Diagnosis Persistent atrial fibrillation (HCC)- Primary Atrial fibrillation documented in this encounter Care Teams Production Supervisor Off Shift Relationship Specialty Start Date End Date Rogelio Epperson MD [address] [facility] [address] [place] [address] PCP - General 06/04/12 documented as of this encounter
--- OUTSIDE RECORDS SUMMARY | 2024-02-14 08:41 | XMS_ITS | Encounter Summary ---
Author Organization [facility] Care Team Providers Care Senior Gl Accountant Name Role Phone Rogelio Epperson MD Primary Care Provider Encounter Details Date Type Department Care Team (Latest Contact Info) Description 06/25/2018 Travel Social History Tobacco Use Types Packs/Day Years Used Date Smoking Tobacco: Former Smokeless Tobacco: Never Alcohol Use Standard Drinks/Week Comments Yes 0 (1 standard drink = 0.6 oz pur e alcohol) occasionally Sex and Gender Information Value Date Recorded Sex Assigned at Not on file Legal Sex Male 1:57 AM 911 OPERATOR Gender Identity Not on file Sexual Orientation Not on file documented as of this encounter Plan of Treatment Not on file documented as of this encounter Visit Diagnoses Not on filedocumented in this encounter Care Teams Senior Gl Accountant Relationship Specialty Start Date End Date Rogelio Epperson MD [address] [facility] [address] [place] [address] PCP - General 06/04/12 documented as of this encounter
--- OUTSIDE RECORDS SUMMARY | 2024-02-14 08:41 | XMS_ITS | Encounter Summary ---
Author Organization [facility] Address [address] [place] [address] Care Team Providers Care Multi Slide Machine Tender Name Role Phone Rogelio Epperson MD Primary Care Provider Reason for Visit * Reason Comments Atrial Fibrillation 6 month fu Encounter Details Date Type Department Care Team (Late st Contact Info) Description 08/14/2021 9:00 AM CDT Office Visit [facility] Cardiology [address] [facility] [address] [place] [address] Mohinder Martinez MD [address] [facility] [address] [place] [address] Persistent atrial fibrillation (HCC) (Primary Dx); History of coronary artery stent placement; Coronary artery disease involving hopland coronary artery of hopland heart without angina pectoris Social History Tobacco Use Types Packs/Day Years Used Date Smoking Tobacco: Former Smokeless Tobacco: Never Alcohol Use Standard Drinks/Week Comments Yes 2 (1 standard drink = 0.6 oz pur e alcohol) per week Sex and Gender Information Value Date Recorded Sex Assigned at Not on file Legal Sex Male 1:57 AM APARTMENT MANAGER Gender Identity Not on file Sexual Orientation Not on file documented as of this encounter Last Filed Vital Signs Vital Sign Reading Time Taken Comments Blood Pressure 126/78 08/14/2021 9:01 AM CDT Pulse 77 08/14/2021 9:01 AM CDT Temperature - - Respiratory Rate - - Oxygen Saturation 95% 08/14/2021 9:01 AM CDT Inhaled Oxygen Concentration - - Weight 123.4 kg (272 lb) 08/14/2021 9:01 AM CDT Height 175.3 cm (5' 9 ) 08/14/2021 9:01 AM CDT Body Mass Index 40.17 08/14/2021 9:01 AM CDT documented in this encounter Progress Notes * Mohinder Martinez MD - 08/14/2021 9:00 AM CDT [facility] 08/14/2021 Vu Nicole is a 76 y.o. male who presents for follow up [...] patient was ultimately referred to electrophysiology at [facility] he underwent a catheter ablation of his atrial fibrillation on 04/21/2018. He underwent a nuclear stress test in January of 2021 because of some chest pain symptoms. The results were negative and I have been treating him medically for his angina since then. He returns to the office today for scheduled six-month appointment. According to the chart he is ondual anti-platelet therapy as well as anticoagulation. He is doing well and offers no complaints. The anginal-type chest pain that he was reporting previously has slowly resolved. He has not had any of that for a long time 1 reason for this could be that he has lost about 30 lb since his last visitI was very happy to see this he has becoming serious about improving his morbid obesity. REVIEW OF SYSTEMS General ROS: negative for [...] BY MOUTH DAILY, Disp: 90 capsule, Rfl: 0 ??? triamcinolone (NASACORT) 55 mcg nasal inhaler, [...] lab exists for component: LABALBU PHYSICAL EXAM There were no vitals taken for this visit. Physical Examination: General appearance - alert, well [...] ASSESSMENT Vu was seen today for atrial fibrillation. Diagnoses and all orders for this visit: Persistent atrial fibrillation (HCC) History of coronary artery stent placement Coronary artery disease involving hopland coronary artery of hopland heart without angina pectoris PLAN/RECOMMENDATIONS No change in regimen as detailed above Follow-up 6 months or p.r.n. Mohinder Martinez MD documented in this encounter Plan of Treatment Not on file documented as of this encounter Visit Diagnoses Diagnosis Persistent atrial fibrillation (HCC)- Primary Atrial fibrillation History of coronary artery stent placement Coronary artery disease involving hopland coronary artery of hopland heart without angina pectoris documented in this encounter Care Teams Multi Slide Machine Tender Relationship Specialty Start Date End Date Rogelio Epperson MD [address] [facility] [address] [place] [address] PCP - General 06/04/12 documented as of this encounter
--- OUTSIDE RECORDS SUMMARY | 2024-02-14 08:41 | XMS_ITS | Encounter Summary ---
Author Organization [facility] Care Team Providers Care Portable Machine Cutter Name Role Phone Rogelio Epperson MD Primary Care Provider Encounter Details Date Type Department Care Team (Latest Contact Info) Description 01/05/2019 Travel Social History Tobacco Use Types Packs/Day Years Used Date Smoking Tobacco: Former Smokeless Tobacco: Never Alcohol Use Standard Drinks/Week Comments Yes 0 (1 standard drink = 0.6 oz pur e alcohol) occasionally Sex and Gender Information Value Date Recorded Sex Assigned at Not on file Legal Sex Male 1:57 AM REVIT DRAFTER Gender Identity Not on file Sexual Orientation Not on file documented as of this encounter Plan of Treatment Not on file documented as of this encounter Visit Diagnoses Not on filedocumented in this encounter Care Teams Portable Machine Cutter Relationship Specialty Start Date End Date Rogelio Epperson MD [address] [facility] [address] [place] [address] PCP - General 06/04/12 documented as of this encounter
--- OUTSIDE RECORDS SUMMARY | 2024-02-14 08:41 | XMS_ITS | Encounter Summary ---
Author Organization [facility] Address [address] [place] [address] Care Team Providers Care Car Starter Name Role Phone Rogelio Epperson MD Primary Care Provider Reason for Visit * Reason Comments Follow-up 6 mo fu on cad, paf, h/o stent Encounter Details Date Type Department Care Team (Late st Contact Info) Description 01/05/2019 1:00 PM CENTRIFUGE SEPARATOR OPERATOR Office Visit [facility] [address] [place] [phone] Mohinder Martinez MD [address] [facility] 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 (Primary Dx); PAF (paroxysmal atrial fibrillation) ([facility]); History of coronary artery stent placement Social History Tobacco Use Types Packs/Day Years Used Date Smoking Tobacco: Former Smokeless Tobacco: Never Alcohol Use Standard Drinks/Week Comments Yes 0 (1 standard drink = 0.6 oz pur e alcohol) occasionally Sex and Gender Information Value Date Recorded Sex Assigned at Not on file Legal Sex Male 1:57 AM CENTRIFUGE SEPARATOR OPERATOR Gender Identity Not on file Sexual Orientation Not on file documented as of this encounter Last Filed Vital Signs Vital Sign Reading Time Taken Comments Blood Pressure 122/68 01/05/2019 1:10 PM CENTRIFUGE SEPARATOR OPERATOR Pulse 63 01/05/2019 1:10 PM CENTRIFUGE SEPARATOR OPERATOR Temperature - - Respiratory Rate - - Oxygen Saturation 97% 01/05/2019 1:10 PM CENTRIFUGE SEPARATOR OPERATOR Inhaled Oxygen Concentration - - Weight 132.5 kg (292 lb) 01/05/2019 1:10 PM CENTRIFUGE SEPARATOR OPERATOR Height 175.3 cm (5' 9 ) 01/05/2019 1:10 PM CENTRIFUGE SEPARATOR OPERATOR Body Mass Index 43.12 01/05/2019 1:10 PM CENTRIFUGE SEPARATOR OPERATOR documented in this encounter Progress Notes * Mohinder Martinez MD - 01/05/2019 1:00 PM CST [facility] 01/05/2019 Vu Nicole is a 73 y.o. male who presents for follow up [...] patient was ultimately referred to electrophysiology at [facility] he underwent a catheter ablation of his atrial fibrillation on 04/21/2018. He returns today to the office to see me for scheduled follow-up. He has no complaints in general and feels well. He continues to experience no signs or symptoms of recurrent AFib following his ablation procedure. Also FAA favorably he has lost 14 lb since his last office visit. He states that he realizes that he is morbidly obese and needs to get serious about weight loss and he is hopefully going to be able to continue this trend. REVIEW OF SYSTEMS General ROS: negative for [...] by mouth nightly., Disp: , Rfl: ??? amLODIPine (NORVASC) 10 mg tablet, TAKE 1 TABLET BY MOUTH EVERY DAY, Disp: 90 tablet, Rfl: 2 ??? aspirin [...] mouth daily. , Disp: , Rfl: ??? ELIQUIS 5 mg tablet, TAKE 1 TABLET BY MOUTH TWO TIMES DAILY, Disp: 180 tablet, Rfl: 2 ??? [...] daily, Disp: 90 tablet, Rfl: 3 ??? gabapentin (NEURONTIN) 600 mg tablet, Take 600 mg by mouth 3 (three) times a day. , Disp: , Rfl: ??? indomethacin (INDOCIN) 50 mg capsule, Take 50 mg by mouth 2 (two) times a day as needed for pain., Disp: , Rfl: ??? nitroglycerin (NITROSTAT) 0.4 mg SL tablet, Place 0.4 mg under the tongue every 5 (five) minutes as needed for chest pain., Disp: , Rfl: ??? ramipril (ALTACE) 10 mg capsule, Take 10 mg by mouth nightly., Disp: , Rfl: ??? sotalol (BETAPACE) 80 mg tablet, TAKE 1 TABLET BY MOUTH TWO TIMES DAILY, Disp: 180 tablet, Rfl:2 ??? triamcinolone (NASACORT) 55 mcg nasal inhaler, [...] for component: LABALBU PHYSICAL EXAM Vitals BP 122/68 (BP Location: Right arm, Patient Position: Sitting) Pulse 63 Ht 175.3 cm (5' 9 ) Wt 132.5 kg (292 lb) SpO2 97% BMI 43.12 kg/m?? Physical Examination: General appearance - alert, [...] murmurs, rubs, clicks or gallops, no JVD Abdomen - soft, nontender, nondistended, no masses or organomegaly bowel sounds normal Neurological - alert, oriented, normal speech, no focal findings or movement disorder noted Musculoskeletal - no joint tenderness, deformity or swelling, no muscular tenderness noted Extremities - peripheral pulses normal, no pedal edema, no clubbing or cyanosis Skin - normal coloration and turgor, no rashes, no suspicious skin lesions noted ASSESSMENT Vu was seen today for follow-up. 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 PAF (paroxysmal atrial fibrillation) ([facility]) History of coronary artery stent placement PLAN/RECOMMENDATIONS No changes in medical regimen Continue to see him at 6 month intervals Mohinder Martinez MD RIFUGE SEPARATOR OPERATOR documented in this encounter Miscellaneous Notes * Addendum Note - Roseline Gonzalez MA - 01/05/2019 1:00 PM CSTAddended by: ROSELINE GONZALEZ on: 01/06/2019 12:58 PM Modules accepted: Orders RIFUGE SEPARATOR OPERATOR documented in this encounter Plan of Treatment Not on file documented as of this encounter Procedures Procedure Name Priority Date/Time Associated Diagnosis Comments POCT LIPID PANEL Routine 01/05/2019 12:5 7 PM CENTRIFUGE SEPARATOR OPERATOR 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 History of coronary artery stent placement documented in this encounter Results * POCT lipid panel (01/05/2019 12:57 PM CENTRIFUGE SEPARATOR OPERATOR) Cholesterol, POC 245 mg/dL HDL, POC 52 mg/dL Triglycerides, POC 237 mg/dL LDL Cholesterol POC 146 mg/dL Chol/HDL Ratio, POC 4.7 Non-HDL Cholesterol, POC 193 mg/dL Cholesterol Total, POC 245 mg/dL Blood specimen (specimen) 01/05/2019 12:57 PM CENTRIFUGE SEPARATOR OPERATOR Mohinder Martinez MD POINT OF CARE TEST ORDER GILMA Final Result documented in this encounter Visit Diagnoses Diagnosis 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
--- OUTSIDE RECORDS SUMMARY | 2024-02-14 08:41 | XMS_ITS | Encounter Summary ---
Author Organization [facility] Address [address] [facility] [address] [place] [address] Care Team Providers Care Frame And Scrap Crusher Name Role Phone Rogelio Epperson MD Primary Care Provider Reason for Visit * Diagnostic Imaging (Routine) - Closed Specialty Diagnoses / Procedures Referred By Contac t Referred To Contact Diagnoses Coronary artery disease involving southern ute coronary artery of southern ute heart without angina pectoris History of coronary artery stent placement Procedures NM MPI SPECT (Rest and/or Stress) Multiple Studies Mohinder Martinez MD [address] [facility] [address] [address] Phone: tel: fax: [facility] Referral ID Status Reason Start Date Expiration Date Visits Re quested Visits Authorized [id number] Closed 01/22/2021 03/08/2021 1 1 Encounter Details Date Type Department Care Team (Latest Contact Info) Description 01/25/2021 9:15 AM NET WPF DEVELOPER Ancillary Procedure [facility] Medical [facility] Cardiology [address] [phone] Coronary artery disease involving southern ute coronary artery of southern ute heart without angina pectoris; History of coronary artery stent placement Social History Tobacco Use Types Packs/Day Years Used Date Smoking Tobacco: Former Smokeless Tobacco: Never Alcohol Use Standard Drinks/Week Comments Yes 2 (1 standard drink = 0.6 oz pur e alcohol) per week Sex and Gender Information Value Date Recorded Sex Assigned at Not on file Legal Sex Male 1:57 AM NET WPF DEVELOPER Gender Identity Not on file Sexual Orientation Not on file documented as of this encounter Plan of Treatment Not on file documented as of this encounter Procedures Procedure Name Priority Date/Time Associated Diagnosis Comments NM MPI SPECT (REST AND/OR STRESS) MULTIPLE STUDIES Schedule Routine, Read Routine (OP Routine) 01/25/2021 10:39 AM NET WPF DEVELOPER Coronary artery disease involving southern ute coronary artery of southern ute heart without angina pectoris History of coronary artery stent placement documented in this encounter Results * NM MPI SPECT (Rest and/or Stress) Multiple Studies (01/25/2021 10:39 AM NET WPF DEVELOPER) Anatomical Region Laterality Modality Body N/A Nuclear Medicine 01/25/2021 9:18 AM NET WPF DEVELOPER Narrative 01/25/2021 5:36 PM NET WPF DEVELOPER [facility] Cardiology [address] [facility] [address] [address] [address] [facility] [address], [place] [address] [id number] P:[phone] P:[phone] MPI Imaging Report Patient Name: JADE NICOLE J : 1945 Study Date: 01/25/2021 9:18:45 AM Gender: M Tech: [facility] Location: [place] Ref.Provider: MOHINDER MARTINEZ Height(Cm): 175.3 BSA: Weight(Kg): 133.8 [...] Signed By: Marvin Velazquez MD 2021-01-25 17:35:49 NET WPF DEVELOPER Electronically Signed By: Marvin Velazquez MD 2021-01-25 17:36:01 NET WPF DEVELOPER CC: CC: Procedure Note Marvin Velazquez MD - 01/25/2021 [facility] Cardiology [address] [facility] [address] [address] [address] [facility] [address], [place] [address] P:[phone] P:[phone] MPI Imaging Report Patient Name: JADE NICOLE JPatient ID: [id number] : [id number] Date: 01/25/2021 9:18:45 AM Gender: MAccession #: [id number] Tech: TOBI [id number]: [place] Ref.Provider: MOHINDER MARTINEZHeight(Cm): 175.3 BSA: Weight(Kg): 133.8 BMI: 43.54Order Provider: [...] Signed By: Marvin Velazquez MD 2021-01-25 17:35:49 NET WPF DEVELOPER Electronically Signed By: Marvin Velazquez MD 2021-01-25 17:36:01 NET WPF DEVELOPER CC: CC: Mohinder Martinez MD [facility] PROCEDURES Final Result documented in this encounter Visit Diagnoses Diagnosis Coronary artery disease involving southern ute coronary artery of southern ute heart without angina pectoris History of coronary artery stent placement documented in this encounter Administered Medications Inactive Administered Medications - up to 3 most recent administrations Medication Order MAR Action Action Date Dose Rate Site regadenoson (LEXISCAN) 0.4 mg/5 mL injection 0.4 mg 0.4 mg, intravenous, Once, On Nevaeh 01/25/21 at 1115, For 1 dose, Administer IV push over 10 seconds., Indications: Myocardial Perfusion Imaging AdjunctIndications:Myocard ial Perfusion Imaging Adjunct Given 01/25/2021 10:40 AM NET WPF DEVELOPER 0.4 mg tc-99m sestamibi unit dose injection 12.4 millicurie 12.4 millicurie, intravenous, Once in imaging, radiopharmaceutical, Starting on Nevaeh 01/25/21 at 1008, For 1 dose, Indications: Diagnostic RadiographyIndications:Iris gnostic Radiography Given 01/25/2021 10:08 AM NET WPF DEVELOPER 12.4 millicuries tc-99m sestamibi unit dose injection 38 millicurie 38 millicurie, intravenous, Once in imaging, radiopharmaceutical, Starting on Nevaeh 01/25/21 at 1039, For 1 dose, Indications: Diagnostic RadiographyIndications:Iris gnostic Radiography Given 01/25/2021 10:39 AM NET WPF DEVELOPER 38 millicuries documented in this encounter Care Teams Frame And Scrap Crusher Relationship Specialty Start Date End Date Rogelio Epperson MD [address] [place] [address] PCP - General 06/04/12 documented as of this encounter
--- OUTSIDE RECORDS SUMMARY | 2024-02-14 08:41 | XMS_ITS | Encounter Summary ---
Author Organization [facility] Address [address] [facility] [address] [place] [address] Care Team Providers Care Manager Fixed Income Name Role Phone Rogelio Epperson MD Primary Care Provider Reason for Visit * Reason Comments Follow-up 6 mo follow up on a- fib Encounter Details Date Type Department Care Team (Late st Contact Info) Description 07/11/2020 1:00 PM CDT Office Visit [facility] Cardiology [address] [phone] Mohinder Martinez MD [address] [facility] [address] [address] PAF (paroxysmal atrial fibrillation) (CMS/HCC) (Primary Dx); History of coronary artery stent placement; Persistent atrial fibrillation (CMS/HCC); Lipid screening Social History Tobacco Use Types Packs/Day Years Used Date Smoking Tobacco: Former Smokeless Tobacco: Never Alcohol Use Standard Drinks/Week Comments Yes 2 (1 standard drink = 0.6 oz pur e alcohol) per week Sex and Gender Information Value Date Recorded Sex Assigned at Not on file Legal Sex Male 1:57 AM FLOOR AND WALL APPLIER LIQUID Gender Identity Not on file Sexual Orientation Not on file documented as of this encounter Last Filed Vital Signs Vital Sign Reading Time Taken Comments Blood Pressure 124/74 07/11/2020 12:54 PM CDT Pulse 71 07/11/2020 12:54 PM CDT Temperature - - Respiratory Rate - - Oxygen Saturation 96% 07/11/2020 12:54 PM CDT Inhaled Oxygen Concentration - - Weight 133.4 kg (294 lb) 07/11/2020 12:54 PM CDT Height 175.3 cm (5' 9 ) 07/11/2020 12:54 PM CDT Body Mass Index 43.42 07/11/2020 12:54 PM CDT documented in this encounter Progress Notes * Mohinder Martinez MD - 07/11/2020 1:00 PM CDT [facility] 07/11/2020 Vu Nicole is a 75 y.o. male [...] patient was ultimately referred to electrophysiology at [facility] he underwent a catheter ablation of his atrial fibrillation on 04/21/2018. He returns today for scheduled follow-up. He offers no cardiovascular complaints or concerns. He has had no symptoms to suggest any recurrence of atrial fibrillation. He says he did have coronavirus last year REVIEW OF SYSTEMS General ROS: negative for [...] this visit: PAF (paroxysmal atrial fibrillation) (CMS/HCC) History of coronary artery stent placement Persistent atrial fibrillation (CMS/HCC) PLAN/RECOMMENDATIONS No changes in medical regimen Continue to see him at 6 month intervals Mohinder Martinez MD documented in this encounter Miscellaneous Notes * Addendum Note - Makenna Simon MA - 07/11/2020 1:00 PM CDTAddended by: MAKENNA SIMON on: 07/11/2020 03:44 PM Modules accepted: Orders documented in this encounter Plan of Treatment Not on file documented as of this encounter Procedures Procedure Name Priority Date/Time Associated Diagnosis Comments POCT LIPID PANEL Routine 07/11/2020 3:43 PM CDT Lipid screening documented in this encounter Results * POCT lipid panel (07/11/2020 3:43 PM CDT) Cholesterol, POC 180 mg/dL HDL, POC 56 mg/dL Triglycerides, POC 142 mg/dL LDL Cholesterol POC 96 mg/dL Chol/HDL Ratio, POC 3.2 Non-HDL Cholesterol, POC 124 mg/dL Cholesterol Total, POC 180 mg/dL Capillary blood 07/11/2020 3 :43 PM CDT Mohinder Martinez MD POINT OF CARE TEST ORDER GILMA Final Result documented in this encounter Visit Diagnoses Diagnosis PAF (paroxysmal atrial fibrillation) (CMS/HCC) (HCC)- Primary Atrial fibrillation History of coronary artery stent placement Persistent atrial fibrillation (HCC) Atrial fibrillation Lipid screening Screening for lipoid disorders documented in this encounter Care Teams Manager Fixed Income Relationship Specialty Start Date End Date Rogelio Epperson MD [address] [address] PCP - General 06/04/12 documented as of this encounter
--- OUTSIDE RECORDS SUMMARY | 2024-02-14 08:41 | XMS_ITS | Encounter Summary ---
Author Organization [facility] Address [address] [address] Care Team Providers Care Kaiako Kura [place] Maori Name Role Phone Rogelio Epperson MD Primary Care Provider Encounter Details Date Type Department Care Team (Late st Contact Info) Description 06/25/2021 Telephone [facility] Cardiology [address] [facility] [address] [address] Mohinder Martinez MD [address] [facility] [address] [place] [address] Social History Tobacco Use Types Packs/Day Years Used Date Smoking Tobacco: Former Smokeless Tobacco: Never Alcohol Use Standard Drinks/Week Comments Yes 2 (1 standard drink = 0.6 oz pur e alcohol) per week Sex and Gender Information Value Date Recorded Sex Assigned at Not on file Legal Sex Male 1:57 AM ENROLLED NURSE Gender Identity Not on file Sexual Orientation Not on file documented as of this encounter Miscellaneous Notes * Telephone Encounter - Miley Lantigua MA - 06/25/2021 9:34 AM CDT Left detailed message for patient stating that a 90 day supply with one refill was sent to the pharmacy in January, so he should not be out yet. * Telephone Encounter - Raoul Rick - 06/25/2021 9:25 AM CDT Pt requesting Ramipril 10mg states he has a week left.Pt requesting a call,asking why denied.Thank you Contact:[phone] documented in this encounter Plan of Treatment Not on file documented as of this encounter Visit Diagnoses Not on filedocumented in this encounter Care Teams Kaiako Kura [place] Maori Relationship Specialty Start Date End Date Rogelio Epperson MD [address] [facility] [address] [place] [address] PCP - General 06/04/12 documented as of this encounter
--- OUTSIDE RECORDS SUMMARY | 2024-02-14 08:41 | XMS_ITS | Encounter Summary ---
Author Organization [facility] Address [address] [place] [address] Care Team Providers Care Machine I Cutter Name Role Phone Rogelio Epperson MD Primary Care Provider Reason for Visit * Reason Comments Follow-up 6 mo fu Encounter Details Date Type Department Care Team (Late st Contact Info) Description 07/15/2019 3:15 PM CDT Telemedicine [facility] Cardiology [address] [facility] [address] [place] [address] Mohinder Martinez MD [address] [facility] [address] [place] [address] Persistent atrial fibrillation (Primary Dx); Morbid obesity with BMI of 40.0-44.9, adult (CMS/HCC); Coronary artery disease involving [place] coronary artery of [place] heart without angina pectoris; History of coronary artery stent placement Social History Tobacco Use Types Packs/Day Years Used Date Smoking Tobacco: Former Smokeless Tobacco: Never Tobacco Cessation:Counseling Given: No Alcohol Use Standard Drinks/Week Comments Yes 0 (1 standard drink = 0.6 oz pur e alcohol) occasionally Sex and Gender Information Value Date Recorded Sex Assigned at Not on file Legal Sex Male 1:57 AM HAZARDOUS MATERIALS HANDLER Gender Identity Not on file Sexual Orientation Not on file documented as of this encounter Last Filed Vital Signs Vital Sign Reading Time Taken Comments Blood Pressure - - Pulse 67 07/15/2019 3:29 PM CDT Temperature - - Respiratory Rate - - Oxygen Saturation 94% 07/15/2019 3:29 PM CDT Inhaled Oxygen Concentration - - Weight 136.1 kg (300 lb) 07/15/2019 3:29 PM CDT Height 175.3 cm (5' 9 ) 07/15/2019 3:29 PM CDT Body Mass Index 44.3 07/15/2019 3:29 PM CDT documented in this encounter Progress Notes * Mohinder Martinez MD - 07/15/2019 3:15 PM CDT Images from the original note were not included. [facility] FOLLOW UP 07/15/2019 This was a telemedicine visit with Vu Nicole alone which took place via Telephone. During thevisit, I was located [facility] office Christi Mirza I and the patient was located his home.The session started at 4:00 p.m. and ended at 4:09 p.m. The patient has been informed that the visit may not be secure and acknowledged the information. I have explained the option of participating in a telephone or video visit during the [facility] emergency to the patient. After being given an opportunity to ask questions about and discuss this type of visit, the patient verbally consented to proceeding with the telephone/video visit.The patient understands that this service replaces an office visit and they may be billed and/or responsible for any applicable copayments. MD Aliya Hernandezchandan Smith Corey is a 74 y.o. male who presents for follow up [...] patient was ultimately referred to electrophysiology at [facility] he underwent a catheter ablation of his atrial fibrillation on 04/21/2018. He returns today to the office to see me for scheduled follow-up. The patient wanted to speak to meabout his sotalol treatment. He is doing very well and not having any cardiovascular symptoms of any kind the patient however went on to say that he is also following with the it lead at [facility] regarding his atrial fib. There was some conversation he says they were having about stopping his sotalol. Since he is doing very well he would like to stay on the medication. I told him that was a very reasonable decision since we would probably have a month some sort of beta-lenin anyway even if he did not have atrial fibrillation. Since he is having no problems at all I have no difficulty or disagreement with him at all in terms of staying on sotalol. REVIEW OF SYSTEMS General ROS: negative for [...] EVERY DAY, Disp: 90 tablet, Rfl: 1 ??? aspirin 81 mg chewable tablet, Take [...] TWO TIMES DAILY, Disp: 180 tablet, Rfl: 1 ??? famotidine (PEPCID) 20 mg tablet, Take [...] pain, Disp: 75 tablet, Rfl: 0 ??? ramipril (ALTACE) 10 mg capsule, TAKE 1 CAPSULE BY MOUTH EVERY DAY, Disp: 90 capsule, Rfl: 2 ??? sotalol (BETAPACE) 80 mg tablet, Take 1 tablet (80 mg total) by mouth 2 (two) times a day, Disp: 180 tablet, Rfl: 3 ??? triamcinolone (NASACORT) 55 mcg [...] exists for component: LABALBU PHYSICAL EXAM Vitals Pulse 67 Ht 175.3 cm (5' 9 ) Wt 136.1 kg (300 lb) SpO2 94% BMI 44.30 kg/m?? ASSESSMENT Vu was seen today for follow-up. Diagnoses and all orders for this visit: Persistent atrial fibrillation Morbid obesity with BMI of 40.0-44.9, adult (CMS/HCC) Coronary artery disease involving [place] coronary artery of [place] heart without angina pectoris History of coronary artery stent placement PLAN/RECOMMENDATIONS No changes in medical regimen Continue to see him at 6 month intervals Mohinder Martinez MD documented in this encounter Plan of Treatment Not on file documented as of this encounter Visit Diagnoses Diagnosis Persistent atrial fibrillation (HCC)- Primary Atrial fibrillation Morbid obesity with BMI of 40.0-44.9, adult ([facility]) Coronary artery disease involving [place] coronary artery of [place] heart without angina pectoris History of coronary artery stent placement documented in this encounter Discontinued Medications Medication Sig Discontinue Reason Start Date End Da te amLODIPine (NORVASC) 10 mg tablet TAKE 1 TABLET BY MOUTH EVERY DAY Duplicate order 09/29/2018 07/15/2019 documented as of this encounter Care Teams Machine I Cutter Relationship Specialty Start Date End Date Rogelio Epperson MD [address] [facility] [address] [place] [address] PCP - General 06/04/12 documented as of this encounter
--- OUTSIDE RECORDS SUMMARY | 2024-02-14 08:41 | XMS_ITS | Encounter Summary ---
Author Organization [facility] Address [address] [place] [address] Care Team Providers Care Rehab Technician Name Role Phone Rogelio Epperson MD Primary Care Provider Reason for Visit * Reason Comments Atrial Fibrillation Encounter Details Date Type Department Care Team (Late st Contact Info) Description 01/29/2019 10:30 AM COLLECTION ANALYST Office Visit [facility] [address] [place] [address] Marilu León, GARTH [address] [facility] [address] [place] [address] PAF (paroxysmal atrial fibrillation) (CMS/HCC) (Primary Dx) Social History Tobacco Use Types Packs/Day Years Used Date Smoking Tobacco: Former Smokeless Tobacco: Never Alcohol Use Standard Drinks/Week Comments Yes 0 (1 standard drink = 0.6 oz pur e alcohol) occasionally Sex and Gender Information Value Date Recorded Sex Assigned at Not on file Legal Sex Male 1:57 AM COLLECTION ANALYST Gender Identity Not on file Sexual Orientation Not on file documented as of this encounter Last Filed Vital Signs Vital Sign Reading Time Taken Comments Blood Pressure 114/68 01/29/2019 10:25 AM COLLECTION ANALYST Pulse 63 01/29/2019 10:25 AM COLLECTION ANALYST Temperature - - Respiratory Rate - - Oxygen Saturation - - Inhaled Oxygen Concentration - - Weight 135.6 kg (299 lb) 01/29/2019 10:25 AM COLLECTION ANALYST Height 175.3 cm (5' 9 ) 01/29/2019 10:25 AM COLLECTION ANALYST Body Mass Index 44.15 01/29/2019 10:25 AM COLLECTION ANALYST documented in this encounter Progress Notes * Marilu León, SALES CLOSER - 01/29/2019 10:30 AM CST Patient ID: Vu Nicole is a 73 y.o. male Chief Complaint Atrial fibrillation HPI Mr. Nicole presents to the [facility] on 01/29/2019 for follow-up of his atrial fibrillationand ablation in March of 2018. He is a 73 y.o. male with a history of coronary disease/status post PCI RCA (2003) and LAD (2004), normal LV function, morbid obesity, hypertension, dyslipidemia, and asthma. We were asked to consult by Dr. Martinez, to assist with the management of his atrial arrh ythmia. The patient was diagnosed with paroxysmal atrial [...] of his paroxysmal atrial fibrillation on 04/21/2018. EKG on my review today demonstrates sinus rhythm (63) with normal QRS duration and QT interval. He was last seen in June of 2018. Since that time he has not experience a episodes atrial fibrillation. He has been feeling well. Past Medical History: Diagnosis Date ??? Adiposity [...] ,Disp: , Rfl: Review of Systems Constitutional: Negative. HENT: Negative. [...] for this visit: PAF (paroxysmal atrial fibrillation) ([facility]) (Primary) - ECG 12 lead Impression: 1. Symptomatic paroxysmal atrial fibrillation, status post catheter ablation on 04/21/2018. He remains in sinus rhythm with the use of sotalol. Have discussed discontinuing the sotalol at this time post ablation but he prefers to continue. 2. CAD 3. Obesity. The patient's BMI is elevated. The importance of proper nutrition and regular exercise has been discussed with the patient at this office visit today especially how pertains to the treatment and prevention of arrhythmia 4. Encounter for antiarrhythmic drug therapy. The patient's ECG today does not indicate any changesthat would prohibit the use of Sotalol. As long as they remain on this medication, an ECG will be performed every 6 months for monitoring. 5. Encounter for anticoagulation management. Remains anticoagulated on Eliquis 5 mg twice daily. Itis recommended he remain anticoagulated for thromboprophylaxis. Plan: Continue current medications Follow-up in 6 months for an office visit and 12 lead EKG Continue current management plan ECTION ANALYST documented in this encounter Plan of Treatment Not on file documented as of this encounter Procedures Procedure Name Priority Date/Time Associated Diagnosis Comments ECG 12-LEAD Routine 01/29/2019 PAF (paroxysmal atrial fibrillation) ([facility]) documented in this encounter Results * ECG 12 lead (01/29/2019) Marilu León NP ECG ORDERABLES Edited Res ult - Final documented in this encounter Visit Diagnoses Diagnosis PAF (paroxysmal atrial fibrillation) (CMS/HCC) (HCC)- Primary Atrial fibrillation documented in this encounter Care Teams Rehab Technician Relationship Specialty Start Date End Date Rogelio Epperson MD [address] [facility] [address] [place] [address] PCP - General 06/04/12 documented as of this encounter
--- OUTSIDE RECORDS SUMMARY | 2024-02-14 08:41 | XMS_ITS | Encounter Summary ---
Author Organization [facility] Address [address] [place] [address] Care Team Providers Care Sales Correspondence Clerk Name Role Phone Rogelio Epperson MD Primary Care Provider Reason for Visit * Reason Comments Atrial Fibrillation Encounter Details Date Type Department Care Team (Late st Contact Info) Description 07/30/2019 10:00 AM CDT Office Visit Arrhythmia Center [address] [place] [address] Marilu León, GARTH [address] [facility] [address] [place], [place] [id number] Persistent atrial fibrillation (CMS/HCC) (Primary Dx) Social History Tobacco Use Types Packs/Day Years Used Date Smoking Tobacco: Former Smokeless Tobacco: Never Alcohol Use Standard Drinks/Week Comments Yes 0 (1 standard drink = 0.6 oz pur e alcohol) occasionally Sex and Gender Information Value Date Recorded Sex Assigned at Not on file Legal Sex Male 1:57 AM PRODUCTION 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 Gender Identity Not on file Sexual Orientation Not on file documented as of this encounter Last Filed Vital Signs Vital Sign Reading Time Taken Comments Blood Pressure 132/75 07/30/2019 10:12 AM CDT Pulse 63 07/30/2019 10:12 AM CDT Temperature - - Respiratory Rate - - Oxygen Saturation - - Inhaled Oxygen Concentration - - Weight 140.2 kg (309 lb) 07/30/2019 10:12 AM CDT Height 175.3 cm (5' 9 ) 07/30/2019 10:12 AM CDT Body Mass Index 45.63 07/30/2019 10:12 AM CDT documented in this encounter Progress Notes * Marilu León, SUPERVISORY CLERK - 07/30/2019 10:00 AM CDT Patient ID: Vu Nicole is a 74 [...] on my review today demonstrates sinus rhythm (64) with normal QRS duration and QT interval. He was last seen about 6 months ago. Since that time he denies any episodes AF. No chest pain or shortness of breath. He was recently seen by Dr. Martinez at that time no changes were made. Past Medical History: Diagnosis Date ??? Adiposity [...] and affect. Musculoskeletal: No joint inflammation Assessment/Plan There are no diagnoses linked to this encounter. Impression: 1. Symptomatic paroxysmal atrial fibrillation, status post catheter ablation on 04/21/2018. He remains in sinus rhythm with the use of sotalol. Have discussed discontinuing the sotalol at this time post ablation but he prefers to continue. Will continue current dose 2. CAD 3. Obesity. The patient's BMI [...] office visit and 12 lead EKG Continue sotalol and anticoagulation documented in this encounter Plan of Treatment Not on file documented as of this encounter Procedures Procedure Name Priority Date/Time Associated Diagnosis Comments ECG 12-LEAD Routine 07/30/2019 Persistent atrial fibrillation (CMS/HCC) documented in this encounter Results * ECG 12 lead (07/30/2019) Marilu León NP ECG ORDERABLES Final Resu lt documented in this encounter Visit Diagnoses Diagnosis Persistent atrial fibrillation (HCC)- Primary Atrial fibrillation documented in this encounter Care Teams Sales Correspondence Clerk Relationship Specialty Start Date End Date Rogelio Epperson MD [address] [facility] [address] [place] [address] PCP - General 06/04/12 documented as of this encounter
--- OUTSIDE RECORDS SUMMARY | 2024-02-14 08:41 | XMS_ITS | Encounter Summary ---
Author Organization [facility] Address [address] [place] [address] Care Team Providers Care Pressing Department Supervisor Name Role Phone Rogelio Epperson MD Primary Care Provider Reason for Visit * Reason Comments Atrial Fibrillation Encounter Details Date Type Department Care Team (Late st Contact Info) Description 07/17/2018 11:00 AM CDT Office Visit Arrhythmia Center [address] [facility] [address] [place] [address] Marilu León, GARTH [address] [facility] [address] [place], [place] [id number] PAF (paroxysmal atrial fibrillation) (CMS/HCC) (Primary Dx) Social History Tobacco Use Types Packs/Day Years Used Date Smoking Tobacco: Former Smokeless Tobacco: Never Alcohol Use Standard Drinks/Week Comments Yes 0 (1 standard drink = 0.6 oz pur e alcohol) occasionally Sex and Gender Information Value Date Recorded Sex Assigned at Not on file Legal Sex Male 1:57 AM SLICING MACHINE TENDER Gender Identity Not on file Sexual Orientation Not on file documented as of this encounter Last Filed Vital Signs Vital Sign Reading Time Taken Comments Blood Pressure 128/78 07/17/2018 11:10 AM CDT Pulse 66 07/17/2018 11:10 AM CDT Temperature - - Respiratory Rate - - Oxygen Saturation - - Inhaled Oxygen Concentration - - Weight 137.9 kg (304 lb) 07/17/2018 11:10 AM CDT Height 175.3 cm (5' 9 ) 07/17/2018 11:10 AM CDT Body Mass Index 44.89 07/17/2018 11:10 AM CDT documented in this encounter Progress Notes * Mau Marilu Ayan, NURSING MANAGER - 07/17/2018 11:00 AM CDT Patient ID: Vu Nicole is a 73 y.o. male Chief Complaint Atrial fibrillation HPI Mr. Nicole presents to the [facility]ia Center on 07/17/2018 for follow-up of his atrial fibrillationand ablation in March of 2018. He is a 72 y.o. male with a history of coronary [...] radiofrequencycatheter ablation of his paroxysmal atrial fibrillation by Dr. Mack on 04/21/2018. Since that time he states he has been feeling well. He denies any episodes of atrial fibrillation. He denies any shortness of breath, dizziness, or chest pain. He remains on anticoagulation with Eliquis as well as sotalol at this time. He has had no recent hospitalizations or major medical events. EKG on my review today demonstrates sinus rhythm (66) with normal QRS duration and QT interval. [...] by mouth nightly., Disp: , Rfl: ??? apixaban (ELIQUIS) 5 mg tablet, Take 5 mg by mouth 2 (two) times a day., Disp: , Rfl: ??? aspirin 81 mg [...] mouth daily. , Disp: , Rfl: ??? famotidine (PEPCID) 20 mg tablet, Take 20 mg by mouth nightly., Disp: , Rfl: ??? flaxseed oil 1,000 mg capsule, Take 1,000 mg by mouth daily. , Disp: , Rfl: ??? furosemide (LASIX) 40 mg tablet, Take 40 mg by mouth daily., Disp: , Rfl: ??? gabapentin (NEURONTIN) 600 [...] sinus rhythm with the use of sotalol. 2. CAD 3. Obesity. The patient's BMI [...] recommended he remain anticoagulated for thromboprophylaxis. Plan: No changes to the patient's medications are made at this office visit today He can follow up in 6 months for an office visit and 12 lead EKG. documented in this encounter Plan of Treatment Not on file documented as of this encounter Procedures Procedure Name Priority Date/Time Associated Diagnosis Comments ECG 12-LEAD Routine 07/17/2018 PAF (paroxysmal atrial fibrillation) ([facility]) documented in this encounter Results * ECG 12 lead (07/17/2018) Marilu León NP ECG ORDERABLES Edited Res ult - Final documented in this encounter Visit Diagnoses Diagnosis PAF (paroxysmal atrial fibrillation) (CMS/HCC) (HCC)- Primary Atrial fibrillation documented in this encounter Historical Medications * This list may reflect changes made after this encounter. fluticasone furoate-vilantero l (BREO ELLIPTA) 100-25 mcg/dose diskus inhaler Inhale 1 puff daily Rinse mouth with water after use. Do not swallow. added in this encounter Care Teams Pressing Department Supervisor Relationship Specialty Start Date End Date Rogelio Epperson MD [address] [facility] [address] [place] [address] PCP - General 06/04/12 documented as of this encounter
--- OUTSIDE RECORDS SUMMARY | 2024-02-14 08:41 | XMS_ITS | Encounter Summary ---
Author Organization [facility] Address [address] [place] [address] Care Team Providers Care Packager Name Role Phone Rogelio Epperson MD Primary Care Provider Encounter Details Date Type Department Care Team (Late st Contact Info) Description 07/22/2019 Orders Only [facility] Cardiology [address] [place] [address] ProviderMatty MD [address] [place], [place] [id number] Social History Tobacco Use Types Packs/Day Years Used Date Smoking Tobacco: Former Smokeless Tobacco: Never Alcohol Use Standard Drinks/Week Comments Yes 0 (1 standard drink = 0.6 oz pur e alcohol) occasionally Sex and Gender Information Value Date Recorded Sex Assigned at Not on file Legal 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 Gender Identity Not on file Sexual Orientation Not on file documented as of this encounter Plan of Treatment Not on file documented as of this encounter Procedures Procedure Name Priority Date/Time Associated Diagnosis Comments LIPID PANEL Routine 03/09/2019 documented in this encounter Results * Lipid panel (03/09/2019) SCRIBED Cholesterol, Total 248 na - na [facility] SCRIBED HDL 56 na - na [facility] SCRIBED LDL 170 na - na [facility] SCRIBED Triglycerides 100 nan - na [facility] Blood specimen (specimen) us Historical Provider LAB BLOOD ORDERABLES Edit ed Result - Final [facility] documented in this encounter Visit Diagnoses Not on filedocumented in this encounter Care Teams Packager Relationship Specialty Start Date End Date Rogelio Epperson MD [address] [facility] [address] [place] [address] PCP - General 06/04/12 documented as of this encounter
--- OUTSIDE RECORDS SUMMARY | 2024-02-14 08:41 | XMS_ITS | Encounter Summary ---
Author Organization [facility] Address [address] [facility] [address] [place] [id number] Care Team Providers Care Emt Dispatcher Name Role Phone Rogelio Epperson MD Primary Care Provider Reason for Visit * Reason Comments Follow-up Atrial Fibrillation Encounter Details Date Type Department Care Team (Latest Contact Info) Description 02/14/2022 8:30 AM PEBBLE MILL OPERATOR Office Visit [facility] Cardiology [address] [address] Mohinder Martinez MD [address] [facility] [address] [place] [address] Atherosclerosis of [place] artery of extremity with intermittent claudication (CMS/HCC) (HCC) (Primary Dx); Persistent atrial fibrillation (HCC); History of coronary artery stent placement Social History Tobacco Use Types Packs/Day Years Used Date Smoking Tobacco: Former Smokeless Tobacco: Never Tobacco Cessation:Counseling Given: Not Answered Alcohol Use Standard Drinks/Week Comments Yes 2 (1 standard drink = 0.6 oz pur e alcohol) per week Sex and Gender Information Value Date Recorded Sex Assigned at Not on file Legal Sex Male 1:57 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 MILL 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 Gender Identity Not on file Sexual Orientation Not on file documented as of this encounter Last Filed Vital Signs Vital Sign Reading Time Taken Comments Blood Pressure 118/68 02/14/2022 8:13 AM PEBBLE MILL OPERATOR Pulse 80 02/14/2022 8:13 AM PEBBLE MILL OPERATOR Temperature - - Respiratory Rate - - Oxygen Saturation 95% 02/14/2022 8:13 AM PEBBLE MILL OPERATOR Inhaled Oxygen Concentration - - Weight 129.3 kg (285 lb) 02/14/2022 8:13 AM PEBBLE MILL OPERATOR Height 175.3 cm (5' 9 ) 02/14/2022 8:13 AM PEBBLE MILL OPERATOR Body Mass Index 42.09 02/14/2022 8:13 AM PEBBLE MILL OPERATOR documented in this encounter Progress Notes * Mohinder Martinez MD - 02/14/2022 8:30 AM CST [facility] FOLLOW UP 02/14/2022 Vu Nicole is a 76 y.o. male [...] patient was ultimately referred to electrophysiology at [facility] he underwent a catheter ablation of his atrial fibrillation on 04/21/2018. He underwent a nuclear stress test in January of 2021 because of some chest pain symptoms. The results were negative and I have been treating him medically for his angina since then. The patient returns to the office today for scheduled six-month appointment. He seems to be doing well and does not have any complaints read relative to his atrial fibrillation. He did want to talk to me about some worsening of his right lower extremity edema. He has had this chronically thinks that is a bit worse on the right leg than it has been in the past. He does have obvious venous varicosities and venous disease in the leg on exam. REVIEW OF SYSTEMS General ROS: negative for [...] Medications: acetaminophen (TYLENOL) 500 mg tablet, Take 500-1,000 mg by mouth every 6 (six) hours as needed forpain., Disp: , Rfl: albuterol HFA (PROVENTIL HFA,VENTOLIN HFA) 90 mcg/actuation inhaler, Inhale 2 puffs every 6 (six) hours as needed for wheezing., Disp: , Rfl: amLODIPine (NORVASC) 10 mg tablet, TAKE 1 TABLET BY MOUTH AT NIGHT, Disp: 90 tablet, Rfl: 3 aspirin 81 mg chewable tablet, Take 81 mg by mouth daily , Disp: , Rfl: atorvastatin (LIPITOR) 10 mg tablet, TAKE 1 TABLET BY MOUTH DAILY, Disp: 90 tablet, Rfl: 1 azelastine (ASTELIN) 137 mcg (0.1 %) nasal spray, Administer 1 spray into each nostril nightly. , Disp: , Rfl: cholecalciferol (VITAMIN D-3) 5,000 unit capsule, Take 5,000 Units by mouth daily , Disp: , Rfl: cyanocobalamin (Vitamin B-12) 1,000 mcg tablet, Take 1,000 mcg by mouth daily , Disp: , Rfl: Eliquis 5 mg tablet, TAKE 1 TABLET BY MOUTH TWICE DAILY, Disp: 180 tablet, Rfl: 2 flaxseed oil 1,000 mg capsule, Take 1,000 mg by mouth daily. , Disp: , Rfl: fluticasone furoate-vilanterol (BREO ELLIPTA) 100-25 mcg/dose diskus inhaler, Inhale 1 puff daily Rinse mouth with water after use. Do not swallow., Disp: , Rfl: furosemide (LASIX) 40 mg tablet, TAKE 1 TABLET BY MOUTH DAILY, Disp: 90 tablet, Rfl: 3 gabapentin (NEURONTIN) 600 mg tablet, Take 600 mg by mouth 3 (three) times a day. , Disp: , Rfl: nitroglycerin (NITROSTAT) 0.4 mg SL tablet, Place 1 tablet (0.4 mg total) under the tongue every 5 (five) minutes as needed for chest pain, Disp: 75 tablet, Rfl: 0 ramipriL (ALTACE) 10 mg capsule, TAKE 1 CAPSULE BY MOUTH DAILY, Disp: 90 capsule, Rfl: 3 triamcinolone (NASACORT) 55 mcg nasal inhaler, Administer 2 sprays into each nostril nightly. , Disp: , Rfl: clopidogreL (PLAVIX) 75 mg tablet, , Disp: , Rfl: LABS AND OTHER DIAGNOSTIC TESTS No results found for: CHOL No results found for: HDL No results found for: LDLCALC No results found for: TRIG No results found for: CHOLHDL Lab Results Component Value Date WBC 10.2 (H) 04/22/2018 HGB 14.1 04/22/2018 HCT 43.2 04/22/2018 MCV 91.9 04/22/2018 No lab exists for component: LABALBU PHYSICAL EXAM Vitals BP 118/68 (BP Location: Right arm, Patient Position: Sitting) Pulse 80 Ht 175.3 cm (5' 9 ) Wt 129.3 kg (285 lb) SpO2 95% BMI 42.09 kg/m?? Physical Examination: General appearance - alert, [...] Diagnoses and all orders for this visit: Atherosclerosis of [place] artery of extremity with intermittent claudication (CMS/HCC) (HCC) Persistent atrial fibrillation (HCC) History of coronary artery stent placement PLAN/RECOMMENDATIONS Patient is stable no adjustments with his medical regimen and he is maintaining sinus rhythm following his ablation Lower extremity venous disease with some worsening of right lower extremity edema. He is wearing compression hose for this which is appropriate. Follow-up 6 months or p.r.n. Mohinder Martinez MD LE MILL OPERATOR documented in this encounter Plan of Treatment Not on file documented as of this encounter Visit Diagnoses Diagnosis Atherosclerosis of [place] artery of extremity with intermittent claudication (HCC)- Primary Persistent atrial fibrillation (HCC) Atrial fibrillation History of coronary artery stent placement documented in this encounter Discontinued Medications Medication Sig Discontinue Reason Start Date End Da te famotidine (PEPCID) 20 mg tablet Take 20 mg by mouth nightly. 02/14/2022 documented as of this encounter Care Teams Emt Dispatcher Relationship Specialty Start Date End Date Rogelio Epperson MD [address] [address] PCP - General 06/04/12 documented as of this encounter
--- OUTSIDE RECORDS SUMMARY | 2024-02-14 08:41 | XMS_ITS | Encounter Summary ---
Author Organization [facility] Address [address] [address] Care Team Providers Care Seismograph Helper Name Role Phone Rogelio Epperson MD Primary Care Provider Encounter Details Date Type Department Care Team (Late st Contact Info) Description 03/08/2019 Telephone [facility] Cardiology [address] [facility] 162 [facility] 102 [place] [address] Mohinder Martinez MD [address] [facility] [address] [facility] 102 [place] [address] Social History Tobacco Use Types Packs/Day Years Used Date Smoking Tobacco: Former Smokeless Tobacco: Never Alcohol Use Standard Drinks/Week Comments Yes 0 (1 standard drink = 0.6 oz pur e alcohol) occasionally Sex and Gender Information Value Date Recorded Sex Assigned at Not on file Legal Sex Male 1:57 AM WINDER TENDER Gender Identity Not on file Sexual Orientation Not on file documented as of this encounter Miscellaneous Notes * Telephone Encounter - Maricruz Dominguez RN - 03/08/2019 3:13 PM WINDER TENDER LMTC ER TENDER * Telephone Encounter - Gail Young - 03/08/2019 2:53 PM CST Pt called to report that he is retaining water waist down. Cb [phone] ER TENDER documented in this encounter Plan of Treatment Not on file documented as of this encounter Visit Diagnoses Not on filedocumented in this encounter Care Teams Seismograph Helper Relationship Specialty Start Date End Date Rogelio Epperson MD [address] [facility] [address] [place] [id number] PCP - General 06/04/12 documented as of this encounter
--- OUTSIDE RECORDS SUMMARY | 2024-02-14 08:41 | XMS_ITS | Encounter Summary ---
Author Organization [facility] Address [address] [address] Care Team Providers Care System Operation Superintendent Name Role Phone Rogelio Epperson MD Primary Care Provider Encounter Details Date Type Department Care Team (Late st Contact Info) Description 02/26/2022 Telephone [facility] Cardiology [address] [facility] 162 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 WRESTLER * Telephone Encounter - Ellie Villalobos - 02/26/2022 11:31 AM CST Pt requesting furosemide 40 mg be sent to [facility] in [place]. Contact: WRESTLER documented in this encounter Plan of Treatment Not on file documented as of this encounter Visit Diagnoses Not on filedocumented in this encounter Discontinued Medications Medication Sig Discontinue Reason Start Date End Da te furosemide (LASIX) 40 mg tablet TAKE 1 TABLET BY MOUTH DAILY Reorder 10/15/2021 02/26/2022 documented as of this encounter Care Teams System Operation Superintendent Relationship Specialty Start Date End Date Rogelio Epperson MD [address] [facility] [address] [place] [address] PCP - General 06/04/12 documented as of this encounter
--- OUTSIDE RECORDS SUMMARY | 2024-02-14 08:41 | XMS_ITS | Encounter Summary ---
Author Organization [facility] Address [address] [facility] [address] [place] [address] Care Team Providers Care Microsoft Bi Developer Name Role Phone Rogelio Epperson MD Primary Care Provider Reason for Visit * Reason Comments Atrial Fibrillation 6 month f/u. CAD Encounter Details Date Type Department Care Team (Latest Contact Info) Description 01/04/2020 1:45 PM ANALYTICS ASSOCIATE Office Visit [facility] Cardiology [address] 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 (CMS/HCC) (Primary Dx); Persistent atrial fibrillation (CMS/HCC); History of coronary artery stent placement Social History Tobacco Use Types Packs/Day Years Used Date Smoking Tobacco: Former Smokeless Tobacco: Never Alcohol Use Standard Drinks/Week Comments Yes 0 (1 standard drink = 0.6 oz pur e alcohol) occasionally Sex and Gender Information Value Date Recorded Sex Assigned at Not on file Legal Sex Male 1:57 AM ANALYTICS ASSOCIATE Gender Identity Not on file Sexual Orientation Not on file documented as of this encounter Last Filed Vital Signs Vital Sign Reading Time Taken Comments Blood Pressure 134/76 01/04/2020 2:04 PM ANALYTICS ASSOCIATE Pulse 60 01/04/2020 2:04 PM ANALYTICS ASSOCIATE Temperature - - Respiratory Rate - - Oxygen Saturation 93% 01/04/2020 2:04 PM ANALYTICS ASSOCIATE Inhaled Oxygen Concentration - - Weight 137.1 kg (302 lb 3.2 oz) 01/04/2020 2:04 PM ANALYTICS ASSOCIATE Height 175.3 cm (5' 9 ) 01/04/2020 2:04 PM ANALYTICS ASSOCIATE Body Mass Index 44.63 01/04/2020 2:04 PM ANALYTICS ASSOCIATE documented in this encounter Progress Notes * Mohinder Martinez MD - 01/04/2020 1:45 PM CST [facility] 01/04/2020 Vu Nicole is a 74 y.o. male who presents [...] cardiac naqvi since then. He also has p aroxysmal atrial fibrillation and has had a couple of cardioversions done. The patient is being maintained in sinus rhythm with sotalol and systemically anticoagulated. He also has significant peripheral vascular disease with claudication attempts to provide revascularization of this by vascular surgery were on successful. The patient was ultimately referred to electrophysiology at [facility] he underwent a catheter ablation of his atrial fibrillation on 04/21/2018. He returns today for scheduled follow-up and has no complaints. His last visit was a telemedicine visit about 6 months ago because of the espinoza virus pandemic. He has not had any symptoms of angina or myocardial ischemia he also has not had any recognized recurrences of atrial fib since his ablation procedure. Because of his obesity and peripheral venous disease he does have some chronic lower extremity edema. REVIEW OF SYSTEMS General ROS: negative for [...] DAY, Disp: 90 capsule, Rfl: 1 ??? sotalol (BETAPACE) 80 mg tablet, Take [...] for component: LABALBU PHYSICAL EXAM Vitals BP 134/76 (BP Location: Left arm, Patient Position: Sitting) Pulse 60 Ht 175.3 cm (5' 9 ) Wt (!) 137.1 kg (302 lb 3.2 oz) SpO2 93% BMI 44.63 kg/m?? Physical Examination: General appearance - alert, [...] all orders for this visit: Atherosclerosis of [place] artery of extremity with intermittent claudication (CMS/HCC) Persistent atrial fibrillation (CMS/HCC) History of coronary artery stent placement PLAN/RECOMMENDATIONS No changes in medical regimen Continue to see him at 6 month intervals Mohinder Martinez MD YTICS ASSOCIATE documented in this encounter Plan of Treatment Not on file documented as of this encounter Visit Diagnoses Diagnosis Atherosclerosis of [place] artery of extremity with intermittent claudication (HCC)- Primary Persistent atrial fibrillation (HCC) Atrial fibrillation History of coronary artery stent placement documented in this encounter Discontinued Medications Medication Sig Discontinue Reason Start Date End Da te amLODIPine (NORVASC) 10 mg tablet TAKE 1 TABLET BY MOUTH DAILY Duplicate order 09/22/2019 01/04/2020 indomethacin (INDOCIN) 50 mg capsuleIndications:Gout Take 50 mg by mouth 2 (two) times a day as needed for pain. Therapy completed 01/04/2020 documented as of this encounter Historical Medications * This list may reflect changes made after this encounter. Medication Sig Dispense Quantity Refills Last Filled Start D ate End Date etodolac XL (LODINE XL) 400 mg 24 hr tablet 11/17/2019 01/16/2021 added in this encounter Care Teams Microsoft Bi Developer Relationship Specialty Start Date End Date Rogelio Epperson MD [address] [facility] 120 [place] [address] PCP - General 06/04/12 documented as of this encounter
--- OUTSIDE RECORDS SUMMARY | 2024-02-14 08:42 | XMS_ITS | Encounter Summary ---
Author Organization [facility] Address [address] [facility] [address] [place] [address] Care Team Providers Care Hogshead Stripper Name Role Phone Rogelio Epperson MD Primary Care Provider Reason for Visit * Reason Comments Follow-up 6 mo follow up on CA D, PAF Encounter Details Date Type Department Care Team (Late st Contact Info) Description 02/04/2017 9:15 AM BUZZSAW OPERATOR HELPER Office Visit [facility] [address] [place] [address] Mohinder Martinez MD [address] [facility] [address] [address] Paroxysmal atrial fibrillation (CMS/HCC) (Primary Dx); Morbid obesity with body mass index (BMI) of 40.0 to 49.9 (CMS/HCC); Coronary artery disease involving [place] coronary artery of [place] heart without angina pectoris Social History Tobacco Use Types Packs/Day Years Used Date Smoking Tobacco: Former Smokeless Tobacco: Never Alcohol Use Standard Drinks/Week Comments Yes 0 (1 standard drink = 0.6 oz pur e alcohol) Sex and Gender Information Value Date Recorded Sex Assigned at Not on file Legal Sex Male 1:57 AM BUZZSAW OPERATOR HELPER Gender Identity Not on file Sexual Orientation Not on file documented as of this encounter Last Filed Vital Signs Vital Sign Reading Time Taken Comments Blood Pressure 128/66 02/04/2017 9:22 AM BUZZSAW OPERATOR HELPER Pulse 97 02/04/2017 9:22 AM BUZZSAW OPERATOR HELPER Temperature - - Respiratory Rate - - Oxygen Saturation 97% 02/04/2017 9:22 AM BUZZSAW OPERATOR HELPER Inhaled Oxygen Concentration - - Weight 133.8 kg (295 lb) 02/04/2017 9:22 AM BUZZSAW OPERATOR HELPER Height 175.3 cm (5' 9 ) 02/04/2017 9:22 AM BUZZSAW OPERATOR HELPER Body Mass Index 43.56 02/04/2017 9:22 AM BUZZSAW OPERATOR HELPER documented in this encounter Ordered Prescriptions Prescription Sig Dispense Quantity Refills Last Filled Start Date End Date atorvastatin (LIPITOR) 20 mg tablet Take 1 tablet (20 mg total) by mouth daily. 90 tablet 3 02/04/2017 10/21/2017 documented in this encounter Progress Notes * Mohinder Martinez MD - 02/04/2017 9:15 AM CST [facility] 02/04/2017 Vu Nicole is a 71 y.o. male who presents for follow up [...] this by vascular surgery were on successful. He returns today for office follow-up feeling well. He has no cardiovascular problems and is still in sinus rhythm. His LDL cholesterol is 116 so I am going to recommend increasing the dose of his atorvastatin to 20 mg. also recommended dietary modification and weight loss as he is still morbidly obese REVIEW OF SYSTEMS General ROS: negative for [...] pruritus and rash HOME MEDICATIONS Current Outpatient Prescriptions: ??? acetaminophen (TYLENOL EXTRA STRENGTH) 500 mg tablet, take 1 - 2 Tablet (500MG) by oral route every 6 hours as needed, Disp: , Rfl: 0 ??? albuterol HFA (PROVENTIL HFA,VENTOLIN HFA) 90 mcg/actuation inhaler, Inhale 2 puffs every 6 (six) hours as needed for wheezing., Disp: , Rfl: ??? amLODIPine (NORVASC) 10 mg tablet, take 1 tablet by oral route every day, Disp: 90, Rfl: 3 ??? atorvastatin (LIPITOR) 10 mg tablet, Take 2 tablets (20 mg total) by mouth daily., Disp: 90 tablet, Rfl: 3 ??? azelastine-fluticasone 137-50 mcg/spray spray,non-aerosol, Administer into affected nostril(s)., Disp: , Rfl: ??? CALCIUM/FOLIC AC/MULTIVIT-MIN (VIACTIV MULTI-VITAMIN ORAL), Take by mouth., Disp: , Rfl: ??? cholecalciferol (VITAMIN D-3) 5,000 unit capsule, Take 5,000 Units by mouth daily., Disp: , Rfl: ??? clopidogrel (PLAVIX) 75 mg tablet, TAKE 1 TABLET BY MOUTH EVERY DAY, Disp: 90 tablet, Rfl: 3 ??? cyanocobalamin (Vitamin B-12) 1,000 mcg tablet, Take 100 mcg by mouth daily., Disp: , Rfl: ??? ELIQUIS 5 mg tablet, Take 1 tablet by mouth two times daily, Disp: 180 tablet, Rfl: 0 ??? famotidine (PEPCID AC) 20 mg tablet, take 1 tablet (20MG) by oral route 2 times every day, Disp: , Rfl: 0 ??? flaxseed oil 1,000 mg capsule, Take by mouth., Disp: , Rfl: ??? gabapentin (NEURONTIN) 100 mg capsule, take 1 Capsule (100MG) by oral route 3 times every day (Patient taking differently: Take 600 mg by mouth 3 (three) times a day. ), Disp: , Rfl: 0 ??? indomethacin (INDOCIN) 25 mg capsule, Take 25 mg by mouth 2 (two) times a day with meals., Disp: , Rfl: ??? nitroglycerin (NITROSTAT) 0.6 mg SL tablet, Place 0.6 mg under the tongue every 5 (five) minutes as needed for chest pain., Disp: , Rfl: ??? ramipril (ALTACE) 10 mg capsule, TAKE 1 CAPSULE BY MOUTH EVERY DAY, Disp: 90 capsule, Rfl: 3 ??? sotalol (BETAPACE) 80 mg tablet, take 1 by Oral route 2 times every day, Disp: 180, Rfl: 3 ??? triamcinolone (NASACORT) 55 mcg nasal inhaler, Administer 2 sprays into each nostril daily., Disp: , Rfl: ??? atenolol (TENORMIN) 100 mg tablet, take 1 tablet (100MG) by oral route every day (Patient not taking: Reported on 02/04/2017 ), Disp: 90, Rfl: 3 ??? atorvastatin (LIPITOR) 20 mg tablet, take 1 tablet by oral route every day (Patient not taking:Reported on 02/04/2017 ), Disp: 90, Rfl: 3 LABS AND OTHER DIAGNOSTIC TESTS No results found for: CHOL No results found for: HDL No results found for: LDLCALC No results found for: TRIG No results found for: CHOLHDL No results found for: WBC, HGB, HCT, MCV, PLT No lab exists for component: LABALBU PHYSICAL EXAM Vitals: 02/04/17 0922 BP: 128/66 Pulse: 97 SpO2: 97% Physical Examination: General appearance - alert, well [...] retractions or cyanosis Heart - normal rate, regular rhythm, normal S1, S2, no murmurs, rubs, [...] Diagnoses and all orders for this visit: Paroxysmal atrial fibrillation (CMS/HCC) Morbid obesity with body mass index (BMI) of 40.0 to 49.9 (CMS/HCC) Coronary artery disease involving [place] coronary artery of [place] heart without angina pectoris PLAN/RECOMMENDATIONS Increase atorvastatin to 20 mg daily Follow-up in 6 months Mohinder Martinez MD SAW OPERATOR HELPER documented in this encounter Plan of Treatment Not on file documented as of this encounter Procedures Procedure Name Priority Date/Time Associated Diagnosis Comments POCT LIPID PANEL Routine 02/04/2017 9:54 AM BUZZSAW OPERATOR HELPER Coronary artery disease involving [place] coronary artery of [place] heart without angina pectoris documented in this encounter Results * POCT lipid panel (02/04/2017 9:54 AM BUZZSAW OPERATOR HELPER) Cholesterol, POC 197 mg/dL HDL, POC 59 mg/dL Triglycerides, POC 109 mg/dL LDL Cholesterol POC 116 mg/dL Chol/HDL Ratio, POC 3.3 Non-HDL Cholesterol, POC 138 mg/dL Cholesterol Total, POC 197 mg/dL Blood specimen (specimen) 02/04/2017 9:54 AM BUZZSAW OPERATOR HELPER us Mohinder Martinez MD POINT OF CARE TEST ORDER GILMA Final Result documented in this encounter Visit Diagnoses Diagnosis Paroxysmal atrial fibrillation (CMS/HCC) (HCC)- Primary Atrial fibrillation Morbid obesity with body mass index (BMI) of 40.0 to 49.9 (HCC) Coronary artery disease involving [place] coronary artery of [place] heart without angina pectoris documented in this encounter Discontinued Medications Medication Sig Discontinue Reason Start Date End Da te atorvastatin (LIPITOR) 10 mg tablet Take 2 tablets (20 mg total) by mouth daily. 12/30/2016 02/04/2017 documented as of this encounter Historical Medications * This list may reflect changes made after this encounter. triamcinolone (NASACORT) 55 mcg nasal inhaler Administer 2 sprays into each nostril nightly flaxseed oil 1,000 mg capsule Take 1 capsule (1,000 mg total) by mouth daily cyanocobalamin (Vitamin B-12) 1,000 mcg tabletIndication s:Prevention of Vitamin B12 Deficiency Take 1 tablet (1,000 mcg total) by mouth daily cholecalciferol (VITAMIN D-3) 5,000 unit capsule Take 1 capsule (5,000 Units total) by mouth daily albuterol HFA (PROVENTIL HFA,VENTOLIN HFA) 90 mcg/actuation inhaler Inhale 2 puffs every 6 (six) hours as needed for wheezing CALCIUM/FOLIC AC/MULTIVIT-MIN (VIACTIV MULTI-VITAMIN ORAL) Take by mouth. 8 nitroglycerin (NITROSTAT) 0.[address] 0.6 mg under the tongue every 5 (five) minutes as needed for chest pain. 8 indomethacin (INDOCIN) 25 mg capsuleIndicatio ns:Gout Take 25 mg by mouth 2 (two) times a day as needed. 9 azelastine-fluti casone 137-50 mcg/spray spray,non-aeroso l Administer into affected nostril(s). 8 added in this encounter Care Teams Hogshead Stripper Relationship Specialty Start Date End Date Rogelio Epperson MD [address] [facility] [address] [place] [address] PCP - General 06/04/12 documented as of this encounter
--- OUTSIDE RECORDS SUMMARY | 2024-02-14 08:42 | XMS_ITS | Encounter Summary ---
Author Organization [facility] Facility Care Team Providers Care Senior Portfolio Manager Name Role Phone Rogelio Epperson MD Primary Care Provider Encounter Details Date Type Department Care Team (Late st Contact Info) Description 04/26/2014 - 04/26/2014 11:59 PM CEMENTER MACHINE APPLICATOR Hospital Encounter [facility] Peri Morris MD [address] [place] [address] Social History Tobacco Use Types Packs/Day Years Used Date Smoking Tobacco: Former Cigarettes Q uit: 02/25/2008 Alcohol Use Standard Drinks/Week Comments Yes 0 (1 standard drink = 0.6 oz pur e alcohol) Sex and Gender Information Value Date Recorded Sex Assigned at Not on file Legal Sex Male 1:57 AM CEMENTER MACHINE APPLICATOR Gender Identity Not on file Sexual Orientation Not on file documented as of this encounter Medications at Time of Discharge amLODIPine (NORVASC) 10 mg tablet take 1 tablet by oral route every day 90 3 04/22/2014 8 atenolol (TENORMIN) 100 mg tablet take 1 tablet (100MG) by oral route every day 90 3 07/29/2012 8 clopidogrel (PLAVIX) 75 mg tablet take 1 by Oral route every day 90 3 07/29/2012 7 famotidine (PEPCID AC) 20 mg tablet take 1 tablet (20MG) by oral route 2 times every day 0 06/04/2012 9 gabapentin (NEURONTIN) 100 mg capsule take 1 Capsule (100MG) by oral route 3 times every day 0 06/04/2012 8 nitroglycerin (NITROSTAT) 0.[address] 1 tablet between cheek and gum at the first sign of an attack; no more than 3 tabs are recommended within a 15 minute period. 25 0 07/27/2013 7 nitroglycerin (NITROSTAT) 0.[address] 1 tablet between cheek and gum at the 1st sign of an attack; no more than 3 tabs are recommended within a 15 minute period. 25 0 07/27/2013 7 ramipril (ALTACE) 10 mg capsule take 1 capsule by oral route every day 90 3 07/29/2012 7 documented as of this encounter Plan of Treatment Not on file documented as of this encounter Visit Diagnoses Not on filedocumented in this encounter Care Teams Senior Portfolio Manager Relationship Specialty Start Date End Date Rogelio Epperson MD [address] [facility] [address] [place] [id number] PCP - General 06/04/12 documented as of this encounter
--- OUTSIDE RECORDS SUMMARY | 2024-02-14 08:42 | XMS_ITS | Encounter Summary ---
Author Organization [facility] Address [address] [address] Care Team Providers Care Patient Relations Coordinator Name Role Phone Rogelio Epperson MD Primary Care Provider Encounter Details Date Type Department Care Team (Late st Contact Info) Description 05/16/2017 Telephone [facility] [address] [id number] Mohinder Martinez MD [address] [address] Social History Tobacco Use Types Packs/Day Years Used Date Smoking Tobacco: Former Smokeless Tobacco: Never Alcohol Use Standard Drinks/Week Comments Yes 0 (1 standard drink = 0.6 oz pur e alcohol) Sex and Gender Information Value Date Recorded Sex Assigned at Not on file Legal Sex Male 1:57 AM STAFF RADIATION THERAPIST Gender Identity Not on file Sexual Orientation Not on file documented as of this encounter Ordered Prescriptions Prescription Sig Dispense Quantity Refills Last Filled Start Date End Date apixaban (ELIQUIS) 5 mg tablet Take 1 tablet (5 mg total) by mouth 2 (two) times a day. 180 tablet 05/16/2017 07/15/2017 documented in this encounter Miscellaneous Notes * Telephone Encounter - Makenna Simon MA - 05/16/2017 9:18 AM CDT Medication sent to pharmacy. * Telephone Encounter - Roseline Gil - 05/16/2017 9:05 AM CDT [facility] in [place] needs new prescription of Eloquis 5mg. [facility] phone:[phone] documented in this encounter Plan of Treatment Not on file documented as of this encounter Visit Diagnoses Not on filedocumented in this encounter Discontinued Medications Medication Sig Discontinue Reason Start Date End Da te ELIQUIS 5 mg tablet TAKE 1 TABLET BY MOUTH TWO TIMES DAILY Reorder 03/12/2017 05/16/2017 documented as of this encounter Care Teams Patient Relations Coordinator Relationship Specialty Start Date End Date Rogelio Epperson MD [address] [facility] [address] [place] [address] PCP - General 06/04/12 documented as of this encounter
--- OUTSIDE RECORDS SUMMARY | 2024-02-14 08:42 | XMS_ITS | Encounter Summary ---
Author Organization [facility] Healthcare Address [address] [place] [address] Care Team Providers Care Capture Manager Name Role Phone Rogelio Epperson MD Primary Care Provider Encounter Details Date Type Department Care Team (Latest Contact Info) Description 04/21/2018 6:04 AM PRINTER REPAIR TECHNICIAN - 04/22/2018 11:49 AM PRINTER REPAIR TECHNICIAN Hospital Encounter [facility] [address] [place] [address] Cornell Hilton MD [address] [facility] [address], [place] [address] Paroxysmal atrial fibrillation (CMS/HCC) Discharge Disposition: Discharge to home or self care Social History Tobacco Use Types Packs/Day Years Used Date Smoking Tobacco: Former Smokeless Tobacco: Never Alcohol Use Standard Drinks/Week Comments Yes 0 (1 standard drink = 0.6 oz pur e alcohol) occasionally Sex and Gender Information Value Date Recorded Sex Assigned at Not on file Legal Sex Male 1:57 AM PRINTER REPAIR TECHNICIAN Gender Identity Not on file Sexual Orientation Not on file documented as of this encounter Last Filed Vital Signs Vital Sign Reading Time Taken Comments Blood Pressure 131/70 04/22/2018 9:30 AM PRINTER REPAIR TECHNICIAN Pulse 72 04/22/2018 9:30 AM PRINTER REPAIR TECHNICIAN per telestrip 04/22/18 0703 Temperature 36.8 ??C (98.2 ??F) 04/22/2018 8 :07 AM PRINTER REPAIR TECHNICIAN Respiratory Rate 18 04/22/2018 8:07 AM PRINTER REPAIR TECHNICIAN Oxygen Saturation 99% 04/22/2018 8:0 7 AM PRINTER REPAIR TECHNICIAN Inhaled Oxygen Concentration - - Weight 137.2 kg (302 lb 6.4 oz) 04/22/2018 5:00 AM PRINTER REPAIR TECHNICIAN Height 175.3 cm (5' 9 ) 04/21/2018 7:17 AM PRINTER REPAIR TECHNICIAN Body Mass Index 44.66 04/21/2018 7:17 AM PRINTER REPAIR TECHNICIAN documented in this encounter Medications at Time of Discharge acetaminophen (TYLENOL) 500 mg tablet Take 1-2 tablets (500-1,000 mg total) by mouth every 6 (six) hours as needed for pain albuterol HFA (PROVENTIL HFA,VENTOLIN HFA) 90 mcg/actuation inhaler Inhale 2 puffs every 6 (six) hours as needed for wheezing azelastine (ASTELIN) 137 mcg (0.1 %) nasal spray Administer 1 spray into each nostril nightly 06/11/2017 cholecalciferol (VITAMIN D-3) 5,000 unit capsule Take 1 capsule (5,000 Units total) by mouth daily cyanocobalamin (Vitamin B-12) 1,000 mcg tabletIndication s:Prevention of Vitamin B12 Deficiency Take 1 tablet (1,000 mcg total) by mouth daily flaxseed oil 1,000 mg capsule Take 1 capsule (1,000 mg total) by mouth daily gabapentin (NEURONTIN) 600 mg tablet Take 1 tablet (600 mg total) by mouth 3 (three) times a day 05/15/2017 triamcinolone (NASACORT) 55 mcg nasal inhaler Administer 2 sprays into each nostril nightly amLODIPine (NORVASC) 10 mg tablet Take 10 mg by mouth nightly. 1 apixaban (ELIQUIS) 5 mg tablet Take 5 mg by mouth 2 (two) times a day. 9 aspirin 81 mg chewable tablet Take 1 tablet (81 mg total) by mouth daily 4 atorvastatin (LIPITOR) 10 mg tablet Take 10 mg by mouth nightly. 9 clopidogrel (PLAVIX) 75 mg tablet Take 75 mg by mouth nightly. 9 famotidine (PEPCID) 20 mg tablet Take 20 mg by mouth nightly. 2 furosemide (LASIX) 40 mg tablet Take 40 mg by mouth daily. 9 indomethacin (INDOCIN) 50 mg capsuleIndicatio ns:Gout Take 50 mg by mouth 2 (two) times a day as needed for pain. 0 nitroglycerin (NITROSTAT) 0.[address] 0.4 mg under the tongue every 5 (five) minutes as needed for chest pain. 0 ramipril (ALTACE) 10 mg capsule Take 10 mg by mouth nightly. 0 sotalol (BETAPACE) 80 mg tablet Take 80 mg by mouth 2 (two) times a day. 9 documented as of this encounter Discharge Disposition Disposition Code Departure Means Destination Discharge to home or self care documented in this encounter Progress Notes * Marilu León NP - 04/22/2018 9:22 AM CST Progress Note Patient Name: Jade Nicole Date of : 1945 Primary Physician: Rogelio Epperson MD Admission Date: 04/21/2018 Subjective Jade Nicole is a 72 y.o. male seen on rounds this morning. He had no acute events overnight, and denies chest pain or shortness of breath at this time. Follow up today for AF, post AF RFA Objective Intake/Output Summary (Last 24 hours) at 04/22/18 0923 Last data filed at 04/22/18 0830 Gross per 24 hour Intake 2825 ml Output 2325 ml Net 500 ml Review of Systems Constitutional: Negative. HENT: Negative. Eyes: Negative. Respiratory: Negative. Cardiovascular: Negative. Gastrointestinal: Negative. Genitourinary: Negative. Musculoskeletal: Negative. Skin: Negative. Neurological: Negative. Endo/Heme/Allergies: Negative. Psychiatric/Behavioral: Negative. BP 134/70 (BP Location: Left leg, Patient Position: Lying) Pulse 72 Temp 36.8 ??C (98.2 ??F) (Oral) Resp 18 Ht 175.3 cm (5' 9 ) Wt (!) 137.2 kg (302 lb 6.4 oz) SpO2 99% BMI 44.66 kg/m?? Physical Exam Constitutional: He is oriented to person, place, and time. He appears well- developed and well-nourished. HENT: Head: Normocephalic and atraumatic. Eyes: Conjunctivae and EOM are normal. Neck: Normal range of motion. Neck supple. Cardiovascular: Normal rate, regular rhythm, normal heart sounds and intact distal pulses. Pulmonary/Chest: Effort normal and breath sounds normal. Abdominal: Soft. Bowel sounds are normal. Musculoskeletal: Normal range of motion. Neurological: He is alert and oriented to person, place, and time. Skin: Skin is warm and dry. Psychiatric: He has a normal mood and affect. His behavior is normal. Judgment and thought content normal. Bilateral groin sites wnl, no bleeding, sutures removed without difficulty Diagnostics Recent Labs Lab Units 04/22/18 0132 WBC K/cumm 10.2* HEMOGLOBIN g/dL 14.1 HEMATOCRIT % 43.2 Recent Labs Lab Units 04/22/18 0132 CO2 mmol/L 23 CREATININE mg/dL 0.94 GLUCOSE mg/dL 152 CALCIUM mg/dL 9.0 Problem List 1. AF, post AF RFA Assessment/Plan Discharge home. Continue current medications. Follow up in 4 weeks will be arranged. Care plan discussed with the patient. Marilu León NP 04/22/2018 9:23 AM TER REPAIR TECHNICIAN documented in this encounter H&P Notes * Cornell Hilton MD - 04/21/2018 8:21 AM CST [facility] [address] [place] [address], [address] [place], [place] [address] Patient Name: Jade Nicole Date of : 1945 Primary Physician: Rogelio Epperson MD Admission Date: 04/21/2018 This note was dictated with voice-recognition software, and teletype operator errors may be present. . . . Clinical Cardiac Electrophysiology Consultation Chief Complaint / Reason for Consultation: Atrial fibrillation, here for PVI/AF RFA History of Present Illness: Mr. Nicole is a 72 y.o. male with a history of CAD / s/p PCI, normal LV function, obesity, HTN, DLP, and asthma. The patient presents today for ablation of his persistent atrial fibrillation. The patient is presently in AF. He describes SOB, but no CP. Palpitations occasional. No syncope. Admitted to [facility] in last month for ADHF. No Known Allergies Current Facility-Administered Medications: ??? Saline lock IV, , , Once AND sodium chloride 0.9% flush 0.5-20 mL, 0.5- 20 mL, intra-catheter, Q8H JUNE AND sodium chloride 0.9% flush 0.5-20 mL, 0.5-20 mL, intra-catheter, PRN, Cornell Hilton MD ??? sodium chloride 0.9% infusion, 15 mL/hr, intravenous, Continuous, Cornell Hilton MD Past Medical History: Past Medical History: Diagnosis Date ??? Adiposity Obesity ??? Arrhythmia ??? Asthma seaonal allergies, asthma ??? Atrial fibrillation (CMS/HCC) ??? CHF (congestive heart failure) (CMS/HCC) ??? Coronary artery disease ??? HX OTHER MEDICAL dyslipidemia ??? Hyperlipidemia ??? Hypertension Hypertension ??? Sleep apnea cpap Family History: Family History Problem Relation Age of Onset ??? Stent Brother Coronary Stent Placement; ??? Heart attack Brother Myocardial Infarction; Cause of : Myocardial Infarction ??? Stent Sister Coronary Stent Placement; ??? Stent Sister Coronary Stent Placement; Social History: Social History Social History ??? Marital status: Spouse name: N/A ??? Number of children: N/A ??? Years of education: N/A Occupational History ??? Not on file. Social History Main Topics ??? Smoking status: Former Smoker ??? Smokeless tobacco: Never Used ??? Alcohol use Yes Comment: occasionally ??? Drug use: No ??? Sexual activity: Defer Other Topics Concern ??? Not on file Social History Narrative ??? No narrative on file Review of Systems: Constitutional: Negative. HENT: Negative. Eyes: Negative. Respiratory: Negative. Cardiovascular: Negative. Gastrointestinal: Negative. Endocrine: Negative. Genitourinary: Negative. Musculoskeletal: Positive for arthralgias and myalgias. Neurological: Positive for dizziness. Physical Examination: BP 147/88 Pulse 58 Temp 36 ??C (96.8 ??F) (Tympanic) Resp 15 Ht 175.3 cm (5' 9 ) Wt (!) 136.2 kg (300 lb 4.8 oz) SpO2 96% BMI 44.35 kg/m?? GENERAL: No distress. Pleasant and cooperative [...] focal findings. PSYCHIATRIC: Normal mood and affect. Labs: Recent Labs Lab Units 04/21/18 0711 WBC K/cumm 8.7 HEMOGLOBIN g/dL 14.4 HEMATOCRIT % 45.0 Recent Labs Lab Units 04/21/18 0711 CO2 mmol/L 28 CREATININE mg/dL 0.98 GLUCOSE mg/dL 113 CALCIUM mg/dL 9.1 ECG: AF / MVR Impression: Persistent atrial fibrillation Plan: 1. AF RFA today. Risks / benefits discussed. 2. GABRIELLA prior, as presented in ongoing AF. Cornell Hilton M.D., M.P.H., [facility] 04/21/2018 8:21 AM TER REPAIR TECHNICIAN documented in this encounter Miscellaneous Notes * Plan of Care - Michelle Kaiser RN - 04/22/2018 11:11 AM CST Activity: ??? Ability to tolerate increased activity will improve Adequate for Discharge ??? Ability to participate in self-care as condition permits will improve Adequate for Discharge Cardiac: ??? Ability to maintain an adequate cardiac output will improve Adequate for Discharge ??? Will show no evidence of cardiac arrhythmias Adequate for Discharge ??? Complications related to the disease process, condition or treatment will be avoided or minimized Adequate for Discharge Health Behavior: ??? Understanding of discharge needs will improve Adequate for Discharge Lack of Knowledge: ??? Knowledge of disease or condition will improve Adequate for Discharge ??? Knowledge of the prescribed therapeutic regimen will improve Adequate for Discharge ??? Ability to identify and utilize available resources and services will improve Adequate for Discharge Goals: Clinical Goals for the Shift: d/c planning, monitor tele, VS Summary: SR 70's with 1st degree block, pt verbalized understanding of discharge instructions, no complaints of pain, no acute changes, will d/c via private vehicle with . TER REPAIR TECHNICIAN * Plan of Care - Augustine Huang RN - 04/22/2018 5:33 AM CST Goals: Clinical Goals for the Shift: bedrest til 1630, monitor tele, Vs, labs, advance diet as tolerated, bilateral groin sites c/d/i Summary: VSS on RA. Tele NSR 60-80s. Bilateral groin sites clean, dry and intact. Distal pulses assessed with doppler. No c/o pain. Pt has been voiding and ambulating post procedure without any difficulty. Will continue to monitor while awaiting further orders. TER REPAIR TECHNICIAN * Plan of Care - Mary Proctor RN - 04/21/2018 2:33 PM CST Activity: ??? Ability to tolerate increased activity will improve Progressing ??? Ability to participate in self-care as condition permits will improve Progressing Cardiac: ??? Ability to maintain an adequate cardiac output will improve Progressing ??? Will show no evidence of cardiac arrhythmias Progressing ??? Complications related to the disease process, condition or treatment will be avoided or minimized Progressing Health Behavior: ??? Understanding of discharge needs will improve Progressing Lack of Knowledge: ??? Knowledge of disease or condition will improve Progressing ??? Knowledge of the prescribed therapeutic regimen will improve Progressing ??? Ability to identify and utilize available resources and services will improve Progressing Goals: Clinical Goals for the Shift: bedrest til 1630, monitor tele, Vs, labs, advance diet as tolerated, bilateral groin sites c/d/i Summary: pt s/p a. Fib ablation, continue to monitor tele, VS, labs, fall precautions, groin site care TER REPAIR TECHNICIAN * Op Note - Cornell Hilton MD - 04/21/2018 7:57 AM CST Images from the original note were not included. Patient Name: Jade Nicole Date of : 1945 Primary Physician: Rogelio Epperson MD Procedure Date: 04/21/2018 Procedure Electrophysiology Study, with RA, LA, CS, and LV Pacing, negative for inducible arrhythmia Radiofrequency Catheter Ablation of Persistent Atrial Fibrillation / Pulmonary Vein Isolation Linear/focal Left Atrial Ablation Radiofrequency Catheter Ablation of Cavotricuspid Isthmus-dependent flutter Three-dimensional Electroanatomic Mapping and Navigation Transseptal left heart catheterization Intracardiac Echocardiography Patient History Mr. Nicole is a 72-year-old male with a history of highly symptomatic persistent atrial fibrillation. His atrial arrhythmia has been refractory to antiarrhythmic drug treatment. He presents today toundergo pulmonary vein isolation/atrial fibrillation ablation. We discussed the risks and benefits,and the patient would like to proceed. As the patient presented in atrial fibrillation/flutter, transesophageal echocardiography was performed immediately prior to the procedure. This did not demonstrate the presence of a left atrial thrombus. Method After informed consent was obtained, the patient was brought to the EP lab in a post-absorptive, non-sedated state. The patient was found to be in atrial fibrillation with normal rates at the study???s outset. Peripheral IV access was established. Continuous electrocardiography, blood pressure, andpulse oximetry monitoring was initiated and cardioversion patch electrodes were positioned on the chest and back. Anesthesia services initiated sedation and general endotracheal anesthesia. An esophageal temperature probe was placed. The patient???s bilateral inguinal areas were prepared and drapedin sterile fashion. Local anesthesia was given at the bilateral femoral access sites. Venous access was achieved with modified Seldinger technique. Four venous sheaths were placed. A multipolar catheter was advanced to the coronary sinus. Heparin was administered and a strict ACT timer was maintained to achieve ACT greater than or equal to 350 seconds. An 8 Icelandic deflectable phased-array ultrasound catheter was advanced to the center right atrium, and intracardiac echocardiography (ICE) was used to visualize the intraatrial septum and fossa ovalis in preparation for transseptalleft heart catheterization. Two transseptal punctures were performed using a SafeSept Needle-free transseptal wire with ICE and fluoroscopic guidance. After entrance into left atrium was confirmed, two sheaths (MobNeozone deflectable and SL1) were advanced into the left atrium. The sheaths were flushed with a constant infusion of heparinized saline throughout the case. A 20-pole mapping catheter ([employer] and Smart Touch irrigated pressure-sensing ablation catheter were positioned in the left atrium. Electroanatomic 3D mapping (of the LA and PVs) and catheter ablation were performed as described below. The CARTO3 mapping system and fast-anatomical contact mapping (FAM) were used to define the anatomy of the pulmonary veins, their ostia, and the left atrial appendage. Radiofrequency ablation was performed, and two wide-area circumferential lesions were created around the left and right pulmonary veins. Additional linear ablation was performed as described below. Cardioversion was performed in order to facilitate testing of the ablation lesions. The ablation catheter was navigated into the LV, and an electrophysiology study to exclude additional arrhythmia was performed. Additional ablation in the RA / cavotricuspid isthmus was performed. Catheters and sheaths were pulled back from the left atrium and a duodecapolar catheter ([employer]) was advanced to the lateral and high right atrium. FAM was used to define the relevant right atrial anatomy. Radiofrequency ablation was performed in the cavotricuspid isthmus and continued until bidirectional block was confirmed. Prior to the procedure???s conclusion, the ultrasound catheter was used to confirm that significantpericardial effusion was not present. Catheters were withdrawn, the sheaths were repositioned to the IVC, and a test dose of protamine sulfate was given. A total dose of 50 mg was administered (titrated to ACT < 200). All sheaths were removed, hemostasis was assured with manual compression, and the patient was taken to the recovery area in stable condition. Access Sites: Right femoral vein: 2 sheaths (11.5 Fr Mobicath deflectable, 8.5 Fr SL1 long) Left femoral vein: 2 sheaths (6.5 Fr, 8.5 Fr) Conduction Intervals Post-ablation A-A A-H H-V P-R QRS dur QT V-V 939 153 69 268 101 470 939 AV Conduction Post-ablation VA Block at all paced cycle lengths AVWB at 450 ms Refractory Periods Post-ablation AVN ERP 600/390 AERP 400/250/250 No arrhythmia was inducible post-ablation. Electroanatomic Mapping / Voltage mapping After transseptal access was obtained, a manually-deflected 3.5mm Smart Touch Thermocool irrigated ablation catheter was placed in the left atrium. A three- dimensional map of the left atrium, appendage, and pulmonary veins was constructed (using both the mapping catheter and ablation catheter) withfast anatomical mapping. Continuous voltage mapping of the left atrium was performed using the CONFIDENSE module of CARTO3. Healthy tissue was defined by areas of greater than 0.4 mV; dense scar was defined by areas of less than 0.1 mV. The patient was found to have severe scarring involving the posterior left atrium. Following ablation, voltage mapping was repeated, demonstrating electrical silen ce of the areas ablated. Radiofrequency Ablation Pulmonary Vein Isolation Radiofrequency energy was applied to create two wide-area circumferential lesions encircling the right and left pulmonary ostia. RF was applied in power control mode (temperature limit = 43 deg C, irrigation = 8 cc/min) with a target power 25-35W. RF was applied until a force-time integral (FTI) >400 was achieved (with attention to abatement of local electrogram and appropriate impedance changes). All lesions were limited to <30 sec at a single site. Special attention was given to identifying the location of the PV ostia (using impedance mapping and electroanatomic mapping) to ensure ablation in the antral region. Ablation continued until the Pentaray catheter, positioned sequentially in each targeted pulmonary vein antrum, demonstrated electrical silence. During ablation along the posterior left atrium, an esophageal temperature probe was advanced to closest fluoroscopic proximity to the ablation catheter. Temperature was monitored in order to preventthermal esophageal injury. When temperature increases were noted, ablation was discontinued immediately and did not resume until the temperature regressed to normal. Prior to ablation at the anterior aspect of the RSPV, high output pacing was performed along the intended path of ablation. Phrenic nerve stimulation was not found. Post ablation, the ablation catheter was navigated into the pulmonary vein ostia on the distal sideof the circumferential lesions. Exit block was demonstrated with high output pacing, showing dissociation of the atria. Voltage mapping was repeated. The mapping catheter demonstrated that all pulmonary veins were electrically silent. PA and MOHAWK views of the left atrium following ablation. Bilateral pulmonary vein isolation/wide area circumferential ablation and linear ablation lesions are shown. Left Atrial Roof line / Posterior line Given the patient???s persistent atrial fibrillation, additional substrate modification / left atrial ablation was deemed necessary and was performed. Linear ablation was performed, with a roof line constructed connecting the superior excursions of the bilateral pulmonary vein isolation lesions. Linear ablation was also performed in the posterior lateral left atrium, with a line connecting theinferior aspects of the bilateral WACA lesions (roughly parallel to the roof line). Following linear ablation, electrical silence was observed and documented throughout the area of the posterior leftatrium bounded by these lesions. Isthmus-dependent Right Atrial Flutter / Cavotricuspid Isthmus Ablation As right atrial flutter was present intermittently during the study, we proceeded to map and ablatein the RA. A duodecapolar catheter was positioned in the high and lateral RA. FAM was used to define the right atrial anatomy, including the tricuspid valve annulus, SVC, IVC, and coronary sinus. Using the ablation catheter via the long sheath, a line was constructed from the tricuspid annulus to the IVC in the 6:00 position (MOHAWK clock). The line was constructed during CS pacing, and bidirectional block was achieved. The ablation line was mapped to ensure widely spaced double potentials. GARCES view of the electroanatomic maps following ablation. In addition to ablation in the left atrium, cavotricuspid isthmus ablation is shown. Ablation Summary Total ablation time: 4212 seconds (70.2 minutes) Estimated Blood Loss <50 mL Complications None Conclusions 1. Successful ablation for AF with electrical isolation of all four pulmonary veins 2. Linear/focal left atrial ablation 3. Successful ablation of cavotricuspid isthmus 4. Electrophysiology study (with CS, RA, LA and LV pacing), negative for sustained inducible arrhythmia Recommendations 1. Admit to monitored bed for observation overnight 2. Bedrest / straight leg precautions for 4 hours 3. Resume anticoagulation tonight 4. Anticipate discharge in AM; Will follow-up in the Arrhythmia Center in 4-6 weeks Cornell Hilton MD [facility] TER REPAIR TECHNICIAN documented in this encounter Plan of Treatment Not on file documented as of this encounter Procedures Procedure Name Priority Date/Time Associated Diagnosis Comments ECG 12-LEAD Routine 04/22/2018 7:16 AM PRINTER REPAIR TECHNICIAN EGFR Routine 04/22/2018 1:32 AM PRINTER REPAIR TECHNICIAN DIFFERENTIAL AUTO Routine 04/22/2018 1:3 2 AM PRINTER REPAIR TECHNICIAN CBC WITH AUTO DIFFERENTIAL Routine 04/22/2018 1:32 AM PRINTER REPAIR TECHNICIAN BASIC METABOLIC PANEL Routine 04/22/2018 1:32 AM PRINTER REPAIR TECHNICIAN ECG 12-LEAD Routine 04/21/2018 1:22 PM PRINTER REPAIR TECHNICIAN ACTIVATED CLOTTING TIME Routine 04/21/19 19 12:38 PM PRINTER REPAIR TECHNICIAN ATRIAL FIBRILLATION ABLATION ADDITIONAL LINE OR FOCI Routine 04/21/2018 12:12 PM PRINTER REPAIR TECHNICIAN Paroxysmal atrial fibrillation (CMS/HCC) 3D MAPPING OF TACHYCARDIA Routine 2018 12:12 PM PRINTER REPAIR TECHNICIAN Paroxysmal atrial fibrillation (CMS/HCC) ELECTROPHYSIOLOGIC EVALUATION (EPS) / ATRIAL FIBRILLATION ABLATION VIA PULMONARY VEIN ISOLATION Routine 04/21/2018 12:12 PM PRINTER REPAIR TECHNICIAN Paroxysmal atrial fibrillation (CMS/HCC) ACTIVATED CLOTTING TIME Routine 04/21/19 19 12:07 PM PRINTER REPAIR TECHNICIAN ACTIVATED CLOTTING TIME Routine 04/21/19 19 11:42 AM PRINTER REPAIR TECHNICIAN ACTIVATED CLOTTING TIME Routine 04/21/19 19 11:33 AM PRINTER REPAIR TECHNICIAN ACTIVATED CLOTTING TIME Routine 04/21/19 11:14 AM PRINTER REPAIR TECHNICIAN ACTIVATED CLOTTING TIME Routine 04/21/19 10:52 AM PRINTER REPAIR TECHNICIAN ACTIVATED CLOTTING TIME Routine 04/21/19 10:35 AM PRINTER REPAIR TECHNICIAN TRANSESOPHAGEAL ECHO (GABRIELLA) W DOPPLER/CF WO CONTRAST Routine 04/21/2018 8:48 AM PRINTER REPAIR TECHNICIAN EGFR STAT 04/21/2018 7:11 AM PRINTER REPAIR TECHNICIAN DIFFERENTIAL AUTO STAT 04/21/2018 7:1 1 AM PRINTER REPAIR TECHNICIAN CBC WITH AUTO DIFFERENTIAL STAT 04/21/2018 7:11 AM PRINTER REPAIR TECHNICIAN BASIC METABOLIC PANEL STAT 04/21/2018 7:11 AM PRINTER REPAIR TECHNICIAN ECG 12-LEAD STAT 04/21/2018 6:58 AM PRINTER REPAIR TECHNICIAN documented in this encounter Results * ECG 12 lead (04/22/2018 7:16 AM PRINTER REPAIR TECHNICIAN) 04/22/2018 7:16 AM PRINTER REPAIR TECHNICIAN Narrative [facility] - 04/22/2018 9:11 AM PRINTER REPAIR TECHNICIAN Vent Rate: 70 bpm RR Interval: 848 msec TX Interval: 245 msec QRS Duration: 100 msec QT Interval: 418 msec QTC Interval: 439 msec P-R-T Banner: 34 - 22 - 30 degrees SINUS RHYTHM WITH FIRST DEGREE AV BLOCK ABNORMAL ECG Compared with 04/21/2018 at 1:22 p.m. QT interval is shorter Electronically Signed By: Helene Linda MD us Cornell Hilton MD ECG ORDERABLES Final R esult [facility] * eGFR (04/22/2018 1:32 AM PRINTER REPAIR TECHNICIAN) eGFR 81 mL/min/1.7 3 m2 [facility] Comment: Interpretive Data Reference Interval Normal ?>/= 90 mL/min/1.73m2 Mildly decreased* ? 60 - 89 mL/min/1.73m2 Mildly to moderately decreased ?45 - 59 mL/min/1.73m2 Moderately to severely decreased ??30 - 44 mL/min/1.73m2 Severely decreased ?15 - 29 mL/min/1.73m2 Kidney Failure ?< 15 ??mL/min/1.73m2 *Relative to young adult level If -Emirati multiply value by 1.16. Estimated glomerular filtration rate is determined by the CKD-EPI equation recommended by the National Kidney Foundation (KDIGO 2012 Clinical Practice Guideline for the Evaluation and Management of Chronic Kidney Disease. Kidney Intnl Suppl Feb 2012;3:1). The CKD-EPI equation should not be used for patients with unstable renal function and has not been validated in children and those over 70. Current interpretive data was last reviewed 2016. Blood specimen (specimen) 04/22/2018 1:32 AM PRINTER REPAIR TECHNICIAN 04/22/2018 2:11 AM PRINTER REPAIR TECHNICIAN Narrative [facility] - 04/22/2018 2:40 AM PRINTER REPAIR TECHNICIAN us Cornell Hilton MD LAB BLOOD ORDERABLES Fi nal Result [facility] [address] Department [place] [address] * (ABNORMAL) Differential, auto (04/22/2018 1:32 AM PRINTER REPAIR TECHNICIAN) Neutrophil abs 8.7(H) 1.7 - 6.5 K/cumm [facility] Imm gran abs 0.0 0.0 - 0.1 K/cumm [facility] Lymphocyte abs 1.2 0.8 - 3.3 K/cumm [facility] Monocyte abs 0.3 0.2 - 0.8 K/cumm [facility] Eosinophil abs 0.0 0.0 - 0.5 K/cumm [facility] Basophil abs 0.0 0.0 - 0.1 K/cumm [facility] Neutrophil pct 84.7 % [facility] Comment: Interpretive Data Percent cell count reference ranges are not reported, since discordance with absolute values may lead to misinterpretation of CBC data. Current Interpretive Data was last revised on 2017. Imm gran pct 0.4 % [facility] Comment: Interpretive Data Percent cell count reference ranges are not reported, since discordance with absolute values may lead to misinterpretation of CBC data. Current Interpretive Data was last revised on 2017. Lymphocyte pct 12.2 % [facility] Comment: Interpretive Data Percent cell count reference ranges are not reported, since discordance with absolute values may lead to misinterpretation of CBC data. Current Interpretive Data was last revised on 2017. Monocyte pct 2.6 % [facility] Comment: Interpretive Data Percent cell count reference ranges are not reported, since discordance with absolute values may lead to misinterpretation of CBC data. Current Interpretive Data was last revised on 2017. Eosinophil pct 0.0 % [facility] Comment: Interpretive Data Percent cell count reference ranges are not reported, since discordance with absolute values may lead to misinterpretation of CBC data. Current Interpretive Data was last revised on 2017. Basophil pct 0.1 % [facility] Comment: Interpretive Data Percent cell count reference ranges are not reported, since discordance with absolute values may lead to misinterpretation of CBC data. Current Interpretive Data was last revised on 2017. Blood specimen (specimen) 04/22/2018 1:32 AM PRINTER REPAIR TECHNICIAN 04/22/2018 2:12 AM PRINTER REPAIR TECHNICIAN Narrative [facility] - 04/22/2018 2:20 AM PRINTER REPAIR TECHNICIAN us Cornell Hilton MD LAB BLOOD ORDERABLES Fi nal Result [facility] [address] [place] [address] * (ABNORMAL) CBC with auto differential (04/22/2018 1:32 AM PRINTER REPAIR TECHNICIAN) WBC 10.2(H) 3.8 - 9.9 K/cumm [facility] Hgb 14.1 13.0 - 17.5 g/dL [facility] Hct 43.2 38.9 - 50.3 % [facility] Plt 349 150 - 400 K/cumm [facility] MPV 10.9 9.1 - 12.3 fL [facility] RBC 4.70 4.30 - 5.80 M/cumm [facility] MCV 91.9 81.3 - 96.4 fL [facility] MCH 30.0 27.1 - 33.3 pg [facility] MCHC 32.6 32.3 - 35.7 g/dL [facility] RDW CV 13.6 11.1 - 14.9 % [facility] RDW SD 46.5 35.7 - 48.1 fL [facility] NRBC abs 0.00 0.00 - 0.01 K/cumm [facility] Blood specimen (specimen) 04/22/2018 1:32 AM PRINTER REPAIR TECHNICIAN 04/22/2018 2:12 AM PRINTER REPAIR TECHNICIAN Narrative [facility] - 04/22/2018 2:20 AM PRINTER REPAIR TECHNICIAN us Cornell Hilton MD LAB BLOOD ORDERABLES Fi nal Result [facility] [address] [place] [address] * (ABNORMAL) Basic metabolic panel (04/22/2018 1:32 AM PRINTER REPAIR TECHNICIAN) [facility] Sodium 138 135 - 145 mmol/L [facility] Potassium, pl 4.2 3.3 - 4.9 mmol/L [facility] Chloride 98 97 - 110 mmol/L [facility] CO2 23 22 - 32 mmol/L [facility] Anion gap 17(H) 2 - 15 mmol/L [facility] BUN 19 8 - 25 mg/dL [facility] Creatinine 0.94 0.80 - 1.30 mg/dL [facility] Glucose 152 70 - 199 mg/dL [facility] Comment: Interpretive Data Fasting glucose >/= 126 mg/dl is diagnostic for diabetes. ?? Fasting is defined as no caloric intake for at least 8 hours. Fasting glucose between 100 mg/dl to 125 mg/dl is diagnostic of prediabetes. In a patient with classic symptoms of hyperglycemia or hyperglycemic crisis, a random glucose >/= 200 mg/dl is diagnostic for diabetes. In the absence of unequivocal hyperglycemia, results should be confirmed by repeat testing. The classification and Diagnosis of Diabetes Diabetes Care 2017;40 (Suppl. 1):S11. Current interpretive data was last revised 2017. Calcium 9.0 8.5 - 10.3 mg/dL [facility] Blood specimen (specimen) 04/22/2018 1:32 AM PRINTER REPAIR TECHNICIAN 04/22/2018 2:11 AM PRINTER REPAIR TECHNICIAN Narrative [facility] - 04/22/2018 2:40 AM PRINTER REPAIR TECHNICIAN us Cornell Hilton MD LAB BLOOD ORDERABLES Fi nal Result Performing Organization Address City/[facility]/ZIP Co de Phone Number [facility] [address] [place] [address] * ECG 12 lead (04/21/2018 1:22 PM PRINTER REPAIR TECHNICIAN) 04/21/2018 1:22 PM PRINTER REPAIR TECHNICIAN Narrative [facility] - 04/22/2018 10:34 AM PRINTER REPAIR TECHNICIAN Vent Rate: 68 bpm RR Interval: 873 msec TX Interval: 255 msec QRS Duration: 102 msec QT Interval: 449 msec QTC Interval: 467 msec P-R-T Banner: 55 - 24 - 44 degrees SINUS RHYTHM WITH FIRST DEGREE AV BLOCK PROLONGED QT INTERVAL ABNORMAL ECG Compared with 04/21/2018 at 6:58 a.m. Atrial fibrillation has resolved Electronically Signed By: Helene Linda MD us Cornell Hilton MD ECG ORDERABLES Final R esult Performing Organization Address City/[facility]/ZIP Co de Phone Number [facility] [place] [facility] * Activated Clotting Time (04/21/2018 12:38 PM PRINTER REPAIR TECHNICIAN) ACT, POC 190 sec [facility] Comment: The normal clotting time for nonheparinized individual is approximately 120 seconds.Most Cardiac Cath / PTCA heparinized patients average 300-400 seconds. An ACT <200 seconds is necessary in order to pull the arterial sheath in PTCA. The normal range of ACT for the heparinized patient to be placed CPB is 400-800 seconds. Blood specimen (specimen) 04/21/2018 12:38 PM PRINTER REPAIR TECHNICIAN 04/21/2018 12:38 PM PRINTER REPAIR TECHNICIAN Narrative [facility] - 04/22/2018 3:35 PM PRINTER REPAIR TECHNICIAN Cornell Hilton MD LAB BLOOD ORDERABLES Fi nal Result [facility] [address] Department [place] [address] * ELECTROPHYSIOLOGIC EVALUATION (EPS) / ATRIAL FIBRILLATION ABLATION VIA PULMONARY VEIN ISOLATION, 3DMAPPING OF TACHYCARDIA, ATRIAL FIBRILLATION ABLATION ADDITIONAL LINE OR FOCI (04/21/2018 12:12 PM PRINTER REPAIR TECHNICIAN) Anatomical Region Laterality Modality X-Ray Angiograph y Cornell Hilton MD CV ELECTROPHYSIOLOGY TX OCS Final Result * Activated Clotting Time (04/21/2018 12:07 PM PRINTER REPAIR TECHNICIAN) [facility] ACT, POC 348 sec [facility] Comment: The normal clotting time for nonheparinized individual is approximately 120 seconds.Most Cardiac Cath / PTCA heparinized patients average 300-400 seconds. An ACT <200 seconds is necessary in order to pull the arterial sheath in PTCA. The normal range of ACT for the heparinized patient to be placed CPB is 400-800 seconds. Blood specimen (specimen) 04/21/2018 12:07 PM PRINTER REPAIR TECHNICIAN 04/21/2018 12:07 PM PRINTER REPAIR TECHNICIAN Narrative [facility] - 04/22/2018 3:35 PM PRINTER REPAIR TECHNICIAN Cornell Hilton MD LAB BLOOD ORDERABLES Fi nal Result Performing Organization Address [facility] de Phone Number [facility] [address] [place] [address] * Activated Clotting Time (04/21/2018 11:42 AM PRINTER REPAIR TECHNICIAN) ACT, POC 263 sec [facility] Comment: The normal clotting time for nonheparinized individual is approximately 120 seconds.Most Cardiac Cath / PTCA heparinized patients average 300-400 seconds. An ACT <200 seconds is necessary in order to pull the arterial sheath in PTCA. The normal range of ACT for the heparinized patient to be placed CPB is 400-800 seconds. Blood specimen (specimen) 04/21/2018 11:42 AM PRINTER REPAIR TECHNICIAN 04/21/2018 11:42 AM PRINTER REPAIR TECHNICIAN [facility] - 04/21/2018 12:33 PM PRINTER REPAIR TECHNICIAN Cornell Hilton MD LAB BLOOD ORDERABLES Fi nal Result Performing Organization Address [facility] de Phone Number [facility] [address] [place] [address] * Activated Clotting Time (04/21/2018 11:33 AM PRINTER REPAIR TECHNICIAN) [facility] ACT, POC 313 sec [facility] Comment: The normal clotting time for nonheparinized individual is approximately 120 seconds.Most Cardiac Cath / PTCA heparinized patients average 300-400 seconds. An ACT <200 seconds is necessary in order to pull the arterial sheath in PTCA. The normal range of ACT for the heparinized patient to be placed CPB is 400-800 seconds. Blood specimen (specimen) 04/21/2018 11:33 AM PRINTER REPAIR TECHNICIAN 04/21/2018 11:33 AM PRINTER REPAIR TECHNICIAN Narrative [facility] - 04/22/2018 3:35 PM PRINTER REPAIR TECHNICIAN Cornell Hilton MD LAB BLOOD ORDERABLES Fi nal Result Performing Organization Address [facility] de Phone Number [facility] [address] [place] [address] * Activated Clotting Time (04/21/2018 11:14 AM PRINTER REPAIR TECHNICIAN) ACT, POC 313 sec [facility] Comment: The normal clotting time for nonheparinized individual is approximately 120 seconds.Most Cardiac Cath / PTCA heparinized patients average 300-400 seconds. An ACT <200 seconds is necessary in order to pull the arterial sheath in PTCA. The normal range of ACT for the heparinized patient to be placed CPB is 400-800 seconds. Blood specimen (specimen) 04/21/2018 11:14 AM PRINTER REPAIR TECHNICIAN 04/21/2018 11:14 AM PRINTER REPAIR TECHNICIAN [facility] - 04/21/2018 12:33 PM PRINTER REPAIR TECHNICIAN Cornell Hilton MD LAB BLOOD ORDERABLES nal Result Performing Organization Address [facility] de Phone Number [facility] [address] [place] [address] * Activated Clotting Time (04/21/2018 10:52 AM PRINTER REPAIR TECHNICIAN) ACT, POC 235 sec [facility] Comment: The normal clotting time for nonheparinized individual is approximately 120 seconds.Most Cardiac Cath / PTCA heparinized patients average 300-400 seconds. An ACT <200 seconds is necessary in order to pull the arterial sheath in PTCA. The normal range of ACT for the heparinized patient to be placed CPB is 400-800 seconds. Blood specimen (specimen) 04/21/2018 10:52 AM PRINTER REPAIR TECHNICIAN 04/21/2018 10:52 AM PRINTER REPAIR TECHNICIAN Narrative [facility] - 04/21/2018 12:34 PM PRINTER REPAIR TECHNICIAN Cornell Hilton MD LAB BLOOD ORDERABLES Fi nal Result Performing Organization Address [facility] Co de Phone Number [facility] [address] [place] [address] * Activated Clotting Time (04/21/2018 10:35 AM PRINTER REPAIR TECHNICIAN) ACT, POC 222 sec [facility] Comment: The normal clotting time for nonheparinized individual is approximately 120 seconds.Most Cardiac Cath / PTCA heparinized patients average 300-400 seconds. An ACT <200 seconds is necessary in order to pull the arterial sheath in PTCA. The normal range of ACT for the heparinized patient to be placed CPB is 400-800 seconds. Blood specimen (specimen) 04/21/2018 10:35 AM PRINTER REPAIR TECHNICIAN 04/21/2018 10:35 AM PRINTER REPAIR TECHNICIAN Narrative [facility] - 04/21/2018 12:34 PM PRINTER REPAIR TECHNICIAN us Cornell Hilton MD LAB BLOOD ORDERABLES Fi nal Result [facility] [address] [place] [address] * TRANSESOPHAGEAL ECHO (GABRIELLA) W DOPPLER/CF WO CONTRAST (04/21/2018 8:48 AM PRINTER REPAIR TECHNICIAN) Anatomical Region Laterality Modality Echocardiography 04/21/2018 8:09 AM PRINTER REPAIR TECHNICIAN Narrative 04/21/2018 9:29 AM PRINTER REPAIR TECHNICIAN [facility] [address] [place] [address] TRANSESOPHAGEAL ECHOCARDIOGRAM Patient Name: JADE NICOLE : [id number] Study Date: 04/21/2018 8:09:01 AM Gender: M Tech: CB Location: 6143 Ref.Physician: CORNELL HILTON Height(Cm): 175 BSA: 2.57 Weight(Kg): 136.1 Order Physician: CORNELL HILTON Procedures: Transesophageal Echo Report: Transesophageal echocardiogram including 2D imaging, spectral doppler and color doppler was performed in the cardiac catheterization laboratory. The procedure was monitored with automatic blood pressure monitoring, ECG tracings, and pulse oximetry. Sedation was achieved by anesthesia using Propofol IV. with intubation fir an AF ablation.The transesophageal probe was placed in the esophagus posterior to the heart without any complications. The patient tolerated the procedure well. Indications: Atrial fibrillation, and Mitral valve disease. Measurements: Doppler Measurement ?Value ?Normal Range ? TR Peak Zeke ?2.1 ?[ 1.0 - 2.8 ] m/s ? TR Peak PG ? 17 ? mmHg ? Findings: Study Quality: Technically good study. BP: Blood pressure: 114/57 mmHg. Left Ventricle: Normal global and regional left ventricular systolic function. EF 60%. Normal left ventricular cavity size. Right Ventricle: Normal right ventricular systolic function. Mild enlargement of right ventricle. Left Atrium: There is mild enlargement of the left atrium. LA Appendage: No SARAH thrombus seen. Right Atrium: There is moderate enlargement of the right atrium. Atrial Septum: Normal atrial septum. A bubble contrast study was negative for shunt. Mitral Valve: Normal appearance of the mitral valve. Mild mitral valve regurgitation. Aortic Valve: Aortic cusps appear mildly calcified. Tricuspid Valve: Normal appearance of the tricuspid valve. Normal right ventricular systolic pressure. There is mild tricuspid regurgitation. Pulmonic Valve: Normal pulmonic valve appearance and function with trace (physiologic) regurgitation. Pericardium: Normal pericardium with no significant pericardial effusion. Aorta: Normal aortic root size. IVC: Normal size and normal respiratory collapse consistent with normal right atrial pressure (<5 mmHg). SVC: Normal size and normal respiratory collapse consistent with normal right atrial pressure (<5 mmHg). Pulmonary Artery: Normal pulmonary artery size. Conclusions: 1. Normal global and regional left ventricular systolic function. EF 60%. Normal left ventricular cavity size. 2. Normal right ventricular systolic function. Mild enlargement of right ventricle. 3. There is mild enlargement of the left atrium. 4. There is moderate enlargement of the right atrium. 5. Normal atrial septum. A bubble contrast study was negative for shunt. 6. Normal appearance of the mitral valve. Mild mitral valve regurgitation. 7. Aortic cusps appear mildly calcified. 8. Normal appearance of the tricuspid valve. Normal right ventricular systolic pressure. There is mild tricuspid regurgitation. 9. No SARAH thrombus seen. Electronically Signed By: Russell Jay DO [facility] 2018-04-21 09:29:51 PRINTER REPAIR TECHNICIAN CC: CC: Procedure Note MistyRussell, DO - 04/21/2018 [facility] [address] [place] [address] TRANSESOPHAGEAL ECHOCARDIOGRAM Patient Name: Barak NICOLE ID: [id number] : [id number] Date: 04/21/2018 8:09:01 AM Gender: MAccession #: [id number] Tech: CBLocation: [id number] Ref.Physician: GREGORIO HILTONeishellit(Cm): 175 BSA: 2.57Weight(Kg): 136.1 Order Physician: CORNELL HILTON Procedures: Transesophageal Echo Report: Transesophageal echocardiogram including 2D imaging, spectral doppler andcolor doppler was performed in the cardiac catheterization laboratory. The procedure wasmonitored with automatic blood pressure monitoring, ECG tracings, and pulse oximetry.Sedation was achieved by anesthesia using Propofol IV. with intubation fir an AFablation.The transesophageal probe was placed in the esophagus posterior to the heartwithout any complications. The patient tolerated the procedure well. Indications: Atrial fibrillation, and Mitral valve disease. Measurements: Doppler Measurement Value Normal Range TR Peak Zeke 2.1 [ 1.0 - 2.8 ] m/s TR Peak PG 17 mmHg Findings: Study Quality: Technically good study. BP: Blood pressure: 114/57 mmHg. Left Ventricle: Normal global and regional left ventricular systolic function. EF 60%.Normal left ventricular cavity size. Right Ventricle: Normal right ventricular systolic function. Mild enlargement of rightventricle. Left Atrium: There is mild enlargement of the left atrium. LA Appendage: No SARAH thrombus seen. Right Atrium: There is moderate enlargement of the right atrium. Atrial Septum: Normal atrial septum. A bubble contrast study was negative for shunt. Mitral Valve: Normal appearance of the mitral valve. Mild mitral valve regurgitation. Aortic Valve: Aortic cusps appear mildly calcified. Tricuspid Valve: Normal appearance of the tricuspid valve. Normal right ventricularsystolic pressure. There is mild tricuspid regurgitation. Pulmonic Valve: Normal pulmonic valve appearance and function with trace (physiologic)regurgitation. Pericardium: Normal pericardium with no significant pericardial effusion. Aorta: Normal aortic root size. IVC: Normal size and normal respiratory collapse consistent with normal rightatrial pressure (<5 mmHg). SVC: Normal size and normal respiratory collapse consistent with normal rightatrial pressure (<5 mmHg). Pulmonary Artery: Normal pulmonary artery size. Conclusions: 1. Normal global and regional left ventricular systolic function. EF 60%.Normal left ventricular cavity size. 2. Normal right ventricular systolic function. Mild enlargement of rightventricle. 3. There is mild enlargement of the left atrium. 4. There is moderate enlargement of the right atrium. 5. Normal atrial septum. A bubble contrast study was negative for shunt. 6. Normal appearance of the mitral valve. Mild mitral valveregurgitation. 7. Aortic cusps appear mildly calcified. 8. Normal appearance of the tricuspid valve. Normal right ventricularsystolic pressure. There is mild tricuspid regurgitation. 9. No SARAH thrombus seen. Electronically Signed By: Russell Jay DO [facility] 2018-04-21 09:29:51 PRINTER REPAIR TECHNICIAN CC: CC: us Cornell Hilton MD CV ECHO PROCEDURES Ling l Result * eGFR (04/21/2018 7:11 AM PRINTER REPAIR TECHNICIAN) eGFR 77 mL/min/1.7 3 m2 [facility] Comment: Interpretive Data Reference Interval Normal ?>/= 90 mL/min/1.73m2 Mildly decreased* ? 60 - 89 mL/min/1.73m2 Mildly to moderately decreased ?45 - 59 mL/min/1.73m2 Moderately to severely decreased ??30 - 44 mL/min/1.73m2 Severely decreased ?15 - 29 mL/min/1.73m2 Kidney Failure ?< 15 ??mL/min/1.73m2 *Relative to young adult level If -Emirati multiply value by 1.16. Estimated glomerular filtration rate is determined by the CKD-EPI equation recommended by the National Kidney Foundation (KDIGO 2012 Clinical Practice Guideline for the Evaluation and Management of Chronic Kidney Disease. Kidney Intnl Suppl Feb 2012;3:1). The CKD-EPI equation should not be used for patients with unstable renal function and has not been validated in children and those over 70. Current interpretive data was last reviewed 2016. Blood specimen (specimen) 04/21/2018 7:11 AM PRINTER REPAIR TECHNICIAN 04/21/2018 7:36 AM PRINTER REPAIR TECHNICIAN Narrative [facility] - 04/21/2018 8:05 AM PRINTER REPAIR TECHNICIAN us Cornell Hilton MD LAB BLOOD ORDERABLES Fi nal Result [facility] [address] [place] [address] * Differential, auto (04/21/2018 7:11 AM PRINTER REPAIR TECHNICIAN) Neutrophil abs 5.8 1.7 - 6.5 K/cumm [facility] Imm gran abs 0.0 0.0 - 0.1 K/cumm [facility] Lymphocyte abs 1.9 0.8 - 3.3 K/cumm [facility] Monocyte abs 0.8 0.2 - 0.8 K/cumm [facility] Eosinophil abs 0.2 0.0 - 0.5 K/cumm [facility] Basophil abs 0.1 0.0 - 0.1 K/cumm [facility] Neutrophil pct 66.4 % [facility] Comment: Interpretive Data Percent cell count reference ranges are not reported, since discordance with absolute values may lead to misinterpretation of CBC data. Current Interpretive Data was last revised on 2017. Imm gran pct 0.3 % [facility] Comment: Interpretive Data Percent cell count reference ranges are not reported, since discordance with absolute values may lead to misinterpretation of CBC data. Current Interpretive Data was last revised on 2017. Lymphocyte pct 21.6 % [facility] Comment: Interpretive Data Percent cell count reference ranges are not reported, since discordance with absolute values may lead to misinterpretation of CBC data. Current Interpretive Data was last revised on 2017. Monocyte pct 8.9 % [facility] Comment: Interpretive Data Percent cell count reference ranges are not reported, since discordance with absolute values may lead to misinterpretation of CBC data. Current Interpretive Data was last revised on 2017. Eosinophil pct 2.1 % [facility] Comment: Interpretive Data Percent cell count reference ranges are not reported, since discordance with absolute values may lead to misinterpretation of CBC data. Current Interpretive Data was last revised on 2017. Basophil pct 0.7 % [facility] Comment: Interpretive Data Percent cell count reference ranges are not reported, since discordance with absolute values may lead to misinterpretation of CBC data. Current Interpretive Data was last revised on 2017. Blood specimen (specimen) 04/21/2018 7:11 AM PRINTER REPAIR TECHNICIAN 04/21/2018 7:36 AM PRINTER REPAIR TECHNICIAN Narrative [facility] - 04/21/2018 7:45 AM PRINTER REPAIR TECHNICIAN Cornell Hilton MD LAB BLOOD ORDERABLES Fi nal Result [facility] [address] [place] [address] * (ABNORMAL) CBC with auto differential (04/21/2018 7:11 AM PRINTER REPAIR TECHNICIAN) WBC 8.7 3.8 - 9.9 K/cumm [facility] Hgb 14.4 13.0 - 17.5 g/dL [facility] Hct 45.0 38.9 - 50.3 % [facility] Plt 391 150 - 400 K/cumm [facility] MPV 10.7 9.1 - 12.3 fL [facility] RBC 4.82 4.30 - 5.80 M/cumm [facility] MCV 93.4 81.3 - 96.4 fL [facility] MCH 29.9 27.1 - 33.3 pg [facility] MCHC 32.0(L) 32.3 - 35.7 g/dL [facility] RDW CV 13.7 11.1 - 14.9 % [facility] RDW SD 46.6 35.7 - 48.1 fL [facility] NRBC abs 0.00 0.00 - 0.01 K/cumm [facility] Blood specimen (specimen) 04/21/2018 7:11 AM PRINTER REPAIR TECHNICIAN 04/21/2018 7:36 AM PRINTER REPAIR TECHNICIAN Narrative [facility] - 04/21/2018 7:45 AM PRINTER REPAIR TECHNICIAN Cornell Hilton MD LAB BLOOD ORDERABLES Fi nal Result [facility] [address] [place] [address] * (ABNORMAL) Basic metabolic panel (04/21/2018 7:11 AM PRINTER REPAIR TECHNICIAN) Sodium 141 135 - 145 mmol/L [facility] Potassium, pl 5.0(H) 3.3 - 4.9 mmol/L [facility] Chloride 100 97 - 110 mmol/L [facility] CO2 28 22 - 32 mmol/L [facility] Anion gap 13 2 - 15 mmol/L [facility] BUN 20 8 - 25 mg/dL [facility] Creatinine 0.98 0.80 - 1.30 mg/dL [facility] Glucose 113 70 - 199 mg/dL [facility] Comment: Interpretive Data Fasting glucose >/= 126 mg/dl is diagnostic for diabetes. ?? Fasting is defined as no caloric intake for at least 8 hours. Fasting glucose between 100 mg/dl to 125 mg/dl is diagnostic of prediabetes. In a patient with classic symptoms of hyperglycemia or hyperglycemic crisis, a random glucose >/= 200 mg/dl is diagnostic for diabetes. In the absence of unequivocal hyperglycemia, results should be confirmed by repeat testing. The classification and Diagnosis of Diabetes Diabetes Care 2017;40 (Suppl. 1):S11. Current interpretive data was last revised 2017. Calcium 9.1 8.5 - 10.3 mg/dL [facility] Blood specimen (specimen) 04/21/2018 7:11 AM PRINTER REPAIR TECHNICIAN 04/21/2018 7:36 AM PRINTER REPAIR TECHNICIAN Narrative [facility] - 04/21/2018 8:05 AM PRINTER REPAIR TECHNICIAN Cornell Hilton MD LAB BLOOD ORDERABLES Fi nal Result Performing Organization Address City/[facility]/ZIP Co de Phone Number [facility] [address] [place] [address] * ECG 12 lead (04/21/2018 6:58 AM PRINTER REPAIR TECHNICIAN) 04/21/2018 6:58 AM PRINTER REPAIR TECHNICIAN Narrative [facility] - 04/21/2018 8:57 AM PRINTER REPAIR TECHNICIAN Vent Rate: 64 bpm RR Interval: 932 msec TX Interval: 0 msec QRS Duration: 106 msec QT Interval: 446 msec QTC Interval: 455 msec P-R-T Banner: 0 - 32 - 60 degrees ATRIAL FIBRILLATION ABNORMAL RHYTHM ECG INTERPRETATION BASED ON A DEFAULT AGE OF 40 YEARS Electronically Signed By: Ezra Lo MD, [facility] us Cornell Hilton MD ECG ORDERABLES Final R esult Performing Organization Address [facility] de Phone Number [facility] [place] [facility] documented in this encounter Visit Diagnoses Diagnosis Paroxysmal atrial fibrillation (CMS/HCC) (HCC)- Primary Atrial fibrillation Paroxysmal atrial fibrillation (CMS/HCC) (HCC) Atrial fibrillation Persistent atrial fibrillation (HCC) Atrial fibrillation documented in this encounter Admitting Diagnoses Diagnosis Paroxysmal atrial fibrillation (CMS/HCC) (HCC) Atrial fibrillation documented in this encounter Administered Medications Inactive Administered Medications - up to 3 most recent administrations Medication Order MAR Action Action Date Dose Rate Site amLODIPine (NORVASC) tablet 10 mg 10 mg, oral, Nightly, First dose on Fri04/21/18 at 2100 Given 04/21/2018 8:40 PM PRINTER REPAIR TECHNICIAN 10 mg apixaban (ELIQUIS) tablet 5 mg 5 mg, oral, 2 times daily, First dose on Fri04/21/18 at 1630, May crush and suspend in 60 ml of water, D5W, apple juice or apple sauce. If on heparin infusion, discontinue heparin infusion upon first administration of apixaban., Indications: atrial fibrillationIndications:atrial fibrillation Given 04/22/2018 9:30 AM PRINTER REPAIR TECHNICIAN 5 mg Given 04/21/2018 8:39 PM PRINTER REPAIR TECHNICIAN 5 mg aspirin chewable tablet 81 mg 81 mg, oral, Daily, First dose on Fri04/21/18 at 1500 Given 04/22/2018 9:31 AM PRINTER REPAIR TECHNICIAN 81 mg atorvastatin (LIPITOR) tablet 10 mg 10 mg, oral, Nightly, First dose on Fri04/21/18 at 2100 Given 04/21/2018 8:40 PM PRINTER REPAIR TECHNICIAN 10 mg azelastine (ASTELIN) 137 mcg (0.1 %) nasal spray 1 spray 1 spray, each nostril, Nightly, First dose on Fri04/21/18 at 2100 Given 04/21/2018 9:12 PM PRINTER REPAIR TECHNICIAN 1 spray benzocaine-menthol (CEPACOL) lozenge 1 lozenge 1 lozenge, mouth/throat, Every 2 hours PRN, sore throat, Starting on Fri04/21/18 at 1938 Given 04/22/2018 1:17 AM PRINTER REPAIR TECHNICIAN 1 lozenge Given 04/21/2018 8:39 PM PRINTER REPAIR TECHNICIAN 1 lozenge cholecalciferol (VITAMIN D-3) tablet 5,000 Units 5,000 Units, oral, Daily, First dose on Fri04/21/18 at 1500 Given 04/22/2018 9:31 AM PRINTER REPAIR TECHNICIAN 5,000 Units clopidogrel (PLAVIX) tablet 75 mg 75 mg, oral, Nightly, First dose on Fri04/21/18 at 2100 Given 04/21/2018 8:37 PM PRINTER REPAIR TECHNICIAN 75 mg cyanocobalamin (Vitamin B-12) tablet 1,000 mcg 1,000 mcg, oral, Daily, First dose on Fri04/21/18 at 1500, Indications: Prevention of Vitamin B12 DeficiencyIndications:Prevention of Vitamin B12 Deficiency Given 04/22/2018 9:31 AM PRINTER REPAIR TECHNICIAN 1,000 mcg famotidine (PEPCID) tablet 20 mg 20 mg, oral, Nightly, First dose on Fri04/21/18 at 2100 Given 04/21/2018 8:40 PM PRINTER REPAIR TECHNICIAN 20 mg fluticasone (FLONASE) 50 mcg/actuation nasal spray 2 spray 2 spray, each nostril, Daily, First dose on Fri04/21/18 at 1500 Given 04/22/2018 9:43 AM PRINTER REPAIR TECHNICIAN 2 sprays furosemide (LASIX) tablet 40 mg 40 mg, oral, Daily, First dose on Fri04/21/18 at 1500 Given 04/22/2018 9:30 AM PRINTER REPAIR TECHNICIAN 40 mg Given 04/21/2018 4:26 PM PRINTER REPAIR TECHNICIAN 40 mg gabapentin (NEURONTIN) tablet 600 mg 600 mg, oral, 3 times daily, First dose on Fri04/21/18 at 1600 Given 04/22/2018 9:30 AM PRINTER REPAIR TECHNICIAN 600 mg Given 04/21/2018 8:37 PM PRINTER REPAIR TECHNICIAN 600 mg lisinopril (PRINIVIL,ZESTRIL) tablet 20 mg 20 mg, oral, Nightly, First dose (after last modification) on Fri04/21/18 at 2100 Given 04/21/2018 8:37 PM PRINTER REPAIR TECHNICIAN 20 mg sodium chloride 0.9% flush 0.5-20 mL 0.5-20 mL, intra-catheter, Every 8 hours scheduled, First dose on Fri04/21/18 at 1400, Recovery (CV), Flush volume based on line type and size. , Indications: FlushingIndications:Flushing Given 04/22/2018 9:43 AM PRINTER REPAIR TECHNICIAN 10 mL Given 04/21/2018 9:12 PM PRINTER REPAIR TECHNICIAN 10 mL Given 04/21/2018 2:30 PM PRINTER REPAIR TECHNICIAN 10 mL sodium chloride 0.9% infusion 15 mL/hr, intravenous, Continuous, Starting on Fri04/21/18 at 0730 New Bag 04/21/2018 7:00 AM PRINTER REPAIR TECHNICIAN sotalol (BETAPACE) tablet 80 mg 80 mg, oral, 2 times daily, First dose on Fri04/21/18 at 2100 Given 04/22/2018 9:30 AM PRINTER REPAIR TECHNICIAN 80 mg Given 04/21/2018 8:39 PM PRINTER REPAIR TECHNICIAN 80 mg documented in this encounter Discontinued Medications Medication Sig Discontinue Reason Start Date End Da te acetaminophen (TYLENOL EXTRA STRENGTH) 500 mg tablet take 1 - 2 Tablet (500MG) by oral route every 6 hours as needed 08/03/2015 04/20/2018 amLODIPine (NORVASC) 10 mg tablet TAKE 1 TABLET BY MOUTH EVERY DAY 10/06/2017 04/20/2018 clopidogrel (PLAVIX) 75 mg tablet TAKE 1 TABLET BY MOUTH EVERY DAY 01/21/2018 04/20/2018 ELIQUIS 5 mg tablet TAKE 1 TABLET BY MOUTH TWO TIMES DAILY 10/06/2017 04/20/2018 famotidine (PEPCID AC) 20 mg tablet take 1 tablet (20MG) by oral route 2 times every day 06/04/2012 04/20/2018 indomethacin (INDOCIN) 25 mg capsuleIndications:Gou t Take 25 mg by mouth 2 (two) times a day as needed. 04/20/2018 nitroglycerin (NITROSTAT) 0.[address] 1 TABLET BETWEEN CHEEK AND GUM AT 1ST SIGN OF ATTACK; NO MORE THAN 3 TABLETS ARE RECOMMENDED WITHIN 15 MINUTE PERIOD. 10/06/2017 04/20/2018 ramipril (ALTACE) 10 mg capsule TAKE 1 CAPSULE BY MOUTH EVERY DAY 01/21/2018 04/20/2018 sotalol (BETAPACE) 80 mg tablet TAKE 1 TABLET BY MOUTH TWO TIMES DAILY 12/31/2017 04/20/2018 documented as of this encounter Historical Medications * This list may reflect changes made after this encounter. acetaminophen (TYLENOL) 500 mg tablet Take 1-2 tablets (500-1,000 mg total) by mouth every 6 (six) hours as needed for pain furosemide (LASIX) 40 mg tablet Take 40 mg by mouth daily. 10/20/2018 aspirin 81 mg chewable tablet Take 1 tablet (81 mg total) by mouth daily 03/13/2023 sotalol (BETAPACE) 80 mg tablet Take 80 mg by mouth 2 (two) times a day. 06/07/2018 ramipril (ALTACE) 10 mg capsule Take 10 mg by mouth nightly. 04/15/2019 nitroglycerin (NITROSTAT) 0.[address] 0.4 mg under the tongue every 5 (five) minutes as needed for chest pain. 05/21/2019 indomethacin (INDOCIN) 50 mg capsuleIndication s:Gout Take 50 mg by mouth 2 (two) times a day as needed for pain. 01/04/2020 famotidine (PEPCID) 20 mg tablet Take 20 mg by mouth nightly. 02/14/2022 apixaban (ELIQUIS) 5 mg tablet Take 5 mg by mouth 2 (two) times a day. 09/29/2018 clopidogrel (PLAVIX) 75 mg tablet Take 75 mg by mouth nightly. 06/25/2018 amLODIPine (NORVASC) 10 mg tablet Take 10 mg by mouth nightly. 06/21/2020 added in this encounter Active and Recently Administered Medications Times are shown in PRINTER REPAIR TECHNICIAN. Scheduled Medication Order 04/20/2018 04/21/2018 04/22/2018 amLODIPine (NORVASC) tablet 10 mg 10 mg, oral, Nightly, First dose on Fri04/21/18 at 2099 2039 (Given - Provider: Augustine Huang RN) apixaban (ELIQUIS) tablet 5 mg 5 mg, oral, 2 times daily, First dose on Fri04/21/18 at 1630, May crush and suspend in 60 ml of water, D5W, apple juice or apple sauce. If on heparin infusion, discontinue heparin infusion upon first administration of apixaban., Indications: atrial fibrillation 2038 (Given - Provider: Augustine Huang RN) 929 (Given - Provider: Michelle Kaiser RN) aspirin chewable tablet 81 mg 81 mg, oral, Daily, First dose on Fri04/21/18 at 1500 1438 (Not Given - Provider: Mary Proctor RN - Reason: Other - Comment: pt taken at home) 0931 (Given - Provider: Michelle Kaiser, AMARILIS) atorvastatin (LIPITOR) tablet 10 mg 10 mg, oral, Nightly, First dose on Fri04/21/18 at 2099 2039 (Given - Provider: Augustine Huang RN) azelastine (ASTELIN) 137 mcg (0.1 %) nasal spray 1 spray 1 spray, each nostril, Nightly, First dose on Fri04/21/18 at 2099 2111 (Given - Provider: Augustine Huang RN) cholecalciferol (VITAMIN D-3) tablet 5,000 Units 5,000 Units, oral, Daily, First dose on Fri04/21/18 at 1500 1439 (Not Given - Provider: Mary Proctor RN - Reason: Other - Comment: taken at home) 0931 (Given - Provider: Michelle Kaiser RN) clopidogrel (PLAVIX) tablet 75 mg 75 mg, oral, Nightly, First dose on Fri04/21/18 at 2099 2036 (Given - Provider: Augustine Huang RN) cyanocobalamin (Vitamin B-12) tablet 1,000 mcg 1,000 mcg, oral, Daily, First dose on Fri04/21/18 at 1500, Indications: Prevention of Vitamin B12 Deficiency 1439 (Not Given - Provider: Mary Proctor RN - Reason: Other - Comment: taken at home) 0931 (Given - Provider: Michelle Kaiser RN) famotidine (PEPCID) tablet 20 mg 20 mg, oral, Nightly, First dose on Fri04/21/18 at 2100 2039 (Given - Provider: Augustine Huang RN) fluticasone (FLONASE) 50 mcg/actuation nasal spray 2 spray 2 spray, each nostril, Daily, First dose on Fri04/21/18 at 1500 1439 (Not Given - Provider: Mary Proctor RN - Reason: Other - Comment: taken at home) 0943 (Given - Provider: Michelle Kaiser, AMARILIS) furosemide (LASIX) tablet 40 mg 40 mg, oral, Daily, First dose on Fri04/21/18 at 1500 1626 (Given - Provider: Mary Proctor RN) 0930 (Given - Provider: Michelle Kaiser RN) gabapentin (NEURONTIN) tablet 600 mg 600 mg, oral, 3 times daily, First dose on Fri04/21/18 at 1600 1632 (Not Given - Provider: Mary Proctor RN - Reason: Patient/family refused)2036 (Given - Provider: Augustine Huang RN) 0930 (Given - Provider: Michelle Kaiser RN) lisinopril (PRINIVIL,ZESTRIL) tablet 20 mg 20 mg, oral, Nightly, First dose (after last modification) on Fri04/21/18 at 2099 2036 (Given - Provider: Augustine Huang RN) sodium chloride 0.9% flush 0.5-20 mL 0.5-20 mL, intra-catheter, Every 8 hours scheduled, First dose on Fri04/21/18 at 1400, Recovery (CV), Flush volume based on line type and size. , Indications: Flushing 1430 (Given - Provider: Mary Proctor RN)2112 (Given - Provider: Augustine Huang RN) 0943 (Given - Provider: Michelle Kaiser RN) sotalol (BETAPACE) tablet 80 mg 80 mg, oral, 2 times daily, First dose on Fri04/21/18 at 2099 2038 (Given - Provider: Augustine Huang RN) 0930 (Given - Provider: Michelle Kaiser RN) Continuous Medication Order 04/20/2018 04/21/2018 04/22/2018 sodium chloride 0.9% infusion 15 mL/hr, intravenous, Continuous, Starting on Fri04/21/18 at 0730 0700 (New Bag - Provider: Luis M Dallas CRNA)0830 (Anesthesia Volume Adjustment - Provider: Luis M Dallas CRNA)1431 (Stopped - Provider: Mary Proctor RN) PRN Medication Order 04/20/2018 04/21/2018 04/22/2018 acetaminophen (TYLENOL) tablet 650 mg 650 mg, oral, Every 4 hours PRN, 1st line for pain, Starting on Fri04/21/18 at 1225, Recovery (CV), Indications: Pain albuterol HFA (PROVENTIL HFA,VENTOLIN HFA,PROAIR HFA) 90 mcg/actuation inhaler 2 puff 2 puff, inhalation, Every 6 hours PRN (vp respiratory), wheezing, Starting on Fri04/21/18 at 1431 benzocaine-menthol (CEPACOL) lozenge 1 lozenge 1 lozenge, mouth/throat, Every 2 hours PRN, sore throat, Starting on Fri04/21/18 at 1938 2039 (Given - Provider: Augustine Huang RN) 0117 (Given - Provider: Augustine Huang RN) heparin in 0.9% sodium chloride 1000 units/500 mL (2 unit/mL) infusion (premix) (CANCELED) As needed, Starting on Fri04/21/18 at 0938, Intra-Procedure (CV) 0938 (Given - Provider: Cornell Hilton MD - Comment: Pressure bag for Pentaray)0938 (Canceled Entry - Provider: Cornell Hilton MD - Comment: Side port flushes to long sheaths @50ml/hr each)0939 (Canceled Entry - Provider: Cornell Hilton MD - Comment: Irrogation for ablation catheter) heparin in 0.9% sodium chloride 2,000 unit/1,000 mL (2 unit/mL) infusion (premix) (CANCELED) As needed, Starting on Fri04/21/18 at 0938, Intra-Procedure (CV) 0938 (Given - Provider: Cornell Hilton MD - Comment: Back table flush)0945 (Given - Provider: Cornell Hilton MD - Comment: Flush to long sheaths at 50ml/hr each)0946 (Given - Provider: Cornell Hilton MD - Comment: Irrigation for ablation catheter) ioversol (OPTIRAY 320) injection (CANCELED) As needed, Starting on Fri04/21/18 at 0924, Intra-Procedure (CV) 0924 (Given - Provider: Cornell Hilton MD)0927 (Given - Provider: Cornell Hilton MD) lidocaine (XYLOCAINE) 10 mg/mL (1 %) injection (CANCELED) As needed, Starting on Fri04/21/18 at 0906, Intra-Procedure (CV), Indications: Administration of Local Anesthesia 09 (Given - Provider: Cornell Hilton MD - Comment: Bilateral Groins) nitroglycerin (NITROSTAT) sublingual tablet 0.4 mg 0.4 mg, sublingual, Every 5 min PRN, chest pain, Starting on Fri04/21/18 at 1416, May administer up to 3 doses per episode. ondansetron (ZOFRAN) injection 4 mg 4 mg, intravenous, Administer over 2 Minutes, Every 4 hours PRN, nausea, vomiting, Starting on Fri04/21/18 at 1225, Recovery (CV), Indications: Nausea and Vomiting oxyCODONE (ROXICODONE) tablet 5 mg 5 mg, oral, Every 4 hours PRN, 2nd line for pain, Starting on Fri04/21/18 at 1225, Recovery (CV), May administer 1 hour after 1st line agent for uncontrolled or increasing pain., Indications: Pain sodium chloride 0.9% flush 0.5-20 mL 0.5-20 mL, intra-catheter, As needed, line care, Starting on Fri04/21/18 at 1225, Recovery (CV), Flush volume based on line type and size. Flush before and after each use. , Indications: Flushing documented in this encounter Orders Medications Ordered That Eligio ht Not Have Been Administered Count Last Ordered Date First Ordered Date acetaminophen (TYLENOL) tablet 650 mg 1 albuterol HFA (PROVENTIL HFA ,VENTOLIN HFA,PROAIR HFA) 90 mcg/actuation inhaler 2 puff 1 04/21/2018 diphenhydrAMINE (BENADRYL) i njection 12.5 mg 1 04/21/2018 fentaNYL (SUBLIMAZE) preserv ative free injection 25-50 mcg 2 04/21/2018 flaxseed oil capsule 1,000 mg 1 04/21/2018 heparin in 0.9% sodium chlor shai 1000 units/500 mL (2 unit/mL) infusion (premix) 1 04/21/2018 heparin in 0.9% sodium chlor shai 2,000 unit/1,000 mL (2 unit/mL) infusion (premix) 1 04/21/2018 hydrALAZINE (APRESOLINE) injection 5 mg 1 0 04/21/2018 HYDROmorphone (DILAUDID) injection 0.2 mg 1 04/21/2018 HYDROmorphone (DILAUDID) injection 0.4 mg 1 04/21/2018 ioversol (OPTIRAY 320) injection 1 04/21/19 19 lidocaine (XYLOCAINE) 10 mg/ mL (1 %) injection 1 04/21/2018 lisinopril (PRINIVIL,ZESTRIL) tablet 20 mg 1 04/21/2018 meperidine (DEMEROL) preserv ative free injection 12.5 mg 1 04/21/2018 metoclopramide (REGLAN) injection 10 mg 1 0 04/21/2018 metoprolol (LOPRESSOR) injection 1 mg 1 naloxone (NARCAN) 0.4 mg/mL injection 0.04-0.4 mg 1 04/21/2018 nitroglycerin (NITROSTAT) naranjo blingual tablet 0.4 mg 1 04/21/2018 ondansetron (ZOFRAN) injection 4 mg 2 04/21 oxyCODONE (ROXICODONE) tablet 5 mg 2 2018 sodium chloride 0.9% flush 0.5-20 mL 3 03/28 sodium chloride 0.9% infusion 1 04/21/2018 Admission Count Last Ordered Date First Orde red Date ASSIGN PATIENT STATUS 1 04/21/2018 Transfer Count Last Ordered Date First Orde red Date TRANSFER PATIENT 2 04/21/2018 CORE MEASURES Count Last Ordered Date First Ord ered Date REASON FOR NO VTE PROPHYLAXIS AT ADMISSION 1 04/21/2018 documented in this encounter Care Teams Capture Manager Relationship Specialty Start Date End Date Rogelio Epperson MD [address] [place] [id number] PCP - General 06/04/12 documented as of this encounter
--- OUTSIDE RECORDS SUMMARY | 2024-02-14 08:42 | XMS_ITS | Encounter Summary ---
Author Organization [facility] Address [address] [facility] [address] [place] [id number] Care Team Providers Care Community Relations Director Name Role Phone Rogelio Epperson MD Primary Care Provider Encounter Details Date Type Department Care Team (Late st Contact Info) Description 06/01/2018 Telephone [facility] [address] [phone] Mohinder Martinez MD [address] [address] Social History Tobacco Use Types Packs/Day Years Used Date Smoking Tobacco: Former Smokeless Tobacco: Never Alcohol Use Standard Drinks/Week Comments Yes 0 (1 standard drink = 0.6 oz pur e alcohol) occasionally Sex and Gender Information Value Date Recorded Sex Assigned at Not on file 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 Encouraged her to call with any further questions. * Telephone Encounter - Sandhya [place] - 06/01/2018 11:43 AM CDT Martha a nurse case therapist with [facility] wants to know if pt has a diagnosis of CHF. [phone] ext [phone] documented in this encounter Plan of Treatment Not on file documented as of this encounter Visit Diagnoses Not on filedocumented in this encounter Care Teams Community Relations Director Relationship Specialty Start Date End Date Rogelio Epperson MD [address] [facility] [address] [place] [address] PCP - General 06/04/12 documented as of this encounter
--- OUTSIDE RECORDS SUMMARY | 2024-02-14 08:42 | XMS_ITS | Encounter Summary ---
Author Organization [facility] Address [address] [place] [address] Care Team Providers Care Medical Office Coordinator Name Role Phone Rogelio Epperson MD Primary Care Provider Reason for Visit * Reason Comments Follow-up EKG results A-fib Encounter Details Date Type Department Care Team (Late st Contact Info) Description 10/21/2017 11:45 AM CDT Office Visit [facility] [address] [address] Mohinder Martinez MD [address] [facility] [address] [place] [address] Paroxysmal atrial fibrillation (CMS/HCC) (Primary Dx); Morbid obesity with body mass index (BMI) of 40.0 to 49.9 (CMS/HCC); 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 Social History Tobacco Use Types Packs/Day Years Used Date Smoking Tobacco: Former Smokeless Tobacco: Never Alcohol Use Standard Drinks/Week Comments Yes 0 (1 standard drink = 0.6 oz pur e alcohol) Sex and Gender Information Value Date Recorded Sex Assigned at Not on file 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 Gender Identity Not on file Sexual Orientation Not on file documented as of this encounter Last Filed Vital Signs Vital Sign Reading Time Taken Comments Blood Pressure 138/80 10/21/2017 11:57 AM CDT Pulse 70 10/21/2017 11:57 AM CDT Temperature - - Respiratory Rate - - Oxygen Saturation 97% 10/21/2017 11:57 AM CDT Inhaled Oxygen Concentration - - Weight 136.1 kg (300 lb) 10/21/2017 11:57 AM CDT Height 175.3 cm (5' 9 ) 10/21/2017 11:57 AM CDT Body Mass Index 44.3 10/21/2017 11:57 AM CDT documented in this encounter Progress Notes * Mohinder Martinez MD - 10/21/2017 11:45 AM CDT [facility] FOLLOW UP 10/21/2017 Vu Nicole is a 72 y.o. male who presents for follow up [...] on successful. He returns today for office follow-up. The patient called for an earlier appointment because he states for the last couple of weeks he has been feeling symptoms of lightheadedness dizziness and blurring of his vision. He is not noticing specifically any symptoms of palpitations but was concerned about his cardiac rhythm so he came into the office to be seen yesterday an EKG was done which does demonstrate he is back in atrial fibrillation his heart rate is only 58 beats per minute. He continuesto take sotalol and apixaban for his atrial fibrillation. He is not having any ischemic type chest pain of any kind. Had a lengthy discussion with the patient in the office today about management stra tegy of his atrial fibrillation going forward. Clearly sotalol is not maintaining sinus rhythm and had a long discussion and regarding the options of accepting chronic atrial fibrillation or attempting another cardioversion. I believe his last electrical cardioversion was about a year ago. REVIEW OF SYSTEMS General ROS: negative for [...] DAY, Disp: 90 tablet, Rfl: 3 ??? atorvastatin (LIPITOR) 10 mg tablet, Take 10 mg by mouth daily., Disp: , Rfl: ??? azelastine (ASTELIN) 137 mcg (0.1 %) nasal spray, , Disp: , Rfl: ??? CALCIUM/FOLIC AC/MULTIVIT-MIN (VIACTIV [...] TWO TIMES DAILY, Disp: 180 tablet, Rfl: 3 ??? famotidine (PEPCID AC) 20 mg tablet, take 1 tablet (20MG) by oral route 2 times every day, Disp: , Rfl: 0 ??? flaxseed oil 1,000 mg capsule, Take by mouth., Disp: , Rfl: ??? gabapentin (NEURONTIN) 600 mg tablet, Take 600 mg by mouth 3 (three) times a day. , Disp: , Rfl: ??? indomethacin (INDOCIN) 25 mg capsule, Take 25 mg by mouth 2 (two) times a day with meals., Disp: , Rfl: ??? nitroglycerin (NITROSTAT) 0.4 mg SL tablet, PLACE 1 TABLET BETWEEN CHEEK AND GUM AT 1ST SIGN OFATTACK; NO MORE THAN 3 TABLETS ARE RECOMMENDED WITHIN 15 MINUTE PERIOD., Disp: 25 tablet, Rfl: 11 ??? ramipril (ALTACE) 10 mg capsule, TAKE 1 CAPSULE BY MOUTH EVERY DAY, Disp: 90 capsule, Rfl: 3 ??? sotalol (BETAPACE) 80 mg tablet, TAKE 1 TABLET BY MOUTH TWO TIMES DAILY, Disp: 180 tablet, Rfl:1 ??? triamcinolone (NASACORT) 55 mcg nasal inhaler, Administer 2 sprays into each nostril daily., Disp: , Rfl: LABS AND OTHER DIAGNOSTIC TESTS No results found for: CHOL No results found for: HDL No results found for: LDLCALC No results found for: TRIG No results found for: CHOLHDL No results found for: WBC, HGB, HCT, MCV, PLT No lab exists for component: LABALBU PHYSICAL EXAM Vitals BP 138/80 (BP Location: Right arm, Patient Position: Sitting) Pulse 70 Ht 175.3 cm (5' 9 ) Wt 136.1 kg (300 lb) SpO2 97% BMI 44.30 kg/m?? 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 Dose adjustment 02/04/2017 10/21/2017 azelastine-fluticasone 137-50 mcg/spray spray,non-aerosol Administer into affected nostril(s). Duplicate order 10/21/2017 atenolol (TENORMIN) 100 mg tablet take 1 tablet (100MG) by oral route every day Alternate therapy 07/29/2012 10/21/2017 sotalol (BETAPACE) 80 mg tablet TAKE 1 TABLET BY MOUTH TWO TIMES DAILY 06/11/2017 10/21/2017 documented as of this encounter Historical Medications * This list may reflect changes made after this encounter. atorvastatin (LIPITOR) 10 mg tablet Take 10 mg by mouth nightly. 06/10/2018 added in this encounter Care Teams Medical Office Coordinator Relationship Specialty Start Date End Date Rogelio Epperson MD [address] [place] [address] PCP - General 06/04/12 documented as of this encounter
--- OUTSIDE RECORDS SUMMARY | 2024-02-14 08:42 | XMS_ITS | Encounter Summary ---
Author Organization [facility] Address [address] [facility] [address] [place] [address] Care Team Providers Care Natural Resources Instructor Name Role Phone Rogelio Epperson MD Primary Care Provider Encounter Details Date Type Department Care Team (Late st Contact Info) Description 10/15/2017 Telephone [facility] [address] [address] Mohinder Martinez MD [address] [address] Social History Tobacco Use Types Packs/Day Years Used Date Smoking Tobacco: Former Smokeless Tobacco: Never Alcohol Use Standard Drinks/Week Comments Yes 0 (1 standard drink = 0.6 oz pur e alcohol) Sex and Gender Information Value Date Recorded Sex Assigned at Not on file 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 Will forward to [place] nurses vita aware. * Telephone Encounter - Sandhya [place] - 10/20/2017 8:50 AM CDT Pt says he is still in afib and his balance is worse. Says he's more off balance today than he's ever been. cb [phone] * Telephone Encounter - Maricruz Dominguez RN - 10/15/2017 10:40 AM CDT Spoke with patient. States that about a week ago he was having his [facility] testing. They performedand EKG. That morning during the testing he felt slightly dizzy but thought it was an inner ear issue. The dizziness subsided and patient has felt fine since. Saw Dr. Epperson later that day when he had the lifeline testing and everything checked out fine. No mention of afib or irregular heart rate.Patient received a phone call from [facility] stating that the receiving specialist that read the EKG said hewas in afib at the time. Patient is currently on AC due to hx of paroxysmal afib. Discussed optionsof coming in for an EKG in the office to calling us if he should develop symptoms again and we willdo an EKG at that time. Patient prefers to come in if he should develop symptoms. Encouraged patient to make sure he takes all medications as ordered. Verbalized understanding. * Telephone Encounter - Shira Skelton - 10/15/2017 9:36 AM CDT Pt will like a call back regarding possibly being in afib, pt states that he was in afib while doing his EKG. Pt call back # [phone] documented in this encounter Plan of Treatment Not on file documented as of this encounter Visit Diagnoses Not on filedocumented in this encounter Care Teams Natural Resources Instructor Relationship Specialty Start Date End Date Rogelio Epperson MD [address] [facility] [address] [place] [address] PCP - General 06/04/12 documented as of this encounter
--- OUTSIDE RECORDS SUMMARY | 2024-02-14 08:42 | XMS_ITS | Encounter Summary ---
Author Organization 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
--- OUTSIDE RECORDS SUMMARY | 2024-02-14 08:42 | XMS_ITS | Encounter Summary ---
Author Organization [facility] Address [address] [address] Care Team Providers Care Hydraulic Miner Name Role Phone Rogelio Epperson MD Primary Care Provider Encounter Details Date Type Department Care Team (Late st Contact Info) Description 12/09/2016 Telephone [facility] [address] [facility] [address] [facility] [address] [place] [address] Mohinder Martinez MD [address] [facility] 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 * Telephone Encounter - Adriana Gu NP - 12/09/2016 5:20 PM CDT Holding Plavix should be 7 days, holding Eliquis should be 3 days. Thanks. * Telephone Encounter - Adriana Gu NP - 12/09/2016 5:[address] 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 * Telephone Encounter - Tona Caballero RN - 12/09/2016 2:00 PM CDT I haven't yet called this patient. Awaiting response back from IRAM Wright. * Telephone Encounter - Tona Caballero RN - 12/09/2016 10:[address] Martinez hasn't responded yet. See previous call note entry. Will forward to IRAM Wright for review/assistance. documented in this encounter Plan of Treatment Not on file documented as of this encounter Visit Diagnoses Not on filedocumented in this encounter Care Teams Hydraulic Miner Relationship Specialty Start Date End Date Rogelio Epperson MD [address] [facility] [address] [place] [address] PCP - General 06/04/12 documented as of this encounter
--- OUTSIDE RECORDS SUMMARY | 2024-02-14 08:42 | XMS_ITS | Encounter Summary ---
Author Organization [facility] Healthcare Address [address] [place] [address] Care Team Providers Care Mandrel Cleaner Name Role Phone Rogelio Epperson MD Primary Care Provider Encounter Details Date Type Department Care Team (Late st Contact Info) Description 04/21/2018 8:00 AM DIRECT MARKETING SPECIALIST - 04/21/2018 12:00 PM DIRECT MARKETING SPECIALIST Surgery [facility] [address] [place] [address] Cornell Hilton MD [address] [facility] [address], [place] [id number] ABLATION ATRIAL FIBRILLATION (A-FIB) VIA PULMONARY VEIN ISOLATION 08784 with carto and ICE Surgery Details Date/Time Status Location OR Service Patient Class Case Class Case Type Trauma Case? 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 MCR / no auth required ref# [id number] / Carto / Ice documented in this encounter Social History Tobacco Use Types Packs/Day Years Used Date Smoking Tobacco: Former Smokeless Tobacco: Never Alcohol Use Standard Drinks/Week Comments Yes 0 (1 standard drink = 0.6 oz pur e alcohol) occasionally Sex and Gender Information Value Date Recorded Sex Assigned at Not on file Legal Sex Male 1:57 AM DIRECT MARKETING SPECIALIST Gender Identity Not on file Sexual Orientation Not on file documented as of this encounter Last Filed Vital Signs Vital Sign Reading Time Taken Comments Blood Pressure 147/88 04/21/2018 7:27 AM DIRECT MARKETING SPECIALIST Pulse 58 04/21/2018 7:27 AM DIRECT MARKETING SPECIALIST Temperature 36 ??C (96.8 ??F) 04/21/2018 7:27 AM DIRECT MARKETING SPECIALIST Respiratory Rate 15 04/21/2018 7:27 AM DIRECT MARKETING SPECIALIST Oxygen Saturation 96% 04/21/2018 7: 27 AM DIRECT MARKETING SPECIALIST Inhaled Oxygen Concentration - - Weight 136.2 kg (300 lb 4.8 oz) 04/21/2018 7:17 AM DIRECT MARKETING SPECIALIST Height 175.3 cm (5' 9 ) 04/21/2018 7:17 AM DIRECT MARKETING SPECIALIST Body Mass Index 44.66 04/21/2018 7:17 AM DIRECT MARKETING SPECIALIST documented in this encounter Medications at Time [...] patient. Marilu León NP 04/22/2018 9:[address] MARKETING SPECIALIST documented in this encounter H&P Notes * Cornell Hilton MD - 04/21/2018 8:21 AM CST [facility] Medical Group Arrhythmia Center [address] [facility], [address] [place], [place] [address] Patient Name: Jade Nicole Date of : 1945 Primary Physician: Rogelio Epperson MD Admission Date: 04/21/2018 This note was dictated with voice-recognition software, and automotive parts salesperson errors may be present. . . . [...] CP. Palpitations occasional. No syncope. Admitted to [facility] in last month for ADHF. No Known [...] in ongoing AF. Cornell Hilton M.D., M.P.H., [facility] Medical Group Arrhythmia Center 04/21/2018 8:[address] MARKETING SPECIALIST documented in this encounter Miscellaneous Notes * [...] will d/c via private vehicle with . CT MARKETING SPECIALIST * Plan of Care - Augustine Huang [...] continue to monitor while awaiting further orders. CT MARKETING SPECIALIST * Plan of Care - Mary Proctor [...] VS, labs, fall precautions, groin site care CT MARKETING SPECIALIST * Op Note - Cornell Hilton MD [...] or equal to 350 seconds. An 8 Japanese deflectable phased-array ultrasound catheter was advanced to the center right atrium, and intracardiac echocardiography (ICE) was used to visualize the intraatrial septum and fossa ovalis in preparation for transseptalleft heart catheterization. Two transseptal punctures were performed using a SafeSept Needle-free transseptal wire with ICE and fluoroscopic guidance. After entrance into left atrium was confirmed, two sheaths (Mob[employer] Animationz deflectable and SL1) were advanced into the left atrium. The sheaths were flushed with a constant infusion of heparinized saline throughout the case. A 20-pole mapping catheter (Revo Round) and Smart Touch irrigated pressure-sensing ablation catheter [...] the left atrium and a duodecapolar catheter (Halo) was advanced to the lateral and high [...] pulmonary veins were electrically silent. PA and STATELESS views of the left atrium following ablation. [...] to the IVC in the 6:00 position (STATELESS clock). The line was constructed during CS [...] the Arrhythmia Center in 4-6 weeks Cornell Hilotn MD [facility] Medical Group Arrhythmia Center [facility] CT MARKETING SPECIALIST documented in this encounter Plan of Treatment Not on file documented as of this encounter Procedures Procedure Name Priority Date/Time Associated Diagnosis Comments ECG 12-LEAD Routine 04/22/2018 7:16 AM DIRECT MARKETING SPECIALIST EGFR Routine 04/22/2018 1:32 AM DIRECT MARKETING SPECIALIST DIFFERENTIAL AUTO Routine 04/22/2018 1:3 2 AM DIRECT MARKETING SPECIALIST CBC WITH AUTO DIFFERENTIAL Routine 04/22/2018 1:32 AM DIRECT MARKETING SPECIALIST BASIC METABOLIC PANEL Routine 04/22/2018 1:32 AM DIRECT MARKETING SPECIALIST ECG 12-LEAD Routine 04/21/2018 1:22 PM DIRECT MARKETING SPECIALIST ACTIVATED CLOTTING TIME Routine 04/21/19 19 12:38 PM DIRECT MARKETING SPECIALIST ATRIAL FIBRILLATION ABLATION ADDITIONAL LINE OR FOCI Routine 04/21/2018 12:12 PM DIRECT MARKETING SPECIALIST Paroxysmal atrial fibrillation (CMS/HCC) 3D MAPPING OF TACHYCARDIA Routine 2018 12:12 PM DIRECT MARKETING SPECIALIST Paroxysmal atrial fibrillation (CMS/HCC) ELECTROPHYSIOLOGIC EVALUATION (EPS) / ATRIAL FIBRILLATION ABLATION VIA PULMONARY VEIN ISOLATION Routine 04/21/2018 12:12 PM DIRECT MARKETING SPECIALIST Paroxysmal atrial fibrillation (CMS/HCC) ACTIVATED CLOTTING TIME Routine 04/21/19 12:07 PM DIRECT MARKETING SPECIALIST ACTIVATED CLOTTING TIME Routine 04/21/19 11:42 AM DIRECT MARKETING SPECIALIST ACTIVATED CLOTTING TIME Routine 04/21/19 11:33 AM DIRECT MARKETING SPECIALIST ACTIVATED CLOTTING TIME Routine 04/21/19 11:14 AM DIRECT MARKETING SPECIALIST ACTIVATED CLOTTING TIME Routine 04/21/19 10:52 AM DIRECT MARKETING SPECIALIST ACTIVATED CLOTTING TIME Routine 04/21/19 10:35 AM DIRECT MARKETING SPECIALIST TRANSESOPHAGEAL ECHO (GABRIELLA) W DOPPLER/CF WO CONTRAST Routine 04/21/2018 8:48 AM DIRECT MARKETING SPECIALIST EGFR STAT 04/21/2018 7:11 AM DIRECT MARKETING SPECIALIST DIFFERENTIAL AUTO STAT 04/21/2018 7:1 1 AM DIRECT MARKETING SPECIALIST CBC WITH AUTO DIFFERENTIAL STAT 04/21/2018 7:11 AM DIRECT MARKETING SPECIALIST BASIC METABOLIC PANEL STAT 04/21/2018 7:11 AM DIRECT MARKETING SPECIALIST ECG 12-LEAD STAT 04/21/2018 6:58 AM DIRECT MARKETING SPECIALIST documented in this encounter Results * ECG 12 lead (04/22/2018 7:16 AM DIRECT MARKETING SPECIALIST) 04/22/2018 7:16 AM DIRECT MARKETING SPECIALIST Narrative [facility] - 04/22/2018 9:11 AM DIRECT MARKETING SPECIALIST Vent Rate: 70 bpm RR Interval: 848 msec [place] Interval: 245 msec QRS Duration: 100 msec QT Interval: 418 msec QTC Interval: 439 msec P-R-T Rewey: 34 - 22 - 30 degrees SINUS RHYTHM WITH FIRST DEGREE AV BLOCK ABNORMAL ECG Compared with 04/21/2018 at 1:22 p.m. QT interval is shorter Electronically Signed By: Helene Linda MD us Cornell Hilton MD ECG ORDERABLES Final R esult Performing Organization Address [facility] Phone Number [facility] * eGFR (04/22/2018 1:32 AM DIRECT MARKETING SPECIALIST) eGFR 81 mL/min/1.7 3 m2 [facility] Comment: Interpretive Data Reference Interval Normal ?>/= 90 mL/min/1.73m2 Mildly decreased* ? 60 - 89 mL/min/1.73m2 Mildly to moderately decreased ?45 - 59 mL/min/1.73m2 Moderately to severely decreased ??30 - 44 mL/min/1.73m2 Severely decreased ?15 - 29 mL/min/1.73m2 Kidney Failure ?< 15 ??mL/min/1.73m2 *Relative to young adult level If -Chinese multiply value by 1.16. Estimated glomerular filtration [...] 2016. Blood specimen (specimen) 04/22/2018 1:32 AM DIRECT MARKETING SPECIALIST 04/22/2018 2:11 AM DIRECT MARKETING SPECIALIST Narrative [facility] - 04/22/2018 2:40 AM DIRECT MARKETING SPECIALIST us Cornell Hilton MD LAB BLOOD ORDERABLES Fi nal Result [facility] [address] [place] [address] * (ABNORMAL) Differential, auto (04/22/2018 1:32 AM DIRECT MARKETING SPECIALIST) Neutrophil abs 8.7(H) 1.7 - 6.5 K/cumm [facility] Imm gran abs 0.0 0.0 - 0.1 K/cumm [facility] Lymphocyte abs 1.2 0.8 - 3.3 K/cumm [facility] Monocyte abs 0.3 0.2 - 0.8 K/cumm [facility] Eosinophil abs 0.0 0.0 - 0.5 K/cumm [facility] Basophil abs 0.0 0.0 - 0.1 K/cumm [facility] Neutrophil pct 84.7 % [facility] Comment: Interpretive Data Percent cell count reference ranges are not reported, since discordance with absolute values may lead to misinterpretation of CBC data. Current Interpretive Data was last revised on 2017. Imm gran pct 0.4 % [facility] Comment: Interpretive Data Percent cell count reference ranges are not reported, since discordance with absolute values may lead to misinterpretation of CBC data. Current Interpretive Data was last revised on 2017. Lymphocyte pct 12.2 % [facility] Comment: Interpretive Data Percent cell count reference ranges are not reported, since discordance with absolute values may lead to misinterpretation of CBC data. Current Interpretive Data was last revised on 2017. Monocyte pct 2.6 % [facility] Comment: Interpretive Data Percent cell count reference ranges are not reported, since discordance with absolute values may lead to misinterpretation of CBC data. Current Interpretive Data was last revised on 2017. Eosinophil pct 0.0 % [facility] Comment: Interpretive Data Percent cell count reference ranges are not reported, since discordance with absolute values may lead to misinterpretation of CBC data. Current Interpretive Data was last revised on 2017. Basophil pct 0.1 % [facility] Comment: Interpretive Data Percent cell count reference ranges are not reported, since discordance with absolute values may lead to misinterpretation of CBC data. Current Interpretive Data was last revised on 2017. Blood specimen (specimen) 04/22/2018 1:32 AM DIRECT MARKETING SPECIALIST 04/22/2018 2:12 AM DIRECT MARKETING SPECIALIST Narrative [facility] - 04/22/2018 2:20 AM DIRECT MARKETING SPECIALIST Cornell Hilton MD LAB BLOOD ORDERABLES Fi nal Result Performing Organization Address [facility] Co de Phone Number [facility] [address] [employer] [place], [place] [id number] * (ABNORMAL) CBC with auto differential (04/22/2018 1:32 AM DIRECT MARKETING SPECIALIST) WBC 10.2(H) 3.8 - 9.9 K/cumm [facility] Hgb 14.1 13.0 - 17.5 g/dL [facility] Hct 43.2 38.9 - 50.3 % [facility] Plt 349 150 - 400 K/cumm [facility] MPV 10.9 9.1 - 12.3 fL [facility] RBC 4.70 4.30 - 5.80 M/cumm [facility] MCV 91.9 81.3 - 96.4 fL [facility] MCH 30.0 27.1 - 33.3 pg [facility] MCHC 32.6 32.3 - 35.7 g/dL [facility] RDW CV 13.6 11.1 - 14.9 % [facility] RDW SD 46.5 35.7 - 48.1 fL [facility] NRBC abs 0.00 0.00 - 0.01 K/cumm [facility] Blood specimen (specimen) 04/22/2018 1:32 AM DIRECT MARKETING SPECIALIST 04/22/2018 2:12 AM DIRECT MARKETING SPECIALIST Narrative [facility] - 04/22/2018 2:20 AM DIRECT MARKETING SPECIALIST Cornell Hilton MD LAB BLOOD ORDERABLES Fi nal Result Performing Organization Address [facility]/ZIP Co de Phone Number [facility] [address] [place] [address] * (ABNORMAL) Basic metabolic panel (04/22/2018 1:32 AM DIRECT MARKETING SPECIALIST) Sodium 138 135 - 145 mmol/L [facility] Potassium, pl 4.2 3.3 - 4.9 mmol/L [facility] Chloride 98 97 - 110 mmol/L [facility] CO2 23 22 - 32 mmol/L [facility] Anion gap 17(H) 2 - 15 mmol/L [facility] BUN 19 8 - 25 mg/dL [facility] Creatinine 0.94 0.80 - 1.30 mg/dL [facility] Glucose 152 70 - 199 mg/dL [facility] Comment: Interpretive Data Fasting glucose >/= 126 [...] 2017. Calcium 9.0 8.5 - 10.3 mg/dL [facility] Blood specimen (specimen) 04/22/2018 1:32 AM DIRECT MARKETING SPECIALIST 04/22/2018 2:11 AM DIRECT MARKETING SPECIALIST Narrative [facility] - 04/22/2018 2:40 AM DIRECT MARKETING SPECIALIST us Cornell Hilton MD LAB BLOOD ORDERABLES Fi nal Result [facility] [address] Department [place] [address] * ECG 12 lead (04/21/2018 1:22 PM DIRECT MARKETING SPECIALIST) 04/21/2018 1:22 PM DIRECT MARKETING SPECIALIST Narrative [facility] - 04/22/2018 10:34 AM DIRECT MARKETING SPECIALIST Vent Rate: 68 bpm RR Interval: 873 msec [place] Interval: 255 msec QRS Duration: 102 msec QT Interval: 449 msec QTC Interval: 467 msec P-R-T Rewey: 55 - 24 - 44 degrees SINUS RHYTHM WITH FIRST DEGREE AV BLOCK PROLONGED QT INTERVAL ABNORMAL ECG Compared with 04/21/2018 at 6:58 a.m. Atrial fibrillation has resolved Electronically Signed By: Helene Linda MD Cornell Hilton MD ECG ORDERABLES Final R esult Performing Organization Address [facility] Co de Phone Number [facility] * Activated Clotting Time (04/21/2018 12:38 PM DIRECT MARKETING SPECIALIST) ACT, POC 190 sec [facility] Comment: The normal clotting time for nonheparinized individual is approximately 120 seconds.Most Cardiac Cath / PTCA heparinized patients average 300-400 seconds. An ACT <200 seconds is necessary in order to pull the arterial sheath in PTCA. The normal range of ACT for the heparinized patient to be placed CPB is 400-800 seconds. Blood specimen (specimen) 04/21/2018 12:38 PM DIRECT MARKETING SPECIALIST 04/21/2018 12:38 PM DIRECT MARKETING SPECIALIST Narrative [facility] - 04/22/2018 3:35 PM DIRECT MARKETING SPECIALIST Cornell Hilton MD LAB BLOOD ORDERABLES Fi nal Result Performing Organization Address [facility] de Phone Number [facility] [address] Department [place] [address] * ELECTROPHYSIOLOGIC EVALUATION (EPS) / ATRIAL FIBRILLATION ABLATION VIA PULMONARY VEIN ISOLATION, 3DMAPPING OF TACHYCARDIA, ATRIAL FIBRILLATION ABLATION ADDITIONAL LINE OR FOCI (04/21/2018 12:12 PM DIRECT MARKETING SPECIALIST) Anatomical Region Laterality Modality X-Ray Angiograph y Result [facility] Cornell Hilton MD CV ELECTROPHYSIOLOGY [place] OCS Final Result * Activated Clotting Time (04/21/2018 12:07 PM DIRECT MARKETING SPECIALIST) ACT, POC 348 sec [facility] Comment: The normal clotting time for nonheparinized individual is approximately 120 seconds.Most Cardiac Cath / PTCA heparinized patients average 300-400 seconds. An ACT <200 seconds is necessary in order to pull the arterial sheath in PTCA. The normal range of ACT for the heparinized patient to be placed CPB is 400-800 seconds. Blood specimen (specimen) 04/21/2018 12:07 PM DIRECT MARKETING SPECIALIST 04/21/2018 12:07 PM DIRECT MARKETING SPECIALIST Ethan [facility] - 04/22/2018 3:35 PM DIRECT MARKETING SPECIALIST Cornell Hilton MD LAB BLOOD ORDERABLES nal Result Performing Organization Address [facility] de Phone Number [facility] [address] [facility] [place] [place], [place] [id number] * Activated Clotting Time (04/21/2018 11:42 AM DIRECT MARKETING SPECIALIST) ACT, POC 263 sec [facility] Comment: The normal clotting time for nonheparinized individual is approximately 120 seconds.Most Cardiac Cath / PTCA heparinized patients average 300-400 seconds. An ACT <200 seconds is necessary in order to pull the arterial sheath in PTCA. The normal range of ACT for the heparinized patient to be placed CPB is 400-800 seconds. Blood specimen (specimen) 04/21/2018 11:42 AM DIRECT MARKETING SPECIALIST 04/21/2018 11:42 AM DIRECT MARKETING SPECIALIST Ethan [facility] - 04/21/2018 12:33 PM DIRECT MARKETING SPECIALIST Result [facility] Cornell Hilton MD LAB BLOOD ORDERABLES Fi nal Result Performing Organization Address [facility] Co de Phone Number [facility] [address] [facility] [place] [address] * Activated Clotting Time (04/21/2018 11:33 AM DIRECT MARKETING SPECIALIST) ACT, POC 313 sec [facility] Comment: The normal clotting time for nonheparinized individual is approximately 120 seconds.Most Cardiac Cath / PTCA heparinized patients average 300-400 seconds. An ACT <200 seconds is necessary in order to pull the arterial sheath in PTCA. The normal range of ACT for the heparinized patient to be placed CPB is 400-800 seconds. Blood specimen (specimen) 04/21/2018 11:33 AM DIRECT MARKETING SPECIALIST 04/21/2018 11:33 AM DIRECT MARKETING SPECIALIST Ethan [facility]RIAN [facility] - 04/22/2018 3:35 PM DIRECT MARKETING SPECIALIST Cornell Hilton MD LAB BLOOD ORDERABLES nal Result Performing Organization Address [facility] de Phone Number [facility] [address] [facility] [place] [address] * Activated Clotting Time (04/21/2018 11:14 AM DIRECT MARKETING SPECIALIST) ACT, POC 313 sec [facility] Comment: The normal clotting time for nonheparinized individual is approximately 120 seconds.Most Cardiac Cath / PTCA heparinized patients average 300-400 seconds. An ACT <200 seconds is necessary in order to pull the arterial sheath in PTCA. The normal range of ACT for the heparinized patient to be placed CPB is 400-800 seconds. Blood specimen (specimen) 04/21/2018 11:14 AM DIRECT MARKETING SPECIALIST 04/21/2018 11:14 AM DIRECT MARKETING SPECIALIST [facility] - 04/21/2018 12:33 PM DIRECT MARKETING SPECIALIST Cornell Hilton MD LAB BLOOD ORDERABLES nal Result Performing Organization Address [facility] de Phone Number [facility] [address] [place] [address] * Activated Clotting Time (04/21/2018 10:52 AM DIRECT MARKETING SPECIALIST) ACT, POC 235 sec [facility] Comment: The normal clotting time for nonheparinized individual is approximately 120 seconds.Most Cardiac Cath / PTCA heparinized patients average 300-400 seconds. An ACT <200 seconds is necessary in order to pull the arterial sheath in PTCA. The normal range of ACT for the heparinized patient to be placed CPB is 400-800 seconds. Blood specimen (specimen) 04/21/2018 10:52 AM DIRECT MARKETING SPECIALIST 04/21/2018 10:52 AM DIRECT MARKETING SPECIALIST Narrative [facility] - 04/21/2018 12:34 PM DIRECT MARKETING SPECIALIST Cornell Hilton MD LAB BLOOD ORDERABLES Fi nal Result Performing Organization Address [facility] Co de Phone Number [facility] [address] [facility] [place] [address] * Activated Clotting Time (04/21/2018 10:35 AM DIRECT MARKETING SPECIALIST) [facility] Signature ACT, POC 222 sec [facility] Comment: The normal clotting time for nonheparinized individual is approximately 120 seconds.Most Cardiac Cath / PTCA heparinized patients average 300-400 seconds. An ACT <200 seconds is necessary in order to pull the arterial sheath in PTCA. The normal range of ACT for the heparinized patient to be placed CPB is 400-800 seconds. Blood specimen (specimen) 04/21/2018 10:35 AM DIRECT MARKETING SPECIALIST 04/21/2018 10:35 AM DIRECT MARKETING SPECIALIST Narrative [facility] - 04/21/2018 12:34 PM DIRECT MARKETING SPECIALIST Cornell Hilton MD LAB BLOOD ORDERABLES Fi nal Result Performing Organization Address [facility] Co de Phone Number [facility] [address] [place] [address] * TRANSESOPHAGEAL ECHO (GABRIELLA) W DOPPLER/CF WO CONTRAST (04/21/2018 8:48 AM DIRECT MARKETING SPECIALIST) Anatomical Region Laterality Modality Echocardiography 04/21/2018 8:09 AM DIRECT MARKETING SPECIALIST Narrative 04/21/2018 9:29 AM DIRECT MARKETING SPECIALIST [facility] [address] [place] [address] TRANSESOPHAGEAL ECHOCARDIOGRAM Patient Name: JADE NICOLE : [id number] Study Date: 04/21/2018 8:09:01 AM Gender: M Tech: Location: 6143 Ref.Physician: CORNELL HILTON Height(Cm): 175 [...] seen. Electronically Signed By: Russell Jay DO [facility] 2018-04-21 09:29:51 DIRECT MARKETING SPECIALIST CC: CC: Procedure Note Russell Jay, - 04/21/2018 [facility] [address] [place] [address] TRANSESOPHAGEAL ECHOCARDIOGRAM Patient Name: BANDAR NICOLEatient ID: [id number] : [id number] Date: 04/21/2018 8:09:01 AM Gender: MAccession #: [id number] Tech: CBLocation: [id number] Ref.Physician: GREGORIO HILTONeight(Cm): 175 BSA: 2.57Weight(Kg): 136.1 Order Physician: CORNELL [...] seen. Electronically Signed By: Russell Jay DO [facility] 2018-04-21 09:29:51 DIRECT MARKETING SPECIALIST CC: CC: us Cornell Hilton MD CV ECHO PROCEDURES Ling l Result * eGFR (04/21/2018 7:11 AM DIRECT MARKETING SPECIALIST) [facility] eGFR 77 mL/min/1.7 3 m2 [facility] Comment: Interpretive Data Reference Interval Normal ?>/= 90 mL/min/1.73m2 Mildly decreased* ? 60 - 89 mL/min/1.73m2 Mildly to moderately decreased ?45 - 59 mL/min/1.73m2 Moderately to severely decreased ??30 - 44 mL/min/1.73m2 Severely decreased ?15 - 29 mL/min/1.73m2 Kidney Failure ?< 15 ??mL/min/1.73m2 *Relative to young adult level If -Chinese multiply value by 1.16. Estimated glomerular filtration [...] 2016. Blood specimen (specimen) 04/21/2018 7:11 AM DIRECT MARKETING SPECIALIST 04/21/2018 7:36 AM DIRECT MARKETING SPECIALIST Narrative [facility] - 04/21/2018 8:05 AM DIRECT MARKETING SPECIALIST us Cornell Hilton MD LAB BLOOD ORDERABLES Fi nal Result [facility] [address] [place] [address] * Differential, auto (04/21/2018 7:11 AM DIRECT MARKETING SPECIALIST) Neutrophil abs 5.8 1.7 - 6.5 K/cumm [facility] Imm gran abs 0.0 0.0 - 0.1 K/cumm [facility] Lymphocyte abs 1.9 0.8 - 3.3 K/cumm [facility] Monocyte abs 0.8 0.2 - 0.8 K/cumm [facility] Eosinophil abs 0.2 0.0 - 0.5 K/cumm [facility] Basophil abs 0.1 0.0 - 0.1 K/cumm [facility] Neutrophil pct 66.4 % [facility] Comment: Interpretive Data Percent cell count reference ranges are not reported, since discordance with absolute values may lead to misinterpretation of CBC data. Current Interpretive Data was last revised on 2017. Imm gran pct 0.3 % [facility] Comment: Interpretive Data Percent cell count reference ranges are not reported, since discordance with absolute values may lead to misinterpretation of CBC data. Current Interpretive Data was last revised on 2017. Lymphocyte pct 21.6 % [facility] Comment: Interpretive Data Percent cell count reference ranges are not reported, since discordance with absolute values may lead to misinterpretation of CBC data. Current Interpretive Data was last revised on 2017. Monocyte pct 8.9 % [facility] Comment: Interpretive Data Percent cell count reference ranges are not reported, since discordance with absolute values may lead to misinterpretation of CBC data. Current Interpretive Data was last revised on 2017. Eosinophil pct 2.1 % [facility] Comment: Interpretive Data Percent cell count reference ranges are not reported, since discordance with absolute values may lead to misinterpretation of CBC data. Current Interpretive Data was last revised on 2017. Basophil pct 0.7 % [facility] Comment: Interpretive Data Percent cell count reference ranges are not reported, since discordance with absolute values may lead to misinterpretation of CBC data. Current Interpretive Data was last revised on 2017. Blood specimen (specimen) 04/21/2018 7:11 AM DIRECT MARKETING SPECIALIST 04/21/2018 7:36 AM DIRECT MARKETING SPECIALIST Narrative [facility] - 04/21/2018 7:45 AM DIRECT MARKETING SPECIALIST us Cornell Hilton MD LAB BLOOD ORDERABLES nal Result [facility] [address] [place] [address] * (ABNORMAL) CBC with auto differential (04/21/2018 7:11 AM DIRECT MARKETING SPECIALIST) WBC 8.7 3.8 - 9.9 K/cumm [facility] Hgb 14.4 13.0 - 17.5 g/dL [facility] Hct 45.0 38.9 - 50.3 % [facility] Plt 391 150 - 400 K/cumm [facility] MPV 10.7 9.1 - 12.3 fL [facility] RBC 4.82 4.30 - 5.80 M/cumm [facility] MCV 93.4 81.3 - 96.4 fL [facility] MCH 29.9 27.1 - 33.3 pg [facility] MCHC 32.0(L) 32.3 - 35.7 g/dL [facility] RDW CV 13.7 11.1 - 14.9 % [facility] RDW SD 46.6 35.7 - 48.1 fL [facility] NRBC abs 0.00 0.00 - 0.01 K/cumm [facility] Blood specimen (specimen) 04/21/2018 7:11 AM DIRECT MARKETING SPECIALIST 04/21/2018 7:36 AM DIRECT MARKETING SPECIALIST Narrative [facility] - 04/21/2018 7:45 AM DIRECT MARKETING SPECIALIST Cornell Hilton MD LAB BLOOD ORDERABLES Fi nal Result [facility] [address] [place] [address] * (ABNORMAL) Basic metabolic panel (04/21/2018 7:11 AM DIRECT MARKETING SPECIALIST) Sodium 141 135 - 145 mmol/L [facility] Potassium, pl 5.0(H) 3.3 - 4.9 mmol/L [facility] Chloride 100 97 - 110 mmol/L [facility] CO2 28 22 - 32 mmol/L [facility] Anion gap 13 2 - 15 mmol/L [facility] BUN 20 8 - 25 mg/dL [facility] Creatinine 0.98 0.80 - 1.30 mg/dL [facility] Glucose 113 70 - 199 mg/dL [facility] Comment: Interpretive Data Fasting glucose >/= 126 [...] 2017. Calcium 9.1 8.5 - 10.3 mg/dL [facility] Blood specimen (specimen) 04/21/2018 7:11 AM DIRECT MARKETING SPECIALIST 04/21/2018 7:36 AM DIRECT MARKETING SPECIALIST Narrative [facility] - 04/21/2018 8:05 AM DIRECT MARKETING SPECIALIST us Cornell Hilton MD LAB BLOOD ORDERABLES Fi nal Result Performing Organization Address [facility] Co de Phone Number [facility] [address] [place] [address] * ECG 12 lead (04/21/2018 6:58 AM DIRECT MARKETING SPECIALIST) 04/21/2018 6:58 AM DIRECT MARKETING SPECIALIST Narrative [facility] - 04/21/2018 8:57 AM DIRECT MARKETING SPECIALIST Vent Rate: 64 bpm RR Interval: 932 msec [place] Interval: 0 msec QRS Duration: 106 msec QT Interval: 446 msec QTC Interval: 455 msec P-R-T Rewey: 0 - 32 - 60 degrees ATRIAL FIBRILLATION ABNORMAL RHYTHM ECG INTERPRETATION BASED ON A DEFAULT AGE OF 40 YEARS Electronically Signed By: Ezra Lo MD, [facility] us Cornell Hilton MD ECG ORDERABLES Final R esult Performing Organization Address [facility] de Phone Number [facility] [employer] [facility] documented in this encounter Visit Diagnoses Diagnosis Paroxysmal atrial fibrillation (CMS/HCC) (HCC)- Primary Atrial fibrillation Paroxysmal atrial fibrillation (CMS/HCC) (HCC) Atrial fibrillation Paroxysmal atrial fibrillation (CMS/HCC) (HCC) [...] Fri04/21/18 at 2100 Given 04/21/2018 8:40 PM DIRECT MARKETING SPECIALIST 10 mg apixaban (ELIQUIS) tablet 5 mg 5 mg, oral, 2 times daily, First dose on Fri04/21/18 at 1630, May crush and suspend in 60 ml of water, D5W, apple juice or apple sauce. If on heparin infusion, discontinue heparin infusion upon first administration of apixaban., Indications: atrial fibrillationIndications:atrial fibrillation Given 04/22/2018 9:30 AM DIRECT MARKETING SPECIALIST 5 mg Given 04/21/2018 8:39 PM DIRECT MARKETING SPECIALIST 5 mg aspirin chewable tablet 81 mg 81 mg, oral, Daily, First dose on Fri04/21/18 at 1500 Given 04/22/2018 9:31 AM DIRECT MARKETING SPECIALIST 81 mg atorvastatin (LIPITOR) tablet 10 mg 10 mg, oral, Nightly, First dose on Fri04/21/18 at 2100 Given 04/21/2018 8:40 PM DIRECT MARKETING SPECIALIST 10 mg azelastine (ASTELIN) 137 mcg (0.1 %) nasal spray 1 spray 1 spray, each nostril, Nightly, First dose on Fri04/21/18 at 2100 Given 04/21/2018 9:12 PM DIRECT MARKETING SPECIALIST 1 spray benzocaine-menthol (CEPACOL) lozenge 1 lozenge 1 lozenge, mouth/throat, Every 2 hours PRN, sore throat, Starting on Fri04/21/18 at 1938 Given 04/22/2018 1:17 AM DIRECT MARKETING SPECIALIST 1 lozenge Given 04/21/2018 8:39 PM DIRECT MARKETING SPECIALIST 1 lozenge cholecalciferol (VITAMIN D-3) tablet 5,000 Units 5,000 Units, oral, Daily, First dose on Fri04/21/18 at 1500 Given 04/22/2018 9:31 AM DIRECT MARKETING SPECIALIST 5,000 Units clopidogrel (PLAVIX) tablet 75 mg 75 mg, oral, Nightly, First dose on Fri04/21/18 at 2100 Given 04/21/2018 8:37 PM DIRECT MARKETING SPECIALIST 75 mg cyanocobalamin (Vitamin B-12) tablet 1,000 mcg 1,000 mcg, oral, Daily, First dose on Fri04/21/18 at 1500, Indications: Prevention of Vitamin B12 DeficiencyIndications:Prevention of Vitamin B12 Deficiency Given 04/22/2018 9:31 AM DIRECT MARKETING SPECIALIST 1,000 mcg famotidine (PEPCID) tablet 20 mg 20 mg, oral, Nightly, First dose on Fri04/21/18 at 2100 Given 04/21/2018 8:40 PM DIRECT MARKETING SPECIALIST 20 mg fluticasone (FLONASE) 50 mcg/actuation nasal spray 2 spray 2 spray, each nostril, Daily, First dose on Fri04/21/18 at 1500 Given 04/22/2018 9:43 AM DIRECT MARKETING SPECIALIST 2 sprays furosemide (LASIX) tablet 40 mg 40 mg, oral, Daily, First dose on Fri04/21/18 at 1500 Given 04/22/2018 9:30 AM DIRECT MARKETING SPECIALIST 40 mg Given 04/21/2018 4:26 PM DIRECT MARKETING SPECIALIST 40 mg gabapentin (NEURONTIN) tablet 600 mg 600 mg, oral, 3 times daily, First dose on Fri04/21/18 at 1600 Given 04/22/2018 9:30 AM DIRECT MARKETING SPECIALIST 600 mg Given 04/21/2018 8:37 PM DIRECT MARKETING SPECIALIST 600 mg heparin in 0.9% sodium chloride 1000 units/500 mL (2 unit/mL) infusion (premix) As needed, Starting on Fri04/21/18 at 0938, Intra-Procedure (CV) Given 04/21/2018 9:38 AM DIRECT MARKETING SPECIALIST 500 mL heparin in 0.9% sodium chloride 2,000 unit/1,000 mL (2 unit/mL) infusion (premix) As needed, Starting on Fri04/21/18 at 0938, Intra-Procedure (CV) Given 04/21/2018 9:46 AM DIRECT MARKETING SPECIALIST 1,000 mL Given 04/21/2018 9:45 AM DIRECT MARKETING SPECIALIST 1,000 mL Given 04/21/2018 9:38 AM DIRECT MARKETING SPECIALIST 1,000 mL ioversol (OPTIRAY 320) injection As needed, Starting on Fri04/21/18 at 0924, Intra-Procedure (CV) Given 04/21/2018 9:27 AM DIRECT MARKETING SPECIALIST 5 mL Given 04/21/2018 9:24 AM DIRECT MARKETING SPECIALIST 6 mL lidocaine (XYLOCAINE) 10 mg/mL (1 %) injection As needed, Starting on Fri04/21/18 at 0906, Intra-Procedure (CV), Indications: Administration of Local AnesthesiaIndications:Administrat ion of Local Anesthesia Given 04/21/2018 9:09 AM DIRECT MARKETING SPECIALIST 10 mL Other (Comment) lisinopril (PRINIVIL,ZESTRIL) tablet 20 mg 20 mg, oral, Nightly, First dose (after last modification) on Fri04/21/18 at 2100 Given 04/21/2018 8:37 PM DIRECT MARKETING SPECIALIST 20 mg sodium chloride 0.9% flush 0.5-20 mL 0.5-20 mL, intra-catheter, Every 8 hours scheduled, First dose on Fri04/21/18 at 1400, Recovery (CV), Flush volume based on line type and size. , Indications: FlushingIndications:Flushing Given 04/22/2018 9:43 AM DIRECT MARKETING SPECIALIST 10 mL Given 04/21/2018 9:12 PM DIRECT MARKETING SPECIALIST 10 mL Given 04/21/2018 2:30 PM DIRECT MARKETING SPECIALIST 10 mL sodium chloride 0.9% infusion 15 mL/hr, intravenous, Continuous, Starting on Fri04/21/18 at 0730 New Bag 04/21/2018 7:00 AM DIRECT MARKETING SPECIALIST sotalol (BETAPACE) tablet 80 mg 80 mg, oral, 2 times daily, First dose on Fri04/21/18 at 2100 Given 04/22/2018 9:30 AM DIRECT MARKETING SPECIALIST 80 mg Given 04/21/2018 8:39 PM DIRECT MARKETING SPECIALIST 80 mg documented in this encounter Discontinued [...] Recently Administered Medications Times are shown in DIRECT MARKETING SPECIALIST. Scheduled Medication Order 04/20/2018 04/21/2018 04/22/2018 amLODIPine (NORVASC) tablet 10 mg 10 mg, oral, Nightly, First dose on Fri04/21/18 at 2100 2040 (Given - Provider: Augustine Huang RN) apixaban [...] Other - Comment: pt taken at home) 31 (Given - Provider: Michelle Kaiser RN) atorvastatin (LIPITOR) tablet 10 mg 10 mg, [...] Reason: Other - Comment: taken at home) 31 (Given - Provider: Michelle Kaiser RN) clopidogrel (PLAVIX) tablet 75 mg 75 mg, oral, Nightly, First dose on Fri04/21/18 at 2099 2036 (Given - Provider: Augustine Huang RN) cyanocobalamin (Vitamin B-12) tablet 1,000 mcg 1,000 mcg, oral, Daily, First dose on Fri04/21/18 at 1500, Indications: Prevention of Vitamin B12 Deficiency 143 (Not Given - Provider: Mary Proctor RN - Reason: Other - Comment: taken at home) 31 (Given - Provider: Michelle Kaiser RN) famotidine [...] Proctor RN) 0930 (Given - Provider: Michelle Kaiser, AMARILIS) gabapentin (NEURONTIN) tablet 600 mg 600 mg, oral, 3 times daily, First dose on Fri04/21/18 at 1600 1632 (Not Given - Provider: Mary Proctor RN - Reason: Patient/family refused)2036 (Given - Provider: Augustine Huang RN) 0930 (Given - Provider: Michelle Kaiser, AMARILIS) lisinopril (PRINIVIL,ZESTRIL) tablet 20 mg 20 mg, oral, Nightly, First dose (after last modification) on Fri04/21/18 at 2100 2036 (Given - Provider: Augustine Huang RN) sodium chloride 0.9% flush 0.5-20 mL 0.5-20 mL, intra-catheter, Every 8 hours scheduled, First dose on Fri04/21/18 at 1400, Recovery (CV), Flush volume based on line type and size. , Indications: Flushing 1430 (Given - Provider: Mary Proctor RN)2111 (Given - Provider: Augustine Huang RN) 0943 (Given - Provider: Michelle Kaiser, AMARILIS) sotalol (BETAPACE) tablet 80 mg 80 mg, oral, 2 times daily, First dose on Fri04/21/18 at 2100 2038 (Given - Provider: Augustine Huang RN) 0930 (Given - Provider: Michelle Kaiser, AMARILIS) Continuous Medication Order 04/20/2018 04/21/2018 04/22/2018 sodium [...] 2 puff, inhalation, Every 6 hours PRN (emergency response officer), wheezing, Starting on Fri04/21/18 at 1431 benzocaine-menthol [...] (CV) 0924 (Given - Provider: Cornell Hilton MD)09 (Given - Provider: Cornell Hilton MD) lidocaine (XYLOCAINE) 10 mg/mL (1 %) injection (CANCELED) As needed, Starting on Fri04/21/18 at 0906, Intra-Procedure (CV), Indications: Administration of Local Anesthesia 908 (Given - Provider: Cornell Hilton MD - [...] flaxseed oil capsule 1,000 mg 1 04/21/2018 hydrALAZINE (APRESOLINE) injection 5 mg 1 0 04/21/2018 HYDROmorphone (DILAUDID) injection 0.2 mg 1 04/21/2018 HYDROmorphone (DILAUDID) injection 0.4 mg 1 04/21/2018 lisinopril (PRINIVIL,ZESTRIL) tablet 20 mg [...] 04/21/2018 documented in this encounter Care Teams Mandrel Cleaner Relationship Specialty Start Date End Date Rogelio Epperson MD [address] [facility] [address] [place] [phone] PCP - General 06/04/12 documented as of this encounter
--- OUTSIDE RECORDS SUMMARY | 2024-02-14 08:42 | XMS_ITS | Encounter Summary ---
Author Organization [facility] Healthcare Address [address] [place] [address] Care Team Providers Care Needlemaker Name Role Phone Rogelio Epperson MD Primary Care Provider Encounter Details Date Type Department Care Team (Latest Contact Info) Description 12/31/2016 2:06 PM PATTERN ILLUSTRATOR - 12/31/2016 4:18 PM [facility] Hospital Encounter [facility] Chas Walker MD [facility] [place] [address] Spinal stenosis of lumbar region without neurogenic claudication; Intervertebral disc stenosis of neural canal of lumbar region; Intervertebral disc disorder with radiculopathy of lumbar region; Other specific arthropathies, not elsewhere classified, other specified site; Other spondylosis with radiculopathy, lumbar region; Spondylolisthesis of lumbar region; Spinal enthesopathy of lumbar region (CMS/HCC); [facility] current use of anticoagulant; Morbid (severe) obesity due to excess calories (CMS/HCC); Atrial fibrillation (CMS/HCC) Social History Tobacco Use Types Packs/Day Years Used Date Smoking Tobacco: Former Cigarettes Q uit: 02/25/2008 Alcohol Use Standard Drinks/Week Comments Yes 0 (1 standard drink = 0.6 oz pur e alcohol) Sex and Gender Information Value Date Recorded Sex Assigned at Not on file Legal Sex Male 1:57 AM PATTERN ILLUSTRATOR Gender Identity Not on file Sexual Orientation Not on file documented as of this encounter Last Filed Vital Signs Vital Sign Reading Time Taken Comments Blood Pressure 153/76 12/31/2016 2:33 PM PATTERN ILLUSTRATOR Pulse 66 12/31/2016 2:33 PM PATTERN ILLUSTRATOR Temperature 36.6 ??C (97.8 ??F) 12/31/2016 2:33 PM CS T Respiratory Rate - - Oxygen Saturation 98% 12/31/2016 2:33 PM PATTERN ILLUSTRATOR Inhaled Oxygen Concentration - - Weight - - Height - - Body Mass Index - - documented in this encounter Medications at Time of Discharge acetaminophen (TYLENOL EXTRA STRENGTH) 500 mg tablet take 1 - 2 Tablet (500MG) by oral route every 6 hours as needed 0 08/03/2015 04/20/2018 amLODIPine (NORVASC) 10 mg tablet take 1 tablet by oral route every day 90 3 04/22/2014 03/28/2017 atenolol (TENORMIN) 100 mg tablet take 1 tablet (100MG) by oral route every day 90 3 07/29/2012 10/21/2017 atorvastatin (LIPITOR) 10 mg tablet Take 2 tablets (20 mg total) by mouth daily. 90 tablet 3 12/30/2016 02/04/2017 atorvastatin (LIPITOR) 20 mg tablet take 1 tablet by oral route every day 90 3 07/25/2016 10/21/2017 clopidogrel (PLAVIX) 75 mg tablet TAKE 1 TABLET BY MOUTH EVERY DAY 90 tablet 3 12/30/2016 01/20/2018 ELIQUIS 5 mg tablet Take 1 tablet by mouth two times daily 180 tablet 10/16/2016 03/12/2017 famotidine (PEPCID AC) 20 mg tablet take 1 tablet (20MG) by oral route 2 times every day 0 06/04/2012 04/20/2018 gabapentin (NEURONTIN) 100 mg capsule take 1 Capsule (100MG) by oral route 3 times every day 0 06/04/2012 08/05/2017 ramipril (ALTACE) 10 mg capsule TAKE 1 CAPSULE BY MOUTH EVERY DAY 90 capsule 3 12/30/2016 01/20/2018 sotalol (BETAPACE) 80 mg tablet take 1 by Oral route 2 times every day 180 3 07/25/2016 06/11/2017 documented as of this encounter Plan of Treatment Not on file documented as of this encounter Visit Diagnoses Diagnosis Spinal stenosis of lumbar region without neurogenic claudication 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
--- OUTSIDE RECORDS SUMMARY | 2024-02-14 08:42 | XMS_ITS | Encounter Summary ---
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?F) 01/28/2017 8:59 AM CS T Respiratory Rate - - Oxygen Saturation 98% 01/28/2017 8:59 AM CARTON REPAIRER Inhaled Oxygen Concentration - - Weight 131.5 kg (290 lb) 01/28/2017 8:59 AM CARTON REPAIRER Height 175.3 cm (5' 9 ) 01/28/2017 8:59 AM CARTON REPAIRER Body Mass Index 42.83 01/28/2017 8:59 AM CARTON REPAIRER documented in this encounter Medications at Time [...] Procedure Name Priority Date/Time Associated Diagnosis Comments SCAN - PATHOLOGY 01/29/2017 12:0 0 AM CARTON REPAIRER documented in this encounter Results * SCAN - PATHOLOGY (01/29/2017 12:00 AM CARTON REPAIRER) Narrative 01/29/2017 12:00 AM CARTON REPAIRER Ordered by an unspecified provider. 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
--- OUTSIDE RECORDS SUMMARY | 2024-02-14 08:42 | XMS_ITS | Encounter Summary ---
Author Organization [facility] Address [address] [facility] [address] [place] [address] Care Team Providers Care Ent Nurse Name Role Phone Rogelio Epperson MD Primary Care Provider Reason for Visit * Reason Comments Follow-up HFU Cardioversion Encounter Details Date Type Department Care Team (Late st Contact Info) Description 09/04/2016 9:00 AM CDT Office Visit [facility] [address] [place] [address] Mohinder Martinez MD [address] [place] [address] Coronary artery disease involving cachil dehe coronary artery of cachil dehe heart without angina pectoris (Primary Dx); Paroxysmal atrial fibrillation (CMS/HCC) Social History Tobacco Use Types Packs/Day Years Used Date Smoking Tobacco: Former Cigarettes Q uit: 02/25/2008 Alcohol Use Standard Drinks/Week Comments Yes 0 (1 standard drink = 0.6 oz pur e alcohol) Sex and Gender Information Value Date Recorded Sex Assigned at Not on file Legal Sex Male 1:57 AM ELECTRODE CLEANING MACHINE OPERATOR Gender Identity Not on file Sexual Orientation Not on file documented as of this encounter Last Filed Vital Signs Vital Sign Reading Time Taken Comments Blood Pressure 130/80 09/04/2016 9:17 AM CDT Pulse 57 09/04/2016 9:17 AM CDT Temperature - - Respiratory Rate 20 09/04/2016 9:17 AM CDT Oxygen Saturation 98% 09/04/2016 9:17 AM CDT Inhaled Oxygen Concentration - - Weight 133.1 kg (293 lb 8 oz) 09/04/2016 9:17 AM CDT Height 175.3 cm (5' 9 ) 09/04/2016 9:17 AM CDT Body Mass Index 43.34 09/04/2016 9:17 AM CDT documented in this encounter Progress Notes * Mohinder Martinez MD - 09/04/2016 9:00 AM CDT [facility] FOLLOW UP 09/04/2016 1. Cardiac Evaluation Mr. Nicole presents today for follow up of his coronary artery disease and a afib . This is a gentleman who underwent emergency right coronary stenting in the setting of an acute infarction back in January of 2004. He also was found to have a high-grade LAD lesion which was then stented electively in March of 2004. He has done well since then. He also has significant peripheral vascular disease which is being followed by Dr. Botello. Attempts to revascularize his lower extremities percutaneously were unsuccessful. With exercise especially water aerobics he is experiencing significant improvement in his claudication. The patient recently I reverted into atrial fibrillation. He was anticoagulated as an outpatient placed on sotalol treatment and then electrically cardioverted to sinus rhythm in July of 2016. He presents today for follow-up after the cardioversion procedure. In the office today he is doing well hefeels much better now that he is in sinus rhythm by exam and ECG he is in sinus his heart rate is 55. REVIEW OF SYSTEMS General ROS: negative for [...] skin, eczema, pruritus and rash HOME MEDICATIONS (Not in a hospital admission) LABS AND OTHER DIAGNOSTIC TESTS DIRECTOR OF BUSINESS SERVICES: PCI (Emergency angioplasty and stenting of the right coronary artery 3 x 24 mm Taxus) - 02/07/2004 PCI (Elective angioplasty and stenting of the LAD 3 x 18 mm Taxus followed by 3 x 12 mm Taxus) - 04/04/2004 ECHO/MUGA: Echo (Normal looking left ventricular systolic function ejection fraction 60%, moderate enlargementof the left atrium, trivial MR/AI) - 06/27/2016 STRESS TESTS: MPI (normal left ventricular perfusion, ejection fraction 60%) - 10/15/2010 PHYSICAL EXAM Vitals: 09/04/16 0917 BP: 130/80 Pulse: 57 Resp: 20 SpO2: 98% Physical Examination: General appearance - alert, well [...] for this visit: Coronary artery disease involving cachil dehe coronary artery of cachil dehe heart without angina pectoris Paroxysmal atrial fibrillation (CMS/HCC) PLAN/RECOMMENDATIONS Continue current medical regimen Follow-up at 6 month intervals Mohinder Martinez MD documented in this encounter Plan of Treatment Not on file documented as of this encounter Visit Diagnoses Diagnosis Coronary artery disease involving cachil dehe coronary artery of cachil dehe heart without angina pectoris- Primary Paroxysmal atrial fibrillation (CMS/HCC) (HCC) Atrial fibrillation documented in this encounter Discontinued Medications Medication Sig Discontinue Reason Start Date End Da te atorvastatin (LIPITOR) 10 mg tablet take 1 tablet by oral route every day Duplicate order 08/03/2015 09/04/2016 nitroglycerin (NITROSTAT) 0.[address] 1 tablet between cheek and gum at the first sign of an attack; no more than 3 tabs are recommended within a 15 minute period. Duplicate order 07/27/2013 09/04/2016 documented as of this encounter Care Teams Ent Nurse Relationship Specialty Start Date End Date Rogelio Epperson MD [address] [facility] [address] [place] [address] PCP - General 06/04/12 documented as of this encounter
--- OUTSIDE RECORDS SUMMARY | 2024-02-14 08:42 | XMS_ITS | Encounter Summary ---
Author Organization [facility] Address [address] [place] [address] Care Team Providers Care Caregivers Non Medical Name Role Phone Rogelio Epperson MD Primary Care Provider Encounter Details Date Type Department Care Team (Latest Contact Info) Description 11/27/2016 9:29 AM CDT - 11/27/2016 10:45 AM CDT Hospital Encounter [facility] Sona Rooney, FISCAL SERVICES DIRECTOR [address] [address] Low back pain; Pain of right leg Social History Tobacco Use Types Packs/Day Years Used Date Smoking Tobacco: Former Cigarettes Q uit: 02/25/2008 Alcohol Use Standard Drinks/Week Comments Yes 0 (1 standard drink = 0.6 oz pur e alcohol) Sex and Gender Information Value Date Recorded Sex Assigned at Not on file Legal Sex Male 1:57 AM PHYSICAL EDUCATION AIDE Gender Identity Not on file Sexual Orientation Not on file documented as of this encounter Last Filed Vital Signs Vital Sign Reading Time Taken Comments Blood Pressure 159/80 11/27/2016 9:56 AM CDT Pulse 62 11/27/2016 9:56 AM CDT Temperature 36.6 ??C (97.8 ??F) 11/27/2016 9:56 AM CD T Respiratory Rate - - Oxygen Saturation 98% 11/27/2016 9:56 AM CDT Inhaled Oxygen Concentration - - Weight 134.1 kg (295 lb 9.6 oz) 11/27/2016 9:56 AM CDT Height 175.3 cm (5' 9 ) 11/27/2016 9:56 AM CDT Body Mass Index 43.65 11/27/2016 9:56 AM CDT documented in this encounter Medications at Time [...] day 90 3 07/29/2012 10/21/2017 atorvastatin (LIPITOR) 20 mg tablet take 1 tablet by oral route every day 90 3 07/25/2016 10/21/2017 clopidogrel (PLAVIX) 75 mg tablet take 1 by Oral route every day 90 3 07/29/2012 12/28/2016 ELIQUIS 5 mg tablet Take 1 tablet by mouth two times daily 180 tablet 10/16/2016 03/12/2017 famotidine (PEPCID AC) 20 mg tablet take 1 tablet (20MG) by oral route 2 times every day 0 06/04/2012 04/20/2018 gabapentin (NEURONTIN) 100 mg capsule take 1 Capsule (100MG) by oral route 3 times every day 0 06/04/2012 08/05/2017 ramipril (ALTACE) 10 mg capsule take 1 capsule by oral route every day 90 3 07/29/2012 12/28/2016 sotalol (BETAPACE) 80 mg tablet take 1 by Oral route 2 times every day 180 3 07/25/2016 06/11/2017 documented as of this encounter Plan of Treatment Not on file documented as of this encounter Visit Diagnoses Diagnosis Low back pain Lumbago Pain of right leg documented in this encounter Care Teams Caregivers Non Medical Relationship Specialty Start Date End Date Rogelio Epperson MD [address] [facility] [address] [place] [address] PCP - General 06/04/12 documented as of this encounter
--- OUTSIDE RECORDS SUMMARY | 2024-02-14 08:42 | XMS_ITS | Encounter Summary ---
Author Organization [facility] Address [address] [address] Care Team Providers Care Family Educator Name Role Phone Rogelio Epperson MD Primary Care Provider Encounter Details Date Type Department Care Team (Late st Contact Info) Description 04/06/2018 Telephone [facility] [address] [facility] [address] [address] Mohinder Martinez MD [address] [facility] [address] [facility] [address] [place] [address] Social History Tobacco Use Types Packs/Day Years Used Date Smoking Tobacco: Former Smokeless Tobacco: Never Alcohol Use Standard Drinks/Week Comments Yes 0 (1 standard drink = 0.6 oz pur e alcohol) Sex and Gender Information Value Date Recorded Sex Assigned at Not on file Legal Sex Male 1:57 AM FURNACE OPERATOR AND TENDER Gender Identity Not on file Sexual Orientation Not on file documented as of this encounter Miscellaneous Notes * Telephone Encounter - Palma Myers RN - 04/06/2018 9:13 AM FURNACE OPERATOR AND TENDER Lab order sent to [facility] per request. ACE OPERATOR AND TENDER * Telephone Encounter - Sandhya [place] - 04/06/2018 9:00 AM CST Pt was released from the hospital and has instructions from Isamar Austin to have blood work 04/08/18 Needs an order for potassium level and basic metabolic panel sent to [facility] [address] in [place]. ACE OPERATOR AND TENDER documented in this encounter Plan of Treatment Not on file documented as of this encounter Visit Diagnoses Not on filedocumented in this encounter Care Teams Family Educator Relationship Specialty Start Date End Date Rogelio Epperson MD [address] [facility] [address] [place] [address] PCP - General 06/04/12 documented as of this encounter
--- OUTSIDE RECORDS SUMMARY | 2024-02-14 08:42 | XMS_ITS | Encounter Summary ---
Author Organization [facility] Address [address] [facility] [address] [place] [id number] Care Team Providers Care Pharmacy Informaticist Name Role Phone Rogelio Epperson MD Primary Care Provider Reason for Visit * Reason Comments Follow-up Encounter Details Date Type Department Care Team (Late st Contact Info) Description 12/18/2017 3:30 PM CDT Office Visit [facility] [address] [place] [phone] Mohinder Martinez MD [address] [facility] [address] [facility] [address] [place], [place] [id number] Coronary artery disease involving qagan tayagungin coronary artery of qagan tayagungin heart without angina pectoris (Primary Dx); Paroxysmal atrial fibrillation (CMS/HCC); Morbid obesity with body mass index (BMI) of 40.0 to 49.9 (CMS/HCC) Social History Tobacco Use Types Packs/Day Years Used Date Smoking Tobacco: Former Smokeless Tobacco: Never Alcohol Use Standard Drinks/Week Comments Yes 0 (1 standard drink = 0.6 oz pur e alcohol) Sex and Gender Information Value Date Recorded Sex Assigned at Not on file Legal Sex Male 1:57 AM NEEDLE 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 Gender Identity Not on file Sexual Orientation Not on file documented as of this encounter Last Filed Vital Signs Vital Sign Reading Time Taken Comments Blood Pressure 122/74 12/18/2017 3:47 PM CDT Pulse 56 12/18/2017 3:47 PM CDT Temperature - - Respiratory Rate - - Oxygen Saturation 96% 12/18/2017 3:47 PM CDT Inhaled Oxygen Concentration - - Weight 134.7 kg (297 lb) 12/18/2017 3:47 PM CDT Height 175.3 cm (5' 9 ) 12/18/2017 3:47 PM CDT Body Mass Index 43.86 12/18/2017 3:47 PM CDT documented in this encounter Progress Notes * Mohinder Martinez MD - 12/18/2017 3:30 PM CDT [facility] 12/18/2017 Vu Nicole is a 72 y.o. male [...] successful. He returns today for office follow-up. I saw the patient back in September at which time he had lapsedback into atrial fibrillation in my initial plan was to simply provide rate control and systemic anticoagulation. The patient however came back for follow-up and was reporting symptoms of lightheadedness dizziness and instability of his gait and even though the symptoms were not obviously related to his AFib he desired another attempt at restoring sinus rhythm. He was therefore placed back on sotalol and cardioverted electrically to sinus rhythm on 11/07/2017. Two hundred joules x1 shock restored normal sinus rhythm. He is asymptomatic in the office today and states he feels much better sincehe has been placed in sinus rhythm. Since he has had a number of cardioversions in the past I did discuss with him the option and the concept of having outpatient consultation with electrophysiology since I am relatively certain he will have recurrences of his AFib and obviously there is question will benefit about repeatedly cardioverting him like this REVIEW OF SYSTEMS General ROS: negative for [...] 3 ??? sotalol (BETAPACE) 80 mg tablet, Take 80 mg by mouth 2 (two) times a day., Disp: , Rfl: ??? triamcinolone (NASACORT) 55 [...] for component: LABALBU PHYSICAL EXAM Vitals BP 122/74 (BP Location: Right arm, Patient Position: Sitting) Pulse 56 Ht 175.3 cm (5' 9 ) Wt 134.7 kg (297 lb) SpO2 96% BMI 43.86 kg/m?? Physical Examination: General appearance - alert, [...] for this visit: Coronary artery disease involving qagan tayagungin coronary artery of qagan tayagungin heart without angina pectoris Paroxysmal atrial fibrillation (CMS/HCC) Morbid obesity with body mass index (BMI) of 40.0 to 49.9 (CMS/HCC) PLAN/RECOMMENDATIONS Continue anticoagulation and anti arrhythmic regimen for now Schedule appointment with me in 6 months Gave him the contact information for the arrhythmia Center at [facility] Mohinder Martinez MD documented in this encounter Miscellaneous Notes * Addendum Note - Roseline Gonzalez MA - 12/18/2017 3:30 PM CDTAddended by: ROSELINE GONZALEZ on: 12/20/2017 08:55 AM Modules accepted: Orders documented in this encounter Plan of Treatment Not on file documented as of this encounter Procedures Procedure Name Priority Date/Time Associated Diagnosis Comments POCT LIPID PANEL Routine 12/18/2017 8:51 AM CDT Coronary artery disease involving qagan tayagungin coronary artery of qagan tayagungin heart without angina pectoris documented in this encounter Results * POCT lipid panel (12/18/2017 8:51 AM CDT) Cholesterol, POC 220 mg/dL HDL, POC 57 mg/dL Triglycerides, POC 147 mg/dL LDL Cholesterol POC 133 mg/dL Chol/HDL Ratio, POC 3.8 Non-HDL Cholesterol, POC 162 mg/dL Cholesterol Total, POC 220 mg/dL Blood specimen (specimen) 12/18/2017 8:51 AM CDT Mohinder Martinez MD POINT OF CARE TEST ORDER GILMA Final Result documented in this encounter Visit Diagnoses Diagnosis Coronary artery disease involving qagan tayagungin coronary artery of qagan tayagungin heart without angina pectoris- Primary Paroxysmal atrial fibrillation (CMS/HCC) (HCC) Atrial fibrillation Morbid obesity with body mass index (BMI) of 40.0 to 49.9 (HCC) documented in this encounter Historical Medications * This list may reflect changes made after this encounter. sotalol (BETAPACE) 80 mg tablet Take 80 mg by mouth 2 (two) times a day. 12/30/2017 added in this encounter Care Teams Pharmacy Informaticist Relationship Specialty Start Date End Date Rogelio Epperson MD [address] [address] PCP - General 06/04/12 documented as of this encounter
--- OUTSIDE RECORDS SUMMARY | 2024-02-14 08:42 | XMS_ITS | Encounter Summary ---
Author Organization [facility] Healthcare Address [address] [place] [address] Care Team Providers Care Gun Repair Clerk Name Role Phone Rogelio Epperson MD Primary Care Provider Encounter Details Date Type Department Care Team (Late st Contact Info) Description 04/21/2018 7:52 AM FLAT BED OPERATOR Anesthesia Event [facility] [address] [place] [id number] Logan Morales MD [address] [facility] [place] [address] Luis M Jade CRNA [address] [facility] [place] [address] Anesthesia Record Procedure Summary Procedure Name Responsible Anesthesiologist Anesthesia Start Time Anesthesia Stop Time ABLATION ATRIAL FIBRILLATION (A-FIB) VIA PULMONARY VEIN ISOLATION 84843 with carto and ICE Logan Morales MD 04/21/18 0752 04/21/18 1315 Events Date Time Event Comment 04/21/2018 0752 An Start 0800 0801 An Start Data 0810 An Induction The patient was reevaluated immediately before moderate or deep sedation use and before anesthesia induction. 0812 An Intubation 1259 An Extubation 1259 an stop data 1315 Handoff to RN I completed my handoff to the receiving nurse during which we: 1. Patient identified 2. Responsible provider identified 3. Pertinent medical history reviewed 4. Procedure type and surgical course discussed 5. Intraoperative anesthetic management and any significant issues discussed 6. Expectations and concerns for postop period discussed 7. Questions solicited from receiving nurse 8. Patient disposition at the time of handoff: PACU 1315 An Stop 1359 Release from care Meds Name Total fentaNYL 350 mcg propofol 150 mg propofol 3,397.51 mg rocuronium 160 mg glycopyrrolate 0.3 mg neostigmine 3 mg ondansetron 4 mg dexamethasone 4 mg/ml 10 mg heparin 1,000 unit/ml 36,000 Units protamine 50 mg sodium chloride 0.9% infusion 500 mL LR 600 mL * Agents Name O2 Air * Blood No blood administrations on file. Lines, Drains, and Airways Type Details Placement Removal Peripheral IV Placement Date: 03/28 08/12; Placement Time: 07; Catheter Size: 22 G; Orientation: Left; Location: Wrist; Site Prep: Chlorhexidine; Inserted by: christopher rincon; Insertion Attempts: 1; Patient Tolerance: Tolerated well; Removal Date: 04/22/18; Removal Time: 1100 04/21/18 0729 by Sumi Kenney RN 04/22/18 1100 by Michelle Kaiser, AMARILIS ETT Placement Date: 03/28 08/12; Placement Time: 08 (created via procedure documentation); Mask Ventilation: 1; Technique: Direct laryngoscopy; Type: ETT - single; Single Lumen Tube Size: 8 mm; Cuffed: Yes; Laryngoscope: Venkatesh; Blade Size: 4; Location: Oral; Grade View: Grade I; Insertion Attempts: 1; Placement Verification: Auscultation, Capnometry; Removal Date: 04/21/18; Removal Time: 1259 04/21/18 0824 by Luis M Jade CRNA 04/21/18 1259 by Luis M Jade CRNA Venous Sheath Placement Date: 03/28 08/12; Placement Time: 0915; Hand Hygiene: Yes; Site Prep: Chlorhexidine; Sterile Barrier Used: Yes; Inserted by: Dr. Mack; Removal Date: 04/21/18; Removal Time: 1231 04/21/18 0915 by Ben Rincon, AMARILIS 04/21/18 1231 by Ben Rincon RN Venous Sheath Placement Date: 03/28 08/12; Placement Time: 15; Hand Hygiene: Yes; Site Prep: Chlorhexidine; Sterile Barrier Used: Yes; Inserted by: Dr. Mack; Removal Date: 04/21/18; Removal Time: 1231 04/21/18 0915 by Ben Rincon RN 04/21/18 1231 by Ben Rincon RN Venous Sheath Placement Date: 03/28 08/12; Placement Time: 919; Hand Hygiene: Yes; Site Prep: Chlorhexidine; Sterile Barrier Used: Yes; Inserted by: Dr. Mack; Removal Date: 04/21/18; Removal Time: 12104/21/18 0920 by Ben Rincon RN 04/21/18 1215 by Ben Rincon RN Venous Sheath Placement Date: 03/28 08/12; Placement Time: 24; Hand Hygiene: Yes; Site Prep: Chlorhexidine; Sterile Barrier Used: Yes; Inserted by: Dr. Mack; Removal Date: 04/21/18; Removal Time: 1215 04/21/18 0924 by Ben Rincon RN 04/21/18 1215 by Ben Rincon RN documented in this encounter Social History Tobacco Use Types Packs/Day Years Used Date Smoking Tobacco: Former Smokeless Tobacco: Never Alcohol Use Standard Drinks/Week Comments Yes 0 (1 standard drink = 0.6 oz pur e alcohol) occasionally Sex and Gender Information Value Date Recorded Sex Assigned at Not on file Legal Sex Male 1:57 AM FLAT BED OPERATOR Gender Identity Not on file Sexual Orientation Not on file documented as of this encounter OR Notes * Anesthesia Postprocedure Evaluation - Logan Morales MD - 04/21/2018 1:59 PM CST Patient: Vu Nicole Procedure Summary Date: 04/21/18 Room / Location: [facility] CATH/EP LAB C / [facility] CARDIAC ETL TESTER Anesthesia Start: 0752 Anesthesia Stop: 1315 Procedures: ABLATION ATRIAL FIBRILLATION (A-FIB) VIA PULMONARY VEIN ISOLATION 26963 with carto and ICE (N/A ) 3D MAPPING OF TACHYCARDIA (+) 56461 (N/A ) ABLATION ATRIAL FIBRILLATION ADDITIONAL LINE OR FOCI (+) 37724 (N/A ) Diagnosis: Paroxysmal atrial fibrillation (CMS/HCC) (Paroxysmal atrial fibrillation (CMS/HCC) [I48.0]) Provider: Jovi Mack MD Responsible Provider: Logan Morales MD Anesthesia Type: general/TIVA ASA Status: 3 Anesthesia Type: general/TIVA Last vitals BP 118/69 Pulse 69 Temp 36.7 ??C (98 ??F) Resp 15 SpO2 92% Anesthesia Post Evaluation Patient location during evaluation: PACU Patient participation: complete - patient participated Level of consciousness: follows simple commands and fully awake Pain management: adequate Airway patency: adequate Anesthetic complications: no Cardiovascular status: acceptable and hemodynamically stable Respiratory status: acceptable Hydration status: acceptable Pt is: normothermic Nausea/Vomiting status: none BED OPERATOR * Anesthesia Procedure Notes - Luis M Jade CRNA - 04/21/2018 8:24 AM CSTAssociated Order(s): ANESTHESIA INTUBATION Airway Patient location: OR Urgency: elective Indications for airway management: anesthesia Difficult airway: no Staff: Placed by: RECRUITING CONSULTANT: LUIS M JADE Airway prep: Preoxygenated: yes Patient position: sniffing Mask difficulty assessment: 1 - vent by mask Sedation level during airway: GA Final airway details: Final airway type: endotracheal airway Tube type: ETT ETT size: 8.0 mm Cuffed: yes Technique used for successful ETT placement: direct laryngoscopy Devices/Methods used in placement: intubating stylet Insertion site: oral Blade type: Venkatesh Blade size: 4 Cormack-Lehane (direct): grade I - full view of glottis Cuff inflated with: air ETT to lips: 22 cm Placement verified by: auscultation and CO2 detection Number of attempts: 1 BED OPERATOR * Anesthesia Preprocedure Evaluation - Logan Morales MD - 04/21/2018 7:59 AM CST Anesthesia Evaluation Vu Nicole is a 72 y.o. male Procedure(s): ABLATION ATRIAL FIBRILLATION (A-FIB) VIA PULMONARY VEIN ISOLATION 81011 with carto and ICE HISTORY Past Medical History Cardiovascular + CAD + Atrial fibrillation/flutter - Endocrine / Other + Obesity (BMI >30) Patient Active Problem List Diagnosis ??? CAD (coronary artery disease) ??? PAF (paroxysmal atrial fibrillation) (CMS/HCC) ??? Morbid obesity with body mass index (BMI) of 40.0 to 49.9 (CMS/HCC) ??? 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 Anticoagulation management encounter ??? Paroxysmal atrial fibrillation (CMS/HCC) Past Medical History: Diagnosis Date ??? Adiposity Obesity ??? Arrhythmia ??? Asthma seaonal allergies, asthma ??? Atrial fibrillation (CMS/HCC) ??? CHF (congestive heart failure) (CMS/HCC) ??? Coronary artery disease ??? HX OTHER MEDICAL dyslipidemia ??? Hyperlipidemia ??? Hypertension Hypertension ??? Sleep apnea cpap Past Surgical History: Procedure Laterality Date ??? CARDIAC CATHETERIZATION ??? CORONARY STENT PLACEMENT x 4 No Known Allergies HOME MEDICATIONS : acetaminophen (TYLENOL) 500 mg tablet albuterol HFA (PROVENTIL HFA,VENTOLIN HFA) 90 mcg/actuation inhaler amLODIPine (NORVASC) 10 mg tablet apixaban (ELIQUIS) 5 mg tablet aspirin 81 mg chewable tablet atorvastatin (LIPITOR) 10 mg tablet azelastine (ASTELIN) 137 mcg (0.1 %) nasal spray cholecalciferol (VITAMIN D-3) 5,000 unit capsule clopidogrel (PLAVIX) 75 mg tablet cyanocobalamin (Vitamin B-12) 1,000 mcg tablet famotidine (PEPCID) 20 mg tablet flaxseed oil 1,000 mg capsule furosemide (LASIX) 40 mg tablet gabapentin (NEURONTIN) 600 mg tablet nitroglycerin (NITROSTAT) 0.4 mg SL tablet ramipril (ALTACE) 10 mg capsule sotalol (BETAPACE) 80 mg tablet triamcinolone (NASACORT) 55 mcg nasal inhaler indomethacin (INDOCIN) 50 mg capsule Current Facility-Administered Medications: ??? Saline lock IV, , , Once AND sodium chloride 0.9% flush 0.5-20 mL, 0.5- 20 mL, intra-catheter, Q8H JUNE AND sodium chloride 0.9% flush 0.5-20 mL, 0.5-20 mL, intra-catheter, PRN ??? sodium chloride 0.9% infusion, 15 mL/hr, intravenous, Continuous Social History Smoking Status ??? Former Smoker Smokeless Tobacco ??? Never Used Alcohol Use ??? Yes Comment: occasionally Drug Use No Family History Problem Relation Age of Onset ??? Stent Brother Coronary Stent Placement; ??? Heart attack Brother Myocardial Infarction; Cause of : Myocardial Infarction ??? Stent Sister Coronary Stent Placement; ??? Stent Sister Coronary Stent Placement; PAT Physical Exam Vitals: 04/21/18 0717 04/21/18 0727 BP: 147/88 Pulse: 58 Resp: 15 Temp: 36.1 ??C (97 ??F) 36 ??C (96.8 ??F) SpO2: 96% PT: No results found for requested labs within last 720 hours. INR: No results found for requested labs within last 720 hours. APTT: No results found for requested labs within last 720 hours. Hgb A1C: No results found for requested labs within last 720 hours. CBC RBC: 04/21/2018: 4.82 M/cumm RDW: No results found for requested labs within last 720 hours. MCHC: 04/21/2018: 32.0 g/dL* MCH: 04/21/2018: 29.9 pg MCV: 04/21/2018: 93.4 fL Hct: 04/21/2018: 45.0 % Hgb: 04/21/2018: 14.4 g/dL WBC: 04/21/2018: 8.7 K/cumm MPV: 04/21/2018: 10.7 fL Platelets: 04/21/2018: 391 K/cumm RDW CV: 04/21/2018: 13.7 % RDW Sd: 04/21/2018: 46.6 fL BMP Glucose: 04/08/2018: 104 mg/dL* Calcium: 04/08/2018: 9.1 mg/dL Sodium: 04/08/2018: 139 mmol/L Potassium: 04/08/2018: 5.0 mmol/L CO2: 04/08/2018: 25 mmol/L Chloride: 04/08/2018: 100 mmol/L BUN: 04/08/2018: 21 mg/dL Creatinine: 04/08/2018: 0.95 mg/dL DOS Physical Exam Medical history, medications, and allergies reviewed. Attestation: This PAT evaluation 04/21/2018. Airway Exam: Mallampati: II Cervical ROM: FROM TM distance: >4 Jaw ROM: full Cardiovascular Exam: Rate: regular Rhythm: regular Pulmonary Exam: LCTA, bilat Dental Exam: Otherwise appears intact Anesthesia Plan ASA 3 My patient is approved for the Anesthesia Controlled Medication protocol when under care of a RECRUITING CONSULTANT Planned anesthesia: General Induction: Induction: intravenous. Postoperative Plan: Postoperative administration opioids intended. No postoperative mechanical ventilation intended. Patient's planned disposition post procedure is Floor. Informed Consent: Discussed plan with RECRUITING CONSULTANT. Anesthesia plan and risks discussed with patient. Consent and Attending signature: I and/or my designee have discussed the anesthesia plan, benefits, possible alternatives, parental presence at time of induction (if indicated), and clinically relevant risks that may include dental injury, unintentional awareness, and/or other complications. The patient and/or parent/legal guardian understand, and agree to proceed. All questions answered. BED OPERATOR documented in this encounter Plan of Treatment Not on file documented as of this encounter Procedures Procedure Name Priority Date/Time Associated Diagnosis Comments WI AN PROCEDURE PLACEHOLDER Routine 04/21/2018 8:24 AM FLAT BED OPERATOR Procedure Note - Luis M Jade CRNA - 04/21/2018 8:24 AM CSTThis note is in progress. Airway Patient location: OR Urgency: elective Indications for airway management: anesthesia Difficult airway: no Staff: Placed by: RECRUITING CONSULTANT: LUIS M JADE Airway prep: Preoxygenated: yes Patient position: sniffing Mask difficulty assessment: 1 - vent by mask Sedation level during airway: GA Final airway details: Final airway type: endotracheal airway Tube type: ETT ETT size: 8.0 mm Cuffed: yes Technique used for successful ETT placement: direct laryngoscopy Devices/Methods used in placement: intubating stylet Insertion site: oral Blade type: Venkatesh Blade size: 4 Cormack-Lehane (direct): grade I - full view of glottis Cuff inflated with: air ETT to lips: 22 cm Placement verified by: auscultation and CO2 detection Number of attempts: 1 WI AN ELECTIVE ENDOTRACHEAL AIRWAY Routine 04/21/2018 8:24 AM FLAT BED OPERATOR Procedure Note - Luis M Jade CRNA - 04/21/2018 8:24 AM CSTThis note is in progress. Airway Patient location: OR Urgency: elective Indications for airway management: anesthesia Difficult airway: no Staff: Placed by: RECRUITING CONSULTANT: LUIS M JADE Airway prep: Preoxygenated: yes Patient position: sniffing Mask difficulty assessment: 1 - vent by mask Sedation level during airway: GA Final airway details: Final airway type: endotracheal airway Tube type: ETT ETT size: 8.0 mm Cuffed: yes Technique used for successful ETT placement: direct laryngoscopy Devices/Methods used in placement: intubating stylet Insertion site: oral Blade type: Venkatesh Blade size: 4 Cormack-Lehane (direct): grade I - full view of glottis Cuff inflated with: air ETT to lips: 22 cm Placement verified by: auscultation and CO2 detection Number of attempts: 1 documented in this encounter Visit Diagnoses Not on filedocumented in this encounter Administered Medications Inactive Administered Medications - up to 3 most recent administrations Medication Order MAR Action Action Date Dose Rate Site dexamethasone (DECADRON) injection intravenous, Administer over 2 Minutes, As needed, Starting on Fri04/21/18 at 0810, Anesthesia Intra-op Given 04/21/2018 8:10 AM FLAT BED OPERATOR 10 mg fentaNYL (SUBLIMAZE) preservative free injection intravenous, As needed, Starting on Fri04/21/18 at 0752, Anesthesia Intra-op Given 04/21/2018 1:10 PM FLAT BED OPERATOR 25 mcg Given 04/21/2018 11:52 AM FLAT BED OPERATOR 25 mcg Given 04/21/2018 11:13 AM FLAT BED OPERATOR 25 mcg glycopyrrolate (ROBINUL) injection intravenous, Administer over 1 Minutes, As needed, Starting on Fri04/21/18 at 1235, Anesthesia Intra-op Given 04/21/2018 12:35 PM FLAT BED OPERATOR 0.3 mg heparin 1,000 unit/mL injection As needed, Starting on Fri04/21/18 at 0920, Anesthesia Intra-op Given 04/21/2018 11:30 AM FLAT BED OPERATOR 3,000 Units Given 04/21/2018 10:49 AM FLAT BED OPERATOR 5,000 Units Given 04/21/2018 10:15 AM FLAT BED OPERATOR 3,000 Units Lactated Ringer's (LR) infusion Continuous PRN, Starting on Fri04/21/18 at 0830, Anesthesia Intra-op New Bag 04/21/2018 8:30 AM FLAT BED OPERATOR neostigmine injection intravenous, Administer over 3 Minutes, As needed, Starting on Fri04/21/18 at 1235, Anesthesia Intra-op Given 04/21/2018 12:35 PM FLAT BED OPERATOR 3 mg ondansetron (ZOFRAN) injection intravenous, Administer over 2 Minutes, As needed, nausea, vomiting, Starting on Fri04/21/18 at 0830, Anesthesia Intra-op Given 04/21/2018 8:30 AM FLAT BED OPERATOR 4 mg propofol (DIPRIVAN) IV intravenous, As needed, Starting on Fri04/21/18 at 0810, Anesthesia Intra-op Given 04/21/2018 8:10 AM FLAT BED OPERATOR 150 mg propofol (DIPRIVAN) IV Continuous PRN, Starting on Fri04/21/18 at 0815, Anesthesia Intra-op Rate/Dose Change 04/21/2018 12:30 PM FLAT BED OPERATOR 50 mcg/kg/min 40.86 mL/hr Rate/Dose Change 04/21/2018 12:25 PM FLAT BED OPERATOR 75 mcg/kg/min 61. 29 mL/hr Rate/Dose Change 04/21/2018 10:03 AM FLAT BED OPERATOR 100 mcg/kg/min 81 .72 mL/hr protamine injection As needed, Starting on Fri04/21/18 at 1212, Anesthesia Intra-op, Indications: Heparin ToxicityIndications:Heparin Toxicity Given 04/21/2018 12:12 PM FLAT BED OPERATOR 50 mg rocuronium (ZEMURON) injection intravenous, As needed, Starting on Fri04/21/18 at 0810, Anesthesia Intra-op Given 04/21/2018 11:52 AM FLAT BED OPERATOR 10 mg Given 04/21/2018 11:10 AM FLAT BED OPERATOR 20 mg Given 04/21/2018 10:24 AM FLAT BED OPERATOR 20 mg sodium chloride 0.9% infusion 15 mL/hr, intravenous, Continuous, Starting on Fri04/21/18 at 0730 New Bag 04/21/2018 7:00 AM FLAT BED OPERATOR documented in this encounter Orders Procedures Count Last Ordered Date First Orde red Date ANESTHESIA INTUBATION 1 04/21/2018 documented in this encounter Care Teams Gun Repair Clerk Relationship Specialty Start Date End Date Rogelio Epperson MD [address] [facility] [address] [place] [address] PCP - General 06/04/12 documented as of this encounter
--- OUTSIDE RECORDS SUMMARY | 2024-02-14 08:42 | XMS_ITS | Encounter Summary ---
Author Organization [facility] Facility Care Team Providers Care Proposal Review Analyst Name Role Phone Rogelio Epperson MD Primary Care Provider Encounter Details Date Type Department Care Team (Latest Contact Info) Description 01/28/2017 Orders Only [facility] CLINCON[facility] ProviderMatty MD [address] [place] [id number] Social History Tobacco Use Types Packs/Day Years Used Date Smoking Tobacco: Former Cigarettes Q uit: 02/25/2008 Alcohol Use Standard Drinks/Week Comments Yes 0 (1 standard drink = 0.6 oz pur e alcohol) Sex and Gender Information Value Date Recorded Sex Assigned at Not on file Legal Sex Male 1:57 AM WALL MIRROR DEPARTMENT SUPERVISOR Gender Identity Not on file Sexual Orientation Not on file documented as of this encounter Plan of Treatment Not on file documented as of this encounter Procedures Procedure Name Priority Date/Time Associated Diagnosis Comments SCAN - PATHOLOGY 01/29/2017 12:0 0 AM WALL MIRROR DEPARTMENT SUPERVISOR documented in this encounter Results * SCAN - PATHOLOGY (01/29/2017 12:00 AM WALL MIRROR DEPARTMENT SUPERVISOR) Narrative 01/29/2017 12:00 AM WALL MIRROR DEPARTMENT SUPERVISOR Ordered by an unspecified provider. Historical Provider Final Res ult documented in this encounter Visit Diagnoses Not on filedocumented in this encounter Care Teams Proposal Review Analyst Relationship Specialty Start Date End Date Rogelio Epperson MD [address] [facility] [address] [place] [address] PCP - General 06/04/12 documented as of this encounter
--- OUTSIDE RECORDS SUMMARY | 2024-02-14 08:42 | XMS_ITS | Encounter Summary ---
Author Organization [facility] Medical Group Address [address] [facility] [address] [place] [address] Care Team Providers Care Appeals Nurse Name Role Phone Rogelio Epperson MD Primary Care Provider Encounter Details Date Type Department Care Team (Late st Contact Info) Description 12/02/2016 Telephone [facility] [address] [facility] [address] [phone] Mohinder Martinez MD [address] [facility] [address] [address] Social History Tobacco Use Types Packs/Day Years Used Date Smoking Tobacco: Former Cigarettes Q uit: 02/25/2008 Alcohol Use Standard Drinks/Week Comments Yes 0 (1 standard drink = 0.6 oz pur e alcohol) Sex and Gender Information Value Date Recorded Sex Assigned at Not on file Legal Sex Male 1:57 AM 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 * Telephone Encounter - Palma Myers RN - 12/02/2016 2:17 PM CDT Spoke to pt; States he is to have pain injection in his back ; He states they sent a request for ptto hold plavix 7 days and eliquis 2 days prior to injection; Pt states he is also to have a basal cell lesion removed and was wondering if he can schedule these pretty close together and remain off the AC longer, or if he needs to restart them for a couple weeks and then schedule the second procedure at a later date; Will forward message to [facility] for review and recommendations. documented in this encounter Plan of Treatment Not on file documented as of this encounter Visit Diagnoses Not on filedocumented in this encounter Care Teams Appeals Nurse Relationship Specialty Start Date End Date Rogelio Epperson MD [address] [address] PCP - General 06/04/12 documented as of this encounter
--- OUTSIDE RECORDS SUMMARY | 2024-02-14 08:42 | XMS_ITS | Encounter Summary ---
Author Organization [facility] Medical Group Address [address] [facility] [address] [place] [address] Care Team Providers Care Service Order Taker Name Role Phone Rogeloi Epperson MD Primary Care Provider Encounter Details Date Type Department Care Team (Late st Contact Info) Description 04/22/2018 Telephone [facility] [address] [facility] [address] [place] [address] Marilu León, GARTH [address] [facility] [address] [place] [address] Social History Tobacco Use Types Packs/Day Years Used Date Smoking Tobacco: Former Smokeless Tobacco: Never Alcohol Use Standard Drinks/Week Comments Yes 0 (1 standard drink = 0.6 oz pur e alcohol) occasionally Sex and Gender Information Value Date Recorded Sex Assigned at Not on file Legal Sex Male 1:57 AM CHARGING BOARD OPERATOR Gender Identity Not on file Sexual Orientation Not on file documented as of this encounter Miscellaneous Notes * Telephone Encounter - Danylele Espana MA - 04/23/2018 12:49 PM CHARGING BOARD OPERATOR Pt confirmed this appt. GING BOARD OPERATOR * Telephone Encounter - Eleonora Emanuel MA - 04/22/2018 9:40 AM CST Patient is scheduled for 05-21-18 at 11:[address] DOLL SURGEON. I lvm for patient to call us back and confirm apt. GING BOARD OPERATOR * Telephone Encounter - Eleonora Emanuel MA - 04/22/2018 9:37 AM CST ----- Message from Marilu León NP sent at 04/22/2018 9:26 AM CHARGING BOARD OPERATOR ----- Regarding: follow up Please call and make follow up with me in 4 weeks post ablation GING BOARD OPERATOR documented in this encounter Plan of Treatment Not on file documented as of this encounter Visit Diagnoses Not on filedocumented in this encounter Care Teams Service Order Taker Relationship Specialty Start Date End Date Rogelio Epperson MD [address] [address] PCP - General 06/04/12 documented as of this encounter
--- OUTSIDE RECORDS SUMMARY | 2024-02-14 08:42 | XMS_ITS | Encounter Summary ---
Author Organization [facility] Medical Group Address [address] [facility] [address] [place] [address] Care Team Providers Care System Consultant Name Role Phone Rogelio Epperson MD Primary Care Provider Encounter Details Date Type Department Care Team (Late st Contact Info) Description 03/13/2017 Telephone [facility] [address] [facility] [address] [phone] Mohinder Martinez MD [address] [facility] [address] [facility] [address] [place] [address] Social History Tobacco Use Types Packs/Day Years Used Date Smoking Tobacco: Former Smokeless Tobacco: Never Alcohol Use Standard Drinks/Week Comments Yes 0 (1 standard drink = 0.6 oz pur e alcohol) Sex and Gender Information Value Date Recorded Sex Assigned at Not on file Legal Sex Male 1:57 AM BUSINESS CONTINUITY SPECIALIST Gender Identity Not on file Sexual Orientation Not on file documented as of this encounter Miscellaneous Notes * Telephone Encounter - Mami Peguero MA - 03/13/2017 4:55 PM CST Spoke with Dr. Martinez. OK to split Atorvastatin 20mg tablet and cont to take 10mg daily. NESS CONTINUITY SPECIALIST documented in this encounter Plan of Treatment Not on file documented as of this encounter Visit Diagnoses Not on filedocumented in this encounter Care Teams System Consultant Relationship Specialty Start Date End Date Rogelio Epperson MD [address] [facility] [address] [place] [address] PCP - General 06/04/12 documented as of this encounter
--- OUTSIDE RECORDS SUMMARY | 2024-02-14 08:42 | XMS_ITS | Encounter Summary ---
Author Organization [facility] Address [address] [facility] [address] [place] [address] Care Team Providers Care Recycling Attendant Name Role Phone Rogelio Epperson MD Primary Care Provider Reason for Referral * Diagnostic Imaging (Routine) - Closed Specialty Diagnoses / Procedures Referred By Tk daniels Referred To Contact Diagnoses Cough Wheezing Procedures X-ray chest 2 views Adriana Gu NP Phone: tel: fax: External Order Referral ID Status Reason Start Date Expiration Date Visits Re quested Visits Authorized [id number] Closed 04/29/2018 11/08/2019 1 1 LASTER Encounter Details Date Type Department Care Team (Late st Contact Info) Description 04/28/2018 Telephone [facility] [address] [facility] [address] [phone] Mohinder Martinez MD [address] [place] [address] [place] [address] Social History Tobacco Use Types Packs/Day Years Used Date Smoking Tobacco: Former Smokeless Tobacco: Never Alcohol Use Standard Drinks/Week Comments Yes 0 (1 standard drink = 0.6 oz pur e alcohol) occasionally Sex and Gender Information Value Date Recorded Sex Assigned at Not on file Legal Sex Male 1:57 AM TOE LASTER Gender Identity Not on file Sexual Orientation Not on file documented as of this encounter Miscellaneous Notes * Telephone Encounter - Parish Ledesma RN - 04/30/2018 1:56 PM TOE LASTER Spoke with patient and reviewed results received, BNP 28 and CXR showed no evidence of cardiopulmonary disease. He verbalized understanding and states he is starting to feel better so this is good news . LASTER * Telephone Encounter - Parish Ledesma RN - 04/30/2018 12:57 PM TOE LASTER radiology department faxing results to our office and [employer] contacted to fax BNP result as online result not viewable. LASTER * Telephone Encounter - Parish Ledesma RN - 04/30/2018 12:07 PM TOE LASTER Spoke with patient, requesting results of BNP and CXR. Advised will contact radiology to have results faxed to our office and [facility] for lab result. LASTER * Telephone Encounter - Shira Skelton - 04/30/2018 11:48 AM TOE LASTER Pt called requesting a call back from Mayela OLMOS, cb [phone] LASTER * Telephone Encounter - Parish Ledesma RN - 04/29/2018 9:21 AM TOE LASTER Spoke with patient and reviewed message per CT,ENERGY TRADER. He verbalized understanding. He would like to goto [facility] for lab work and for Chest XR. Orders placed and cxr order faxed to radiology. LASTER * Addendum Note - Parish Ledesma RN - 04/29/2018 9:18 AM CSTAddended by: PARISH LEDESMA on: 04/29/2018 09:18 AM Modules accepted: Orders LASTER * Telephone Encounter - Shira Skelton - 04/29/2018 8:32 AM TOE LASTER Pt wants a call back regarding CT ENERGY TRADER recommendation. cb [phone] LASTER * Telephone Encounter - Adriana Gu NP - 04/28/2018 4:28 PM TOE LASTER His EF was normal on echo at time of his ablation, so my suspicion is low that he is having CHF. Let's send him for chest xray and BNP. Thanks. LASTER * Telephone Encounter - Parish Ledesma RN - 04/28/2018 11:44 AM TOE LASTER Spoke with patient. States he has developed a non-productive cough following his ablation with Dr. Mack on 04/21/18. States he believes it is either bronchitis (as he's had this in the past) or he's retaining fluid. He was hospitalized prior to his ablation for fluid retention as well and discharged on 04/22. He states he's had trouble sleeping due to cough and has had to sleep upright in his chair. He coughs throughout the night. He says he has gained about 4-5 lbs over the past two weeks. Hestates he's relatively inactive and doesn't notice worsening SOB, but does have wheezing. Coughing only produces occasional phlegm, normal as he describes. He currently takes furosemide 40 mg daily. Advised will route to CT,ENERGY TRADER for review and comment. LASTER * Telephone Encounter - Sandhya [place] - 04/28/2018 11:24 AM CST Pt reports he had an ablation with Dr. Mack 04/21. Since then he has developed a terrible cough. Pt thinks it could either be bronchitis or that he is retaining water again. cb [phone] LASTER documented in this encounter Plan of Treatment Scheduled Orders Name Type Priority Associated Diagnoses Orde r Schedule X-ray chest 2 views Imaging Schedule Routine, Read Routine (OP Routine) Cough Wheezing Expected: 04/29/2018, Expires: 04/30/2019 documented as of this encounter Procedures Procedure Name Priority Date/Time Associated Diagnosis Comments B-TYPE NATRIURETIC PEPTIDE Routine 04/29/2018 11:24 AM TOE LASTER Cough Wheezing documented in this encounter Results * B-type natriuretic peptide (04/29/2018 11:24 AM TOE LASTER) B type natriuretic peptide 28 <100 pg/mL [facility] Comment: BNP levels increase with age in the general population with the highest values seen in individuals greater than 75 years of age. Reference: J. Am. Camden. Cardiol. 2002; 40:976-982. Blood specimen (specimen) 04/29/2018 11:24 AM TOE LASTER 04/29/2018 11:29 AM TOE LASTER Narrative Resulting Agency Comment Performing Organization Information: ?Site ID: [place] ?Name: [facility] ?Address: [address] [place] [address] [place] Joya [id number] ?Director: Diego Mitchell D.O., MPH Adriana Gu ENERGY TRADER LAB BLOOD ORDERABLES Ling l Result [facility] Wu documented in this encounter Visit Diagnoses Diagnosis Cough- Primary Wheezing documented in this encounter Care Teams Recycling Attendant Relationship Specialty Start Date End Date Rogelio Epperson MD [address] [facility] [address] [place] [address] PCP - General 06/04/12 documented as of this encounter
--- OUTSIDE RECORDS SUMMARY | 2024-02-14 08:42 | XMS_ITS | Encounter Summary ---
Author Organization [facility] Address [address] [facility] [address] [place] [address] Care Team Providers Care Fabric Worker Name Role Phone Rogelio Epperson MD Primary Care Provider Reason for Visit * Reason Comments Atrial Fibrillation Encounter Details Date Type Department Care Team (Latest Contact Info) Description 02/13/2018 11:00 AM PERFORMANCE REPORTER Office Visit [facility] [address] [facility] [address] [place] [address] Jovi Mack MD [address] [facility] [address] [place] [address] Persistent atrial fibrillation (CMS/HCC) (Primary Dx); brand strategist current use of antiarrhythmic drug; Anticoagulation management encounter Social History Tobacco Use Types Packs/Day Years Used Date Smoking Tobacco: Former Smokeless Tobacco: Never Alcohol Use Standard Drinks/Week Comments Yes 0 (1 standard drink = 0.6 oz pur e alcohol) Sex and Gender Information Value Date Recorded Sex Assigned at Not on file Legal Sex Male 1:57 AM PERFORMANCE REPORTER Gender Identity Not on file Sexual Orientation Not on file documented as of this encounter Last Filed Vital Signs Vital Sign Reading Time Taken Comments Blood Pressure 116/80 02/13/2018 11:20 AM PERFORMANCE REPORTER Pulse 58 02/13/2018 11:20 AM PERFORMANCE REPORTER Temperature - - Respiratory Rate - - Oxygen Saturation - - Inhaled Oxygen Concentration - - Weight 137.9 kg (304 lb) 02/13/2018 11:20 AM PERFORMANCE REPORTER Height 175.3 cm (5' 9 ) 02/13/2018 11:20 AM PERFORMANCE REPORTER Body Mass Index 44.89 02/13/2018 11:20 AM PERFORMANCE REPORTER documented in this encounter Progress Notes * Jovi Mack MD - 02/13/2018 11:00 AM CST [facility] [address] [place] [address], [address] [place] [address] Patient Name: Vu Nicole Date of : 1945 Primary Physician: Rogelio Epperson MD This note was dictated with voice-recognition software, and continuity person errors may be present. Subjective/Objective Patient ID: Vu Nicole is a 72 y.o. male Chief Complaint Atrial Fibrillation HPI Mr. Nicole presented to the [facility] on 02/13/2018, for consultation regarding his symptomatic persistent atrial fibrillation. He is a 72 y.o. male with a history of coronary disease/status post PCI RCA (2003) and LAD (2004), normal LV function, morbid obesity, hypertension, dyslipidemia, and asthma. I was asked to consult by Dr. Martinez, to assist with the management of his atrial arrhythmia. The patient was diagnosed with paroxysmal atrial fibrillation around the time of his coronary interventions. He has been treated with anticoagulation and sotalol. The patient has required cardioversion on several occasions, most recently on 11/07/2017. During episodes of atrial fibrillation, the patient experiences palpitations and dizziness. He alsoexperiences fatigue and shortness of breath. He has not experienced syncope, and denies chest discomfort since his acute coronary events. Presently, the patient is in sinus rhythm. ... 12-lead ECG & Rhythm Strip: 02/13/2018: Sinus rhythm (58). Normal IN. Normal QRS duration and QT interval (480 msec, equals corrected) No Known Allergies Current Outpatient Prescriptions: ??? acetaminophen (TYLENOL EXTRA [...] nasal spray, , Disp: , Rfl: ??? cholecalciferol (VITAMIN D-3) [...] into each nostril daily., Disp: , Rfl: Past Medical History: Past Medical History: Diagnosis Date ??? Adiposity Obesity ??? Arrhythmia ??? Atrial fibrillation (CMS/HCC) ??? HX OTHER MEDICAL dyslipidemia ??? Hyperlipidemia ??? Hypertension Hypertension Family History: Family History Problem Relation Age [...] tobacco: Never Used ??? Alcohol use Yes ??? Drug use: No ??? Sexual activity: Defer Other Topics Concern ??? Not on file Social History Narrative ??? No narrative on file Review of Systems Constitutional: Negative. HENT: Negative. Eyes: Negative. Respiratory: Negative. Cardiovascular: Negative. Gastrointestinal: Negative. Endocrine: Negative. Genitourinary: Negative. Musculoskeletal: Positive for arthralgias and myalgias. Neurological: Positive for dizziness. Physical Exam BP 116/80 Pulse 58 Ht 175.3 cm (5' 9 ) Wt (!) 137.9 kg (304 lb) BMI 44.89 kg/m?? GENERAL: No distress. Pleasant and cooperative [...] focal findings. PSYCHIATRIC: Normal mood and affect. I Assessment/Plan Diagnoses and all orders for this visit: Persistent atrial fibrillation (CMS/HCC) (Primary) Assessment & Plan: The patient has recurrent persistent atrial fibrillation [...] with atrial fibrillation: a report of the [place] College of Cardiology/[place] Heart Association Task Force on Practice Guidelines and the Heart Rhythm Society. J Am [place] Cardiol 2014. 6.3. AF Catheter Ablation to Maintain Sinus Rhythm: Recommendations Class IIa AF catheter ablation is reasonable for selected patients with symptomatic persistent AF refractory or intolerant to at least 1 class I or III antiarrhythmic medication (388, [phone]). (Level of Evidence: A) Orders: - ECG 12 lead snf current use of antiarrhythmic drug Assessment & Plan: 12-lead ECG today does not demonstrate any changes that would prohibit continued use of sotalol. Wewill continue the patient on the same dose and schedule. As long as the patient continues on this medication, an ECG should be performed at least every 6 months to monitor for toxicity. Anticoagulation management encounter Assessment & Plan: The patient has a [id number] score of a 3 (annualized risk of stroke 3.2 %). I have therefore recommended that he remain anticoagulated for thromboprophylaxis. Jovi Mack MD 02/13/2018 ORMANCE REPORTER documented in this encounter Miscellaneous Notes * Assessment & Plan Note - Jovi Mack MD - 02/14/2018 12:46 PM PERFORMANCE REPORTER Associated Problem(s): Anticoagulation management encounter The patient has a [id number] score of a 3 (annualized risk of stroke 3.2 %). I have therefore recommended that he remain anticoagulated for thromboprophylaxis. ORMANCE REPORTER * Assessment & Plan Note - Jovi Mack MD - 02/14/2018 12:46 PM PERFORMANCE REPORTER Associated Problem(s): brand strategist current use of antiarrhythmic drug 12-lead ECG today does not demonstrate any changes that would prohibit continued use of sotalol. Wewill continue the patient on the same dose and schedule. As long as the patient continues on this medication, an ECG should be performed at least every 6 months to monitor for toxicity. ORMANCE REPORTER * Assessment & Plan Note - Jovi Mack MD - 02/14/2018 12:45 PM PERFORMANCE REPORTER Associated Problem(s): PAF (paroxysmal atrial fibrillation) (CMS/HCC) (HCC) The patient has recurrent persistent atrial fibrillation [...] with atrial fibrillation: a report of the [place] College of Cardiology/[place] Heart Association Task Force on Practice Guidelines and the Heart Rhythm Society. J Am [place] Cardiol 2014. 6.3. AF Catheter Ablation to Maintain Sinus Rhythm: Recommendations Class IIa AF catheter ablation is reasonable for selected patients with symptomatic persistent AF refractory or intolerant to at least 1 class I or III antiarrhythmic medication (388, [phone]). (Level of Evidence: A) ORMANCE REPORTER documented in this encounter Plan of Treatment Not on file documented as of this encounter Procedures Procedure Name Priority Date/Time Associated Diagnosis Comments ECG 12-LEAD Routine 02/13/2018 Persistent atrial fibrillation (CMS/HCC) documented in this encounter Results * ECG 12 lead (02/13/2018) us Jovi Mack MD ECG ORDERABLES Edited Result - Final documented in this encounter Visit Diagnoses Diagnosis Persistent atrial fibrillation (HCC)- Primary Atrial fibrillation snf current use of antiarrhythmic drug Anticoagulation management encounter Encounter for therapeutic drug monitoring documented in this encounter Discontinued Medications Medication Sig Discontinue Reason Start Date End Da te atorvastatin (LIPITOR) 10 mg tablet Take 1 tablet (10 mg total) by mouth daily. Duplicate order 01/22/2018 02/13/2018 CALCIUM/FOLIC AC/MULTIVIT-MIN (VIACTIV MULTI-VITAMIN ORAL) Take by mouth. Therapy completed 02/13/2018 documented as of this encounter Care Teams Fabric Worker Relationship Specialty Start Date End Date Rogelio Epperson MD [address] [facility] [address] [address] PCP - General 06/04/12 documented as of this encounter
--- OUTSIDE RECORDS SUMMARY | 2024-02-14 08:42 | XMS_ITS | Encounter Summary ---
Author Organization [facility] Address [address] [facility] [address] [place] [address] Care Team Providers Care Administrative Services Assistant Name Role Phone Rogelio Epperson MD Primary Care Provider Reason for Visit * Reason Comments Coronary Artery Disease Atrial Fibrillation Encounter Details Date Type Department Care Team (Late st Contact Info) Description 08/05/2017 10:15 AM CDT Office Visit [facility] [address] [address] Mohinder Martinez MD [address] [facility] [address] [place], [place] [id number] Paroxysmal atrial fibrillation (CMS/HCC) (Primary Dx); Morbid obesity with body mass index (BMI) of 40.0 to 49.9 (CMS/HCC); 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 Social History Tobacco Use Types Packs/Day Years Used Date Smoking Tobacco: Former Smokeless Tobacco: Never Alcohol Use Standard Drinks/Week Comments Yes 0 (1 standard drink = 0.6 oz pur e alcohol) Sex and Gender Information Value Date Recorded Sex Assigned at Not on file 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 Gender Identity Not on file Sexual Orientation Not on file documented as of this encounter Last Filed Vital Signs Vital Sign Reading Time Taken Comments Blood Pressure 120/80 08/05/2017 10:38 AM CDT Pulse 70 08/05/2017 10:38 AM CDT Temperature - - Respiratory Rate 16 08/05/2017 10:3 8 AM CDT Oxygen Saturation - - Inhaled Oxygen Concentration - - Weight 135.8 kg (299 lb 6.4 oz) 018 10:38 AM CDT Height - - Body Mass Index 41.76 02/10/2017 9:45 AM PLYWOOD FACTORY WORKER documented in this encounter Progress Notes * Mohinder Martienz MD - 08/05/2017 10:15 AM CDT [facility] FOLLOW UP 08/05/2017 Vu Nicole is a 72 y.o. male [...] returns today for office follow-up. 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 His lipid panel in the office todaylooks better his LDL is at goal now with the higher dose of atorvastatin which was prescribed the last time he was here REVIEW OF SYSTEMS General ROS: negative for [...] MOUTH EVERY DAY, Disp: 90 tablet, Rfl: 0 ??? atenolol (TENORMIN) 100 mg tablet, take 1 tablet (100MG) by oral route every day (Patient not taking: Reported on 02/04/2017 ), Disp: 90, Rfl: 3 ??? atorvastatin (LIPITOR) 20 mg tablet, take 1 tablet by oral route every day (Patient not taking:Reported on 02/04/2017 ), Disp: 90, Rfl: 3 ??? atorvastatin (LIPITOR) 20 mg tablet, Take 1 tablet (20 mg total) by mouth daily., Disp: 90 tablet, Rfl: 3 ??? azelastine (ASTELIN) 137 mcg (0.1 %) nasal spray, , Disp: , Rfl: ??? azelastine-fluticasone 137-50 mcg/spray spray,non-aerosol, Administer into [...] TWO TIMES DAILY, Disp: 180 tablet, Rfl: 0 ??? famotidine (PEPCID AC) 20 mg tablet, take 1 tablet (20MG) by oral route 2 times every day, Disp: , Rfl: 0 ??? flaxseed oil 1,000 mg capsule, Take by mouth., Disp: , Rfl: ??? gabapentin (NEURONTIN) 600 mg tablet, , Disp: , Rfl: ??? 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 PLAN/RECOMMENDATIONS Continue current medications Continue to recommend exercise and weight loss despite his exercise he still is morbidly obese Follow-up in 6 months Mohinder Martinez MD documented in this encounter Plan of Treatment Not on file documented as of this encounter Procedures Procedure Name Priority Date/Time Associated Diagnosis Comments POCT LIPID PANEL Routine 08/05/2017 10:5 3 AM CDT 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 documented in this encounter Results * POCT lipid panel (08/05/2017 10:53 AM CDT) HDL, POC 43 mg/dL Triglycerides, POC 249 mg/dL LDL Cholesterol POC 89 mg/dL Chol/HDL Ratio, POC 4.2 Non-HDL Cholesterol, POC 139 mg/dL Cholesterol Total, POC 182 mg/dL Blood specimen (specimen) 08/05/2017 10:53 AM CDT Mohinder Martinez MD POINT OF CARE TEST ORDER GILMA Final Result documented in this encounter Visit Diagnoses Diagnosis Paroxysmal atrial fibrillation (CMS/HCC) (HCC)- Primary Atrial fibrillation Morbid obesity with body mass index (BMI) of 40.0 to 49.9 (HCC) 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 gabapentin (NEURONTIN) 600 mg tablet Take 1 tablet (600 mg total) by mouth 3 (three) times a day 05/15/2017 azelastine (ASTELIN) 137 mcg (0.1 %) nasal spray Administer 1 spray into each nostril nightly 06/11/2017 nitroglycerin (NITROSTAT) 0.4 mg SL tablet 06/11/2017 8 added in this encounter Care Teams Administrative Services Assistant Relationship Specialty Start Date End Date Rogelio Epperson MD [address] [facility] [address] [place] [address] PCP - General 06/04/12 documented as of this encounter
--- OUTSIDE RECORDS SUMMARY | 2024-02-14 08:42 | XMS_ITS | Encounter Summary ---
Author Organization [facility] Address [address] [facility] [address] [place] [address] Care Team Providers Care Barrel Marker Name Role Phone Rogelio Epperson MD Primary Care Provider Reason for Visit * Reason Comments Follow-up 6 mo PAF CAD Encounter Details Date Type Department Care Team (Late st Contact Info) Description 06/25/2018 1:00 PM CDT Office Visit [facility] [address] [place] [address] Mohinder Martinez MD [address] [place], [place] [id number] Coronary artery disease involving jamul coronary artery of jamul heart without angina pectoris (Primary Dx); PAF (paroxysmal atrial fibrillation) (CMS/HCC); Morbid obesity with body mass index (BMI) of 40.0 to 49.9 (CMS/HCC); History of coronary artery stent placement Social History Tobacco Use Types Packs/Day Years Used Date Smoking Tobacco: Former Smokeless Tobacco: Never Alcohol Use Standard Drinks/Week Comments Yes 0 (1 standard drink = 0.6 oz pur e alcohol) occasionally Sex and Gender Information Value Date Recorded Sex Assigned at Not on file 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 Gender Identity Not on file Sexual Orientation Not on file documented as of this encounter Last Filed Vital Signs Vital Sign Reading Time Taken Comments Blood Pressure 122/82 06/25/2018 1:06 PM CDT Pulse 64 06/25/2018 1:06 PM CDT Temperature - - Respiratory Rate - - Oxygen Saturation 96% 06/25/2018 1:06 PM CDT Inhaled Oxygen Concentration - - Weight 139 kg (306 lb 8 oz) 06/25/2018 1:06 PM C DT Height 175.3 cm (5' 9 ) 06/25/2018 1:06 PM CDT Body Mass Index 45.26 06/25/2018 1:06 PM CDT documented in this encounter Progress Notes * Mohinder Martinez MD - 06/25/2018 1:00 PM CDT [facility] FOLLOW UP 06/25/2018 Vu Nicole is a 73 y.o. male [...] patient was ultimately referred to electrophysiology at [facility] he underwent a catheter ablation of his atrial fibrillation on 04/21/2018. He returns today to the office to see me for scheduled follow-up. He feels much better following his ablation and has no cardiovascular complaints today. His principal questions centered around anti-platelet and anticoagulant coagulation treatment. Since he has not had any recent coronary interventions I told him that I would recommend taking low-dose aspirin along with anticoagulation but he does not require ongoing clopidogrel treatment at this time REVIEW OF SYSTEMS General ROS: negative for [...] Rfl: ??? clopidogrel (PLAVIX) 75 mg tablet, Take 75 mg by mouth nightly., Disp: , Rfl: ??? cyanocobalamin (Vitamin B-12) [...] noted ASSESSMENT Vu was seen today for follow-up, paf and cad. Diagnoses and all orders for this visit: Coronary artery disease involving jamul coronary artery of jamul heart without angina pectoris PAF (paroxysmal atrial fibrillation) ([facility]) Morbid obesity with body mass index (BMI) of 40.0 to 49.9 ([facility]) History of coronary artery stent placement PLAN/RECOMMENDATIONS Continue anticoagulation and anti arrhythmic regimen for now Schedule appointment with me in 6 months Gave him the contact information for the arrhythmia Center at [facility] Mohinder Martinez MD documented in this encounter Plan of Treatment Not on file documented as of this encounter Visit Diagnoses Diagnosis Coronary artery disease involving jamul coronary artery of jamul heart without angina pectoris- Primary PAF (paroxysmal atrial fibrillation) ([facility]) (HCC) Atrial fibrillation Morbid obesity with body mass index (BMI) of 40.0 to 49.9 ([facility]) History of coronary artery stent placement documented in this encounter Discontinued Medications Medication Sig Discontinue Reason Start Date End Da te clopidogrel (PLAVIX) 75 mg tablet Take 75 mg by mouth nightly. 06/25/2018 documented as of this encounter Care Teams Barrel Marker Relationship Specialty Start Date End Date Rogelio Epperson MD [address] [facility] [address] [place] [address] PCP - General 06/04/12 documented as of this encounter
--- OUTSIDE RECORDS SUMMARY | 2024-02-14 08:42 | XMS_ITS | Encounter Summary ---
Author Organization [facility] Address [address] [facility] [address] [place] [address] Care Team Providers Care Ammunition And Explosives Handler Name Role Phone Rogelio Epperson MD Primary Care Provider Encounter Details Date Type Department Care Team (Latest Contact Info) Description 10/20/2017 1:00 PM CDT Procedure visit [facility] [address] [facility] [address] [place] [address] Paroxysmal atrial fibrillation (CMS/HCC) (Primary Dx) Social History Tobacco Use Types Packs/Day Years Used Date Smoking Tobacco: Former Smokeless Tobacco: Never Alcohol Use Standard Drinks/Week Comments Yes 0 (1 standard drink = 0.6 oz pur e alcohol) Sex and Gender Information Value Date Recorded Sex Assigned at Not on file 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 EKG performed and given to RN for review. Per RN, patient is in A-fib so he is scheduled to see Dr. Martinez tomorrow for evaluation. documented in this encounter Plan of Treatment Not on file documented as of this encounter Visit Diagnoses Diagnosis Paroxysmal atrial fibrillation (CMS/HCC) (HCC)- Primary Atrial fibrillation documented in this encounter Care Teams Ammunition And Explosives Handler Relationship Specialty Start Date End Date Rogelio Epperson MD [address] [facility] [address] [place] [address] PCP - General 06/04/12 documented as of this encounter
--- OUTSIDE RECORDS SUMMARY | 2024-02-14 08:42 | XMS_ITS | Encounter Summary ---
Author Organization [facility] Address [address] [address] Care Team Providers Care Communications Department Chairperson Name Role Phone Rogelio Epperson MD Primary Care Provider Encounter Details Date Type Department Care Team (Late st Contact Info) Description 06/28/2016 Orders Only [facility] ProviderMatty MD [address] [place], [place] [id number] Social History Tobacco Use Types Packs/Day Years Used Date Smoking Tobacco: Former Cigarettes Q uit: 02/25/2008 Alcohol Use Standard Drinks/Week Comments Yes 0 (1 standard drink = 0.6 oz pur e alcohol) Sex and Gender Information Value Date Recorded Sex Assigned at Not on file 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 Historical Provider [facility]JO Final Result documented in this encounter Visit Diagnoses Not on filedocumented in this encounter Care Teams Communications Department Chairperson Relationship Specialty Start Date End Date Rogelio Epperson MD [address] [facility] [address] [place] [address] PCP - General 06/04/12 documented as of this encounter
--- OUTSIDE RECORDS SUMMARY | 2024-02-14 08:42 | XMS_ITS | Encounter Summary ---
Author Organization [facility] Address [address] [facility] [address] [place] [address] Care Team Providers Care Sales Service Executive Name Role Phone Rogelio Epperson MD Primary Care Provider Reason for Visit * Reason Comments Atrial Fibrillation Encounter Details Date Type Department Care Team (Late st Contact Info) Description 05/21/2018 11:30 AM CDT Office Visit [facility] [address] 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 Gender Identity Not on file Sexual Orientation Not on file documented as of this encounter Last Filed Vital Signs Vital Sign Reading Time Taken Comments Blood Pressure 140/80 05/21/2018 11:11 AM CDT Pulse 66 05/21/2018 11:11 AM CDT Temperature - - Respiratory Rate - - Oxygen Saturation - - Inhaled Oxygen Concentration - - Weight 139.7 kg (308 lb) 05/21/2018 11:11 AM CDT Height 175.3 cm (5' 9 ) 05/21/2018 11:11 AM CDT Body Mass Index 45.48 05/21/2018 11:11 AM CDT documented in this encounter Progress Notes * Mau Marilu Ayan, DESIGN ENGINEER MARINE EQUIPMENT - 05/21/2018 11:30 AM CDT Patient ID: Vu Nicole is a 72 y.o. male Chief Complaint Atrial fibrillation HPI Mr. Nicole presented to the Ar[facility]hythmia Center on 05/21/2018 for follow-up of his atrial fibrillation and recent ablation. He is a 72 y.o. male with a history of coronary disease/status post PCI RCA (2003) and LAD (2004), normal LV function, morbid obesity, hypertension, dyslipidemia, and asthma. Wewere asked to consult by Dr. Martinez, to [...] as well as sotalol at this time. EKG on my review today demonstrates sinus [...] mg tablet, Take 10 mg by mouth nightly. , Disp: , Rfl: ??? azelastine (ASTELIN) 137 [...] Rfl: ??? sotalol (BETAPACE) 80 mg tablet, Take [...] atrial fibrillation, status post catheter ablation on 04/21/2017. Remains in sinus rhythm. 2. CAD 3. Obesity. The patient's BMI [...] for monitoring. 5. Encounter for anticoagulation management. He remains anticoagulated on Eliquis 5 mg twice daily.It is recommended that he remain anticoagulated for thromboprophylaxis. Plan: 1. No changes to his medications made at this office visit. 2. He can follow up in 2 months for an office visit and 12 lead EKG. documented in this encounter Plan of Treatment Not on file documented as of this encounter Procedures Procedure Name Priority Date/Time Associated Diagnosis Comments ECG 12-LEAD Routine 05/21/2018 Paroxysmal atrial fibrillation (CMS/HCC) documented in this encounter Results * ECG 12 lead (05/21/2018) Marilu León NP ECG ORDERABLES Edited Res ult - Final documented in this encounter Visit Diagnoses Diagnosis Paroxysmal atrial fibrillation (CMS/HCC) (HCC)- Primary Atrial fibrillation documented in this encounter Care Teams Sales Service Executive Relationship Specialty Start Date End Date Rogelio Epperson MD [address] [facility] [address] [address] PCP - General 06/04/12 documented as of this encounter
--- OUTSIDE RECORDS SUMMARY | 2024-02-14 08:42 | XMS_ITS | Encounter Summary ---
Author Organization [facility] Address [address] [facility] [address] [place] [address] Care Team Providers Care Supervisor Files Name Role Phone Rogelio Epperson MD Primary Care Provider Reason for Visit * Reason Comments Atrial Fibrillation one week f/u on med change Encounter Details Date Type Department Care Team (Late st Contact Info) Description 10/28/2017 11:30 AM CDT Office Visit [facility] [address] [address] Adriana Gu NP [address] [facility] [address] [address] Paroxysmal atrial fibrillation (CMS/HCC) (Primary Dx); Dizziness; Gait instability; Chronic anticoagulation; Morbid obesity with body mass index (BMI) of 40.0 to 49.9 (CMS/HCC) Social History Tobacco Use Types Packs/Day Years Used Date Smoking Tobacco: Former Smokeless Tobacco: Never Alcohol Use Standard Drinks/Week Comments Yes 0 (1 standard drink = 0.6 oz pur e alcohol) Sex and Gender Information Value Date Recorded Sex Assigned at Not on file 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 Gender Identity Not on file Sexual Orientation Not on file documented as of this encounter Last Filed Vital Signs Vital Sign Reading Time Taken Comments Blood Pressure 130/88 10/28/2017 12:15 PM CDT Pulse 70 10/28/2017 12:15 PM CDT Temperature - - Respiratory Rate - - Oxygen Saturation 98% 10/28/2017 12:15 PM CDT Inhaled Oxygen Concentration - - Weight 134.3 kg (296 lb) 10/28/2017 12:15 PM CDT Height 175.3 cm (5' 9 ) 10/28/2017 12:15 PM CDT Body Mass Index 43.71 10/28/2017 12:15 PM CDT documented in this encounter Progress Notes * Adriana uG NP - 10/28/2017 11:30 AM CDT [facility] Date of Visit: 10/28/2017 Patient ID: Vu Nicole 1945 Chief Complaint: Vu Nicole is a 72 y.o. male who is an established patient of Dr. Martinez returning to follow up on afib after discontinuing sotalol. History of Present Illness: Vu Nicole is a 72 y.o. male [...] this by vascular surgery were on successful. 10/21/17: He returns today for office follow-up. The [...] is only 58 beats per minute. He continues to take sotalol and apixaban for his atrial fibrillation. He is not having any ischemic type chest pain of any kind. Had a lengthy discussion with the patient in the office today about management strategy of his atrial fibrillation going forward. Clearly sotalol is not maintaining sinus rhythm and had a long discussion and regarding the options of accepting chronic atrial fibrillation orattempting another cardioversion. I believe his last electrical cardioversion was about a year ago. 10/28/17 OV w/ HERPETOLOGIST: He returns today to follow-up on his AFib after discontinuing sotalol. His dizziness and gait instability are unchanged. He notices a racing heartbeat ???once in a while?? and may last 10 min or less. The only change he noticed after stopping the sotalol is he is having night sweats. Records that I personally reviewed on the day of this visit include: (the interpretation is outlined in the chief complaint above) 10/21/[address] Martinez I have also reviewed: allergies, current medications, past family history, past medical history, past social history, past surgical history and problem list Review of Systems Constitution: Positive for night sweats. Negative for diaphoresis, fever, malaise/fatigue, weight gain and weight loss. HENT: Negative for hearing loss. Eyes: Negative for visual disturbance. Cardiovascular: Negative for chest pain, claudication, dyspnea on exertion, leg swelling, orthopnea, palpitations, paroxysmal nocturnal dyspnea and syncope. Respiratory: Negative for cough, hemoptysis, shortness of breath, snoring and wheezing. Hematologic/Lymphatic: Does not bruise/bleed easily. Skin: Negative for poor wound healing and rash. No easy bruising. No bleeding problems. Musculoskeletal: Negative for joint pain and myalgias. Gastrointestinal: Negative for heartburn, nausea and vomiting. No reflux Genitourinary: Negative for hematuria. Neurological: Negative for dizziness, headaches and light-headedness. Psychiatric/Behavioral: Negative for depression. The patient is not nervous/anxious. Vital Signs: BP 130/88 (BP Location: Left arm, Patient Position: Sitting) Pulse 70 Ht 175.3 cm (5' 9 ) Wt 134.3 kg (296 lb) SpO2 98% BMI 43.71 kg/m?? Physical Exam Constitutional: He is oriented to person, place, and time. He appears well- developed. No distress. Morbidly obese body habitus. HENT: Head: Normocephalic and atraumatic. Nose: Nose normal. Mouth/Throat: Mucous membranes are normal. Eyes: Pupils are equal, round, and reactive to light. Conjunctivae and EOM are normal. No scleral icterus. Neck: Normal range of motion. No JVD present. No tracheal deviation present. Cardiovascular: Normal rate and normal heart sounds. An irregular rhythm present. No murmur heard. Apical heart rate irregular, 78 bpm Pulmonary/Chest: Effort normal and breath sounds normal. No respiratory distress. Abdominal: Soft. Bowel sounds are normal. There is no tenderness. Musculoskeletal: He exhibits edema. Mild bilateral lower extremity edema. Ambulates with a cane. Neurological: He is alert and oriented to person, place, and time. Skin: Skin is warm and dry. Psychiatric: He has a normal mood and affect. No Known Allergies Current Outpatient Prescriptions: ??? [...] DAY, Disp: 90 capsule, Rfl: 3 ??? triamcinolone (NASACORT) 55 mcg nasal inhaler, Administer 2 sprays into each nostril daily., Disp: , Rfl: Assessment: Diagnoses and all orders for this visit: Paroxysmal atrial fibrillation (CMS/HCC) (Primary) Dizziness Gait instability Chronic anticoagulation Morbid obesity with body mass index (BMI) of 40.0 to 49.9 (CMS/HCC) Plan/Recommendations: The visit was discussed with Dr. Martinez who was in the office at the time. It would be reasonable to attempt another cardioversion to see if latter day of sinus rhythm would alleviate the patient's symptoms of dizziness and gait instability. He has been compliant with anticoagulation (Eliquis).Patient was instructed to restart sotalol and we will schedule him to return for a cardioversion atthe end of next week. If his symptoms of dizziness and gait instability do not resolve once sinus rhythm is restored, other noncardiac etiology for the symptom should be investigated. The patient also intends to work on weight loss, which could help control his AFib long-term. Return to the office to see Dr. Martinez in 3 months. Call us sooner with questions or concerns. Adriana Gu ANP- Nurse Practitioner with [facility] This note is dictated and transcribed using amaysim Direct Software. Pilot Teacher variancesmay occur. Despite proofreading, typographical errors may occur. documented in this encounter Plan of Treatment Not on file documented as of this encounter Visit Diagnoses Diagnosis Paroxysmal atrial fibrillation (CMS/HCC) (HCC)- Primary Atrial fibrillation Dizziness Dizziness and giddiness Gait instability Abnormality of gait Chronic anticoagulation Encounter for long-term (current) use of anticoagulants Morbid obesity with body mass index (BMI) of 40.0 to 49.9 (HCC) documented in this encounter Care Teams Supervisor Files Relationship Specialty Start Date End Date Rogelio Epperson MD [address] [facility] [address] [place] [phone] PCP - General 06/04/12 documented as of this encounter
--- OUTSIDE RECORDS SUMMARY | 2024-02-14 08:42 | XMS_ITS | Encounter Summary ---
Author Organization [facility] Address [address] [facility] [address] [place] [address] Care Team Providers Care Defect Repairer Glassware Name Role Phone Rogelio Epperson MD Primary Care Provider Encounter Details Date Type Department Care Team (Late st Contact Info) Description 10/28/2017 Telephone [facility] [address] [facility] [address] [address] Mohinder Martinez MD [address] [facility] [address] [facility] 102 [place] [address] Social History Tobacco Use Types Packs/Day Years Used Date Smoking Tobacco: Former Smokeless Tobacco: Never Alcohol Use Standard Drinks/Week Comments Yes 0 (1 standard drink = 0.6 oz pur e alcohol) Sex and Gender Information Value Date Recorded Sex Assigned at Not on file 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 Procedure time had to be changed due anesthesia's schedule. Left message for patient with new time of procedure; 11/07/17 at 1100 with an arrival time of 0930. Requested patient call back to let us know this message has been received. documented in this encounter Plan of Treatment Not on file documented as of this encounter Visit Diagnoses Not on filedocumented in this encounter Care Teams Defect Repairer Glassware Relationship Specialty Start Date End Date Rogelio Epperson MD [address] [facility] [address] [place] [phone] PCP - General 06/04/12 documented as of this encounter
--- OUTSIDE RECORDS SUMMARY | 2024-02-14 08:42 | XMS_ITS | Encounter Summary ---
Author Organization [facility] Care Team Providers Care Information Security Director Name Role Phone Rogelio Epperson MD Primary Care Provider Encounter Details Date Type Department Care Team (Latest Contact Info) Description 02/26/2016 Orders Only [facility] ProviderMatty MD [address] [place] [address] Social History Tobacco Use Types Packs/Day Years Used Date Smoking Tobacco: Former Cigarettes Q uit: 02/25/2008 Alcohol Use Standard Drinks/Week Comments Yes 0 (1 standard drink = 0.6 oz pur e alcohol) Sex and Gender Information Value Date Recorded Sex Assigned at Not on file 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 Historical Provider Final Res ult documented in this encounter Visit Diagnoses Not on filedocumented in this encounter Care Teams Information Security Director Relationship Specialty Start Date End Date Rogelio Epperson MD [address] [facility] 120 [place] [address] PCP - General 06/04/12 documented as of this encounter
--- OUTSIDE RECORDS SUMMARY | 2024-02-14 08:42 | XMS_ITS | Encounter Summary ---
Author Organization [facility] Address [address] [address] Care Team Providers Care Civil Engineer In Training Name Role Phone Rogelio Epperson MD Primary Care Provider Encounter Details Date Type Department Care Team (Late st Contact Info) Description 06/15/2016 Orders Only [facility] ProviderMatty MD [address] [place], [place] [phone] Social History Tobacco Use Types Packs/Day Years Used Date Smoking Tobacco: Former Cigarettes Q uit: 02/25/2008 Alcohol Use Standard Drinks/Week Comments Yes 0 (1 standard drink = 0.6 oz pur e alcohol) Sex and Gender Information Value Date Recorded Sex Assigned at Not on file 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 Historical Provider [facility] ANA TREJO Final Result documented in this encounter Visit Diagnoses Not on filedocumented in this encounter Care Teams Civil Engineer In Training Relationship Specialty Start Date End Date Rogelio Epperson MD [address] [facility] 120 [place] [address] PCP - General 06/04/12 documented as of this encounter
--- OUTSIDE RECORDS SUMMARY | 2024-02-14 08:42 | XMS_ITS | Encounter Summary ---
Author Organization [facility] Healthcare Address [address] [place] [address] Care Team Providers Care Winch Driver Name Role Phone Rogelio Epperson MD Primary Care Provider Encounter Details Date Type Department Care Team (Late st Contact Info) Description 12/10/2016 2:38 PM CDT - 12/24/2017 2:38 PM CDT Hospital Encounter [facility] Chas Walker MD [address] [place], [place] [id number] Low back pain Social History Tobacco Use Types Packs/Day Years Used Date Smoking Tobacco: Former Smokeless Tobacco: Never Alcohol Use Standard Drinks/Week Comments Yes 0 (1 standard drink = 0.6 oz pur e alcohol) Sex and Gender Information Value Date Recorded Sex Assigned at Not on file 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 9 CALCIUM/FOLIC AC/MULTIVIT-MIN (VIACTIV MULTI-VITAMIN ORAL) Take by mouth. 8 clopidogrel (PLAVIX) 75 mg tablet TAKE 1 TABLET BY MOUTH EVERY DAY 90 tablet 3 12/30/2016 8 ELIQUIS 5 mg tablet TAKE 1 TABLET BY MOUTH TWO TIMES DAILY 180 tablet 3 10/06/2017 9 famotidine (PEPCID AC) 20 mg tablet take 1 tablet (20MG) by oral route 2 times every day 0 06/04/2012 9 indomethacin (INDOCIN) 25 mg capsuleIndicatio ns:Gout Take 25 mg by mouth 2 (two) times a day as needed. 9 nitroglycerin (NITROSTAT) 0.[address] 1 TABLET BETWEEN CHEEK AND GUM AT 1ST SIGN OF ATTACK; NO MORE THAN 3 TABLETS ARE RECOMMENDED WITHIN 15 MINUTE PERIOD. 25 tablet 11 10/06/2017 9 ramipril (ALTACE) 10 mg capsule TAKE 1 CAPSULE BY MOUTH EVERY DAY 90 capsule 3 12/30/2016 8 sotalol (BETAPACE) 80 mg tablet Take 80 mg by mouth 2 (two) times a day. 8 documented as of this encounter Plan of Treatment Not on file documented as of this encounter Visit Diagnoses Diagnosis Low back pain Lumbago documented in this encounter Care Teams Winch Driver Relationship Specialty Start Date End Date Rogelio Epperson MD [address] [facility] [address] [place] [address] PCP - General 06/04/12 documented as of this encounter
--- OUTSIDE RECORDS SUMMARY | 2024-02-14 08:42 | XMS_ITS | Encounter Summary ---
Author Organization [facility] Care Team Providers Care Automotive Design Drafter Name Role Phone Rogelio Epperson MD Primary Care Provider Encounter Details Date Type Department Care Team (Latest Contact Info) Description 11/21/2016 Orders Only [facility] ProviderMatty MD [address] [place] [id number] Social History Tobacco Use Types Packs/Day Years Used Date Smoking Tobacco: Former Cigarettes Q uit: 02/25/2008 Alcohol Use Standard Drinks/Week Comments Yes 0 (1 standard drink = 0.6 oz pur e alcohol) Sex and Gender Information Value Date Recorded Sex Assigned at Not on file 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 Historical Provider Final Res ult documented in this encounter Visit Diagnoses Not on filedocumented in this encounter Care Teams Automotive Design Drafter Relationship Specialty Start Date End Date Rogelio Epperson MD [address] [facility] [address] [place] [address] PCP - General 06/04/12 documented as of this encounter
--- OUTSIDE RECORDS SUMMARY | 2024-02-14 08:42 | XMS_ITS | Encounter Summary ---
Author Organization [facility] Address [address] [facility] [address] [place] [address] Care Team Providers Care Retail Service Technician Name Role Phone Rogelio Epperson MD Primary Care Provider Encounter Details Date Type Department Care Team (Late st Contact Info) Description 05/01/2018 Telephone [facility] [address] [id number] Adriana Gu NP [address] [facility] [address] [address] Social History Tobacco Use Types Packs/Day Years Used Date Smoking Tobacco: Former Smokeless Tobacco: Never Alcohol Use Standard Drinks/Week Comments Yes 0 (1 standard drink = 0.6 oz pur e alcohol) occasionally Sex and Gender Information Value Date Recorded Sex Assigned at Not on file Legal Sex Male 1:57 AM PROCUREMENT AGENT Gender Identity Not on file Sexual Orientation Not on file documented as of this encounter Miscellaneous Notes * Telephone Encounter - Maricruz Dominguez RN - 05/01/2018 10:51 AM PROCUREMENT AGENT Per GARTH Wright Please let him know the chest xray was clear. ??Did he get the BNP drawn? ??It doesn't look like we have gotten a result. - Adriana KING with above information. BNP results have since been received and scanned into chart. [facility] results as well. UREMENT AGENT documented in this encounter Plan of Treatment Not on file documented as of this encounter Visit Diagnoses Not on filedocumented in this encounter Care Teams Retail Service Technician Relationship Specialty Start Date End Date Rogelio Epperson MD [address] [facility] [address] [place] [id number] PCP - General 06/04/12 documented as of this encounter
--- OUTSIDE RECORDS SUMMARY | 2024-02-14 08:57 | XMS_ITS ---
Author Organization [facility] Address [address] [address] Care Team Providers Care Flight Control Specialist Name Role Phone Rogelio Epperson Primary Care Provider UnavailSTORM Granger Unavailable [phone] Medications Medication SIG (Take, Route, Frequency, Duration) Notes Start Date End Date Status Gabapentin 600 MG 1 tablet Orally Once a day Not-Taking Wegovy 0.5 MG/0.5ML 0.5 mL Subcutaneous weekly for 30 days 11/17/2023 Not-Taking Allopurinol 100 MG 1 tablet Orally Once a day Not-Taking Wegovy 0.5 MG/0.5ML 0.5 mL Subcutaneous weekly for 30 days 12/22/2023 Active Nitroglycerin 0.4 MG as directed Subling ual for 30 days Active Cilostazol 50 MG TAKE 1 TABLET BY JANEY TH TWICE A DAY 30 MINUTES BEFORE OR 2 HOURS AFTER BREAKFAST AND DINNER for 90 days Active Wegovy 0.25 MG/0.5ML 0.5 mL Subcutaneous weekly for 30 days 08/04/2023 Active traMADol HCl 50 MG 1 tablet as needed Orally Twice a day Not-Taking Wegovy 0.25 MG/0.5ML 0.5 mL Subcutaneous weekly for 30 days 08/04/2023 Not-Taking Pregabalin 150 MG 150 MG ORALLY TWICE A DAY Oral for 30 Days Not-Taking Azelastine HCl 137 MCG/SPRAY 1 puff in each nostril Nasally Twice a day Active Breo Ellipta 100-25 MCG/ACT 1 puff Inhalation Once a day Active amLODIPine Besylate 10 MG 1 tablet Orall y Once a day Active Atorvastatin Calcium 40 MG 1 tablet Orally Once a day Active Acetaminophen 500 MG 2 capsules Orally t hree times a day Active Nasacort Allergy 24HR 55 MCG/ACT 1 spray in each nostril Nasally Once a day Active Eliquis 5 MG 1 tablet Orally twic e daily Active metOLazone 2.5 MG 1 tablet Orally Once a day Active Bumetanide 1 MG 1 tablet Orally Once a day Active Colchicine 0.6 MG 1 tablet Orally Active Wegovy 0.5 MG/0.5ML 0.5 mL Subcutaneous weekly for 30 days 09/18/2023 Active ProAir HFA Active Ramipril 10 MG 1 capsule Orally Onc e a day Active Social History Tobacco Use: Social History Observation Description Date Details (start date - stop date) Never Smoker NA - NA Tobacco Use/Smoking Question Answer Notes Are you a nonsmoker Additional Findings: Tobacco Non-User Current no n-smoker Vital Signs Blood pressure systolic 120 mm Hg 12/22/19 24 Blood pressure diastolic 62 mm Hg 024 Heart Rate 81 /min 12/22/2023 Respiratory Rate 16 /min 12/22/2023 Height 72 in 12/22/2023 Weight 252 lbs 12/22/2023 BMI 34.17 kg/m2 12/22/2023 Encounters Encounter [place] [address] 12/22/2023 STORM CARO 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 ; Other obesity due to excess calories E66.09 ; Paroxysmal atrial fibrillation I48.0 and Chest pain, unspecified R07.9 Assessments Encounter Date Diagnosis (ICD Code) Assessment Notes Treatment Notes Treatment Clinical Notes Section Notes 12/22/2023 Atherosclerotic heart disease of [place] coronary artery without angina pectoris (ICD-10 - I25.10) 12/22/2023 Other obesity due to excess calories (ICD-10 - E66.09) Was off Semaglutide,t o restart 0.5 mg sq 12/22/2023 Paroxysmal atrial fibrillation (ICD-10 - I48.0) 12/22/2023 Chest pain, unspecified (ICD-10 - R07.9) To see his cv doc-nuc/echo pnd Plan Of Treatment Medication Medication Name Sig Start Date Stop Date Notes Wegovy 0.5 MG/0.5ML 0.5 mL Subcutaneous weekly for 30 days 12/22/2023 Treatment Notes Assessment Notes Other obesity due to excess calories Was off Semaglutide,to restart 0.5 mg sq Chest pain, unspecified To see his cv do c-nuc/echo pnd Next Appt Details Follow Up: 4 Weeks, Reason: Provider Name:STORM BALDERAS, 02/27/2024 09:15:00 AM, [address] [facility], [address], [address], Progress Notes * Vu NICOLE LuisDOB:[birth year] (78 yo M)Acc No.[id number]:12/22/2023 Progress Notes Patient:?Vu NICOLE Provider:?Storm Caro MD :1945???Age:78 Y???Sex:Male Oswald e:12/22/2023 Address:[address] [place] [address] Pcp:Rogelio Epperson Subjective: * Chief Complaints: * ??? * HPI: ???Constitutional:?78 yo wm,with bilateral feet pains/claudications,less than 2 blocks of walking makes him stop,has alots of numbness/fatigue in feet,has been treated for neuropathy,had recent worsenning of chf/hospital abmit,and abnormal vascular studies,details unknown yet.Has cad/pci/htn/Hyperlipidemia,strong family history of cad.Denies any pnd/orthopnea,cp,since dc regained 5 lbs,less claudication on Pletal,still with right leg pains on standing,loosing weight,had change of meds for his neuropathy,which did not work-had more nausea/pain,switched back to gabapentin,better now,still with cp,to see his cardio,regained weight. * ROS:?Cardiovascular:?Admits?Chest pain.?Denies?Chest pain at rest.?Denies?Chest pain with exertion.?Admits?Claudication.?Admits?Dyspnea on exertion.?Peripheral Vascular:?Admits?Pain/cramping in legs after exertion.?Admits?Painful extremities.?Denies?Ulceration of feet.? * Medical History:? * Surgical History:?No Surgica l History documented. * Hospitalization/Major Diagno stic Procedure:?No Hospitalization History. * Social History:?Tobacco Use:?Tobacco Use/Smoking?Are you a?nonsmoker ?Additional Findings: Tobacco Non-User?Current non-smoker * Medications:?TakingWegovy 0. 5 MG/0.5ML Solution Auto-injector 0.5 mL Subcutaneous weekly Ramipril 10 MG Capsule 1 capsule Orally Once a day ProAir HFA Nasacort Allergy 24HR 55 MCG/ACT Aerosol 1 spray in each nostril Nasally Once a day metOLazone 2.5 MG Tablet 1 tablet Orally Once a day Eliquis 5 MG Tablet 1 tablet Orally twice daily Colchicine 0.6 MG Tablet 1 tablet Orally Bumetanide 1 MG Tablet 1 tablet Orally Once a day Breo Ellipta 100-25 MCG/ACT Aerosol Powder Breath Activated 1 puff Inhalation Once a day Azelastine HCl 137 MCG/SPRAY Solution 1 puff in each nostril Nasally Twice a day Atorvastatin Calcium 40 MG Tablet 1 tablet Orally Once a day amLODIPine Besylate 10 MG Tablet 1 tablet Orally Once a day Acetaminophen 500 MG Capsule 2 capsules Orally three times a day Wegovy 0.25 MG/0.5ML Solution Auto-injector 0.5 mL Subcutaneous weekly Cilostazol 50 MG Tablet TAKE 1 TABLET BY MOUTH TWICE A DAY 30 MINUTES BEFORE OR 2 HOURS AFTER BREAKFAST AND DINNER Nitroglycerin 0.4 MG Tablet Sublingual as directed Sublingual Taking Wegovy 0.5 MG/0.5ML Solution Auto- injector 0.5 mL Subcutaneous weekly Taking Ramipril 10 MG Capsule 1 capsule Orally Once a day Taking ProAir HFA Taking Nasacort Allergy 24HR 55 MCG/ACT Aerosol 1 spray in each nostril Nasally Once a day Taking metOLazone 2.5 MG Tablet 1 tablet Orally Once a day Taking Eliquis 5 MG Tablet 1 tablet Orally twice daily Taking Colchicine 0.6 MG Tablet 1 tablet Orally Taking Bumetanide 1 MG Tablet 1 tablet Orally Once a day Taking Breo Ellipta 100-25 MCG/ACT Aerosol Powder Breath Activated 1 puff Inhalation Once a day Taking Azelastine HCl 137 MCG/SPRAY Solution 1 puff in each nostril Nasally Twice a day Taking Atorvastatin Calcium 40 MG Tablet 1 tablet Orally Once a day Taking amLODIPine Besylate 10 MG Tablet 1 tablet Orally Once a day Taking Acetaminophen 500 MG Capsule 2 capsules Orally three times a day Taking Wegovy 0.25 MG/0.5ML Solution Auto-injector 0.5 mL Subcutaneous weekly Taking Cilostazol 50 MG Tablet TAKE 1 TABLET BY MOUTH TWICE A DAY 30 MINUTES BEFORE OR 2 HOURS AFTER BREAKFAST AND DINNER Taking Nitroglycerin 0.4 MG Tablet Sublingual as directed Sublingual Not-Taking/PRNWegovy 0.25 MG/0.5ML Solution Auto-injector 0.5 mL Subcutaneous weekly traMADol HCl 50 MG Tablet 1 tablet as needed Orally Twice a day Pregabalin 150 MG Capsule 150 MG ORALLY TWICE A DAY Oral Wegovy 0.5 MG/0.5ML Solution Auto-injector 0.5 mL Subcutaneous weekly Gabapentin 600 MG Tablet 1 tablet Orally Once a day Allopurinol 100 MG Tablet 1 tablet Orally Once a day Medication List reviewed and reconciled with the patientNot-Taking/PRN Wegovy 0.25 MG/0.5ML Solution Auto-injector 0.5 mL Subcutaneous weekly Not-Taking/PRN traMADol HCl 50 MG Tablet 1 tablet as needed Orally Twice a day Not-Taking/PRN Pregabalin 150 MG Capsule 150 MG ORALLY TWICE A DAY Oral Not-Taking/PRN Wegovy 0.5 MG/0.5ML Solution Auto- injector 0.5 mL Subcutaneous weekly Not-Taking/PRN Gabapentin 600 MG Tablet 1 tablet Orally Once a day Not-Taking/PRN Allopurinol 100 MG Tablet 1 tablet Orally Once a day Medication List reviewed and reconciled with the patient * Allergies:?no[Allergies Veri fied] Objective: * Vitals:?O2:95, BP:120/62mm H g, HR:81/min, Wt:252lbs, BMI:34.17Index, Ht: 72 in, RR:16/min. * Examination: ???General Examination: ?GENERAL APPEARANCE:?in no acute distress, well developed, well nourished.?HEAD:?normocephalic, atraumatic.?EYES:?pupils equal, round, reactive to light and accommodation.?EARS:?normal.?ORAL CAVITY:?mucosa moist.?THROAT:?clear.?NECK/THYROID:?neck supple, full range of motion, no cervical lymphadenopathy.?SKIN:?no suspicious lesions, warm and dry.?HEART:?no murmurs, irregular rate and rhythm, S1, S2 normal.?LUNGS:?clear to auscultation bilaterally.?ABDOMEN:?normal, bowel sounds present, soft, nontender, nondistended.?EXTREMITIES:?no clubbing, cyanosis, 2+ edema/bluish dyscoloration/ceap4a,decreased pulses.?NEUROLOGIC:?nonfocal, motor strength normal upper and lower extremities, sensory exam intact.? 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 Plan: * Treatment: 2.?Chest pain, unspecified? Notes: To see his cv doc-nuc/echo pnd?? * Procedure Codes:? * Follow Up:?4 Weeks * * Sign off status: Completed true * Provider:?Storm Caro MD Date:?1 Generated for Darcy carrasquillo/Wanda/eTransmitting on:?02/14/2024 08:57 AM GEOPHYSICAL OBSERVER History and Physical Notes * HPI (History of Present Illness) Category Sub-Category Detail Notes Category Not es Constitutional 78 yo wm,with bilateral feet pains/claudications,less than 2 blocks of walking makes him stop,has alots of numbness/fatigue in feet,has been treated for neuropathy,had recent worsenning of chf/hospital abmit,and abnormal vascular studies,details unknown yet.Has cad/pci/htn/Hyperlipidemia,strong family history of cad.Denies any pnd/orthopnea,cp,since dc regained 5 lbs,less claudication on Pletal,still with right leg pains on standing,loosing weight,had change of meds for his neuropathy,which did not work-had more nausea/pain,switched back to gabapentin,better now,still with cp,to see his cardio,regained weight Examination Category Sub-Category Detail Notes Category Not es General Examination GENERAL APPEARANCE: in no ac aravind distress, well developed, well nourished HEAD: normocephalic, atrau matic EYES: pupils equal, round, reactive to light and accommodation EARS: normal THROAT: clear NECK/THYROID: neck supple, full ra nge of motion, no cervical lymphadenopathy HEART: no murmurs, irregula r rate and rhythm, S1, S2 normal LUNGS: clear to auscultatio n bilaterally ABDOMEN: normal, bowel sounds present, soft, nontender, nondistended NEUROLOGIC: nonfocal, motor stre ngth normal upper and lower extremities, sensory exam intact SKIN: no suspicious lesion s, warm and dry EXTREMITIES: no clubbing, cyanosi s, 2+ edema/bluish dyscoloration/ceap4a,decreased pulses ORAL CAVITY: mucosa moist
--- OUTSIDE RECORDS SUMMARY | 2024-02-14 08:57 | XMS_ITS ---
Author Organization [facility] Address [address] [address] Care Team Providers Care Mobility Architect Manager Name Role Phone Rogelio Eppersno Primary Care Provider UnavailSTORM Granger Unavailable [phone] REASON FOR VISIT Follow up Medications Medication SIG (Take, Route, Frequency, Duration) Notes Start Date End Date Status Allopurinol 100 MG 1 tablet Orally Once a day Not-Taking Wegovy 1 MG/0.5ML 0.5 mL Subcutaneous weekly for 30 days 01/30/2024 Active Wegovy 0.5 MG/0.5ML 0.5 mL Subcutaneous weekly for 30 days 11/17/2023 Not-Taking Gabapentin 600 MG 1 tablet Orally Once a day Not-Taking Pregabalin 150 MG 150 MG ORALLY TWICE A DAY Oral for 30 Days Not-Taking Wegovy 0.25 MG/0.5ML 0.5 mL Subcutaneous weekly for 30 days 08/04/2023 Not-Taking traMADol HCl 50 MG 1 tablet as needed Orally Twice a day Not-Taking Cilostazol 50 MG TAKE 1 TABLET BY JANEY TH TWICE A DAY 30 MINUTES BEFORE OR 2 HOURS AFTER BREAKFAST AND DINNER for 90 days Active Nitroglycerin 0.4 MG as directed Subling ual for 30 days Active Acetaminophen 500 MG 2 capsules Orally t hree times a day Active Atorvastatin Calcium 40 MG 1 tablet Orally Once a day Active amLODIPine Besylate 10 MG 1 tablet Orall y Once a day Active Azelastine HCl 137 MCG/SPRAY 1 puff in each nostril Nasally Twice a day Active Breo Ellipta 100-25 MCG/ACT 1 puff Inhalation Once a day Active Bumetanide 1 MG 1 tablet Orally Once a day Active Eliquis 5 MG 1 tablet Orally twic e daily Active Colchicine 0.6 MG 1 tablet Orally Active Nasacort Allergy 24HR 55 MCG/ACT 1 spray in each nostril Nasally Once a day Active metOLazone 2.5 MG 1 tablet Orally Once a day Active Ramipril 10 MG 1 capsule Orally Onc e a day Active ProAir HFA Active Wegovy 0.5 MG/0.5ML 0.5 mL Subcutaneous weekly for 30 days 09/18/2023 Active Vital Signs Blood pressure systolic 118 mm Hg 01/30/20 24 Blood pressure diastolic 78 mm Hg 024 Heart Rate 82 /min 01/30/2024 Respiratory Rate 16 /min 01/30/2024 Height 72 in 01/30/2024 Weight 256 lbs 01/30/2024 BMI 34.72 kg/m2 01/30/2024 Encounters Encounter Location Date Provider Diagnosis [address] [address] 01/30/2024 STORM CARO 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 ; Other obesity due to excess calories E66.09 ; Paroxysmal atrial fibrillation I48.0 ; Chest pain, unspecified R07.9 and Varicose veins of bilateral lower extremities with pain I83.813 Assessments Encounter Date Diagnosis (ICD Code) Assessment Notes Treatment Notes Treatment Clinical Notes Section Notes 01/30/2024 Atherosclerotic heart disease of [place] coronary artery without angina pectoris (ICD-10 - I25.10) 01/30/2024 Other obesity due to excess calories (ICD-10 - E66.09) Gaining weight,increase wegovy to 1 .0 mg q week 01/30/2024 Paroxysmal atrial fibrillation (ICD-10 - I48.0) 01/30/2024 Chest pain, unspecified (ICD-10 - R07.9) 01/30/2024 Varicose veins of bilateral lower extremities with pain (ICD-10 - I83.813) Recommend use of 20-30mmhg graduated compression stockings today. Will continue with all conservative measures, including compression stockings, leg elevation, exercise, and NSAID-s. Will schedule for VRS of BLE to better understand patient's venous disease. Further recommendations will follow. Plan Of Treatment Medication Medication Name Sig Start Date Stop Date Notes Wegovy 1 MG/0.5ML 0.5 mL Subcutaneous weekly for 30 days 1 04/01/2023 Treatment Notes Assessment Notes Other obesity due to excess calories Gai lisa weight,increase wegovy to 1 .0 mg q week Varicose veins of bilateral lower extremities with pain Recommend use of 20-30mmhg graduated compression stockings today. Will continue with all conservative measures, including compression stockings, leg elevation, exercise, and NSAID-s. Will schedule for VRS of BLE to better understand patient's venous disease. Further recommendations will follow. Next Appt Details Follow Up: 4 Weeks, Reason: Provider Name:STORM BALDERAS, 02/27/2024 09:15:00 AM, [address], [address], Progress Notes * Vu NICOLEDOB:[birth year] (78 yo M)Acc No.[id number]:01/30/2024 Patient:?Vu NICOLE Provider:?Storm Caro MD :1945???Age:78 Y???Sex:Male Oswald e:01/30/2024 Address:[address] [place] [address] Pcp:Rogelio Epperson Subjective: * Chief Complaints: * ???Follow up * HPI: ???Constitutional:?78 yo wm,with bilateral feet [...] gabapentin,better now,still with cp,to see his cardio,regained weight,awaiting a cath,angina worse,gaining weight. * ROS:?Cardiovascular:?Admits?Chest pain.?Denies?Chest pain at rest.?Denies?Chest pain with exertion.?Admits?Claudication.?Admits?Dyspnea on exertion.?Peripheral Vascular:?Admits?Pain/cramping in legs after exertion.?Admits?Painful extremities.?Denies?Ulceration of feet.? * Medical History:? * Surgical History:? * Hospitalization/Major Diagno stic Procedure:? * Medications:?TakingWegovy 0. 5 MG/0.5ML Solution Auto-injector [...] 2 capsules Orally three times a day Cilostazol 50 MG Tablet TAKE 1 TABLET BY MOUTH TWICE A DAY 30 MINUTES BEFORE OR 2 HOURS AFTER BREAKFAST AND DINNER Nitroglycerin 0.4 MG Tablet Sublingual as directed Sublingual Taking Wegovy 0.5 MG/0.5ML Solution Auto-injector 0.5 mL Subcutaneous weekly Taking Ramipril 10 [...] capsules Orally three times a day Taking Cilostazol 50 MG Tablet TAKE 1 [...] 1 tablet Orally Once a day Not-Taking/PRN Wegovy 0.25 MG/0.5ML Solution Auto-injector 0.5 mL Subcutaneous weekly Not-Taking/PRN traMADol HCl 50 MG Tablet 1 tablet as needed Orally Twice a day Not-Taking/PRN Pregabalin 150 MG Capsule 150 MG ORALLY TWICE A DAY Oral Not-Taking/PRN Wegovy 0.5 MG/0.5ML Solution Auto-injector 0.5 mL Subcutaneous weekly Not-Taking/PRN Gabapentin 600 MG Tablet 1 tablet Orally Once a day Not-Taking/PRN Allopurinol 100 MG Tablet 1 tablet Orally Once a day DiscontinuedWegovy 0.25 MG/0.5ML Solution Auto-injector 0.5 mL Subcutaneous weekly Medication List reviewed and reconciled with the patientDiscontinued Wegovy 0.25 MG/0.5ML Solution Auto-injector 0.5 mL Subcutaneous weekly Medication List reviewed and reconciled with the patient Objective: * Vitals:?O2: 96, BP:118/78mm Hg, HR:82/min, Wt:256lbs, BMI:34.72Index, Ht: 72 in, RR:16/min. * Examination: ???General [...] calories - E66.09 (Primary)???2.?Atherosclerotic heart disease of [place] coronary artery without angina pectoris - I25.10???3.?Paroxysmal atrial fibrillation - I48.0???4.?Chest pain, unspecified - R07.9 ??5.?Varicose veins of bilateral lower extremities with pain - I83.813??? Plan: * Treatment: 2.?Varicose veins of bilater al lower extremities with pain? Notes: Recommend use of 20-30mmhg graduated compression stockings today. Will continue with all conservative measures, including compression stockings, leg elevation, exercise, and NSAID-s. Will schedule for VRS of BLE to better understand patient's venous disease. Further recommendations will follow.?? * Procedure Codes:? 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
--- OUTSIDE RECORDS SUMMARY | 2024-02-14 08:57 | XMS_ITS ---
Author Organization [facility] Address [address] [facility] [address] [address] Care Team Providers Care Oracle Distribution Consultant Name Role Phone Rogelio Epperson Primary Care Provider UnavailSTORM Granger Unavailable [phone] Medications Medication SIG (Take, Route, Fr equency, Duration) Notes Start Date End Date Status Wegovy 0.5 MG/0.5ML 0.5 mL Subcutaneous weekly for 30 days 11/17/2023 Active Encounters Encounter Location Date Provider Diagnosis [facility] [address] [facility] [address] [place], [place] [id number] 12/02/2023 STORM CARO 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 Assessments Encounter Date Diagnosis (ICD Code) Assessment Notes Treatment Notes Treatment Clinical Notes Section Notes 12/02/2023 Atherosclerotic heart disease of [place] coronary artery without angina pectoris (ICD-10 - I25.10) Plan Of Treatment Medication Medication Name Sig Start Date Stop Date Notes Wegovy 0.5 MG/0.5ML 0.5 mL Subcutaneous weekly for 30 days 11/17/2023 Next Appt Details Provider Name:STORM BALDERAS, 02/27/2024 09:15:00 AM, [address] [facility], [facility] [address], [place], [address], Progress Notes * Vu NICOLEDOB:[birth year] (78 yo M)Acc No.[id number]:12/02/2023 Patient:?Vu NICOLE :1945???Age:78 Y???Sex:Male Address:[address] [place] [address] * Refills? Continue Wegovy Solution Auto-injector, 0.5 MG/0.5ML, Subcutaneous, 2, 0.5 mL, weekly, 30 days, Refills=1 * true * Date:? 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
== END 2024-02-09 14:20 | disposition home or self-care (01) ==
PROVIDERS: PCP Family Medicine; Visit Provider Internal Medicine
PROC: 4A023N7 Measurement of Cardiac Sampling and Pressure, Left Heart, Percutaneous Approach (ICD-10-PCS; CPT 93452; principal; 2024-02-09 08:30)
DX: I25.118 Atherosclerotic heart disease of native coronary artery with other forms of angina pectoris (principal); I35.0 Nonrheumatic aortic (valve) stenosis; I48.0 Paroxysmal atrial fibrillation; I48.19 Other persistent atrial fibrillation; K21.9 Gastro-esophageal reflux disease without esophagitis; J44.9 Chronic obstructive pulmonary disease, unspecified; I11.0 Hypertensive heart disease with heart failure; I50.30 Unspecified diastolic (congestive) heart failure; G47.33 Obstructive sleep apnea (adult) (pediatric); Z99.89 Dependence on other enabling machines and devices; Z79.51 Long term (current) use of inhaled steroids; Z79.01 Long term (current) use of anticoagulants; Z79.82 Long term (current) use of aspirin; Z79.85 Long-term (current) use of injectable non-insulin antidiabetic drugs; Z98.890 Other specified postprocedural states; Z95.5 Presence of coronary angioplasty implant and graft; Z87.891 Personal history of nicotine dependence; Z86.79 Personal history of other diseases of the circulatory system; Z82.49 Family history of ischemic heart disease and other diseases of the circulatory system
CPT/HCPCS: 36415; 80048; 85025; 93458; C1769; C1887; C1894; J1644; J2003; J2250; J2305; J3010; J7040